=== PATIENT | female | born 1975 | race Caucasian/White ===

== ENCOUNTER 2022-09-22 06:25 | Day surgery (SDC) | payer MEDICAID, SELFPAY ==
[2022-09-22] VITALS (9 sets, daily range): BP systolic 104–136; BP diastolic 73–94; PULSE 70–81; RESP 12–18; TEMP 36.4–36.6; O2SAT 93–99; BMI 35.4
[2022-09-22 06:55] LABS: Internal QC Validated? YES +Cl - CLEAR BKGD; Pregnancy, Urine Negative Negative
[2022-09-22] MEDS: Lactated Ringers 1,000 ML 15 ML IV ×3 (07:06→11:44)
--- NOTE | 2022-09-22 07:32 | HP.PCM_ITS ---
History and Physical Date of Admission: 09/22/22 HISTORY OF PRESENT ILLNESS 47 year old woman presents for evaluation of painful soft tissue masses on her proximal lateral thighs bilaterally with extension toward the hip. She states that they have gradually gotten larger over that few years and have become painful over the past several months, especially when sleeping on that side or brisk walking.? The area on the right lateral thigh is more painful than the left lateral thigh. She denies any trauma to the areas.? She denies any fever.? She denies any drainage.? She comes in today for further evaluation and surgical options for treatment. PAST MEDICAL HISTORY Back problem Dysesthesia of multiple sites Mass of left thigh/hip Mass of right thigh/hip PAST SURGICAL HISTORY History of cholecystectomy ALLERGIES No Known Allergies MEDICATIONS ibuprofen thyroid FAMILY HISTORY Other - Asthma, Hypertension SOCIAL HISTORY Smoking Status:? Never smoker alcohol intake:? never substance use type:? does not use REVIEW OF SYSTEMS General - Denies fever, and weight loss. Complains about having fatigue. Eyes - Denies cataracts and glaucoma. ENT - Denies nasal congestion and sore throat. Endocrine - Denies excessive thirst and urination. She states that she has heat/cold intolerance. Skin - Denies suspicious lesions and skin cancer. She has concerns about enlarging, painful bilateral lateral thigh soft tissue masses with extension to the hip. The right is more painful than the left, especially when she sleeps or is brisk walking. Musculoskeletal - Denies joint pain, joint stiffness, weakness of muscles and joints,? and arthritis. She has intermittent back pain. Neuro - Denies headaches. Cardiovascular - Denies chest pain, fatigue, and shortness of breath with exertion. Psych - Denies anxiety and depression. Respiratory - Denies chronic cough and shortness of breath. Gastrointestinal - Denies nausea, vomiting, diarrhea, and constipation. History of gallstones and cholecystectomy. Hematologic - Denies abnormal bruising and bleeding. Genitourinary - Denies hematuria and urinary frequency. PHYSICAL EXAMINATION General - Alert and oriented. HEENT - PERRL. EOMI. Throat is clear. Neck - Supple and non-tender.? No cervical adenopathy. Lungs- Clear to auscultation. Heart - Regular rate and rhythm. Abdomen - Soft and non distended. Extremities - FROM. No axillary adenopathy.? Radial pulses are palpable.? On the bilateral aspect of her proximal thighs bilaterally with extension up toward the hip are two soft issue masses.? They are firm.? They are mobile.? No evidence of infection.? They are tender to palpation, worse on the right. ? The soft tissue mass on the right measures 18 x 17 cm and the soft tissue mass on the left measures 19 cm x 16 cm.? Neuro - CN II-XII grossly intact. Psych - Normal mood and affect. ASSESSMENT 1.? 18 cm painful soft tissue mass right proximal lateral thigh with extension toward the hip. 2.? 19 cm painful soft tissue mass left proximal lateral thigh with extension toward the hip. PLAN Patient has enlarging painful soft tissue masses on her bilateral proximal lateral thighs with extension toward the hip.? Recommend excision of these painful soft tissue masses and send them to Pathology for analysis to rule out carcinoma. Due to the large sizes of the cavities after surgery, a drain will be placed in each wound for 7-10 days to minimize seroma formation.? Thomas absorbable hemostat will also be used to minimize seroma formation.? She will need compression for 6 weeks.? She will be measured for a thigh high up to mid abdomen compression garment to be worn postoperatively. Depending on the condition of the wounds, some power assisted lipoplasty may be done to help to feather out the wound edges. Surgery will be done under general anesthesia on an outpatient basis. Will proceed with one side at a time.? Since the right side is more painful, will do that side first. Patient was informed of the risks and complications of the procedure including alternatives to surgery.? These were discussed with the patient personally.? Patient voices understanding and wishes to proceed. Some of the risks and complications were included in a form from the [employer].
--- NOTE | 2022-09-22 08:00 | TISS_PTH ---
PATIENT: MICHELLE PUTNAM [place] [facility] [place][id number] AGE/SX: 47/F ROOM: RE09/22/[address]: Dr. Francisco Kraft MD : 1975 BED: DIS: 09/22/2022 SPEC #: [id number] RECD: 09/22/22 10:44 STATUS: ZENAIDA REQ #: [id number] EDGARDO: 09/22/22 08:[address]: Francisco Kraft DEPT: SURGICAL PATHOLOGY RECD BY: Delmi Cordova ENTERED: 09/22/22 10:58 SP TYPE: Tissue Bx OTHR DR: No Primary Care Phys Tissues: TISSUE SURGICALLY REMOVED Procedures: Surgery Specimen Level III HEADER OPERATION: Excision painful soft tissue mass hip/proximal thigh PRE-OP DIAGNOSIS: 18 cm painful soft tissue mass right lateral thigh with extension toward hip TISSUE SUBMITTED: Soft tissue mass right lateral thigh with extension toward hip MICROSCOPIC DIAGNOSIS Soft tissue mass right lateral thigh, excision: Mature adipose tissue, consistent with lipoma. KIM:julia 09/24/2022 MICROSCOPIC DESCRIPTION Slides are reviewed. GROSS DESCRIPTION Received in fixative is one container labeled with the patient's name and designated soft tissue mass right lateral thigh with extension toward hip. The specimen consists of an irregular piece of yellow adipose tissue measuring 16 x 15 x 6 cm. Also present in the container are detached pieces of adipose tissue measuring in aggregate 10 x 9 x 3 cm. Sections reveal a focal area of hemorrhage without area of necrosis or cystic degeneration. Warehouse Operations Manager sections are submitted in six cassettes. / KIM:julia 09/23/2022 TC:1 CPT: 54044
[2022-09-22] MEDS: Cefazolin 2 GM in 0.9% Normal Saline 100 ML IV (08:22)
[2022-09-22] MEDS: Lidocaine 2% /Epi 1:100 (20ml) 20 ML VIAL (08:48)
[2022-09-22] MEDS: Mupirocin Ointment 22gm Tube 1 APPLIC (10:43)
--- NOTE | 2022-09-22 10:46 | PCM.OPRPT ---
Problems Associated Problem List Diagnoses (1) Mass of right thigh: (2) Mass of right hip region: (3) Dysesthesia of multiple sites: Report of Operation Date of Procedure: 09/22/22 Pre-Operative Diagnosis: 18 cm painful soft tissue mass right proximal lateral thigh with extension toward the hip. Post-Operative Diagnosis: 18 cm painful subfascial soft tissue mass right proximal lateral thigh with extension toward the hip. Surgery/Procedure Performed:: Excision 18 cm painful subfascial soft tissue mass right proximal lateral thigh with extension toward the hip with 11 cm complex closure repair. Description of Surgical Findings:: 7 year old woman presents for evaluation of painful soft tissue masses on her proximal lateral thighs bilaterally with extension toward the hip. She states that they have gradually gotten larger over that few years and have become painful over the past several months, especially when sleeping on that side or brisk walking.? The area on the right lateral thigh is more painful than the left lateral thigh. She denies any trauma to the areas.? She denies any fever.? She denies any drainage.? She comes in today for further evaluation and surgical options for treatment. Patient was informed of the risks and complications of the procedure including alternatives to surgery. These were discussed with the patient personally. Patient voices understanding and wishes to proceed. Some of the risks and complications were included in a form from the [employer]. I used Thomas absorbable hemostat, (I used 3 vials). Reference Number - [id number]. Lot Number - [id number]. Expiration - June 10, 2027. Reference Number - [id number]. Lot Number - [id number]. Expiration - April 10, 2027. Reference Number - [id number]. Lot Number - [id number]. Expiration - May 11, 2027. Surgeon: Francisco Kraft metal shaping machine operator: Imer Flores RNFA. metal shaping machine operator: ELAINE Baron Student. Type of Anesthesia: General Anesthesiologist: Wolf Mcclendon MD and Teodora Maradiaga CRNA. Specimen's removed: Painful subfascial soft tissue mass right proximal lateral thigh with extension toward the hip to Pathology. Drains: Michael. Estimated Blood Loss (mL): 150. Description of Procedure: Patient was taken to OR in supine position and was placed under general anesthesia. She was placed in the lateral position. The painful soft tissue mass right proximal lateral thigh with extension toward the hip was prepped and draped in the usual fashion. SCD's were placed for DVT prophylaxis. Perioperative antibiotics were given intravenously. A curvilinear marking was made. Using xylocaine with epinephrine, the marking was infiltrated. After waiting 5 minutes for the anesthetic to take effect, incision was made into the subcutaneous tissue until the level of Gisselle's fascia. The fascia was slightly thickened. Incision was made and the soft tissue mass was visible. Fibrous septa was noted throughout the soft tissue mass which could explain some of the pain. The soft tissue was sharply dissected at the level of Gisselle's fascia down to the tensor fascial heidi. The mass was adherent to the tensor fascia heidi. No deeper infiltration was noted. Using sharp dissection, the mass was excised off the tensor fascia heidi as the fibrous septa were released and sent to Pathology for analysis to rule out carcinoma. Hemostasis was obtained with electrocautery. The wound was irrigated with saline. I was able to do direct excision feathering at the edges of the wound, so no additional feathering with power assisted lipoplasty was needed at this time. A size 15 Michael drain was placed into the wound through a separate stab incision inferiorly and secured to the skin with 3-0 Nylon purse string suture. I sprayed the wound with Thomas absorbable hemostat to minimize seroma formation. I used three vials of Thomas. The wound was then closed in a multilayered complex closure with 3-0 Monocryl figure of eight interrupted sutures for the deep Gisselle's fascia. The deep dermis and subcutaneous tissue was approximated with 3-0 Monocryl interrupted sutures. The skin was approximated with 3-0 Prolene simple interrupted and vertical mattress interrupted sutures. Antibiotic ointment was applied to the incision followed by Kerlix gauze dressing and a compression mary kay wrap. The length of the complex closure repair was 11 cm. Patient tolerated the procedure well and was sent to PACU in satisfactory condition. Patient will be sent home on antibiotics and pain medication. Patient will followup in a week for a wound check and for discussion of the pathology report. Will remove the drain in approximately 10 days. Will remove the sutures in 2 weeks. Will keep her right leg elevated when sitting. Will put the patient into the compression garment that she will wear for at least 6 weeks. Grafts/Implants Used: Thomas. Procedure Start Time: 08:48 Procedure Stop Time: 11:03 Complications None. Admit VTE Documentation VTE Present on Admission: No VTE Mechan Device Prophylaxis: SCD's VTE Pharm Prophylaxis ordered?: No Addendum Addendum: Surgery Charges CPT - 38287 ICD-10 - R22.41, R20.8 17706 R22.41, R20.8 97737 R22.41, R20.8 51584 R22.41, R20.8
--- NOTE | 2022-09-22 11:52 | PCM.DC ---
Discharge Instructions Diet Discharge Diet: No restrictions Activity Discharge Activity: May Not Shower (until the drain is removed.) and - (elevate right leg when sitting.) May shower in (days): 10 (after the operative drain is removed.) May resume sexual activity in: 10-14 days (after the operative drain is removed.) Weight Bearing Status: Weight bearing as tolerated Keep extremity elevated above heart level: Right Leg (when sitting.) Dressing / Incision Call your doctor if your incision/area has: Continuous Slow Oozing, Sudden Increased Bleeding, Increased Pain/ Swelling, Increased Redness, Foul Smelling Discharge and Swelling at the incision site Call your doctor if you observe: Fever of 101 or Higher, Coldness, Increased Pain, Shortness of breath, Chest pain, Calf discomfort and Uncontrolled pain Change Dressing in: leave in place till F/U (will remove the operative dressing in the office and place the compression garment.) Remove Dressing in: leave in place till F/U (will remove the operative dressing in the office and place the compression garment.) Cleanse incision/area with: Keep Dressing Clean & Dry (can get incision wet in the shower after the operative drain is removed.) Drain: Suction (jose luis drain to bulb suction. Empty and record drainage daily.) Follow Up Care Please Follow Up With: Francisco Kraft MD When: Tuesday09/28/22. Call [phone] for appt time. Test Results: Test results from this visit will be discussed in further detail at your follow-up appointment, if applicable. Discharge Plan Admission Primary Reason for Your Visit: excision painful soft tissue mass right proximal lateral thigh/hip Attending Provider: Francisco Kraft Primary Care Provider: Care Physician,No Primary Discharge Orders/Prescriptions Prescriptions: New cefadroxil 500 mg capsule 1,000 mg PO BID Qty: 28 0RF L.acidoph,saliva-B.bif-S.therm [Acidophilus Probiotic Blend] 175 mg capsule 1 cap PO DAILY Qty: 20 0RF oxycodone-acetaminophen [Percocet] 5-325 mg tablet 1 tab PO Q6H PRN (Reason: pain (scale score 7-10)) 7 Days Qty: 28 0RF Rx Instructions: 28 tabs (twenty-eight) Continued thyroid 60 mg tablet 60 mg PO DAILY Referrals / Follow Up: Francisco Kraft MD [Med Staff - Active Staff] - (followup tuesday09/28/22.) Care Physician,No Primary [Primary Care Provider] - Disposition Disposition (needs filled in before D/C Order can be placed): Home, Self Care
== END 2022-09-22 14:10 | disposition home or self-care (01) ==
LOC: SDC 06:27 → AC 06:28
PROVIDERS: Anesthesiology; Referring Provider Surgery; Visit Provider Surgery
PROC: (CPT 27339; principal; 2022-09-22 07:45)
DX: D17.23 Benign lipomatous neoplasm of skin and subcutaneous tissue of right leg (principal); R20.8 Other disturbances of skin sensation; R22.42 Localized swelling, mass and lump, left lower limb; M79.605 Pain in left leg; M79.604 Pain in right leg
CPT/HCPCS: 27339; 01250; 88305; 81025; 88304; J7030; J7120; J2405

== ENCOUNTER 2022-11-01 13:15 | Outpatient (RCR) | payer MEDICAID, SELFPAY ==
[2022-10-18 10:19] VITALS: BP 117/77; PULSE 90; TEMP 35.7; BMI 34.2
[2022-10-19 11:46] VITALS: BP 133/98; PULSE 72; RESP 16; TEMP 36.1; BMI 34.2
--- NOTE | 2022-10-19 23:48 | PN.PCM_ITS ---
History of Present Illness Date of Service: 10/18/22 Chief Complaint: Nonhealing surgical wound right lateral thigh with extension toward the hip with draining seroma. History of Wound: 47 year old woman had surgery on 09/22/22 where she underwent excision 18 cm painful subfascial soft tissue mass right proximal lateral thigh with extension toward the hip with 11 cm complex closure repair. Postoperatively her initial healing was good. She had a drain in that was eventually removed on October 12, 2022. She also wore a compression garment after surgery. 3 days after her drain was pulled on October 15, 2022 she noticed drainage coming from the central aspect of the incision. She came to the office over the weekend for dressing changes. Since the drainage was still persistent at the end of the weekend, she would need a VAC to help control the drainage in order for the wound to heal. Getting a VAC approved is a little quicker when done by the Wound Center. So she presents today for continued wound care right proximal lateral thigh with extension toward the hip. She is scheduled to have a large painful soft tissue mass excised from her left proximal lateral thigh with extension toward the hip on November 10, 2022. At that time, the right proximal lateral thigh with extension toward the hip will be revised and secondarily closed. Progress of Wound: Surgical wound right proximal lateral thigh with extension toward the hip was opened up the length of the incision to make the wound care easier with the VAC and to help control the draining seroma. Objective Data Objective Data Vital Signs: Vital Signs Temp Pulse Resp BP O2 Del Method 96.9 F L 72 16 133/98 H Room Air 10/19/22 11:46 10/19/22 11:46 10/19/22 11:46 10/19/22 11:46 10/19/22 11:46 Oxygen Delivery Method Room Air Weight: 232 lb Body Mass Index (BMI) 34.2 Lab / Micro Data Attestation: I reviewed the patient's lab results. Micro: Microbiology 10/18/22 10:45 Wound Abcess - Hip Gram Stain - Final 10/18/22 10:45 Wound Abcess - Hip Wound Culture - Preliminary Gram positive organism Charges/Coding Addendum Addendum: VISIT CHARGES CPT - 59783 Debridement Note Debridement Note Wound debrided: #1 Right proximal lateral thigh with extension toward the hip. Laterality: Right Wound Grade/Stage: 2. Type of Debridement: Selective debridement (The selective debridement started after I opened up the entire incision to make the VAC easier to apply.) Anesthesia Used: 4% Lidocaine Solution Depth: Down to and including healthy tissue Percentage of wound debrided: 100 Instrument Used: - (I used 4x4 gauze to help remove any loose debris and seromatous exudate after I opened up the entire incision with my finger) Tissue Removed: down to and including healthy tissue. Severity: Limited To Skin Breakdown Amount of bleeding with debridement: Mild Bleeding Controlled with: Compression and gauze and Silver Nitrate Patient tolerated procedure: Patient tolerated procedure well Post-Debridement Measurements and Additional Note: Post-Debridement Measurements/Treatment - Nurse 1 - General Ulcer Assessment Start: 10/18/22 10:18 Freq: Status: Active Protocol: RADHA Activity Type Activity Date Activity User E-sign Co-sign Detail Recorded Client Recorded Date Recorded By Document 10/18/22 10:19 NM [id number] 10/18/22 10:43 NM Document 10/19/22 11:46 [facility] [id number] 10/19/22 11:48 [facility] 10/18/22 10/19/22 10:19 11:46 - Today's Visit Information Type of service Initial Visit Nurse-only Visit Arrival Mode Ambulatory Ambulatory Transfer Assistance None Patient Identification Verified (Name & Yes Yes ) Patient Requires Transmission-Based No No Precautions Height and Weight Height 5 ft 9 in Weight 232 lb Weight in Pounds 232.0 lbs Body Mass Index (BMI) 34.2 34.2 BMI Classification Obese Obese BSA - Kacie 2.20 Vital Signs Temperature (97.8 F-99.1 F) 96.3 F L 96.9 F L Temperature Source Temporal Temporal Pulse Rate (60-100) 90 72 Pulse Location Monitor Monitor Respiratory Rate (12-18) 16 Respiratory rate source Observation Oxygen Delivery Method Room Air Blood Pressure (90/60-120/80) 117/77 133/98 H Blood Pressure Mean (mm Hg) 90 109 Source Monitor Monitor Position Sitting Blood Pressure Location Left Arm History Since Last Visit- (Skip if this is Patient's initial visit) Have you changed medications since your No last visit? Any new allergies or adverse reactions No Had a fall/change in ADL's that may No increase risk of falls Signs or symptoms of abuse and/or No neglect since last visit Have you been in the hospital since your No last visit? Has dressing in place as prescribed No Has compression in place as prescribed N/A Has offloadiing in place as prescribed N/A Experienced any changes in pain level or No management Left Footwear Regular Shoe Regular Shoe Right Footwear Regular Shoe Regular Shoe Pain Scale: 0-10 Numeric Is Patient Pain Free? Yes Yes WC - Nurse 1 - General Ulcer Measurement Start: 10/18/22 10:18 Freq: Status: Active Protocol: Activity Type Activity Date Activity User E-sign Co-sign Detail Recorded Client Recorded Date Recorded By Document 10/18/22 10:19 BRYCE [id number] 10/18/22 10:43 AK 10/18/22 10:19 Wound Center Nurse 1 #1 lateral thigh cluster -Combined with other wound No -Current Size (cm) - Length 15.5 -Current Size (cm) - Width 0.5 -Current Size (cm) - Depth 5.5 -Total Square Cm 7.75 -Date of Last Picture (Recall this 10/18/22 field) -Photo Taken Yes -Tunneling Yes -Tunneling Position (O'clock) 12 -Tunneling Distance (cm) 12 -Tunneling Position #2 (O'clock) 6 -Tunneling Distance #2 (cm) 7 -Undermining/Tunneling No -Circular Undermining No -Change in Wound Grade/Stage No -Exudate Amt Large -Exudate Type Yellow/Green -Granulation Amt None Present (0 %) -Granulation Quality N/A -Slough/Fibrin No -Necrosis Amt Large (67-100%) -Necrotic Tissue Type Adherent Slough -Structure Exposed N/A -Texture (Laurence-wound Skin Appearance) Assessed, Scarring -Moisture (Laurence-wound Skin Appearance) Assessed, Weeping -Color (Laurence-wound Skin Appearance) No Abnormality, Assessed -Temperature (Laurence-wound Skin No Abnormality Appearance) (Pt Warm) -Tenderness on Palpation (Laurence-wound No Skin Appearance) -Foul Odor after Cleansing No -Anesthetic Used 5% Lidocaine Gel WC - Nurse 2 - General Ulcer CM Notes Start: 10/18/22 10:18 Freq: Status: Active Protocol: Activity Type Activity Date Activity User E-sign Co-sign Detail Recorded Client Recorded Date Recorded By Document 10/18/22 11:07 RODOLFO [id number] 10/18/22 11:10 10/18/22 11:07 Wound Center Nurse 2 -Time 11:07 -Correct Patient Yes -Correct Side, Site, Position Yes -Correct Procedure Yes -Procedure Performed Yes -Type of Procedure Debridement -Clinical Debridement Epidermis / Dermis -Tissue Removed Epidermis, Dermis -Post Debridement (cm) - Length 12.5 -Post Debridement (cm) - Width 2.5 -Post Debridement (cm) - Depth 7.5 -Total Square (Post) (cm) 31.25 -Area of Debridement (cm) - Length 12.5 -Area of Debridement (cm) - Width 2.5 -Total Square (Area) (cm) 31.25 -Tunneling No -Undermining/Tunneling No -Circular Undermining No -Wound/Ulcer Outcome Not Healed -Ulcer Cleansing Rinsed/ Irrigated with Saline -Foul Odor after Cleansing No -Bioengineered Tissue No -Bleeding Controlled with Pressure -Treatment Response Procedure Tolerated Well -Offloading No -Debridement - Open, 1st 20sq cm Yes -Debridement, Open, ea addt'l 20sq cm 1 or part thereof Pain Scale: 0-10 Numeric Is Patient Pain Free? Yes WC - Nurse 3 - General Ulcer D/C NN Start: 10/18/22 10:18 Freq: Status: Active Protocol: Activity Type Activity Date Activity User E-sign Co-sign Detail Recorded Client Recorded Date Recorded By Document 10/18/22 10:19 AK [id number] 10/18/22 10:43 AK Document 10/18/22 11:18 DL [id number] 10/18/22 11:20 DL Document 10/19/22 11:46 [facility] [id number] 10/19/22 11:48 BMF 10/18/22 10/18/22 10/19/22 10:19 11:18 11:46 Vital Signs Temperature (97.8 F-99.1 F) 96.3 F L 96.9 F L Temperature Source Temporal Temporal Pulse Rate (60-100) 90 72 Pulse Location Monitor Monitor Respiratory Rate (12-18) 16 Respiratory rate source Observation Oxygen Delivery Method Room Air Blood Pressure (90/60-120/80) 117/77 133/98 H Blood Pressure Mean (mm Hg) 90 109 Source Monitor Monitor Position Sitting Blood Pressure Location Left Arm Pain Scale: 0-10 Numeric Is Patient Pain Free? Yes Yes Yes Wound Care Nurse 3 #1 lateral thigh cluster -Ulcer Cleansing Soap and Water Soap and Water -Foul Odor after Cleansing No No -Primary Dressing Applied Optilok 8x12 -Other Dressing dakins dakins moist gauze -Primary Dressing Covered/Secured with Dry Gauze, Secured with Secured with Tape Tape -Other Covering abd -Optilok 8x12 3 Treatment Response Procedure Procedure Tolerated Well Tolerated Well WC - Visit Discharge Discharge Condition Stable Stable Ambulatory Status Ambulatory Ambulatory Transportation Private Auto Private Auto Notes: Packed with dakins today and until NPT arrives. Assessment/Plan Assessment/Plan (1) Mass of right hip region: CODE(S): R22.41 - Localized swelling, mass and lump, right lower limb (2) Mass of right thigh: CODE(S): R22.41 - Localized swelling, mass and lump, right lower limb (3) Pain in right leg: CODE(S): M79.604 - Pain in right leg (4) Lipoma of right lower extremity: CODE(S): D17.23 - Benign lipomatous neoplasm of skin and subcutaneous tissue of right leg (5) Status post excision of lipoma: CODE(S): Z98.890 - Other specified postprocedural states; Z86.018 - Personal history of other benign neoplasm (6) Postoperative seroma of subcutaneous tissue after dermatologic procedure: CODE(S): L76.33 - Postprocedural seroma of skin and subcutaneous tissue following a dermatologic procedure (7) Nonhealing surgical wound: CODE(S): T81.89XA - Other complications of procedures, not elsewhere classified, initial encounter PLAN: Plan After opening the incision the entire length and obtaining hemostasis with silver nitrate chemical cauterization. The wound would benefit from the use of the VAC. In the meantime, will start daily Dakin's dressing changes until the VAC becomes approved. Home Health will assist with the VAC. A wound culture was obtained today. A positive culture will necessitate antibiotic therapy. She is scheduled for a similar surgery on her left proximal lateral thigh with extension toward the hip on November 10, 2022. By using the VAC, the right proximal lateral thigh with extension toward the hip wound should exhibit improved healing with granulation tissue and without evidence of infection. We should be able to proceed with revision of the wound with surgical preparation and excisional debridement with complex secondary wound closure. We may place the VAC on the incision postoperatively to help draw out any postoperative drainage and maximize her healing. With the size of the wound and the recent surgery, there will be increased metabolic demands. Encouraged the patient to maximize nutritional supplementation with protein to help the healing process. Followup one week.
[2022-10-25 14:18] VITALS: BP 134/68; TEMP 36.2; BMI 34.2
--- NOTE | 2022-10-25 15:05 | PCM.WC.PN ---
History of Present Illness Date of Service: 10/25/22 Chief Complaint: Nonhealing surgical wound right lateral thigh with extension toward the hip with draining seroma. History of Wound: 47 year old woman had surgery on 09/22/22 where she underwent excision 18 cm painful subfascial soft tissue mass right proximal lateral thigh with extension toward the hip with 11 cm complex closure repair. Postoperatively her initial healing was good. She had a drain in that was eventually removed on October 12, 2022. She also wore a compression garment after surgery. 3 days after her drain was pulled on October 15, 2022 she noticed drainage coming from the central aspect of the incision. She came to the office over the weekend for dressing changes. Since the drainage was still persistent at the end of the weekend, she would need a VAC to help control the drainage in order for the wound to heal. She presents today for continued wound care right proximal lateral thigh with extension toward the hip. She is scheduled to have a large painful soft tissue mass excised from her left proximal lateral thigh with extension toward the hip on November 10, 2022. At that time, the right proximal lateral thigh with extension toward the hip will be revised and secondarily closed. Wound care - Wound VAC at 150 mmHg to be changed 3 times per week. Today she denies any complaints of fever, chills, nausea, vomiting or any pain. Progress of Wound: Surgical wound right proximal lateral thigh with extension toward the hip is pink with some fat necrosis on the anterior edge of the incision. There is undermining around the entire circumference of the wound opening. Objective Data Objective Data Vital Signs: Vital Signs Temp Pulse Resp BP O2 Del Method 97.2 F L 72 16 134/68 H Room Air 10/25/22 14:18 10/19/22 11:46 10/19/22 11:46 10/25/22 14:18 10/19/22 11:46 Oxygen Delivery Method Room Air Weight: 232 lb Body Mass Index (BMI) 34.2 Lab / Micro Data Micro: Microbiology 10/18/22 10:45 Wound Abcess - Hip Gram Stain - Final 10/18/22 10:45 Wound Abcess - Hip Wound Culture - Final Staphylococcus epidermidis Corynebacterium amycolatum 10/18/22 10:45 Wound Abcess - Hip Anaerobic Culture - Final No anaerobic bacteria isolated. Charges/Coding Procedures Integumentary [id number]: 97408 Global Visit Debridement Note Debridement Note Wound debrided: lateral thigh Laterality: Right Wound Grade/Stage: Stage IV Type of Debridement: Excisional debridement Anesthesia Used: 5% Lidocaine Gel Depth: Down to and including healthy tissue, in the subcutaneous layer and to muscle Percentage of wound debrided: 100 Instrument Used: 7mm curette Tissue Removed: Devitalized tissue and slough Severity: Fat Layer Exposed Amount of bleeding with debridement: Mild Bleeding Controlled with: Compression and gauze Patient tolerated procedure: Patient tolerated procedure well Post-Debridement Measurements and Additional Note: Post-Debridement Measurements/Treatment - Nurse 1 - General Ulcer Assessment Start: 10/18/22 10:18 Freq: Status: Active Protocol: RADHA Activity Type Activity Date Activity User E-sign Co-sign Detail Recorded Client Recorded Date Recorded By Document 10/18/22 10:19 ID [id number] 10/18/22 10:43 ID Document 10/19/22 11:46 [facility] [id number] 10/19/22 11:48 [facility] Document 10/25/22 14:18 ID [id number] 10/25/22 14:32 ID 10/18/22 10/19/22 10/25/22 10:19 11:46 14:18 - Today's Visit Information Type of service Initial Visit Nurse-only Follow-up Visit Visit (Physician/CLINICAL SUPPORT NURSE ) Arrival Mode Ambulatory Ambulatory Ambulatory Transfer Assistance None Patient Identification Verified (Name & Yes Yes Yes ) Patient Requires Transmission-Based No No No Precautions Safety Precautions NA Height and Weight Height 5 ft 9 in Weight 232 lb Weight in Pounds 232.0 lbs Body Mass Index (BMI) 34.2 34.2 34.2 BMI Classification Obese Obese Obese BSA - Kacie 2.20 Vital Signs Temperature (97.8 F-99.1 F) 96.3 F L 96.9 F L 97.2 F L Temperature Source Temporal Temporal Temporal Pulse Rate (60-100) 90 72 Pulse Location Monitor Monitor Respiratory Rate (12-18) 16 Respiratory rate source Observation Oxygen Delivery Method Room Air Blood Pressure (90/60-120/80) 117/77 133/98 H 134/68 H Blood Pressure Mean (mm Hg) 90 109 90 Source Monitor Monitor Monitor Position Sitting Blood Pressure Location Left Arm History Since Last Visit- (Skip if this is Patient's initial visit) Have you changed medications since your No No last visit? Any new allergies or adverse reactions No No Had a fall/change in ADL's that may No No increase risk of falls Signs or symptoms of abuse and/or No No neglect since last visit Have you been in the hospital since your No No last visit? Has dressing in place as prescribed No Yes Has compression in place as prescribed N/A Yes Has offloadiing in place as prescribed N/A N/A Experienced any changes in pain level or No No management Left Footwear Regular Shoe Regular Shoe Regular Shoe Right Footwear Regular Shoe Regular Shoe Regular Shoe Pain Scale: 0-10 Numeric Is Patient Pain Free? Yes Yes Yes WC - Nurse 1 - General Ulcer Measurement Start: 10/18/22 10:18 Freq: Status: Active Protocol: Activity Type Activity Date Activity User E-sign Co-sign Detail Recorded Client Recorded Date Recorded By Document 10/18/22 10:19 ID [id number] 10/18/22 10:43 AK Document 10/25/22 14:18 ID [id number] 10/25/22 14:32 AK 10/18/22 10/25/22 10:19 14:18 Wound Center Nurse 1 #1 right lateral thigh cluster -Combined with other wound No No -Current Size (cm) - Length 15.5 10 -Current Size (cm) - Width 0.5 3.5 -Current Size (cm) - Depth 5.5 1.5 -Total Square Cm 7.75 35.0 -Date of Last Picture (Recall this 10/18/22 10/25/22 field) -Photo Taken Yes Yes -Tunneling Yes Yes -Tunneling Position (O'clock) 12 12 -Tunneling Distance (cm) 12 4.5 -Tunneling Position #2 (O'clock) 6 10 -Tunneling Distance #2 (cm) 7 6.5 -Undermining/Tunneling No No -Maximum Distance (cm) 3.5 -Undermining/Tunneling Starts #2 (O' 6 clock) -Undermining/Tunneling Ends #2 (O' 3 clock) -Maximum Distance #2 (cm) 6.8 -Circular Undermining No No -Change in Wound Grade/Stage No No -Exudate Amt Large Large -Exudate Type Yellow/Green Yellow/Green -Wound Margin Distinct, Outline Attached -Granulation Amt None Present (0 Large (67-100%) %) -Granulation Quality N/A Red -Slough/Fibrin No Yes -Necrosis Amt Large (67-100%) Medium (34-66%) -Necrotic Tissue Type Adherent Slough Adherent Slough -Structure Exposed N/A N/A -Texture (Skye-wound Skin Appearance) Assessed, No Abnormality, Scarring Assessed -Moisture (Skye-wound Skin Appearance) Assessed, No Abnormality, Weeping Assessed -Color (Skye-wound Skin Appearance) No Abnormality, No Abnormality, Assessed Assessed -Temperature (Skye-wound Skin No Abnormality No Abnormality Appearance) (Pt Warm) (Pt Warm) -Tenderness on Palpation (Skye-wound No No Skin Appearance) -Ulcer Cleansing Soap and Water -Foul Odor after Cleansing No No -Anesthetic Used 5% Lidocaine 4% Lidocaine Gel Solution Lower Limb Edema Present No WC - Nurse 2 - General Ulcer CM Notes Start: 10/18/22 10:18 Freq: Status: Active Protocol: Activity Type Activity Date Activity User E-sign Co-sign Detail Recorded Client Recorded Date Recorded By Document 10/18/22 11:07 [id number] 10/18/22 11:10 Document 10/25/22 14:38 [id number] 10/25/22 14:46 10/18/22 10/25/22 11:07 14:38 Wound Center Nurse 2 #1 right lateral thigh cluster -Time 11:07 14:38 -Correct Patient Yes Yes -Correct Side, Site, Position Yes Yes -Correct Procedure Yes Yes -Procedure Performed Yes Yes -Type of Procedure Debridement Debridement -Clinical Debridement Epidermis / Muscle / Fascia Dermis -Tissue Removed Epidermis, Muscle,Fascia Dermis -Post Debridement (cm) - Length 12.5 11 -Post Debridement (cm) - Width 2.5 3.0 -Post Debridement (cm) - Depth 7.5 2.7 -Total Square (Post) (cm) 31.25 33.0 -Area of Debridement (cm) - Length 12.5 11 -Area of Debridement (cm) - Width 2.5 3.0 -Total Square (Area) (cm) 31.25 33.0 -Tunneling No No -Undermining/Tunneling No No -Circular Undermining No No -Wound/Ulcer Outcome Not Healed Not Healed -Ulcer Cleansing Rinsed/ Rinsed/ Irrigated with Irrigated with Saline Saline -Foul Odor after Cleansing No No -Bioengineered Tissue No No -Bleeding Controlled with Pressure Pressure -Treatment Response Procedure Procedure Tolerated Well Tolerated Well -Offloading No No -Debridement - Open, 1st 20sq cm Yes -Debridement, Open, ea addt'l 20sq cm 1 or part thereof -Debridement - Muscle / Fascia, 1st Yes 20sq cm -Debridement, Muscle/Fascia, ea addt'l 1 20sq cm or part thereof Pain Scale: 0-10 Numeric Is Patient Pain Free? Yes Yes - Nurse 3 - General Ulcer D/C NN Start: 10/18/22 10:18 Freq: Status: Active Protocol: Activity Type Activity Date Activity User E-sign Co-sign Detail Recorded Client Recorded Date Recorded By Document 10/18/22 10:19 AK [id number] 10/18/22 10:43 AK Document 10/18/22 11:18 DL [id number] 10/18/22 11:20 DL Document 10/19/22 11:46 BMF [id number] 10/19/22 11:48 BMF 10/18/22 10/18/22 10/19/22 10:19 11:18 11:46 Vital Signs Temperature (97.8 F-99.1 F) 96.3 F L 96.9 F L Temperature Source Temporal Temporal Pulse Rate (60-100) 90 72 Pulse Location Monitor Monitor Respiratory Rate (12-18) 16 Respiratory rate source Observation Oxygen Delivery Method Room Air Blood Pressure (90/60-120/80) 117/77 133/98 H Blood Pressure Mean (mm Hg) 90 109 Source Monitor Monitor Position Sitting Blood Pressure Location Left Arm Pain Scale: 0-10 Numeric Is Patient Pain Free? Yes Yes Yes Wound Care Nurse 3 #1 right lateral thigh cluster -Ulcer Cleansing Soap and Water Soap and Water -Foul Odor after Cleansing No No -Primary Dressing Applied Optilok 8x12 -Other Dressing dakins dakins moist gauze -Primary Dressing Covered/Secured with Dry Gauze, Secured with Secured with Tape Tape -Other Covering abd -Optilok 8x12 3 Treatment Response Procedure Procedure Tolerated Well Tolerated Well WC - Visit Discharge Discharge Condition Stable Stable Ambulatory Status Ambulatory Ambulatory Transportation Private Auto Private Auto Notes: Packed with dakins today and until NPT arrives. Assessment/Plan Assessment/Plan (1) Mass of right hip region: CODE(S): R22.41 - Localized swelling, mass and lump, right lower limb (2) Mass of right thigh: CODE(S): R22.41 - Localized swelling, mass and lump, right lower limb (3) Pain in right leg: CODE(S): M79.604 - Pain in right leg (4) Lipoma of right lower extremity: CODE(S): D17.23 - Benign lipomatous neoplasm of skin and subcutaneous tissue of right leg (5) Status post excision of lipoma: CODE(S): Z98.890 - Other specified postprocedural states; Z86.018 - Personal history of other benign neoplasm (6) Postoperative seroma of subcutaneous tissue after dermatologic procedure: CODE(S): L76.33 - Postprocedural seroma of skin and subcutaneous tissue following a dermatologic procedure (7) Nonhealing surgical wound: CODE(S): T81.89XA - Other complications of procedures, not elsewhere classified, initial encounter PLAN: Plan Patient was evaluated at the wound healing center today. Wound care - Wound VAC at 150 mmHg to be changed 3 times per week. The wound and skye wound need to be cleansed with soap and water at the time of the dressing change. Home Health will assist with the VAC. A wound culture was obtained 10/18/2022, she is being treated with Levaquin. She is scheduled for a similar surgery on her left proximal lateral thigh with extension toward the hip on November 10, 2022. By using the VAC, the right proximal lateral thigh with extension toward the hip wound should exhibit improved healing with granulation tissue and without evidence of infection. We should be able to proceed with revision of the wound with surgical preparation and excisional debridement with complex secondary wound closure. We may place the VAC on the incision postoperatively to help draw out any postoperative drainage and maximize her healing. With the size of the wound and the recent surgery, there will be increased metabolic demands. Encouraged the patient to maximize nutritional supplementation with protein to help the healing process. Encouraged patient to try and not be as active as she typically is. With increased activity, it will increase the amount of drainage. Followup one week.
[2022-11-01 13:13] VITALS: BP 127/79; PULSE 89; RESP 20; TEMP 36.6; BMI 34.2
--- NOTE | 2022-11-01 14:30 | PN.PCM_ITS ---
History of Present Illness Date of Service: 11/01/22 Chief Complaint: Nonhealing surgical wound right lateral thigh with extension toward the hip with draining seroma. History of Wound: 47 year old woman had surgery on 09/22/22 where she underwent excision 18 cm painful subfascial soft tissue mass right proximal lateral thigh with extension toward the hip with 11 cm complex closure repair. Postoperatively her initial healing was good. She had a drain in that was eventually removed on October 12, 2022. She also wore a compression garment after surgery. 3 days after her drain was pulled on October 15, 2022 she noticed drainage coming from the central aspect of the incision. She came to the office over the weekend for dressing changes. Since the drainage was still persistent at the end of the weekend, she would need a VAC to help control the drainage in order for the wound to heal. She presents today for continued wound care right proximal lateral thigh with extension toward the hip. She is scheduled to have a large painful soft tissue mass excised from her left proximal lateral thigh with extension toward the hip on November 10, 2022. At that time, the right proximal lateral thigh with extension toward the hip will be revised and secondarily closed. Wound care - Wound VAC at 150 mmHg to be changed 3 times per week. Today she denies any complaints of fever, chills, nausea, vomiting or any pain. Progress of Wound: Surgical wound right proximal lateral thigh with extension toward the hip is pink with some fat necrosis on the anterior edge of the incision. There is undermining around the entire circumference of the wound opening but it is smaller in size and depth. Objective Data Objective Data Vital Signs: Vital Signs Temp Pulse Resp BP O2 Del Method 97.8 F 89 20 H 127/79 H Room Air 11/01/22 13:13 11/01/22 13:13 11/01/22 13:13 11/01/22 13:13 10/19/22 11:46 Oxygen Delivery Method Room Air Weight: 232 lb Body Mass Index (BMI) 34.2 Lab / Micro Data Micro: Microbiology 10/18/22 10:45 Wound Abcess - Hip Gram Stain - Final 10/18/22 10:45 Wound Abcess - Hip Wound Culture - Final Staphylococcus epidermidis Corynebacterium amycolatum 10/18/22 10:45 Wound Abcess - Hip Anaerobic Culture - Final No anaerobic bacteria isolated. Charges/Coding Procedures Integumentary [id number]: [id number] Global Visit Debridement Note Debridement Note Wound debrided: lateral thigh Laterality: Right Wound Grade/Stage: Stage IV Type of Debridement: Excisional debridement Anesthesia Used: 5% Lidocaine Gel Depth: Down to and including healthy tissue, in the subcutaneous layer and to muscle Percentage of wound debrided: 100 Instrument Used: 7mm curette Tissue Removed: Devitalized tissue and slough Severity: Fat Layer Exposed Amount of bleeding with debridement: Mild Bleeding Controlled with: Compression and gauze Patient tolerated procedure: Patient tolerated procedure well Post-Debridement Measurements and Additional Note: Post-Debridement Measurements/Treatment - Nurse 1 - General Ulcer Assessment Start: 10/18/22 10:18 Freq: Status: Active Protocol: RADHA Activity Type Activity Date Activity User E-sign Co-sign Detail Recorded Client Recorded Date Recorded By Document 10/18/22 10:19 [place] [id number] 10/18/22 10:43 [place] Document 10/19/22 11:46 [facility] [id number] 10/19/22 11:48 [facility] Document 10/25/22 14:18 [place] [id number] 10/25/22 14:32 [place] Document 11/01/22 13:13 DL [id number] 11/01/22 13:25 DL 10/18/22 10/19/22 10/25/22 10:19 11:46 14:18 - Today's Visit Information Type of service Initial Visit Nurse-only Follow-up Visit Visit (Physician/[employer]TER ) Arrival Mode Ambulatory Ambulatory Ambulatory Transfer Assistance None Patient Identification Verified (Name & Yes Yes Yes ) Patient Requires Transmission-Based No No No Precautions Safety Precautions NA Height and Weight Height 5 ft 9 in Weight 232 lb Weight in Pounds 232.0 lbs Body Mass Index (BMI) 34.2 34.2 34.2 BMI Classification Obese Obese Obese BSA - Kacie 2.20 Vital Signs Temperature (97.8 F-99.1 F) 96.3 F L 96.9 F L 97.2 F L Temperature Source Temporal Temporal Temporal Pulse Rate (60-100) 90 72 Pulse Location Monitor Monitor Respiratory Rate (12-18) 16 Respiratory rate source Observation Oxygen Delivery Method Room Air Blood Pressure (90/60-120/80) 117/77 133/98 H 134/68 H Blood Pressure Mean (mm Hg) 90 109 90 Source Monitor Monitor Monitor Position Sitting Blood Pressure Location Left Arm History Since Last Visit- (Skip if this is Patient's initial visit) Have you changed medications since your No No last visit? Any new allergies or adverse reactions No No Had a fall/change in ADL's that may No No increase risk of falls Signs or symptoms of abuse and/or No No neglect since last visit Have you been in the hospital since your No No last visit? Has dressing in place as prescribed No Yes Has compression in place as prescribed N/A Yes Has offloadiing in place as prescribed N/A N/A Experienced any changes in pain level or No No management Left Footwear Regular Shoe Regular Shoe Regular Shoe Right Footwear Regular Shoe Regular Shoe Regular Shoe Pain Scale: 0-10 Numeric Is Patient Pain Free? 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 ) Arrival Mode Ambulatory Transfer Assistance None Patient Identification Verified (Name & Yes ) Patient Requires Transmission-Based No Precautions Safety Precautions Height and Weight Height Weight Weight in Pounds Body Mass Index (BMI) 34.2 BMI Classification Obese BSA - Kacie Vital Signs Temperature (97.8 F-99.1 F) 97.8 F Temperature Source Temporal Pulse Rate (60-100) 89 Pulse Location Monitor Respiratory Rate (12-18) 20 H Respiratory rate source Observation Oxygen Delivery Method Blood Pressure (90/60-120/80) 127/79 H Blood Pressure Mean (mm Hg) 95 Source Monitor Position Blood Pressure Location History Since Last Visit- (Skip if this is Patient's initial visit) Have you changed medications since your No last visit? Any new allergies or adverse reactions No Had a fall/change in ADL's that may No increase risk of falls Signs or symptoms of abuse and/or No neglect since last visit Have you been in the hospital since your No last visit? Has dressing in place as prescribed Yes Has compression in place as prescribed N/A Has offloadiing in place as prescribed N/A Experienced any changes in pain level or No management Left Footwear Right Footwear Pain Scale: 0-10 Numeric Is Patient Pain Free? Yes - Nurse 1 - General Ulcer Measurement Start: 10/18/22 10:18 Freq: Status: Active Protocol: Activity Type Activity Date Activity User E-sign Co-sign Detail Recorded Client Recorded Date Recorded By Document 10/18/22 10:19 AK [id number] 10/18/22 10:43 AK Document 10/25/22 14:18 AK [id number] 10/25/22 14:32 AK Document 11/01/22 13:13 DL [id number] 11/01/22 13:25 DL 10/18/22 10/25/22 11/01/22 10:19 14:18 13:13 Wound Center Nurse 1 #1 right lateral thigh cluster -Combined with other wound No No -Current Size (cm) - Length 15.5 10 9.2 -Current Size (cm) - Width 0.5 3.5 3 -Current Size (cm) - Depth 5.5 1.5 2.2 -Total Square Cm 7.75 35.0 27.6 -Date of Last Picture (Recall this 10/18/22 10/25/22 field) -Photo Taken Yes Yes Yes -Tunneling Yes Yes -Tunneling Position (O'clock) 12 12 -Tunneling Distance (cm) 12 4.5 -Tunneling Position #2 (O'clock) 6 10 -Tunneling Distance #2 (cm) 7 6.5 -Undermining/Tunneling No No -Maximum Distance (cm) 3.5 -Undermining/Tunneling Starts #2 (O' 6 clock) -Undermining/Tunneling Ends #2 (O' 3 clock) -Maximum Distance #2 (cm) 6.8 0.5 -Circular Undermining No No Yes -Change in Wound Grade/Stage No No -Exudate Amt Large Large Medium -Exudate Type Yellow/Green Yellow/Green Serosanguineous -Wound Margin Distinct, Distinct, Outline Outline Attached Attached -Granulation Amt None Present (0 Large (67-100%) Large (67-100%) %) -Granulation Quality N/A Red Red -Slough/Fibrin No Yes -Necrosis Amt Large (67-100%) Medium (34-66%) Small (1-33%) -Necrotic Tissue Type Adherent Slough Adherent Slough Adherent Slough -Structure Exposed N/A N/A N/A -Texture (Skye-wound Skin Appearance) Assessed, No Abnormality, Scarring Scarring Assessed -Moisture (Skye-wound Skin Appearance) Assessed, No Abnormality, No Abnormality Weeping Assessed -Color (Skye-wound Skin Appearance) No Abnormality, No Abnormality, No Abnormality Assessed Assessed -Temperature (Skye-wound Skin No Abnormality No Abnormality No Abnormality Appearance) (Pt Warm) (Pt Warm) (Pt Warm) -Tenderness on Palpation (Skye-wound No No Skin Appearance) -Ulcer Cleansing Soap and Water Soap and Water -Foul Odor after Cleansing No No -Anesthetic Used 5% Lidocaine 4% Lidocaine 4% Lidocaine Gel Solution Solution Lower Limb Edema Present No WC - Nurse 2 - General Ulcer CM Notes Start: 10/18/22 10:18 Freq: Status: Active Protocol: Activity Type Activity Date Activity User E-sign Co-sign Detail Recorded Client Recorded Date Recorded By Document 10/18/22 11:07 [id number] 10/18/22 11:10 Document 10/25/22 14:38 [id number] 10/25/22 14:46 Document 11/01/22 13:42 [id number] 11/01/22 13:45 10/18/22 10/25/22 11/01/22 11:07 14:38 13:42 Wound Center Nurse 2 #1 right lateral thigh cluster -Time 11:07 14:38 13:43 -Correct Patient Yes Yes Yes -Correct Side, Site, Position Yes Yes Yes -Correct Procedure Yes Yes Yes -Procedure Performed Yes Yes Yes -Type of Procedure Debridement Debridement Debridement -Clinical Debridement Epidermis / Muscle / Fascia Muscle / Fascia Dermis -Tissue Removed Epidermis, Muscle,Fascia Muscle,Fascia Dermis -Post Debridement (cm) - Length 12.5 11 9.7 -Post Debridement (cm) - Width 2.5 3.0 4.0 -Post Debridement (cm) - Depth 7.5 2.7 2.0 -Total Square (Post) (cm) 31.25 33.0 38.80 -Area of Debridement (cm) - Length 12.5 11 9.7 -Area of Debridement (cm) - Width 2.5 3.0 4.0 -Total Square (Area) (cm) 31.25 33.0 38.80 -Tunneling No No No -Undermining/Tunneling No No No -Circular Undermining No No Yes -Wound/Ulcer Outcome Not Healed Not Healed Not Healed -Ulcer Cleansing Rinsed/ Rinsed/ Rinsed/ Irrigated with Irrigated with Irrigated with Saline Saline Saline -Foul Odor after Cleansing No No No -Bioengineered Tissue No No No -Bleeding Controlled with Pressure Pressure Pressure -Treatment Response Procedure Procedure Procedure Tolerated Well Tolerated Well Tolerated Well -Offloading No No No -Debridement - Open, 1st 20sq cm Yes -Debridement, Open, ea addt'l 20sq cm 1 or part thereof -Debridement - Muscle / Fascia, 1st Yes Yes 20sq cm -Debridement, Muscle/Fascia, ea addt'l 1 1 20sq cm or part thereof Pain Scale: 0-10 Numeric Is Patient Pain Free? Yes Yes Yes WC - Nurse 3 - General Ulcer D/C NN Start: 10/18/22 10:18 Freq: Status: Active Protocol: Activity Type Activity Date Activity User E-sign Co-sign Detail Recorded Client Recorded Date Recorded By Document 10/18/22 10:19 AK [id number] 10/18/22 10:43 AK Document 10/18/22 11:18 DL [id number] 10/18/22 11:20 DL Document 10/19/22 11:46 [facility] [id number] 10/19/22 11:48 [facility] Document 10/25/22 15:33 AK [id number] 10/25/22 15:35 [place] Document 11/01/22 14:01 DL [id number] 11/01/22 14:03 DL 10/18/22 10/18/22 10/19/22 10:19 11:18 11:46 Vital Signs Temperature (97.8 F-99.1 F) 96.3 F L 96.9 F L Temperature Source Temporal Temporal Pulse Rate (60-100) 90 72 Pulse Location Monitor Monitor Respiratory Rate (12-18) 16 Respiratory rate source Observation Oxygen Delivery Method Room Air Blood Pressure (90/60-120/80) 117/77 133/98 H Blood Pressure Mean (mm Hg) 90 109 Source Monitor Monitor Position Sitting Blood Pressure Location Left Arm Pain Scale: 0-10 Numeric Is Patient Pain Free? Yes Yes Yes Wound Care Nurse 3 #1 right lateral thigh cluster -Ulcer Cleansing Soap and Water Soap and Water -Foul Odor after Cleansing No No -Negative Pressure Wound Therapy -Setting (mmHg) -Negative Pressure is -Regranex (If Applicable) -Primary Dressing Applied Optilok 8x12 -Other Dressing dakins dakins moist gauze -Primary Dressing Covered/Secured with Dry Gauze, Secured with Secured with Tape Tape -Other Covering abd -NPWT Application Charge -Optilok 8x12 3 Treatment Response Procedure Procedure Tolerated Well Tolerated Well WC - Visit Discharge Discharge Condition Stable Stable Ambulatory Status Ambulatory Ambulatory Transportation [facility] Accompanied by Medication Reconcilliation completed & provided to patient/care provider Clinical Summary of Care Provided Notes: Packed with dakins today and until NPT arrives. Facility Type Orders Sent 10/25/22 11/01/22 15:33 14:01 Vital Signs Temperature (97.8 F-99.1 F) Temperature Source Pulse Rate (60-100) Pulse Location Respiratory Rate (12-18) Respiratory rate source Oxygen Delivery Method Blood Pressure (90/60-120/80) Blood Pressure Mean (mm Hg) Source Position Blood Pressure Location Pain Scale: 0-10 Numeric Is Patient Pain Free? No Yes Wound Care Nurse 3 #1 right lateral thigh cluster -Ulcer Cleansing Soap and Water Rinsed/ Irrigated with Saline -Foul Odor after Cleansing No No -Negative Pressure Wound Therapy N/A Continue -Setting (mmHg) 150 150 -Negative Pressure is Continuous Continuous -Regranex (If Applicable) Continue -Primary Dressing Applied -Other Dressing -Primary Dressing Covered/Secured with -Other Covering -NPWT Application Charge NPWT & NPWT </= 50 sq Debridement (nc cm ($) ) -Optilok 8x12 Treatment Response Procedure Tolerated Well WC - Visit Discharge Discharge Condition Stable Stable Ambulatory Status Ambulatory Ambulatory Transportation [facility] Accompanied by daughter Medication Reconcilliation completed & Yes provided to patient/care provider Clinical Summary of Care Provided Yes Notes: Facility Type Home Health Orders Sent Yes Assessment/Plan Assessment/Plan (1) Mass of right hip region: CODE(S): R22.41 - Localized swelling, mass and lump, right lower limb (2) Mass of right thigh: CODE(S): R22.41 - Localized swelling, mass and lump, right lower limb (3) Pain in right leg: CODE(S): M79.604 - Pain in right leg (4) Lipoma of right lower extremity: CODE(S): D17.23 - Benign lipomatous neoplasm of skin and subcutaneous tissue of right leg (5) Status post excision of lipoma: CODE(S): Z98.890 - Other specified postprocedural states; Z86.018 - Personal history of other benign neoplasm (6) Postoperative seroma of subcutaneous tissue after dermatologic procedure: CODE(S): L76.33 - Postprocedural seroma of skin and subcutaneous tissue following a dermatologic procedure (7) Nonhealing surgical wound: CODE(S): T81.89XA - Other complications of procedures, not elsewhere classified, initial encounter PLAN: Plan Patient was evaluated at the wound healing center today. Wound care - Wound VAC at 150 mmHg to be changed 3 times per week. The wound and skye wound need to be cleansed with soap and water at the time of the dr essing change. Home Health will assist with the VAC. A wound culture was obtained 10/18/2022, she is being treated with Levaquin. She is scheduled for a similar surgery on her left proximal lateral thigh with extension toward the hip on November 10, 2022. By using the VAC, the right proximal lateral thigh with extension toward the hip wound should exhibit improved healing with granulation tissue and without evidence of infection. We should be able to proceed with revision of the wound with surgical preparation and excisional debridement with complex secondary wound closure. We may place t he VAC on the incision postoperatively to help draw out any postoperative drainage and maximize her healing. With the size of the wound and the recent surgery, there will be increased metabolic demands. Encouraged the patient to maximize nutritional supplementation with protein to help the healing process. Encouraged patient to try and not be as active as she typically is. With increased activity, it will increase the amount of drainage. Followup in on Tuesday to discuss her pre op information.
== END 2022-11-13 23:59 | disposition home or self-care (01) ==
LOC: WC 13:15
PROVIDERS: Referring Provider Nurse Practitioner Family; Visit Provider Nurse Practitioner Family
DX: T81.89XA Other complications of procedures, not elsewhere classified, initial encounter (principal); D17.23 Benign lipomatous neoplasm of skin and subcutaneous tissue of right leg; L76.33 Postprocedural seroma of skin and subcutaneous tissue following a dermatologic procedure; M79.604 Pain in right leg; R22.41 Localized swelling, mass and lump, right lower limb; Z86.018 Personal history of other benign neoplasm
CPT/HCPCS: 97605; 11043; 11046; 87070; 87075; 87077; 87186; 87205; 97597; 97598; 99213; 99214; G0463

== ENCOUNTER 2022-11-10 13:57 | Observation (INO) | payer MEDICAID, SELFPAY ==
--- NOTE | 2022-11-09 23:52 | HP.PCM_ITS ---
History and Physical Date of Admission: 11/10/22 HISTORY OF PRESENT ILLNESS 47 year old woman presents for evaluation of painful soft tissue masses on her proximal lateral thighs bilaterally with extension toward the hip. She states that they have gradually gotten larger over that few years and have become painful over the past several months, especially when sleeping on that side or brisk walking.? The area on the right lateral thigh is more painful than the left lateral thigh. She denies any trauma to the areas.? She denies any fever.? She denies any drainage.? The right side was more symptomatic for the patient. On 09/22/22, the patient went to surgery where she underwent excision 18 cm painful subfascial soft tissue mass right proximal lateral thigh with extension toward the hip with 11 cm complex closure repair. During the postoperative period, she developed a seroma that starting to drain from the incision. In order to get control of the seroma, a VAC was placed. She presents at this time to surgically excise the soft tissue mass on the left proximal lateral thigh with extension toward the hip. Power assisted lipoplasty may be used to help feather out the edges of the excision. Will also debride the right proximal lateral thigh with extension toward the hip wound and also feather out the edges of the excision with power assisted lipoplasty. Should be able to revise the wound with complex secondary wound closure. PAST MEDICAL HISTORY Back problem Dysesthesia of multiple sites Mass of left thigh/hip Mass of right thigh/hip PAST SURGICAL HISTORY cholecystectomy Excision 18 cm painful subfascial soft tissue mass right proximal lateral thigh with extension toward the hip with 11 cm complex closure repair - 09/22/22 ALLERGIES No Known Allergies MEDICATIONS ibuprofen thyroid FAMILY HISTORY Other -?Asthma, Hypertension SOCIAL HISTORY Smoking Status:? Never smoker alcohol intake:? never substance use type:? does not use REVIEW OF SYSTEMS General - Denies fever, and weight loss. Complains about having fatigue. Eyes - Denies cataracts and glaucoma. ENT - Denies nasal congestion and sore throat. Endocrine - Denies excessive thirst and urination. She states that she has heat/cold intolerance. Skin - Denies suspicious lesions and skin cancer. She has concerns about enlarging, painful bilateral lateral thigh soft tissue masses with extension to the hip. The right is more painful than the left, especially when she sleeps or is brisk walking. Musculoskeletal - Denies joint pain, joint stiffness, weakness of muscles and joints,? and arthritis. She has intermittent back pain. Neuro - Denies headaches. Cardiovascular - Denies chest pain, fatigue, and shortness of breath with exertion. Psych - Denies anxiety and depression. Respiratory - Denies chronic cough and shortness of breath. Gastrointestinal - Denies nausea, vomiting, diarrhea, and constipation. History of gallstones and cholecystectomy. Hematologic - Denies abnormal bruising and bleeding. Genitourinary - Denies hematuria and urinary frequency. PHYSICAL EXAMINATION General - Alert and oriented. HEENT - PERRL. EOMI. Throat is clear. Neck - Supple and non-tender.? No cervical adenopathy. Lungs- Clear to auscultation. Heart - Regular rate and rhythm. Abdomen - Soft and non distended. Extremities - FROM. No axillary adenopathy.? Radial pulses are palpable.? On her left proximal lateral thigh with extension up toward the hip is a soft issue mass.? It is firm.? It is mobile.? No evidence of infection.? Some tenderness to palpation. ? The soft tissue mass on the left measures 19 cm x 16 cm.? On the right proximal lateral thigh with extension toward the hip is a nonhealing wound that has a VAC. Wound has been gerber. The drainage has been controlled with the VAC. Wound measures 11 cm. Some tenderness to palpation. Neuro - CN II-XII grossly intact. Psych - Normal mood and affect. ASSESSMENT 1.? 19 cm painful soft tissue mass left proximal lateral thigh with extension toward the hip. 2. Nonhealing wound right proximal lateral thigh with extension toward the hip. 3. Status post excision 18 cm painful subfascial soft tissue mass right proximal lateral thigh with extension toward the hip with 11 cm complex closure repair. 4. Postoperative seroma. PLAN Patient has enlarging painful soft tissue mass on her left proximal lateral thigh with extension toward the hip.? Recommend excision of this painful soft tissue mass and send them to Pathology for analysis to rule out carcinoma. The right side was done on 09/22/22. Postoperative she developed a seroma that drained through the incision. The wound is stable with the use of the CLAUDIA wrap. Further surgical preparation will be done on the right thigh wound with excisional debridement and complex secondary wound closure. Due to the large sizes of the cavities after surgery, a drain will be placed in each wound for 14 days to minimize seroma formation. ?Absorbable hemostat will also be used to minimize seroma formation. She will need compression for 6 weeks.? She will be measured for a thigh high up to mid abdomen compression garment to be worn postoperatively. Depending on the condition of the wounds, some power assisted lipoplasty may be done to help to feather out the wound edges. Surgery will be done under general anesthesia with a surgical observation overnight stay in the hospital Patient was informed of the risks and complications of the procedure including alternatives to surgery.? These were discussed with the patient personally.? Patient voices understanding and wishes to proceed. Some of the risks and complications were included in a form from the [place] [employer]. llllllllllllllllllllllllllllllllllllllllllllllllllllllllllllllllllllllllllllllll lllllllllllllllllllllllllllllllllllll llllllllllllllllllllllllllllllllllllllllllllllllllllllllllllllllllllllllllllllll llllllllllllllllllllllllllllllllllllllllllllllllllllllllllllllllllllllllllllllll llllllllllllllllllllllllllllllllllllllll llllllllllllllllllllllllllllllllllllllllllllllllllllllllllllllllllllllllllllllll llllllllllllllllllllllllllllllllllllllllllllllllllllllllllllllllllllllllllllllll llllllllllllllllllllllllllllllllllllllll llllllllllllllllllllllllllllllllllllllllllllllllllllllllllllllllllllllllllllllll llllllllllllllllllllllllllllllllllllllllllllllllllllllllllllllllllllllllllllllll llllllllllllllllllllllllllllllllllllllll llllllllllllllllllllllllllllllllllllllllllllllllllllllllllllllllllllllllllllllll llllllllllllllllllllllllllllllllllllllllllllllllllllllllllllllllllllllllllllllll llllllllllllllllllllllllllllllllllllllll llllllllllllllllllllllllllllllllllllllllllllllllllllllllllllllllllllllllllllllll llllllllllllllllllllllllllllllllllllllllllllllllllllllllllllllllllllllllllllllll llllllllllllllllllllllllllllllllllllllll llllllllllllllllllllllllllllllllllllllllllllllllllllllllllllllllllllllllllllllll llllllllllllllllllllllllllllllllllllllllllllllllllllllllllllllllllllllllllllllll llllllllllllllllllllllllllllllllllllllll llllllllllllllllllllllllllllllllllllllllllllllllllllllllllllllllllllllllllllllll llllllllllllllllllllllllllllllllllllllllllllllllllllllllllllllllllllllllllllllll llllllllllllllllllllllllllllllllllllllll llllllllllllllllllllllllllllllllllllllllllllllllllllllllllllllllllllllllllllllll llllllllllllllllllllllllllllllllllllllllllllllllllllllllllllllllllllllllllllllll llllllllllllllllllllllllllllllllllllllll llllllllllllllllllllllllllllllllllllllllllllllllllllllllllllllllllllllllllllllll llllllllllllllllll
[2022-11-10] VITALS (15 sets, daily range): BP systolic 99–123; BP diastolic 49–73; PULSE 70–88; RESP 14–16; TEMP 35.9–37.6; O2SAT 91–99; BMI 34.4
[2022-11-10 06:38] LABS: Internal QC Validated? YES +Cl - CLEAR BKGD; Pregnancy, Urine Negative Negative
[2022-11-10] MEDS: Lactated Ringers 1,000 ML 15 ML IV ×4 (06:45→15:27)
--- NOTE | 2022-11-10 07:30 | MASS_PTH ---
PATIENT: MICHELLE PUTNAM LOC: [facility] U#:[id number] AGE/SX: 47/F ROOM: [facility]322 RE11/10/[address]: Dr. Francisco Kraft MD : 1975 BED: 1 DIS: 11/12/2022 SPEC #: [id number] RECD: 11/10/22 12:01 STATUS: ZENAIDA UZIEL #: [id number] EDGARDO: 11/10/22 07:[address]: Francisco Kraft DEPT: SURGICAL PATHOLOGY RECD BY: Tacho Rodrigues ENTERED: 11/11/22 10:26 SP TYPE: Mass OTHR DR: No Primary Care Phys Tissues: Thigh, NOS Procedures: Surgery Specimen Level IV HEADER OPERATION: Excision painful soft tissue mass left proximal lateral thigh PRE-OP DIAGNOSIS: 19 cm painful soft tissue mass left proximal lateral thigh with extension toward hip; nonhealing wound right proximal lateral thigh TISSUE SUBMITTED: Left lateral thigh mass MICROSCOPIC DIAGNOSIS Left lateral thigh mass, excision: Mature adipose tissue consistent with lipoma. AM:julia 11/16/2022 MICROSCOPIC DESCRIPTION Slides are reviewed. GROSS DESCRIPTION Received in fixative is one container labeled with the patient's name and designated Left lateral thigh mass. The specimen consists of a piece of lobulated yellow adipose tissue measuring 15 x 15 x 5 cm. Also present in the container is an additional piece of yellow adipose tissue measuring in aggregate 11 x 8 x 3 cm. Also present in the container is a piece of skin with underlying tissue measuring 11.5 x 2.5 cm and up to 2 cm in thickness. Sections reveal yellow adipose cut surfaces without area of hemorrhage, necrosis or cystic degeneration. Central Control Room Operator sections are submitted in six cassettes as follows: 1??skin with underlying tissue, 2-5 - large piece of tissue, 6 - smaller pieces of tissue. Sections are submitted after additional fixation. / SJ:julia 11/11/2022 TC:1 CPT: 26475
[2022-11-10] MEDS: Clindamycin 900 MG/50 ML BAG 75 MG IV (07:35)
[2022-11-10] MEDS: Lidocaine 2% /Epi 1:100 (20ml) 20 ML VIAL (08:09)
[2022-11-10] MEDS: Mupirocin Ointment 22gm Tube 1 APPLIC (13:04)
--- NOTE | 2022-11-10 13:04 | OP.PCM_ITS ---
Problems Associated Problem List Diagnoses (1) Mass of left hip region: (2) Mass of left thigh: (3) Pain in left leg: (4) Dysesthesia of multiple sites: (5) Mass of right hip region: (6) Mass of right thigh: (7) Pain in right leg: (8) Status post excision of lipoma: (9) Lipoma of right lower extremity: (10) Postoperative seroma of subcutaneous tissue after dermatologic procedure: (11) Nonhealing surgical wound: Report of Operation Date of Procedure: 11/10/22 Pre-Operative Diagnosis: 1. 19 cm painful soft tissue mass left proximal lateral thigh with extension toward the hip. 2. Nonhealing seroma wound right proximal lateral thigh with extension toward the hip. 3. Status post excision 18 cm painful subfascial soft tissue mass right proximal lateral thigh with extension toward the hip with 11 cm complex closure repair. 4. Postoperative seroma. Post-Operative Diagnosis: Same. Surgery/Procedure Performed:: 1. Excision 19 cm painful soft tissue mass left proximal lateral thigh with extension toward the hip with 11 cm layered closure repair. 2. Surgical preparation right proximal lateral thigh with extension toward the hip with excisional debridement nonhealing seroma wound and 13 cm complex secondary wound closure. Description of Surgical Findings:: 47 year old woman presented for evaluation of painful soft tissue masses on her proximal lateral thighs bilaterally with extension toward the hip. She states that they have gradually gotten larger over that few years and have become painful over the past several months, especially when sleeping on that side or brisk walking.? The area on the right lateral thigh was more painful than the left lateral thigh. She denies any trauma to the areas.? She denies any fever.? She denies any drainage.? The right side was more symptomatic for the patient.? On 09/22/22, the patient went to surgery where she underwent excision 18 cm painful subfascial soft tissue mass right proximal lateral thigh with extension toward the hip with 11 cm complex closure repair.? During the postoperative period, she developed a seroma that starting to drain from the incision.? In order to get control of the seroma, a VAC was placed.? She presents at this time to surgically excise the soft tissue mass on the left proximal lateral thigh with extension toward the hip. Power assisted lipoplasty may be used to help feather out the edges of the excision.? Will also debride the right proximal lateral thigh with extension toward the hip wound and also feather out the edges of the excision with power assisted lipoplasty.? Should be able to revise the wound with complex secondary wound closure. Patient was informed of the risks and complications of the procedure including alternatives to surgery. These were discussed with the patient personally. Patient voices understanding and wishes to proceed. Some of the risks and complications were included in a form from the [employer]. I used Thomas absorbable hemostat, (I used 6 vials, 3 in each lateral thigh area). Reference Number - [id number]. Lot Number - [id number]. Expiration - June 10, 2027, (2 vials on the left and one vial on the right). Reference Number - [id number]. Lot Number - [id number]. Expiration - June 10, 2027, (one vial on the left and 2 vials on the right). I used 1000 ml Tumescent Anesthetic Solution 0.05% per side, 2 liters total. ? Normal Saline- 936.5 ml. ? Lidocaine 1% - 50 ml. ? Epinephrine (1 mg/ml) - 1 ml. ? Sodium Bicarbonate - 12.5 mEq I removed 600 ml fatty aspirate from each lateral thigh area, (1200 ml total). Another 250 ml of tumescent anesthetic solution oozed out of each wound incision during the lipoplasty, (500 ml total).? Surgeon: Francisco Kraft MD nitrator operator: Dennise Remy RNFA Type of Anesthesia: General Anesthesiologist: Wolf Mcclendon MD Specimen's removed: 1. Painful soft tissue mass left proximal lateral thigh with extension toward the hip to Pathology. 2. Nonhealing seroma wound right proximal lateral thigh to Microbiology. Drains: Michael x4 (2 in each lateral thigh) Estimated Blood Loss (mL): 150. Description of Procedure: Patient was taken to OR in supine position and was placed under general anesthesia.? A rolled blanket was placed under the patient's hip and thigh to give some lateral rotation. The painful soft tissue mass left proximal lateral thigh with extension toward the hip was prepped and draped in the usual fashion.? SCD's were placed for DVT prophylaxis.? Perioperative antibiotics were given intravenously.? A casas catheter was placed. A curvilinear marking was made.? Using xylocaine with epinephrine, the marking was infiltrated.? After waiting 5 minutes for the anesthetic to take effect, incision was made into the subcutaneous tissue until the level of Gisselle's fascia.? The fascia was slightly thickened.? Incision was made and the soft tissue mass was visible.? Fibrous septa were not as prominent as compared to the right side. ? The soft tissue mass was sharply dissected at the level of Gisselle's fascia down to the tensor fascial heidi. The mass did not involve the underlying muscle and fascia. ? No deeper infiltration was noted.? Using sharp dissection, the mass was easily excised off the tensor fascia heidi as the fibrous septa were released and sent to Pathology for analysis to rule out carcinoma.? Hemostasis was obtained with electrocautery.? The wound was irrigated with 0.05% Chlorhexidine and followed by saline irrigation.? There were some contour irregularities at the edges of the wound, so I used power assisted lipoplasty to help with contouring and feathering in this area.? I temporarily closed the left thigh incision with surgical clips.? I?used the existing incision for the infiltration of the tumescent solution into the left proximal lateral thigh. ?I I infiltrated 1000 mL into the area.? I then used power-assisted lipoplasty and removed about 600 mL of fatty aspirate from the left proximal lateral thigh.? I stopped when there was minimal friction and the areas felt clinically smooth and some bloody aspirate was noted in the canister.? Because the wound was not occlusive with the surgical clips, some of the tumescent solution came out of the wound, about 250 ml.? I irrigated the wound with saline.? Hemostasis was obtained with electrocautery.? I placed two size 15 Michael drains through separate stab incisions inferiorly and secured to the skin with 3-0 Nylon purse string suture.? The drains insertion were 3 cm away from the edge of the incision in anticipation of placing a VAC over the incision prior to discharge. I sprayed Thmoas absorbable hemostat into the left lateral thigh wound to minimize seroma.? I used 3 vials. ? The wound was then closed in a layered fashion with 3-0 Monocryl figure of eight interrupted sutures for the deep dermis and subcutaneous tissue. The skin was approximated with 3-0 Prolene simple interrupted and vertical mattress interrupted sutures.? The length of the complex closure repair was 11 cm. A sterile towel was placed over the incision followed by a temporary compression mary kay wrap since we will be working on the right lateral thigh as well.? We took the blanket roll from underneath the left hip and thigh and placed it under the right hip and thigh. The right lateral thigh wound with extension to the hip was prepped and draped in the usual fashion. l will dress both incisions at the end of the procedure before putting the compression garment on. On the right lateral thigh, I marked out the seroma wound with an elliptical marking which extended the wound a couple of cm. The marking was infiltrated with Xylocaine and epinephrine. I proceeded with surgical preparation of the wound by excising the edges of the wound down into the subcutaneous tissue and including scar tissue. There was a thickened seroma capsule present. I excised the seroma capsule down to the muscular fascia. Using a curette, I debrided the seroma capsule on the muscular fascia. Good bleeding noted. Some of the excised tissue and debrided tissue was sent to Microbiology for culture. A positive culture will necessitate antibiotic therapy. There were some contour irregularities at the edges of the wound, so I used power assisted lipoplasty to help with contouring and feathering in this area.? I temporarily closed the right thigh incision with surgical clips.? I?used the existing incision for the infiltration of the tumescent solution into the right proximal lateral thigh. ?I infiltrated 1000 mL into the area.? I then used power-assisted lipoplasty and removed about 600 mL of fatty aspirate from the right proximal lateral thigh.? I stopped when there was minimal friction and the areas felt clinically smooth and some bloody aspirate was noted in the canister.? Because the wound was not occlusive with the surgical clips, some of the tumescent solution came out of the wound, about 250 ml. The wound was irrigated with 0.05% Chlorhexidine and followed by saline irrigation. Hemostasis was obtained with electrocautery. I placed two size 15 Michael drains through separate stab incisions inferiorly and secured to the skin with 3-0 Nylon purse string suture.? The drains insertion were 3 cm away from the edge of the incision in anticipation of placing a VAC over the incision prior to discharge. I sprayed Thomas absorbable hemostat into the right lateral thigh wound to minimize seroma.? I used 3 vials. ? The wound was then closed in a multilayered complex closure with 3-0 Monocryl figure of eight interrupted sutures for the deep Gisselle's fascia.? The deep dermis and subcutaneous tissue was approximated with 3-0 Monocryl interrupted sutures.? The skin was approximated with 3-0 Prolene simple interrupted and vertical mattress interrupted sutures.? The length of the complex closure repair was 13 cm. After removing the blanket roll underneath the hip and thigh, antibiotic ointment was applied to both incisions (right and left proximal lateral thighs) followed by Kerlix gauze. The compression garment was then placed over the wounds and extending from the abdominal wall down to the knee. She will wear the compression garment for 6 weeks. Patient tolerated the procedure well and was sent to PACU in satisfactory condition. Patient will be sent upstairs for continued postop care.? Will apply the VAC over the incisions tomorrow. After discharge, patient will followup next week on Tuesday for a wound check and for discussion of the pathology report and for discussion of the microbiology report.? A positive culture will necessitate antibiotic therapy. Will remove the drains in approximately 14 days.? Will remove the sutures in 2 weeks. ? Will keep her legs elevated when sitting. ? ? ? Grafts/Implants Used: Thomas. Procedure Start Time: 08:09 Procedure Stop Time: 13:25 Complications None. Admit VTE Documentation VTE Present on Admission: No VTE Mechan Device Prophylaxis: SCD's VTE Pharm Prophylaxis ordered?: Yes Addendum Addendum: Surgery Charges CPT - 15190-39 ICD-10 - R22.42, R20.8, M79.605 73283 R22.42, R20.8, M79.605 74199 T81.89xA, L76.33, R22.41, R20.8, M79.604, D17.73, Z98.890 56522 T81.89xA, L76.33, R22.41, R20.8, M79.604, D17.73, Z98.890
[2022-11-10] MEDS: Juven (unflavored) Packet 1 PACKET PO (20:58)
[2022-11-10] MEDS: oxyCODONE 5 MG Tablet 10 MG PO (20:58)
[2022-11-10] MEDS: Clindamycin 600 MG/50 ML BAG 100 MG IV (20:59)
[2022-11-10] MEDS: 0.9% Saline Lock 10 ML Syringe IV (21:00)
[2022-11-11] VITALS (7 sets, daily range): BP systolic 104–113; BP diastolic 50–57; PULSE 71–96; RESP 15–16; TEMP 36.8–37.3; O2SAT 93–96
[2022-11-11] MEDS: Thyroid 60 MG Tablet PO (06:11)
[2022-11-11 06:12] LABS: Hematocrit 31.7 % (37-47); Hemoglobin 10.3 g/dL (12.0-15.0); Mean Corp Hgb Conc 32.5 g/dL (32-36); Mean Corpuscular Hgb 28.7 pg (27.0-32.0); Mean Corpuscular Volume 88.3 fL (81-99); Mean Platelet Vol. 10.1 fl (6.2-12.0); Platelet Count 282 K/mm3 (150-450); RBC Distribution Width CV 12.8 % (11.6-14.6); RBC Distribution Width SD 41.1 fl (35.1-43.9); Red Blood Count 3.59 M/mm3 (4.2-5.4); White Blood Count 7.5 K/mm3 (4.4-11.0)
[2022-11-11 06:43] LABS: Anion Gap 6 (5-15); BUN 11 mg/dL (7-18); BUN/Creat Ratio 15.7 RATIO (10-20); Chloride 105 mmol/L (98-107); EST Glomerular Filtration Rate 94 mL/min (>60); Est Glom Filt Rate - Afr Amer 114 mL/min (>60); Glucose 111 mg/dL (74-106); Potassium 3.8 mmol/L (3.5-5.1); Prealbumin 15.7 mg/dL (20.0-40.0); Sodium Level 138 mmol/L (136-145)
[2022-11-11] MEDS: Ondansetron 4 MG/2 ML Vial IV (06:50)
[2022-11-11] MEDS: Clindamycin 600 MG/50 ML BAG 100 MG IV ×3 (06:51→21:00)
[2022-11-11] MEDS: 0.9% Saline Lock 10 ML Syringe IV ×2 (06:51→17:12)
--- NOTE | 2022-11-11 06:55 | NURSING ---
ASSIST X 2 TO STAND PATIENT AT BEDSIDE AND TAKE A FEW STEPS IN THE ROOM AND TURN AROUND AND ASSIST BACK TO BED.
[2022-11-11] MEDS: Juven (unflavored) Packet 1 PACKET PO ×2 (09:39→17:12)
[2022-11-11] MEDS: Escitalopram Oxalate 10 MG Tablet PO (09:48)
[2022-11-11] MEDS: Docusate Sodium 100 MG Capsule PO ×2 (09:48→21:00)
[2022-11-11] MEDS: Enoxaparin 40 MG/0.4 ML Syringe SC (09:48)
[2022-11-11] MEDS: Gabapentin 300 MG Capsule PO (09:52)
[2022-11-11] MEDS: oxyCODONE 5 MG Tablet 10 MG PO ×2 (10:05→19:00)
--- NOTE | 2022-11-11 12:00 | WOUNDNOTE ---
wound photo: right thigh
--- NOTE | 2022-11-11 12:00 | WOUNDNOTE ---
wound photo: left thigh
--- NOTE | 2022-11-11 12:28 | PCM.PN.SRG ---
Subjective Subjective Postop #1 Patient has some incisional pain which increases when attempting to get out of bed and trying to ambulate. She is unsteady on her feet with ambulation. Objective Data Objective Data Vital Signs: Vital Signs Temp Pulse Resp BP Pulse Ox O2 Del Method 98.7 F 86 16 113/57 L 96 Room Air 11/11/22 09:40 11/11/22 09:40 11/11/22 09:40 11/11/22 09:40 11/11/22 09:40 11/11/22 09:40 Oxygen Delivery Method Room Air Weight: 233 lb 11.04 oz Body Mass Index (BMI) 34.4 Intake & Output: Intake and Output for Last 24 Hours 11/09/22 11/10/22 11/11/22 23:59 23:59 23:59 Intake Total 4350 / 4350 50 / 50 Output Total 1277 / 1277 865 / 865 Balance 3073 / 3073 -815 / -815 Drainage 532 ml yesterday, 220 ml today Lab / Micro Data Attestation: I reviewed the patient's lab results. Result Diagrams: 11/11/22 05:13 11/11/22 05:13 Labs: Laboratory Results - last 24 hr 11/11/22 05:13: WBC 7.5, RBC 3.59 L, Hgb 10.3 L, Hct 31.7 L, MCV 88.3, MCH 28.7, MCHC 32.5, RDW Std Deviation 41.1, RDW Coeff of Adamaris 12.8, Plt Count 282, MPV 10.1 11/11/22 05:13: Sodium 138, Potassium 3.8, Chloride 105, Carbon Dioxide 27.0, Anion Gap 6, BUN 11, Creatinine 0.70, Estim Creat Clear Calc 101.60, Est GFR (MDRD) Af Amer 114, Est GFR (MDRD) Non-Af 94, BUN/Creatinine Ratio 15.7, Glucose 111 H, Calcium 8.0 L, Prealbumin 15.7 L Micro: Microbiology 11/10/22 11:00 Wound - Hip Gram Stain - Final 11/10/22 11:00 Wound - Hip Wound Culture - Preliminary Physical Exam Narrative PHYSICAL EXAMINATION General - Alert and Oriented HEENT - PERRL. EOMI. Neck - Supple and nontender. Abdomen - Soft and nondistended. Extremities - lateral thigh wounds bilaterally are dry and intact. No clinical evidence of hematoma. Tenderness to palpation. Neuro - CN II-XII grossly intact. Psych - Normal mood and affect. Assessment & Plan Assessment/Plan (1) Mass of left hip region: (2) Mass of left thigh: (3) Pain in left leg: (4) Postoperative seroma of subcutaneous tissue after dermatologic procedure: (5) Nonhealing surgical wound: (6) Lipoma of right lower extremity: (7) Status post excision of lipoma: (8) Pain in right leg: PLAN: Plan Patient has incisional pain that increases when getting up and attempting to ambulate. She is unsteady on her feet when attempting to ambulate. May remove the casas prior to discharge. If it is not bothering her, may remove it in the office. Will keep her one more day to get her more steady on her feet with ambulation. She states she has family at home to help assist her when she gets more steady on her feet with ambulation. Continue Oxycodone and/or Dilaudid for pain control as needed. Operative culture is pending. Continue Clindamycin. Prealbumin was 15.7. Encourage nutritional supplementation with protein to help the healing process.
[2022-11-11] MEDS: proMETHazine 25 MG Tablet PO (13:03)
[2022-11-11] MEDS: diazePAM 5 MG Tablet PO (21:00)
[2022-11-12 01:00] VITALS: BP 105/55; PULSE 73; RESP 18; TEMP 36.9; O2SAT 94
[2022-11-12 03:00] VITALS: BP 105/55; PULSE 73; RESP 18; TEMP 36.9; O2SAT 94
[2022-11-12] MEDS: Clindamycin 600 MG/50 ML BAG 100 MG IV ×2 (05:47→13:30)
[2022-11-12] MEDS: 0.9% Saline Lock 10 ML Syringe IV ×2 (05:47→13:30)
[2022-11-12 06:50] VITALS: BP 112/65; PULSE 84; RESP 18; TEMP 36.9; O2SAT 93
--- NOTE | 2022-11-12 08:28 | WOUNDNOTE ---
Varghese catheter d/c'd per order and patient request. skye care provided. applied compression garment. wound VAC dressings remain in place with good seal noted at 125mmHg low continuous suction. no drainage noted in the canister. TORI dressings secured with Medipore tape. placed ABD pads under the VAC and TORI tubing to prevent pressure injury under the compression garment. pt tolerated well. plan is for patient to discharge home later today. patient already has home wound VAC. will switch to home VAC prior to discharge today.
[2022-11-12] MEDS: Juven (unflavored) Packet 1 PACKET PO (08:53)
[2022-11-12] MEDS: Escitalopram Oxalate 10 MG Tablet PO (08:53)
[2022-11-12] MEDS: Docusate Sodium 100 MG Capsule PO (08:53)
[2022-11-12] MEDS: Enoxaparin 40 MG/0.4 ML Syringe SC (08:54)
[2022-11-12] MEDS: Gabapentin 300 MG Capsule PO (09:00)
--- NOTE | 2022-11-12 11:41 | CASEMGMT ---
Late entry for 11/11/2022 at 1021- Received tc from Jeff at [facility] who states they are active with pt care for SN. Requests dc instructions be faxed at dc.
[2022-11-12 13:35] VITALS: BP 110/58; PULSE 86; RESP 18; TEMP 37.3; O2SAT 94
[2022-11-12 13:37] VITALS: BP 110/58; PULSE 86; RESP 18; TEMP 37.3; O2SAT 96
--- NOTE | 2022-11-12 14:39 | PCM.DC ---
Discharge Instructions Diet Discharge Diet: No restrictions and - (encourage nutritional supplementation with protein to help the healing process.) Activity Discharge Activity: May Not Drive, May Not Shower (until the drains are removed.) and - (patient may ambulate. Minimize standing. Elevate legs when sitting.) May shower in (days): 14 (after the drains are removed.) May resume sexual activity in: 10-14 days Weight Bearing Status: Weight bearing as tolerated Keep extremity elevated above heart level: Legs Additional Activity Instructions:: wear compression garment. May remove when bathing, then put back on. Dressing / Incision Call your doctor if your incision/area has: Continuous Slow Oozing, Sudden Increased Bleeding, Increased Pain/ Swelling, Increased Redness, Foul Smelling Discharge and Swelling at the incision site Call your doctor if you observe: Fever of 101 or Higher, Coldness, Increased Pain, Shortness of breath, Chest pain, Calf discomfort and Uncontrolled pain Change Dressing in: 3 days (home health to assist with the VAC changes at [address] over the incision.) Cleanse incision/area with: Soap & Water (may wash the incision with soap and water at the time of the VAC change.) Drain: Suction (jose luis drains x4 to bulb suction. Empty and record drainage output daily.) Follow Up Care Please Follow Up With: Francisco Kraft MD When: 11/16/22 at 300 pm. Test Results: Test results from this visit will be discussed in further detail at your follow-up appointment, if applicable. Discharge Plan Admission Admit Date/Time: 11/10/22 13:57 Primary Reason for Your Visit: excision painful soft tissue mass left proximal lateral thigh to the hip Attending Provider: Francisco Kraft Primary Care Provider: Care Physician,No Primary Discharge Orders/Prescriptions Prescriptions: New levofloxacin 750 mg tablet 750 mg PO DAILY Qty: 14 2RF L.acidoph,saliva-B.bif-S.therm [Acidophilus Probiotic Blend] 175 mg capsule 1 cap PO DAILY Qty: 30 1RF oxycodone-acetaminophen [Percocet] 5-325 mg tablet 1 tab PO Q6H PRN (Reason: pain (scale score 7-10)) 7 Days Qty: 28 0RF Rx Instructions: 28 tabs (twenty-eight) promethazine 25 mg tablet 25 mg PO Q6H PRN (Reason: nausea and vomiting) Qty: 30 1RF docusate sodium [Colace] 100 mg capsule 100 mg PO BID Qty: 60 1RF Continued thyroid 60 mg tablet 60 mg PO DAILY L.acidoph,saliva-B.bif-S.therm [Acidophilus Probiotic Blend] 175 mg capsule 1 cap PO DAILY Qty: 20 0RF gabapentin 300 mg capsule 300 mg PO DAILY escitalopram oxalate [Lexapro] 10 mg tablet 10 mg PO DAILY 90 Days Qty: 90 1RF Referrals / Follow Up: Francisco Kraft MD [Med Staff - Active Staff] - (followup tuesday11/16/22.) Care Physician,No Primary [Primary Care Provider] - Disposition Disposition (needs filled in before D/C Order can be placed): Home Health Service
--- NOTE | 2022-11-12 14:49 | WOUNDNOTE ---
Pt being discharged home. changed patient over to the home VAC.
--- NOTE | 2022-11-12 14:56 | PCM.DC.SUM ---
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 Routine Comment: Reason for Consult:: possible VAC placement Reason For Visit: BILATERAL EXCISION SOFT TISSUE MASS, POSS PAL Diagnosis Discharge Diagnosis (1) Mass of left hip region: Status: Chronic Code(s): R22.42 - Localized swelling, mass and lump, left lower limb (2) Mass of left thigh: Status: Chronic Code(s): R22.42 - Localized swelling, mass and lump, left lower limb (3) Pain in left leg: Status: Chronic Code(s): M79.605 - Pain in left leg (4) Postoperative seroma of subcutaneous tissue after dermatologic procedure: Status: Acute Code(s): L76.33 - Postprocedural seroma of skin and subcutaneous tissue following a dermatologic procedure (5) Nonhealing surgical wound: Status: Acute Code(s): T81.89XA - Other complications of procedures, not elsewhere classified, initial encounter (6) Lipoma of right lower extremity: Status: Chronic Code(s): D17.23 - Benign lipomatous neoplasm of skin and subcutaneous tissue of right leg (7) Status post excision of lipoma: Status: Chronic Code(s): Z98.890 - Other specified postprocedural states; Z86.018 - Personal history of other benign neoplasm (8) Pain in right leg: Status: Chronic Code(s): M79.604 - Pain in right leg Medications at Discharge Home Medications thyroid 60 mg tablet 60 mg PO DAILY 08/13/22 L.acidophil,salivari-Bifido bifidum-Strep thermoph 175 mg capsule (Acidophilus Probiotic Blend) 1 cap PO DAILY #20 caps 09/22/22 escitalopram oxalate 10 mg tablet (Lexapro) 10 mg PO DAILY 90 days #90 tabs 10/22/22 gabapentin 300 mg capsule 300 mg PO DAILY 11/04/22 L.acidophil,salivari-Bifido bifidum-Strep thermoph 175 mg capsule (Acidophilus Probiotic Blend) 1 cap PO DAILY #30 caps 11/12/22 docusate sodium 100 mg capsule (Colace) 100 mg PO BID #60 caps 11/12/22 levofloxacin 750 mg tablet 750 mg PO DAILY #14 tabs 11/12/22 oxycodone-acetaminophen 5 mg-325 mg tablet (Percocet) 1 tab PO Q6H PRN pain (scale score 7-10) 7 days #28 tabs 11/12/22 promethazine 25 mg tablet 25 mg PO Q6H PRN nausea and vomiting #30 tabs 11/12/22 Hospital Course Operations - (11/10/22 - 1. Excision 19 cm painful soft tissue mass left proximal lateral thigh with extension toward the hip with 11 cm layered closure repair. 2. Surgical preparation right proximal lateral thigh with extension toward the hip with excisional debridement nonhealing seroma wound and 13 cm comple) Procedures Wound vac placement Summary of Care Provided Minutes Spent on Discharge: 35 Hospital Course: 47 year old woman presented for evaluation of painful soft tissue masses on her proximal lateral thighs bilaterally with extension toward the hip. She states that they have gradually gotten larger over that few years and have become painful over the past several months, especially when sleeping on that side or brisk walking.? The area on the right lateral thigh was more painful than the left lateral thigh. She denies any trauma to the areas.? She denies any fever.? She denies any drainage.? The right side was more symptomatic for the patient.? On 09/22/22, the patient went to surgery where she underwent excision 18 cm painful subfascial soft tissue mass right proximal lateral thigh with extension toward the hip with 11 cm complex closure repair.? During the postoperative period, she developed a seroma that starting to drain from the incision.? In order to get control of the seroma, a VAC was placed.? She presents at this time to surgically excise the soft tissue mass on the left proximal lateral thigh with extension toward the hip. Power assisted lipoplasty may be used to help feather out the edges of the excision.? Will also debride the right proximal lateral thigh with extension toward the hip wound and also feather out the edges of the excision with power assisted lipoplasty.? Should be able to revise the wound with complex secondary wound closure. On 11/10/22, the patient was taken to the operating room where she underwent excision 19 cm painful soft tissue mass left proximal lateral thigh with extension toward the hip with 11 cm layered closure repair and surgical preparation right proximal lateral thigh with extension toward the hip with excisional debridement nonhealing seroma wound and 13 cm complex secondary wound closure. She tolerated the procedure well. She was afebrile during her hospital stay. She had bilateral incisional pain that made it difficult to ambulate initially. She was unsteady on her feet with ambulation. I kept her in the hospital one more day to allow her to become more steady on her feet with ambulation. Her drainage ranged between 535 ml and 313 ml at discharge. Her Hgb postop was 10.3. Encouraged nutritional supplementation with protein to help the healing process. Prealbumin was 15.7. Operative cultures showed Gram positive organisms thus far. She was treated with Cleocin perioperatively and was discharged home on Levaquin. When the final cultures are available, antibiotic modification may be necessary. On the second postoperative day, she was more steady on her feet with ambulation. She was discharged home in satisfactory condition. There are VAC sponges on both incisions at 125 mmHg. Will assess at postoperative visits when to remove the VAC. Wrote scripts for Levaquin, Acidophilus Probiotic, Percocet, Phenergan, and Colace. Will remove the drains in 2 weeks. Will wear the compression garments for 6 weeks. She may shower after her drains are removed. Physical Exam Narrative PHYSICAL EXAMINATION General - Alert and Oriented HEENT - PERRL. EOMI. Neck - Supple and nontender. Abdomen - Soft and nondistended. Extremities - Bilateral lateral incisions are dry and intact. VAC placed over the incisions. No clinical evidence of hematoma. Neuro - CN II-XII grossly intact. Psych - Normal mood and affect. Weight / BMI Weight Weight: 233 lb 11.04 oz Body Mass Index (BMI) 34.4 Drainage 535 ml yesterday, 313 ml today. ABG / Lab / Microbiology Data Attestation: I reviewed the patient's lab results. Result Diagrams: 11/11/22 05:13 11/11/22 05:13 Microbiology: Microbiology 11/10/22 11:00 Wound - Hip Gram Stain - Final 11/10/22 11:00 Wound - Hip Wound Culture - Preliminary Mixed Gram Positive Organisms 11/10/22 11:00 Wound - Hip Anaerobic Culture - Preliminary Checking for anaerobes, further studies to follow. D/C Instructions Discharge Diet: No restrictions and - (encourage nutritional supplementation with protein to help the healing process.) May shower in (days): 14 (after the drains are removed.) May resume sexual activity in: 10-14 days Weight Bearing Status: Weight bearing as tolerated Keep extremity elevated above heart level: Legs Additional Activity Instructions: wear compression garment. May remove when bathing, then put back on. Call your doctor if your incision/area has: Continuous Slow Oozing, Sudden Increased Bleeding, Increased Pain/ Swelling, Increased Redness, Foul Smelling Discharge and Swelling at the incision site Call your doctor if you observe: Fever of 101 or Higher, Coldness, Increased Pain, Shortness of breath, Chest pain, Calf discomfort and Uncontrolled pain Cleanse incision/area with: Soap & Water (may wash the incision with soap and water at the time of the VAC change.) Drain: Suction (jose luis drains x4 to bulb suction. Empty and record drainage output daily.) Please Follow Up With: Francisco Kraft MD When: 11/16/22 at 300 pm. Meaningful Use Info Meaningful Use Diagnoses (Choose all that apply): None applicable Discharge Plan Admission Admit Date/Time: 11/10/22 13:57 Primary Reason for Your Visit: excision painful soft tissue mass left proximal lateral thigh to the hip Attending Provider: Francisco Kraft Primary Care Provider: Care Physician,No Primary Discharge Orders/Prescriptions Prescriptions: New levofloxacin 750 mg tablet 750 mg PO DAILY Qty: 14 2RF L.acidoph,saliva-B.bif-S.therm [Acidophilus Probiotic Blend] 175 mg capsule 1 cap PO DAILY Qty: 30 1RF oxycodone-acetaminophen [Percocet] 5-325 mg tablet 1 tab PO Q6H PRN (Reason: pain (scale score 7-10)) 7 Days Qty: 28 0RF Rx Instructions: 28 tabs (twenty-eight) promethazine 25 mg tablet 25 mg PO Q6H PRN (Reason: nausea and vomiting) Qty: 30 1RF docusate sodium [Colace] 100 mg capsule 100 mg PO BID Qty: 60 1RF Continued thyroid 60 mg tablet 60 mg PO DAILY L.acidoph,saliva-B.bif-S.therm [Acidophilus Probiotic Blend] 175 mg capsule 1 cap PO DAILY Qty: 20 0RF gabapentin 300 mg capsule 300 mg PO DAILY escitalopram oxalate [Lexapro] 10 mg tablet 10 mg PO DAILY 90 Days Qty: 90 1RF Referrals / Follow Up: Francisco Kraft MD [Med Staff - Active Staff] - (followup tuesday11/16/22.) Care Physician,No Primary [Primary Care Provider] - Disposition Disposition (needs filled in before D/C Order can be placed): Home Health Service
--- NOTE | 2022-11-12 15:46 | CASEMGMT ---
GUDELIA CM in to pt room, pt playing cards with dtr. Pt ready for dc. She states she has CHN and would like them to continue once dc'd. 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 Faxed CHN dc info as well as H&P and wound vac orders at this time. Pt denies further needs.
== END 2022-11-12 17:32 | disposition home health service (06) ==
LOC: SDC 16:38 → MS3 16:38
PROVIDERS: Anesthesiology; Admitting Provider Surgery; Referring Provider Surgery; Visit Provider Surgery
PROC: (CPT 27043; principal; 2022-11-10 07:15)
DX: R22.42 Localized swelling, mass and lump, left lower limb (principal); T81.89XA Other complications of procedures, not elsewhere classified, initial encounter; M79.604 Pain in right leg; R20.8 Other disturbances of skin sensation; M79.605 Pain in left leg; L76.33 Postprocedural seroma of skin and subcutaneous tissue following a dermatologic procedure; Z79.899 Other long term (current) drug therapy
CPT/HCPCS: 27043; 27339; 15002; 01250; 13160; 36415; 80048; 81025; 84134; 85027; 87070; 87075; 87077; 87102; 87176; 87186; 87205; 87206; 88305; 96365; 96366; 96372; 96375; 99221; 99251; J7030; J7050; J7120; A4216; G0378; G0463; J2405

== ENCOUNTER → 2022-12-06 | Outpatient (CLI) | payer MEDICAID, SELFPAY | END | disposition home or self-care (01) | LOC: LABSPEC 14:55 | PROVIDERS: Visit Provider Surgery | DX: T81.89XA Other complications of procedures, not elsewhere classified, initial encounter (principal); L76.33 Postprocedural seroma of skin and subcutaneous tissue following a dermatologic procedure | CPT/HCPCS: 87070; 87075; 87077; 87186; 87205 ==

== ENCOUNTER 2022-12-28 09:14 | Day surgery (SDC) | payer MEDICAID, SELFPAY ==
[2022-12-28] VITALS (8 sets, daily range): BP systolic 127–143; BP diastolic 64–78; PULSE 78–91; RESP 16–18; TEMP 36.3–37.3; O2SAT 92–97; BMI 34.8
[2022-12-28] MEDS: Lactated Ringers 1,000 ML 15 ML IV (09:35)
--- NOTE | 2022-12-28 10:16 | PCM.HP.BLA ---
History and Physical Date of Admission: 12/28/22 HISTORY OF PRESENT ILLNESS 47 year old woman presents for evaluation of painful soft tissue masses on her proximal lateral thighs bilaterally with extension toward the hip. She states that they have gradually gotten larger over that few years and have become painful over the past several months, especially when sleeping on that side or brisk walking.? The area on the right lateral thigh is more painful than the left lateral thigh. She denies any trauma to the areas.? She denies any fever.? She denies any drainage.? The right side was more symptomatic for the patient.? On 09/22/22, the patient went to surgery where she underwent excision 18 cm painful subfascial soft tissue mass right proximal lateral thigh with extension toward the hip with 11 cm complex closure repair.? On 11/10/22, the patient went to surgery for the other side and underwent excision 19 cm painful soft tissue mass left proximal lateral thigh with extension toward the hip with 11 cm layered closure repair. During the postoperative period, she developed a seroma that starting to drain from the central aspect of the incision.? Dakin's dressing changes were started. Wound culture from 12/06/22 showed MRSE and Streptococcus thoraltensis. She was placed on Levaquin and Amoxicillin. She presents today for revision of this nonhealing surgical wound left lateral thigh with extension toward the hip with excisional debridement and complex secondary wound closure. PAST MEDICAL HISTORY Back problem Dysesthesia of multiple sites Mass of left thigh/hip Mass of right thigh/hip PAST SURGICAL HISTORY cholecystectomy Excision 18 cm painful subfascial soft tissue mass right proximal lateral thigh with extension toward the hip with 11 cm complex closure repair - 09/22/22 Excision 19 cm painful soft tissue mass left proximal lateral thigh with extension toward the hip with 11 cm layered closure repair and surgical preparation right proximal lateral thigh with extension toward the hip with excisional debridement nonhealing seroma wound and 13 cm complex secondary wound closure - 11/10/22 ALLERGIES No Known Allergies MEDICATIONS ibuprofen thyroid Levaquin Amoxicillin FAMILY HISTORY Other -?Asthma, Hypertension SOCIAL HISTORY Smoking Status:? Never smoker alcohol intake:? never substance use type:? does not use REVIEW OF SYSTEMS General - Denies fever, and weight loss. Complains about having fatigue. Eyes - Denies cataracts and glaucoma. ENT - Denies nasal congestion and sore throat. Endocrine - Denies excessive thirst and urination. She states that she has heat/cold intolerance. Skin - Denies suspicious lesions and skin cancer. She has concerns about enlarging, painful bilateral lateral thigh soft tissue masses with extension to the hip. The right is more painful than the left, especially when she sleeps or is brisk walking. Has a nonhealing surgical wound left lateral thigh from a postoperative seroma. Musculoskeletal - Denies joint pain, joint stiffness, weakness of muscles and joints,? and arthritis. She has intermittent back pain. Neuro - Denies headaches. Cardiovascular - Denies chest pain, fatigue, and shortness of breath with exertion. Psych - Denies anxiety and depression. Respiratory - Denies chronic cough and shortness of breath. Gastrointestinal - Denies nausea, vomiting, diarrhea, and constipation. History of gallstones and cholecystectomy. Hematologic - Denies abnormal bruising and bleeding. Genitourinary - Denies hematuria and urinary frequency. PHYSICAL EXAMINATION General - Alert and oriented. HEENT - PERRL. EOMI. Throat is clear. Neck - Supple and non-tender.? No cervical adenopathy. Lungs- Clear to auscultation. Heart - Regular rate and rhythm. Abdomen - Soft and non distended. Extremities - FROM. No axillary adenopathy.? Radial pulses are palpable.? On her left proximal lateral thigh with extension up toward the hip is a nonhealing wound from a postoperative seroma. The wound is clean with Dakin's dressing changes.? The right lateral thigh incision is healing satisfactory. Neuro - CN II-XII grossly intact. Psych - Normal mood and affect. ASSESSMENT 1.? Nonhealing wound right proximal lateral thigh with extension toward the hip. 3.? Status post excision 19 cm painful soft tissue mass left proximal lateral thigh with extension toward the hip with 11 cm layered closure repair. 4.? Postoperative seroma. PLAN Patient had enlarging painful soft tissue mass on her left proximal lateral thigh with extension toward the hip and she went to surgery on 11/10/22 where she underwent excision 19 cm painful soft tissue mass left proximal lateral thigh with extension toward the hip with 11 cm layered closure repair. ? Postoperative she developed a seroma that drained through the central aspect of the incision.? The wound is stable with Dakin's dressing changes. Wound culture was done on 12/06/22. It showed MRSE and Streptococcus thoraltensis. She was started on Levaquin and Amoxicillin. She presents today for revision of this nonhealing surgical wound left lateral thigh with extension toward the hip with excisional debridement and complex secondary wound closure. Drains will be placed followed by a compression dressing. Surgery will be done under general anesthesia on an outpatient basis. Patient was informed of the risks and complications of the procedure including alternatives to surgery.? These were discussed with the patient personally.? Patient voices understanding and wishes to proceed. Some of the risks and complications were included in a form from the [place] [employer]. Potential risks and complications included but not inclusive of bleeding, infection, seroma, hematoma, bruising, swelling, prolonged need for drains, loss of sensation to skin, wound breakdown, need for wound care, poor scarring, poor aesthetic outcome, intra operative cardiac or neurologic events, DVT, PE, and reaction to anesthesia.
[2022-12-28] MEDS: Vancomycin IV 1,000 MG/200 ML BAG 200 MG IV (10:21)
[2022-12-28 10:23] LABS: Internal QC Validated? YES +Cl - CLEAR BKGD; Pregnancy, Urine Negative Negative
--- NOTE | 2022-12-28 11:00 | WND_PTH ---
PATIENT: MICHELLE PUTNAM LOC: [facility] [place] U#:[id number] AGE/SX: 47/F ROOM: RE12/28/[address]: Dr. Francisco Kraft MD : 1975 BED: DIS: 12/28/2022 SPEC #: [id number] RECD: 12/28/22 16:35 STATUS: ZENAIDA REFrancisco #: [id number] EDGARDO: 12/28/22 11:[address]: Francisco Kraft DEPT: SURGICAL PATHOLOGY RECD BY: Delmi Cordova ENTERED: 12/29/22 10:03 SP TYPE: Wound OTHR DR: No Primary Care Phys Tissues: Hip, NOS Procedures: Surgery Specimen Level III HEADER OPERATION: Surgical preparation left proximal lateral thigh PRE-OP DIAGNOSIS: Nonhealing wound right proximal lateral thigh with extension toward hip TISSUE SUBMITTED: Left hip seroma, wound MICROSCOPIC DIAGNOSIS Left hip seroma wound, excisional debridement: Skin with underlying tissue with acute and chronic inflammation, granulation tissue reaction and fat necrosis. KIM:julia 12/30/2022 MICROSCOPIC DESCRIPTION Slides are reviewed. GROSS DESCRIPTION Received in fixative is one container labeled with the patient's name and designated left hip seroma wound. The specimen consists of a piece of skin with underlying tissue measuring 12.5 x 3.0 cm and up to 5.5 cm in thickness. Also received are multiple pieces of soft tissue that in aggregate measure 12.5 x 8.0 x 3.0 cm. Canopy Stringer sections are submitted in two cassettes. / KIM:julia 12/29/2022 TC:2 CPT: 92246
[2022-12-28] MEDS: Lidocaine 2% /Epi 1:100 (20ml) 20 ML VIAL (11:45)
[2022-12-28] MEDS: metroNIDAZOLE 500 MG/100 ML BAG 100 MG IV (11:46)
[2022-12-28] MEDS: Mupirocin Ointment 22gm Tube 1 APPLIC (12:41)
--- NOTE | 2022-12-28 13:41 | OP.PCM_ITS ---
Problems Associated Problem List Diagnoses (1) Nonhealing surgical wound: (2) Lipoma of left lower extremity: (3) Postoperative seroma of subcutaneous tissue after dermatologic procedure: (4) Status post excision of lipoma: (5) Methicillin resistant Staphylococcus epidermidis infection: Report of Operation Date of Procedure: 12/28/22 Pre-Operative Diagnosis: 1. Nonhealing seroma wound left proximal lateral thigh with extension toward the hip. 2. Status post excision 19 cm painful soft tissue mass left proximal lateral thigh with extension toward the hip with 11 cm layered closure repair. 3. Postoperative seroma. 4. MRSE. Post-Operative Diagnosis: Same. Surgery/Procedure Performed:: Surgical preparation left proximal lateral thigh with extension toward the hip with excisional debridement nonhealing seroma wound and 13 cm complex secondary wound closure. Description of Surgical Findings:: 47 year old woman presents for evaluation of painful soft tissue masses on her proximal lateral thighs bilaterally with extension toward the hip. She states that they have gradually gotten larger over that few years and have become painful over the past several months, especially when sleeping on that side or brisk walking.? The area on the right lateral thigh is more painful than the left lateral thigh. She denies any trauma to the areas.? She denies any fever.? She denies any drainage.? The right side was more symptomatic for the patient.? On 09/22/22, the patient went to surgery where she underwent excision 18 cm painful subfascial soft tissue mass right proximal lateral thigh with extension toward the hip with 11 cm complex closure repair.? On 11/10/22, the patient went to surgery for the other side and underwent excision 19 cm painful soft tissue mass left proximal lateral thigh with extension toward the hip with 11 cm layered closure repair.? During the postoperative period, she developed a seroma that starting to drain from the central aspect of the incision.? Dakin's dressing changes were started.? Wound culture from 12/06/22 showed MRSE and Streptococcus thoraltensis.? She was placed on Levaquin and Amoxicillin.? She presents today for revision of this nonhealing surgical wound left lateral thigh with extension toward the hip with excisional debridement and complex secondary wound closure.? Patient was informed of the risks and complications of the procedure including alternatives to surgery. These were discussed with the patient personally. Patient voices understanding and wishes to proceed. Some of the risks and complications were included in a form from the [place] [employer]. Potential risks and complications included but not inclusive of bleeding, infection, seroma, hematoma, bruising, swelling, prolonged need for drains, loss of sensation to skin, wound breakdown, need for wound care, poor scarring, poor aesthetic outcome, intra operative cardiac or neurologic events, DVT, PE, and reaction to anesthesia. I used Thomas absorbable hemostat, (I used 3 vials). Reference Number - [id number]. Lot Number - [id number]. Expiration - July 11, 2027, (2 vials). Reference Number - [id number]. Lot Number - [id number]. Expiration - June 10, 2027, (one vial). Surgeon: Francisco Kraft MD motor home electrical foreman: Dennise Remy RNFA Type of Anesthesia: General Anesthesiologist: Wolf Mcclendon MD and Teodora Maradiaga CRNA Specimen's removed: Nonhealing seroma wound left proximal lateral thigh with extension toward the hip to Pathology and Microbiology. Drains: Michael x2. Estimated Blood Loss (mL): 150. Description of Procedure: Patient was taken to OR in supine position and was placed under general anesthesia.? A rolled blanket was placed under the patient's hip and thigh to give some lateral rotation.? The nonhealing seroma wound left proximal lateral thigh with extension toward the hip was prepped and draped in the usual fashion.? SCD's were placed for DVT prophylaxis.? Perioperative antibiotics were given intravenously.? On the left lateral thigh, I marked out the seroma wound with an elliptical marking which extended the wound a couple of cm.? The marking was infiltrated with Xylocaine and epinephrine.? I proceeded with surgical preparation of the wound by excising the edges of the wound down into the subcutaneous tissue and including scar tissue.? There was a thickened seroma capsule present.? I excised the seroma capsule down to the muscular fascia.? Using a curette, I debrided the seroma capsule on the muscular fascia.? Good bleeding noted.? Some of the excised tissue and debrided tissue was sent to Microbiology for culture.? A positive culture will necessitate antibiotic therapy. ?Some of the excised tissue and debrided tissue was sent to Pathology for analysis to rule out carcinoma. The wound was irrigated with saline. .? Hemostasis was obtained with electrocautery.? I placed two size 15 Michael drains through separate stab incisions inferiorly and secured to the skin with 3-0 Nylon purse string suture.? ? I sprayed Thomas absorbable hemostat into the left lateral thigh wound to minimize seroma.? I used 3 vials. ??The wound was then closed in a multilayered complex closure with 2-0 Vicryl figure of eight interrupted sutures for the deep Gisselle's fascia.? The deep dermis and subcu taneous tissue was approximated with 2-0 Vicryl and 3-0 Monocryl interrupted sutures.? The skin was approximated with 3-0 Prolene simple interrupted and vertical mattress interrupted sutures.?? The length of the complex closure repair was 13 cm.? After removing the blanket roll underneath the hip and thigh, antibiotic ointment was applied to the incision. This was followed by Kerlix gauze.? A compression mary kay wrap was then placed. She will wear the compression garment for 6 weeks. Patient tolerated the procedure well and was sent to PACU in satisfactory condition. Patient will be sent home on antibiotics. She already has pain medication from her previous surgery. Patient will followup later this week on 12/31/22, for a wound check and for discussion of the pathology report and the microbiology report. A positive culture will necessitate antibiotic therapy. The sutures will be removed in 2-3 weeks. She will keep her legs elevated when sitting during the initial postoperative period. Will remove the drains in approximately 14 days.? Grafts/Implants Used: Thomas. Procedure Start Time: 11:47 Procedure Stop Time: 13:36 Complications None. Admit VTE Documentation VTE Present on Admission: No VTE Mechan Device Prophylaxis: SCD's VTE Pharm Prophylaxis ordered?: No Addendum Addendum: Surgery Charges CPT - 62443 ICD-10 - T81.89xA, Z98.890, D17.24, L76.33, A49.8 22236 T81.89xA, Z98.890, D17.24, L76.33, A49.8
--- NOTE | 2022-12-28 14:04 | DCINST_ITS ---
Discharge Instructions Diet Discharge Diet: No restrictions and - (encourage nutritional supplementation with protein to help the healing process.) Activity Discharge Activity: May Not Drive and May Not Shower (until the drains are removed.) May shower in (days): 14 May resume sexual activity in: 4-6 weeks Weight Bearing Status: Weight bearing as tolerated Keep extremity elevated above heart level: Legs (when sitting. Minimize standing. May ambulate.) Dressing / Incision Call your doctor if your incision/area has: Continuous Slow Oozing, Sudden Increased Bleeding, Increased Pain/ Swelling, Increased Redness, Foul Smelling Discharge and Swelling at the incision site Call your doctor if you observe: Fever of 101 or Higher, Coldness, Increased Pain, Shortness of breath, Chest pain, Calf discomfort and Uncontrolled pain Change Dressing in: leave in place till F/U (will remove operative dressing on Tuesday12/31/22.) Cleanse incision/area with: Keep Dressing Clean & Dry Drain: Suction (jose luis drain x2 to bulb suction. Empty and record output daily.) Follow Up Care Please Follow Up With: Francisco Kraft MD When: tuesday12/31/22. call [phone] for appt. Test Results: Test results from this visit will be discussed in further detail at your follow- up appointment, if applicable. Discharge Plan Admission Primary Reason for Your Visit: debridement nonhealing wound left thigh with secondary wound closure. Attending Provider: Francisco Kraft Primary Care Provider: Care Physician,No Primary Discharge Orders/Prescriptions Prescriptions: Continued thyroid 60 mg tablet 60 mg PO DAILY promethazine 25 mg tablet 25 mg PO Q6H PRN (Reason: nausea and vomiting) Qty: 30 1RF magnesium oxide 400 mg (241.3 mg magnesium) tablet 400 mg PO DAILY amoxicillin 875 mg tablet 875 mg PO BID 14 Days Qty: 28 1RF levofloxacin 500 mg tablet 500 mg PO Q24H 21 Days Qty: 21 1RF L.acidoph,saliva-B.bif-S.therm [Acidophilus Probiotic Blend] 175 mg capsule 1 cap PO DAILY Qty: 30 1RF escitalopram oxalate [Lexapro] 10 mg tablet 10 mg PO DAILY 90 Days Qty: 90 1RF polysaccharide iron complex 150 mg iron capsule 150 mg PO DAILY 30 Days Qty: 30 2RF Referrals / Follow Up: Francisco Kraft MD [Med Staff - Active Staff] - (followup tuesday12/31/22. call [phone] for appt.) Care Physician,No Primary [Primary Care Provider] - Disposition Disposition (needs filled in before D/C Order can be placed): Home, Self Care
--- NOTE | 2022-12-28 14:47 | NURSING ---
O2 SATS DROPPING BELOW 90% WHILE SLEEPING OFF/ON, PT AWAKENED & INSTRUCTED TO TAKE A DEEP BREATH AND SATS RETURN TO 95-97% WILL CONTINUE TO MONITOR
[2022-12-28] MEDS: oxyCODONE 5 MG Tablet PO (16:01)
== END 2022-12-28 17:40 | disposition home or self-care (01) ==
LOC: SDC 09:16 → AC 09:18
PROVIDERS: Anesthesiology; Referring Provider Surgery; Visit Provider Surgery
PROC: (CPT 15002; principal; 2022-12-28 10:45)
DX: T81.89XA Other complications of procedures, not elsewhere classified, initial encounter (principal); D17.24 Benign lipomatous neoplasm of skin and subcutaneous tissue of left leg; L76.33 Postprocedural seroma of skin and subcutaneous tissue following a dermatologic procedure; A49.1 Streptococcal infection, unspecified site; Z79.899 Other long term (current) drug therapy; Z98.890 Other specified postprocedural states; X58.XXXA Exposure to other specified factors, initial encounter
CPT/HCPCS: 15002; 13160; 00300; 88305; 81025; 87070; 87075; 87077; 87102; 87176; 87186; 87205; 87206; 88304; J7120; J2405

== ENCOUNTER 2023-01-18 15:46 | Inpatient (IN) | payer MEDICAID, SELFPAY ==
[2023-01-18 15:23] VITALS: BMI 34.7
[2023-01-18 15:30] VITALS: BP 125/75; PULSE 79; RESP 16; TEMP 37.1; O2SAT 99
[2023-01-18 16:17] LABS: Hematocrit 35.1 % (37-47); Hemoglobin 11.1 g/dL (12.0-15.0); Mean Corp Hgb Conc 31.6 g/dL (32-36); Mean Corpuscular Hgb 26.5 pg (27.0-32.0); Mean Corpuscular Volume 83.8 fL (81-99); Mean Platelet Vol. 10.6 fl (6.2-12.0); Platelet Count 352 K/mm3 (150-450); Red Blood Count 4.19 M/mm3 (4.2-5.4); White Blood Count 9.8 K/mm3 (4.4-11.0)
[2023-01-18 16:22] LABS: ALB/GLOB Ratio 0.8 RATIO (0.9-2.4); AST(SGOT) 7 U/L (15-37); Alanine Aminotransfer ALT/SGPT 15 U/L (13-56); Albumin, Serum 3.1 g/dL (3.2-5.0); Alkaline Phosphatase 108 U/L (45-117); Anion Gap 7 (5-15); BUN 13 mg/dL (7-18); BUN/Creat Ratio 16.7 RATIO (10-20); Calcium,Total 8.6 mg/dL (8.5-10.1); Chloride 104 mmol/L (98-107); Creatinine, Serum 0.78 mg/dL (0.55-1.02); EST Glomerular Filtration Rate 83 mL/min (>60); Est Glom Filt Rate - Afr Amer 101 mL/min (>60); Estimated Creatinine Clearance 91.18 ml/min; Globulin 3.8 g/dL (2.2-4.2); Glucose 100 mg/dL (74-106); Potassium 3.7 mmol/L (3.5-5.1); Protein, Total 6.9 g/dL (6.4-8.2); Sodium Level 137 mmol/L (136-145)
[2023-01-18 16:29] LABS: Erythrocyte Sedimentation Rate 36 mm/hr (0-30)
[2023-01-18 16:32] VITALS: BP 125/75; PULSE 79; RESP 16; TEMP 37.1; O2SAT 99
[2023-01-18] MEDS: 0.9% Saline Lock 10 ML Syringe IV ×2 (16:53→22:01)
[2023-01-18] MEDS: proMETHazine 25 MG Tablet PO (16:57)
[2023-01-18] MEDS: Juven (unflavored) Packet 1 PACKET PO (16:58)
--- NOTE | 2023-01-18 20:10 | PCM.RX.CS ---
Consult Pharmacy has been consulted to manage selected antiobiotic: Vancomycin Type of Consult: New start Suspected Infection: Skin/Soft tissue Labs: Sodium 137 mmol/L (136-145) 01/18/23 15:50 Potassium 3.7 mmol/L (3.5-5.1) 01/18/23 15:50 Chloride 104 mmol/L (98-107) 01/18/23 15:50 Carbon Dioxide 26.0 mmol/L (21.0-32.0) 01/18/23 15:50 Anion Gap 7 (5-15) 01/18/23 15:50 BUN 13 mg/dL (7-18) 01/18/23 15:50 Creatinine 0.78 mg/dL (0.55-1.02) 01/18/23 15:50 Est GFR (MDRD) Af Amer 101 mL/min (>60) 01/18/23 15:50 Est GFR (MDRD) Non-Af 83 mL/min (>60) 01/18/23 15:50 BUN/Creatinine Ratio 16.7 RATIO (10-20) 01/18/23 15:50 Glucose 100 mg/dL (74-106) 01/18/23 15:50 Goal Trough: 10-15 mcg/mL Pharmacy Plan for Drug Dosing: NEW START IV VANCOMYCIN Consulting Physician: Dr. Kraft Indication: Infected Incision Goal Trough: 10-15 SrCr: 0.78 (01/18/23) CrCl: 113.5mls/min (using an adjusted body weight of 82.4kg) Comments: pt received a 1500mg (15mg/kg) loading dose on 01/18/23 at 1735 Vancomycin Dose: recommend an initial dose of 750mg q8h starting 01/19/23 at 0100. trough prior to the 4th total dose Pending Level: 01/19/23 at 1630 Pharmacy Service will continue to monitor and adjust dosing as required. Follow-Up Labs: Trough Vancomycin - 01/19/23 @ 1630
[2023-01-18 21:30] VITALS: BP 104/52; PULSE 83; RESP 16; TEMP 37.6; O2SAT 96
[2023-01-18 22:16] VITALS: BP 104/52; PULSE 83; RESP 16; TEMP 37.6; O2SAT 98
--- NOTE | 2023-01-18 23:25 | PCM.HP.BLA ---
History and Physical Date of Admission: 01/18/23 History and Physical Date of Admission: 12/28/22 HISTORY OF PRESENT ILLNESS 47 year old woman presents for evaluation of painful soft tissue masses on her proximal lateral thighs bilaterally with extension toward the hip. She states that they have gradually gotten larger over that few years and have become painful over the past several months, especially when sleeping on that side or brisk walking.? The area on the right lateral thigh is more painful than the left lateral thigh. She denies any trauma to the areas.? She denies any fever.? She denies any drainage.? The right side was more symptomatic for the patient.? On 09/22/22, the patient went to surgery where she underwent excision 18 cm painful subfascial soft tissue mass right proximal lateral thigh with extension toward the hip with 11 cm complex closure repair.? On 11/10/22, the patient went to surgery for the other side and underwent excision 19 cm painful soft tissue mass left proximal lateral thigh with extension toward the hip with 11 cm layered closure repair.? During the postoperative period, she developed a seroma that starting to drain from the central aspect of the incision.? Dakin's dressing changes were started.? Wound culture from 12/06/22 showed MRSE and Streptococcus thoraltensis.? She was placed on Levaquin and Amoxicillin.? She presents today for revision of this nonhealing surgical wound left lateral thigh with extension toward the hip with excisional debridement and complex secondary wound closure.? PAST MEDICAL HISTORY Back problem Dysesthesia of multiple sites Mass of left thigh/hip Mass of right thigh/hip PAST SURGICAL HISTORY cholecystectomy Excision 18 cm painful subfascial soft tissue mass right proximal lateral thigh with extension toward the hip with 11 cm complex closure repair - 09/22/22 Excision 19 cm painful soft tissue mass left proximal lateral thigh with extension toward the hip with 11 cm layered closure repair and surgical preparation right proximal lateral thigh with extension toward the hip with excisional debridement nonhealing seroma wound and 13 cm complex secondary wound closure - 11/10/22 ALLERGIES No Known Allergies MEDICATIONS ibuprofen thyroid Levaquin Amoxicillin FAMILY HISTORY Other -?Asthma, Hypertension SOCIAL HISTORY Smoking Status:? Never smoker alcohol intake:? never substance use type:? does not use REVIEW OF SYSTEMS General - Denies fever, and weight loss. Complains about having fatigue. Eyes - Denies cataracts and glaucoma. ENT - Denies nasal congestion and sore throat. Endocrine - Denies excessive thirst and urination. She states that she has heat/cold intolerance. Skin - Denies suspicious lesions and skin cancer. She has concerns about enlarging, painful bilateral lateral thigh soft tissue masses with extension to the hip. The right is more painful than the left, especially when she sleeps or is brisk walking.? Has a nonhealing surgical wound left lateral thigh from a postoperative seroma. Musculoskeletal - Denies joint pain, joint stiffness, weakness of muscles and joints,? and arthritis. She has intermittent back pain. Neuro - Denies headaches. Cardiovascular - Denies chest pain, fatigue, and shortness of breath with exertion. Psych - Denies anxiety and depression. Respiratory - Denies chronic cough and shortness of breath. Gastrointestinal - Denies nausea, vomiting, diarrhea, and constipation. History of gallstones and cholecystectomy. Hematologic - Denies abnormal bruising and bleeding. Genitourinary - Denies hematuria and urinary frequency. PHYSICAL EXAMINATION General - Alert and oriented. HEENT - PERRL. EOMI. Throat is clear. Neck - Supple and non-tender.? No cervical adenopathy. Lungs- Clear to auscultation. Heart - Regular rate and rhythm. Abdomen - Soft and non distended. Extremities - FROM. No axillary adenopathy.? Radial pulses are palpable.? On her left proximal lateral thigh with extension up toward the hip is a nonhealing wound from a postoperative seroma.? The wound is clean with Dakin's dressing changes.? The right lateral thigh incision is healing satisfactory. Neuro - CN II-XII grossly intact. Psych - Normal mood and affect. ASSESSMENT 1.? Nonhealing wound right proximal lateral thigh with extension toward the hip. 3.? Status post excision 19 cm painful soft tissue mass left proximal lateral thigh with extension toward the hip with 11 cm layered closure repair. 4.? Postoperative seroma. PLAN Patient had enlarging painful soft tissue mass on her left proximal lateral thigh with extension toward the hip and she went to surgery on 11/10/22 where she underwent excision 19 cm painful soft tissue mass left proximal lateral thigh with extension toward the hip with 11 cm layered closure repair.? ? Postoperative she developed a seroma that drained through the central aspect of the incision.? The wound is stable with Dakin's dressing changes.? Wound culture was done on 12/06/22.? It showed MRSE and Streptococcus thoraltensis.? She was started on Levaquin and Amoxicillin.? She presents today for revision of this nonhealing surgical wound left lateral thigh with extension toward the hip with excisional debridement and complex secondary wound closure. Drains will be placed followed by a compression dressing.? Surgery will be done under general anesthesia on an outpatient basis. Patient was informed of the risks and complications of the procedure including alternatives to surgery.? These were discussed with the patient personally.? Patient voices understanding and wishes to proceed. Some of the risks and complications were included in a form from the [employer]. Potential risks and complications included but not inclusive of bleeding, infection, seroma, hematoma, bruising, swelling, prolonged need for drains, loss of sensation to skin, wound breakdown, need for wound care, poor scarring, poor aesthetic outcome, intra operative cardiac or neurologic events, DVT, PE, and reaction to anesthesia.
[2023-01-19] VITALS (10 sets, daily range): BP systolic 102–142; BP diastolic 49–67; PULSE 70–80; RESP 14–18; TEMP 36.3–37.5; O2SAT 93–98; BMI 34.7
[2023-01-19 00:54] LABS: Internal QC Validated? YES +Cl - CLEAR BKGD; Pregnancy, Urine Negative Negative
--- NOTE | 2023-01-19 10:58 | CASEMGMT ---
Addendum entered by Anu Pennington 01/19/23 11:27: TC to Jfef at [facility], she confirms they are active with pt and that they will resume upon dc. She states they will also see pt for IV atb if needed. Original Note: GUDELIA SCOTT Assessment: Face to Face with pt for initial transition planning/care coordination assessment. GUDELIA SCOTT introduced self and role at [facility], pt voices understanding and consents to assessment. Pt is A/O x4 and answers all questions appropriately at this time. Pt lying in bed in no distress. Care providers, pharmacy, and demographics verified/updated. Admitting Dx: infected left lateral leg incision PCP:Chip Specialists:ED Kraft; [facility] Preferred Pharmacy: [facility] Insurance: [facility] Prescription Benefit: yes LNOK: Harry Olmos, son; Yomaira Olmos, dtr Living Arrangements: Pt lives with a dtr who is in college and mostly home in the summer only as well as an 18y/o dtr. Pt states she is but we can't even talk about that situation. Pt reports she is I in ADL's but is not supposed to shower d/t wounds. Pt states that her dtr is doing alot of the household tasks such as grocery shopping, meals, dishes. She asks if there is any coverage through her insurance for this. Discussed options of other family helping, instacart, etc. Pt states they will manage and appreciated the input. Transportation: Pt drives self and denies concerns with transportation. DME/HHC/SNF: Pt denies having any DME in the home. Pt has SN through [facility] for wound care. Pt denies SNF stays. Pt states no concerns with going home at time of dc. She states that she was told she may need IV atb. Discussed this and pt wants to do at home. Discussed infusion companies and provided pt with a verbal list of in network companies, pt chose [facility]. Pt to OR today. Pt states no further concerns/needs. CM to follow for IV's. Advised pt to ask CM if any further question/concerns/needs arise, voices understanding. Pt Goal: Home with HHC Plan: Home with HHC resuming, follow for IV atb.
--- NOTE | 2023-01-19 14:45 | WND_PTH ---
PATIENT: MICHELLE PUTNAM LOC: [facility]3 U#:[id number] AGE/SX: 47/F ROOM: NJ322 RE01/18/[address]: Dr. Francisco Kraft MD : 1975 BED: 1 DIS: 01/20/2023 SPEC #: [id number] RECD: 01/20/23 08:56 STATUS: ZENAIDA REFrancisco #: [id number] EDGARDO: 01/19/23 14:[address]: Francisco Kraft DEPT: SURGICAL PATHOLOGY RECD BY: Delmi Cordova ENTERED: 01/20/23 10:04 SP TYPE: Wound OTHR DR: No Primary Care Phys Tissues: Thigh, NOS Procedures: Surgery Specimen Level III HEADER OPERATION: Incision, drainage, infected seroma, lateral thigh PRE-OP DIAGNOSIS: Nonhealing wound right lateral thigh with extension toward hip TISSUE SUBMITTED: MRSA infection of left lateral thigh MICROSCOPIC DIAGNOSIS Left lateral thigh tissue, incision and drainage: Acute inflammation and abscess formation. SJ:julia 01/21/2023 MICROSCOPIC DESCRIPTION Slides are reviewed. GROSS DESCRIPTION Received in fixative is one container labeled with the patient's name and designated MRSA infection of left lateral thigh. The specimen consists of multiple pieces of grayish-pink soft tissue mixed with blood clot that in aggregate measure 7.5 x 7.0 x 2.0 cm. Corporate Legal Assistant sections are submitted in two cassettes. / KIM:julia 01/20/2023 TC:2 CPT: 09458
[2023-01-19] MEDS: Lactated Ringers 1,000 ML 15 ML IV (16:10)
[2023-01-19 17:27] LABS: Vancomycin, Trough Level 12.3 ug/mL (5.0-15.0)
--- NOTE | 2023-01-19 17:43 | PCM.RX.CS ---
Consult Pharmacy has been consulted to manage selected antiobiotic: Vancomycin Type of Consult: Follow-up Labs: Sodium 137 mmol/L (136-145) 01/18/23 15:50 Potassium 3.7 mmol/L (3.5-5.1) 01/18/23 15:50 Chloride 104 mmol/L (98-107) 01/18/23 15:50 Carbon Dioxide 26.0 mmol/L (21.0-32.0) 01/18/23 15:50 Anion Gap 7 (5-15) 01/18/23 15:50 BUN 13 mg/dL (7-18) 01/18/23 15:50 Creatinine 0.78 mg/dL (0.55-1.02) 01/18/23 15:50 Est GFR (MDRD) Af Amer 101 mL/min (>60) 01/18/23 15:50 Est GFR (MDRD) Non-Af 83 mL/min (>60) 01/18/23 15:50 BUN/Creatinine Ratio 16.7 RATIO (10-20) 01/18/23 15:50 Glucose 100 mg/dL (74-106) 01/18/23 15:50 Vancomycin Trough 12.3 ug/mL (5.0-15.0) 01/19/23 16:38 Goal Trough: 10-15 mcg/mL Pharmacy Plan for Drug Dosing: VANCOMYCIN LEVEL RECEIVED Current Vancomycin Dose: 750MG IV Q12HR Number of Doses Received: 3 (initial + 2 scheduled) Vancomycin Level: 12.3 Hours Since Last Dose: 7.25hr Renal Function: 0.78 Renal Function Trend: no new labs Lab/Micro: no micro Vancomycin Plan/Comments: Patient had a trough drawn which resulted in a value of 12.3 (goal 10-15). Patient is within goal trough range. Will continue current dose and recheck a trough in 2 days. Pending Level: 01/21/23 @1630 Pharmacy Service will continue to monitor and adjust dosing as required.
--- NOTE | 2023-01-19 18:28 | PCM.OPRPT ---
Problems Associated Problem List Diagnoses (1) Abscess of left thigh: (2) Cellulitis of left thigh: (3) MRSA (methicillin resistant Staphylococcus aureus) infection: (4) Postoperative seroma of subcutaneous tissue after dermatologic procedure: (5) Status post excision of lipoma: Report of Operation Date of Procedure: 01/19/23 Pre-Operative Diagnosis: 1. MRSA infection seroma abscess left lateral thigh with cellulitis. 2. Status excision lipoma left lateral thigh. Post-Operative Diagnosis: Same. Surgery/Procedure Performed:: Surgical preparation left lateral thigh with incision and drainage and excisional debridement MRSA infection seroma abscess (128 cm2). Description of Surgical Findings:: On 11/10/22, the patient went to surgery and underwent excision 19 cm painful soft tissue mass left proximal lateral thigh with extension toward the hip with 11 cm layered closure repair.? During the postoperative period, she developed a seroma that starting to drain from the central aspect of the incision.? Dakin's dressing changes were started.? Wound culture from 12/06/22 showed MRSE and Streptococcus thoraltensis.? She was placed on Levaquin and Amoxicillin.? She went back to the operating room on 12/28/22 where she underwent surgical preparation left proximal lateral thigh with extension toward the hip with excisional debridement nonhealing seroma wound and 13 cm complex secondary wound closure.? Operative cultures showed MRSA and Kocuria kristinae.? She was treated with Doxycycline.? Initially, healing has been satisfactory until a couple of days ago when Home Health called stating the left thigh was red and warm to the touch.? She was afebrile and not in distress.? I had her come to the office the next day, 01/18/23.? There was increasing redness and tenderness and swelling.? The skin was very warm to the touch.? Recommended admission to the hospital for IV antibiotics (Vancomycin and Zosyn) since she failed outpatient therapy.? Will plan on taking her to the operating room the next day, 01/19/23, where she will undergo surgical preparation left lateral thigh with incision and drainage and excisional debridement MRSA infected seroma.? Will leave the wound open and start wound care with the VAC.? Will have a PICC line placed for termite renewal inspector IV antibiotics.? After discharge, she will followup at the Wound Center. If there is a plateau during the healing process, may proceed with delayed closure with skin grafting. Patient was informed of the risks and complications of the procedure including alternatives to surgery.? These were discussed with the patient personally.? Patient voices understanding and wishes to proceed. Potential risks and complications included but not inclusive of bleeding, infection, seroma, hematoma, bruising, swelling, loss of sensation to skin, wound breakdown, need for wound care, poor scarring, poor aesthetic outcome, intra operative cardiac or neurologic events, DVT, PE, and reaction to anesthesia. Size of wound left lateral thigh - 16 x 8 x 8 cm. Surgeon: Francisco Kraft MD carbon cutter: None Type of Anesthesia: General Anesthesiologist: Faraz Brady MD and Teodora Maradiaga CRNA Specimen's removed: MRSA infection seroma abscess left lateral thigh to Pathology and Microbiology. Drains: None. Estimated Blood Loss (mL): 50. Description of Procedure: Patient was taken to OR in supine position and was placed under general anesthesia.? A rolled blanket was placed under the patient's hip and thigh to give some lateral rotation.? The left lateral thigh was prepped and draped in the usual fashion.? SCD's were placed for DVT prophylaxis.? Perioperative antibiotics were given intravenously.? I removed the sutures and thickened brownish fluid was expressed. Thickened exudate was present with small amounts of pus. About 250 ml of thickened exudate with pus was removed. Using a curette, I proceeded with aggressive excision and debridement until healthy bleeding tissue was noted. The infection extended down to the lateral thigh muscle and infiltrated the surrounding muscle. The wound was irrigated with saline. Hemostasis was obtained with electrocautery. Tissue and exudate that was excised and [id number] was sent to Pathology for analysis to rule out carcinoma and to Microbiology for culture. A positive culture may necessitate antibiotic modification. The size of the wound defect after incision and drainage and excisional debridement MRSA infection seroma abscess was 16 x 8 x 8 cm or 128 cm2. The wound was then packed with Mepitel nonadherent dressing followed by Kerlix gauze and Betadine. This was followed by dry Kerlix gauze and ABD pads and tape compression dressing. A compression mary kay wrap was then applied. Patient tolerated the procedure well and was sent to PACU in satisfactory condition. Patient will be sent upstairs for continued postop care. Will place the VAC tomorrow. A PICC line was placed preop and she will continue the Vancomycin and Zosyn while in the hospital. I anticipate discharging her on IV Vancomycin. After discharge, she can followup at the Wound Center.? Grafts/Implants Used: None. Procedure Start Time: 17:40 Procedure Stop Time: 18:18 Complications None. Admit VTE Documentation VTE Present on Admission: No VTE Mechan Device Prophylaxis: SCD's VTE Pharm Prophylaxis ordered?: Yes Addendum Addendum: Surgery Charges CPT - 91232 ICD-10 - L02.416, L03.116, A49.02, L76.33, Z98.890
[2023-01-19] MEDS: Docusate Sodium 100 MG Capsule PO (21:19)
[2023-01-20] VITALS: BP 120/67; PULSE 69; RESP 18; TEMP 37; O2SAT 99
[2023-01-20 04:34] VITALS: BP 109/60; PULSE 60; RESP 18; TEMP 36.4; O2SAT 96
[2023-01-20] MEDS: oxyCODONE 5 MG Tablet 10 MG PO (08:25)
[2023-01-20 08:34] VITALS: BP 122/68; PULSE 62; RESP 18; TEMP 36.2; O2SAT 97
--- NOTE | 2023-01-20 10:31 | WOUNDNOTE ---
wound photo: left lateral thigh
--- NOTE | 2023-01-20 10:41 | CASEMGMT ---
Addendum entered by Anu Pennington 01/20/23 13:36: Dr. Kraft and Carlin Dolan updated for plan for vanc next dose then pt to dc with C starting in the am. [facility] to deliver med yet this evening. Addendum entered by Anu Pennington 01/20/23 13:25: Received confirmation that pt cost is $0 for IV atb. TC to Jeff at [facility] to verify if they could start tomorrow for the IV atb, she states they can. Home vac approved. Notified [facility] via [facility] that [facility] will start in the morning. Pt is aware of all of the above as well. Addendum entered by Anu Pennington 01/20/23 11:52: Attached IV rx to [facility] and sent to [facility] at this time. Addendum entered by Anu Pennington 01/20/23 10:59: Pt to dc on iv atb. Referral sent to [facility] at this time. Addendum entered by Anu Pennington 01/20/23 10:47: Referral sent to [facility] via [facility] at this time. Original Note: RN SONIA spoke with wound nurse, vac to be applied. Messaged and Carly to verify IV atb and anticpated dc date.
[2023-01-20] MEDS: Juven (unflavored) Packet 1 PACKET PO ×2 (10:52→17:17)
[2023-01-20] MEDS: Magnesium Chloride 64 MG Delay Rel.Tablet 128 MG PO (10:53)
[2023-01-20] MEDS: Iron Polysaccharide Complex 150 MG CAPSULE PO (10:53)
[2023-01-20] MEDS: Docusate Sodium 100 MG Capsule PO (10:53)
[2023-01-20] MEDS: Escitalopram Oxalate 10 MG Tablet PO (10:55)
--- NOTE | 2023-01-20 12:22 | WOUNDNOTE ---
Home wound VAC approved.
[2023-01-20 12:30] VITALS: BP 104/56; PULSE 72; RESP 18; TEMP 36.4; O2SAT 97
[2023-01-20 14:35] VITALS: BP 110/62; PULSE 72; RESP 18; TEMP 36.8; O2SAT 96
--- NOTE | 2023-01-20 15:23 | WOUNDNOTE ---
Pt switched over to the home VAC. proof of delivery form signed and faxed. pt aware she will need to take dressing to wound center for follow up appts. pt denies further needs at this time.
--- NOTE | 2023-01-20 16:06 | DCINST_ITS ---
Discharge Instructions Diet Discharge Diet: No restrictions (increase protein intake) Activity Discharge Activity: May Not Shower Dressing / Incision Call your doctor if your incision/area has: Continuous Slow Oozing, Sudden Inc reased Bleeding, Increased Pain/ Swelling, Increased Redness, Foul Smelling Discharge and Swelling at the incision site Call your doctor if you observe: Fever of 101 or Higher, Coldness, Increased Pain, Inability to urinate, Inability to have a bowel movement, Shortness of breath, Chest pain, Calf discomfort and Uncontrolled pain Suture Line Care: Avoid Pulling/Pushing Cleanse incision/area with: Soap & Water Drain: Suction Additional Dressing/Incision Instructions:: Wound VAC at 150 mmHg to be changed 3 times per week. Please wash the wound and skye wound with soap and water at the time of the dressing changes. Follow Up Care Please Follow Up With: Christa Dolan DIRECTOR DIGITAL ADVERTISING, DIRECTOR DIGITAL ADVERTISING-C When: Wound center Tuesday01/24/23. [facility] will call you with a time. Wound center number [phone] Test Results: Test results from this visit will be discussed in further detail at your follow- up appointment, if applicable. Discharge Plan Admission Admit Date/Time: 01/18/23 15:46 Attending Provider: Francisco Kraft Primary Care Provider: Care Physician,No Primary Discharge Orders/Prescriptions Prescriptions: New vancomycin in 0.9 % sodium chl 750 mg/150 mL piggyback 750 mg IV Q8H 14 Days Qty: 6300 2RF Rx Instructions: Home Health to check CBC, CMP, ESR, CRP, Vancomycin Trough qweekly while on Vancomycin Pharmacy to dose diazepam [Valium] 5 mg tablet 5 mg PO BID PRN (Reason: muscle spasm) 7 Days Qty: 14 0RF Continued (DME) Wound care See Rx Instructions .Route .MEDSUPPLY Qty: 1 0RF Rx Instructions: Left leg wound care, cleanse w/ saline, dry, apply antibiotic oint on suture line and cover with dry gauze 3x/wk & prn CLAUDIA wrap compression. promethazine 25 mg tablet 25 mg PO Q6H PRN (Reason: nausea and vomiting) Qty: 30 1RF magnesium oxide 400 mg (241.3 mg magnesium) tablet 400 mg PO DAILY polysaccharide iron complex 150 mg iron capsule 150 mg PO DAILY escitalopram oxalate [Lexapro] 10 mg tablet 10 mg PO DAILY L.acidoph,saliva-B.bif-S.therm [Acidophilus Probiotic Blend] 175 mg capsule 1 cap PO DAILY Discontinued doxycycline hyclate 100 mg capsule 100 mg PO BID amoxicillin 875 mg tablet 875 mg PO BID Referrals / Follow Up: Care Physician,No Primary [Primary Care Provider] - Disposition Disposition (needs filled in before D/C Order can be placed): Home Health Service
--- NOTE | 2023-01-20 16:15 | CASEMGMT ---
Addendum entered by Danny Salcedo 01/20/23 16:17: D/C order is in. Pt to discharge home after 5 PM Vanco dose infused. Nurse, jose armando Bee. Original Note: RN CM NOTE: Dr Kraft and Christa Dolan, AIR BRAKE ADJUSTER, in to see pt. DC instructions sent to [facility] via [employer]. Ree WINSTON RN CM
[2023-01-20 17:30] VITALS: BP 100/57; PULSE 73; RESP 18; TEMP 36.6; O2SAT 97
[2023-01-20] MEDS: 0.9% Saline Lock 10 ML Syringe IV (20:17)
--- NOTE | 2023-01-20 21:59 | PCM.DC.SUM ---
Providers Date of Admission: 01/18/23 Date of Discharge: 01/20/23 Primary Care Physician: [place] Primary Care Phys Consultations 01/20/23 06:19 Consult: Onc/Wound/live source operator Routine Comment: Reason for Consult:: left lateral thigh wound Reason For Visit: MRSA infection seroma abscess left lateral thigh Diagnosis Discharge Diagnosis (1) Abscess of left thigh: Status: Acute Code(s): L02.416 - Cutaneous abscess of left lower limb (2) Cellulitis of left thigh: Status: Acute Code(s): L03.116 - Cellulitis of left lower limb (3) MRSA (methicillin resistant Staphylococcus aureus) infection: Status: Acute Code(s): A49.02 - Methicillin resistant Staphylococcus aureus infection, unspecified site (4) Postoperative seroma of subcutaneous tissue after dermatologic procedure: Status: Chronic Code(s): L76.33 - Postprocedural seroma of skin and subcutaneous tissue following a dermatologic procedure (5) Status post excision of lipoma: Status: Chronic Code(s): Z98.890 - Other specified postprocedural states; Z86.018 - Personal history of other benign neoplasm Medications at Discharge Home Medications promethazine 25 mg tablet 25 mg PO Q6H PRN nausea and vomiting #30 tabs 11/12/22 magnesium oxide 400 mg (241.3 mg magnesium) tablet 400 mg PO DAILY supplement 12/20/22 Wound care #1 ea 01/04/23 L.acidophil,salivari-Bifido bifidum-Strep thermoph 175 mg capsule (Acidophilus Probiotic Blend) 1 cap PO DAILY GI health 01/18/23 escitalopram oxalate 10 mg tablet (Lexapro) 10 mg PO DAILY mood 01/18/23 polysaccharide iron complex 150 mg iron capsule 150 mg PO DAILY supplement 01/18/23 diazepam 5 mg tablet (Valium) 5 mg PO BID PRN muscle spasm 7 days #14 tabs 01/20/23 vancomycin 750 mg/150 mL in 0.9% sodium chloride intravenous piggyback 750 mg (150 mL) IV Q8H 2 weeks #6,300 mL 01/20/23 Hospital Course Operations - (01/19/23 - Surgical preparation left lateral thigh with incision and drainage and excisional debridement MRSA infection seroma abscess (128 cm2).) Procedures PICC line placement and Wound vac placement Summary of Care Provided Minutes Spent on Discharge: 35 Hospital Course: On 11/10/22, the patient went to surgery and underwent excision 19 cm painful soft tissue mass left proximal lateral thigh with extension toward the hip with 11 cm layered closure repair.? During the postoperative period, she developed a seroma that starting to drain from the central aspect of the incision.? Dakin's dressing changes were started.? Wound culture from 12/06/22 showed MRSE and Streptococcus thoraltensis.? She was placed on Levaquin and Amoxicillin.? She went back to the operating room on 12/28/22 where she underwent surgical preparation left proximal lateral thigh with extension toward the hip with excisional debridement nonhealing seroma wound and 13 cm complex secondary wound closure.? Operative cultures showed MRSA and Kocuria kristinae.? She was treated with Doxycycline.? Initially, healing has been satisfactory until a couple of days ago when Home Health called stating the left thigh was red and warm to the touch.? She was afebrile and not in distress.? I had her come to the office the next day, 01/18/23.? There was increasing redness and tenderness and swelling.? The skin was very warm to the touch.? Recommended admission to the hospital for IV antibiotics (Vancomycin and Zosyn) since she failed outpatient therapy. A PICC line was placed.? She was taken to the operating room the next day, 01/19/23, where she underwent surgical preparation left lateral thigh with incision and drainage and excisional debridement MRSA infection seroma abscess (128 cm2). She tolerated the procedure well. The next day, the VAC was applied without difficulty. No active bleeding was noted. Home Health was arranged along with the Infusion Service for the Vancomycin antibiotics. She was discharged home in satisfactory condition on 01/20/23. She will followup at the Wound Center on Tuesday01/24/23. Anticipate at least 2 weeks of IV antibiotics. Will reassess in the Wound Center if it needs to be continued for an additional 2 weeks. Maximum timeframe is 6 weeks. If there is a plateau during the healing process, may proceed with delayed closure with skin grafting. Wrote scripts for the Vancomycin and for Valium for spasm while on the VAC. She stated she had enough pain medication at the present time. Physical Exam Narrative General - Alert and Oriented HEENT - PERRL. EOMI. Neck - Supple and nontender. Abdomen - Soft and nondistended. Extremities - On the left lateral thigh is the operative wound that is stable. No active bleeding noted. No evidence of further infection at this time. VAC applied without difficulty. Neuro - CN II-XII grossly intact. Psych - Normal mood and affect. Weight / BMI Weight Weight: 235 lb 8 oz Body Mass Index (BMI) 34.7 ABG / Lab / Microbiology Data Attestation: I reviewed the patient's lab results. Result Diagrams: 01/18/23 15:50 01/18/23 15:50 Microbiology: Microbiology 01/19/23 Unknown Tissue - Other Gram Stain - Final 01/19/23 Unknown Tissue - Other Wound Culture - Preliminary No growth-Final to follow D/C Instructions Discharge Diet: No restrictions (increase protein intake) Call your doctor if your incision/area has: Continuous Slow Oozing, Sudden Increased Bleeding, Increased Pain/ Swelling, Increased Redness, Foul Smelling Discharge and Swelling at the incision site Call your doctor if you observe: Fever of 101 or Higher, Coldness, Increased Pain, Inability to urinate, Inability to have a bowel movement, Shortness of breath, Chest pain, Calf discomfort and Uncontrolled pain Suture Line Care: Avoid Pulling/Pushing Cleanse incision/area with: Soap & Water Drain: Suction Additional Dressing/Incision Instructions: Wound VAC at 150 mmHg to be changed 3 times per week. Please wash the wound and skye wound with soap and water at the time of the dressing changes. Please Follow Up With: Christa Dolan NP, WAITER/WAITRESS BUFFET-C When: Wound center Tuesday01/24/23. [facility] will call you with a time. [facility] number [phone] Meaningful Use Info Meaningful Use Diagnoses (Choose all that apply): None applicable Discharge Plan Admission Admit Date/Time: 01/18/23 15:46 Primary Reason for Your Visit: I&D MRSA infection seroma abscess left lateral thigh Attending Provider: Francisco Kraft Primary Care Provider: Care Physician,No Primary Discharge Orders/Prescriptions Prescriptions: New vancomycin in 0.9 % sodium chl 750 mg/150 mL piggyback 750 mg IV Q8H 14 Days Qty: 6300 2RF Rx Instructions: Home Health to check CBC, CMP, ESR, CRP, Vancomycin Trough qweekly while on Vancomycin Pharmacy to dose diazepam [Valium] 5 mg tablet 5 mg PO BID PRN (Reason: muscle spasm) 7 Days Qty: 14 0RF Continued (DME) Wound care See Rx Instructions .Route .MEDSUPPLY Qty: 1 0RF Rx Instructions: Left leg wound care, cleanse w/ saline, dry, apply antibiotic oint on suture line and cover with dry gauze 3x/wk & prn CLAUDIA wrap compression. promethazine 25 mg tablet 25 mg PO Q6H PRN (Reason: nausea and vomiting) Qty: 30 1RF magnesium oxide 400 mg (241.3 mg magnesium) tablet 400 mg PO DAILY polysaccharide iron complex 150 mg iron capsule 150 mg PO DAILY escitalopram oxalate [Lexapro] 10 mg tablet 10 mg PO DAILY L.acidoph,saliva-B.bif-S.therm [Acidophilus Probiotic Blend] 175 mg capsule 1 cap PO DAILY Discontinued doxycycline hyclate 100 mg capsule 100 mg PO BID amoxicillin 875 mg tablet 875 mg PO BID Referrals / Follow Up: Francisco Kraft MD [Med Staff - Active Staff] - (followup wound center on tuesday01/24/23) Care Physician,No Primary [Primary Care Provider] - Disposition Disposition (needs filled in before D/C Order can be placed): Home Health Service
== END 2023-01-20 20:30 | disposition home health service (06) | DRG 813 ==
PROVIDERS: Anesthesiology; Admitting Provider Surgery; Referring Provider Surgery; Visit Provider Surgery
PROC: 0JBM0ZZ Excision of Left Upper Leg Subcutaneous Tissue and Fascia, Open Approach (ICD-10-PCS; principal; 2023-01-19 14:35)
DX: L76.33 Postprocedural seroma of skin and subcutaneous tissue following a dermatologic procedure (principal); L02.416 Cutaneous abscess of left lower limb; L03.116 Cellulitis of left lower limb; B95.62 Methicillin resistant Staphylococcus aureus infection as the cause of diseases classified elsewhere
CPT/HCPCS: 36569; 80053; 80202; 81025; 85027; 85652; 86140; 87070; 87075; 87102; 87176; 87205; 87206; 88304; 88305; 97802; J7040; J7050; J7120; A4216; J2405

== ENCOUNTER 2023-01-27 19:31 | Emergency (ER) | payer MEDICAID, SELFPAY ==
[2023-01-27 19:32] VITALS: BP 140/70; PULSE 91; RESP 15; TEMP 36.4; O2SAT 98
[2023-01-27 19:41] VITALS: BP 140/70; PULSE 91; RESP 18; TEMP 36.4; O2SAT 98; BMI 35.5
--- NOTE | 2023-01-27 19:50 | EDS_ITS ---
HPI History of Present Illness Chief Complaint: Wound Detail of Chief Complaint: PICC line problem Informant: patient Onset/Context/Timing Onset: Days Context: Gradual Onset Current Severity: Mild Maximum Severity: Mild Narrative Narrative: 47-year-old female who had lipomas removed from her left hip area. She develo ped a wound dehiscence. After repair developed a wound infection with MRSA. Currently has a left upper extremity PICC line that was placed last week. Now they are having difficulty drawing blood and it takes longer for the antibiotics to run through the PICC line. Came in to have it evaluated. Prior similar symptoms: No Recent Illness/Hospitalization: Yes [facility] Medical History Abscess of left thigh Back problem Cellulitis of left thigh Dysesthesia of multiple sites Lipoma of left lower extremity Lipoma of right lower extremity Mass of left hip region Mass of left thigh Mass of right hip region Mass of right thigh Methicillin resistant Staphylococcus epidermidis infection MRSA (methicillin resistant Staphylococcus aureus) infection Non-smoker Nonhealing surgical wound Open wound Pain in left leg Pain in right leg Postoperative seroma of subcutaneous tissue after dermatologic procedure Redness of skin Sensitive skin Wears glasses Home Medications promethazine 25 mg tablet 25 mg PO Q6H PRN nausea and vomiting #30 tabs 11/12/22 [Rx Last Taken Unknown] magnesium oxide 400 mg (241.3 mg magnesium) tablet 400 mg PO DAILY supplement 12/20/22 [History Last Taken 01/17/23] Wound care #1 ea 01/04/23 [Rx Last Taken Unknown] L.acidophil,salivari-Bifido bifidum-Strep thermoph 175 mg capsule (Acidophilus Probiotic Blend) 1 cap PO DAILY GI health 01/18/23 [History Last Taken 01/17/23] escitalopram oxalate 10 mg tablet (Lexapro) 10 mg PO DAILY mood 01/18/23 [History Last Taken 01/18/23] polysaccharide iron complex 150 mg iron capsule 150 mg PO DAILY supplement 01/18/23 [History Last Taken Unknown] diazepam 5 mg tablet (Valium) 5 mg PO BID PRN muscle spasm 7 days #14 tabs 01/20/23 [Rx Last Taken Unknown] vancomycin 750 mg/150 mL in 0.9% sodium chloride intravenous piggyback 750 mg (150 mL) IV Q8H 2 weeks #6,300 mL 01/20/23 [Rx Last Taken Unknown] alteplase 2 mg intra-catheter solution (Cathflo Activase) 2 mg intra-catheter ONCE No blood flow double lumen PICC line #2 ea 01/26/23 [Rx Last Taken Unknown] oxycodone-acetaminophen 5 mg-325 mg tablet (Percocet) 1 tab PO TID PRN pain (scale score 7-10) 7 days #21 tabs 01/26/23 [Rx Last Taken Unknown] Allergy/AdvReac Type Severity Reaction Status Date / Time No Known Allergies Allergy Verified 01/27/23 19:36 Family History Other Asthma Hypertension Surgical History History of cholecystectomy History of D&C History of endometrial ablation History of excision of mass Status post excision of lipoma Social History Smoking Status: Never smoker alcohol intake: never substance use type: does not use additional social history: Does not take aspirin Does not take ibuprofen ROS ROS ED ROS Narrative Denies recent illness. Review of Systems ROS Unobtainable: Denies due to encephalopathy Constitutional Constitutional ED: Denies chills or fever(s) Eyes Eyes: Denies blurry vision ENT ENT ED: Denies ear pain Cardiovascular Cardiovascular: Denies chest pain Respiratory/Chest Respiratory/Chest: Denies cough or dyspnea Gastrointestinal Gastrointestinal: Denies abdominal pain Genitourinary Genitourinary ED: Denies dysuria or hematuria Musculoskeletal Musculoskeletal: Denies arthralgias Integumentary Denies abscess or Abrasions Neurologic Neurologic: Denies headache(s) Psychiatric Psychiatric: Denies anxiety or depression Endocrine Endocrinology: Denies cold intolerance Hematologic/Lymphatic Hematologic/Lymphatic: Reports none Allergic/Immunologic Allergic/Immunologic ED: Denies mouth swelling or tongue swelling EXAM Physical Exam Narrative Exam Narrative: While appearing middle-aged female. Vital signs stable afebrile. H EENT exam unremarkable. Neck nontender. Lungs clear to auscultation bilaterally. Heart regular rhythm no murmur. Abdomen soft nontender. Moving all 4 extremities. Left hip area she has a wound VAC in place. Calves are nontender without edema. Neurologically she is awake alert with no focal motor deficits. She has a PICC line in her left upper extremity. There is no significant swelling or tenderness. No redness. No axillary lymphadenopathy. Const Vital Signs: 01/27/23 19:32 01/27/23 19:41 Temperature 97.6 F L 97.6 F L Temperature Source Temporal Temporal Pulse Rate 91 91 Respiratory Rate 15 18 Blood Pressure 140/70 H 140/70 H Blood Pressure Mean 93 93 Pulse Ox 98 98 Oxygen Delivery Method Room Air Room Air Positive well nourished and well developed; Negative for cachectic, contractures or unkempt General Appearance ED: well developed and NAD; Negative for unkempt, cachectic, contractures, cyanotic or diaphoretic Nutritional Appearance: Negative for cachectic HEENT Reports moist mucous membranes; Denies dry mucous membranes Negative for trauma or tenderness Mouth ED: No dry mucous membranes Mouth: No dry mucous membranes Eyes PERRL and EOMs intact bilaterally General Eye ED: Negative for pale conjunctiva, scleral icterus or other Neck no lymphadenopathy, supple and no JVD General: Negative for tenderness Chest Wall inspection of chest normal and palpation of chest normal Chest: Negative for other Resp normal respiratory effort and clear to auscultation bilaterally Effort and Inspection: Negative for retractions Auscultation: Negative for rales, rhonchi or wheezes Cardio regular rate, regular rhythm, S1 normal heart sound, S2 normal heart sound and no murmurs Palpation: Negative for palpable S3 Rate: Negative for bradycardia Rhythm: Negative for abnormal rhythm GI normal to inspection, nondistended, normoactive bowel sounds, non-tender, non- distended and no masses Inspection: Negative for abdominal distention Auscultation: normoactive bowel sounds Palpation: soft; Negative for tender or guarding Back/Spine no CVA tenderness General Back: Negative for CVA tenderness Cervical Spine: Negative for cervical spine tenderness Thoracic Spine / Upper Back: Negative for thoracic spinal tenderness Extremity normal to inspection Extremity Narrative: Left upper arm PICC line. Nontender. Nonswollen. No redness. General Extremety ED: Yes tenderness; Negative for edema General Extremity: Negative for edema Neuro oriented x3 and CN's II-XII intact bilaterally Sensorium / Orientation: alert Motor Exam: strength 5/5 throughout Psych mental status grossly normal Appearance: Negative for unkempt Attitude: No agitated Mood & Affect: Negative for depressed or anxious Skin no rashes or lesions noted and No no wounds Skin Narrative: Open wound left upper leg. Hip area. Wound VAC in place. Rashes: No rashes noted Trauma: Negative for abrasion MDM MDM MDM Narrative Medical decision making narrative: Patient with a PICC line placed in the left upper arm about a week ago. States that antibiotics are taking longer to infuse now and they are having difficulty drawing blood off of it. Nurse stated that they are unable to draw blood from the PICC line. It does flush but more trouble with one of the other ports. Per path flow protocol the PICC line will be flushed with tenecteplase. Discharge Plan Triage Chief Complaint: Wound ED Provider: Imer Bryant Dx/Rx/DC Orders Clinical Impression: Occluded PICC line Prescriptions: No Action (DME) Wound care See Rx Instructions .Route .MEDSUPPLY Qty: 1 0RF Rx Instructions: Left leg wound care, cleanse w/ saline, dry, apply antibiotic oint on suture line and cover with dry gauze 3x/wk & prn CLAUDIA wrap compression. promethazine 25 mg tablet 25 mg PO Q6H PRN (Reason: nausea and vomiting) Qty: 30 1RF magnesium oxide 400 mg (241.3 mg magnesium) tablet 400 mg PO DAILY polysaccharide iron complex 150 mg iron capsule 150 mg PO DAILY escitalopram oxalate [Lexapro] 10 mg tablet 10 mg PO DAILY L.acidoph,saliva-B.bif-S.therm [Acidophilus Probiotic Blend] 175 mg capsule 1 cap PO DAILY vancomycin in 0.9 % sodium chl 750 mg/150 mL piggyback 750 mg IV Q8H 14 Days Qty: 6300 2RF Rx Instructions: Home Health to check CBC, CMP, ESR, CRP, Vancomycin Trough qweekly while on Vancomycin Pharmacy to dose diazepam [Valium] 5 mg tablet 5 mg PO BID PRN (Reason: muscle spasm) 7 Days Qty: 14 0RF oxycodone-acetaminophen [Percocet] 5-325 mg tablet 1 tab PO TID PRN (Reason: pain (scale score 7-10)) 7 Days Qty: 21 0RF Cathflo Activase 2 mg recon soln 2 mg intra-catheter ONCE Qty: 2 1RF Rx Instructions: into each catheter lumen. May repeat once if needed to obtain patency Primary Care Provider: Cade Saunders Referrals: Cade Saunders MD [Primary Care Provider] - As Needed Activity Restrictions/Additional Instructions: If you have further problems with the PICC line follow-up with PICC placement team and reevaluated. Disposition Disposition: Home, Self Care
[2023-01-27] MEDS: Alteplase 2 MG/2 ML Vial IV (20:39)
[2023-01-27 22:01] VITALS: BP 132/64; PULSE 78; RESP 18; O2SAT 98
--- NOTE | 2023-01-27 22:02 | NURSING ---
FLUSHED PICC LINE 30CC NS BLOOD RETURN NOTED. UPDATED
== END 2023-01-27 22:05 | disposition home or self-care (01) ==
PROVIDERS: Emergency Provider Emergency Medicine; PCP Internal Medicine; Visit Provider Emergency Medicine
DX: T82.594A Other mechanical complication of infusion catheter, initial encounter (principal); X58.XXXA Exposure to other specified factors, initial encounter
CPT/HCPCS: 96374; 99282; J2997; A4216

== ENCOUNTER 2023-01-31 14:45 | Outpatient (RCR) | payer MEDICAID, SELFPAY ==
[2022-11-14 00:37] VITALS: BP 127/79; PULSE 89; RESP 20; TEMP 36.6; BMI 34.2
[2023-01-24 14:14] VITALS: BP 141/76; PULSE 80; RESP 16; TEMP 36.2; BMI 34.2
[2023-01-24 14:26] LABS: Erythrocyte Sedimentation Rate 16 mm/hr (0-30)
[2023-01-24 14:27] LABS: Hematocrit 37.7 % (37-47); Hemoglobin 11.8 g/dL (12.0-15.0); Mean Corp Hgb Conc 31.3 g/dL (32-36); Mean Corpuscular Hgb 26.5 pg (27.0-32.0); Mean Corpuscular Volume 84.7 fL (81-99); Mean Platelet Vol. 10.1 fl (6.2-12.0); Platelet Count 447 K/mm3 (150-450); RBC Distribution Width SD 43.2 fl (35.1-43.9); Red Blood Count 4.45 M/mm3 (4.2-5.4); White Blood Count 7.2 K/mm3 (4.4-11.0)
[2023-01-24 14:56] LABS: ALB/GLOB Ratio 0.8 RATIO (0.9-2.4); AST(SGOT) 8 U/L (15-37); Alanine Aminotransfer ALT/SGPT 16 U/L (13-56); Albumin, Serum 3.1 g/dL (3.2-5.0); Alkaline Phosphatase 95 U/L (45-117); Anion Gap 8 (5-15); BUN 14 mg/dL (7-18); BUN/Creat Ratio 18.2 RATIO (10-20); Calcium,Total 8.8 mg/dL (8.5-10.1); Chloride 106 mmol/L (98-107); Creatinine, Serum 0.77 mg/dL (0.55-1.02); EST Glomerular Filtration Rate 85 mL/min (>60); Est Glom Filt Rate - Afr Amer 102 mL/min (>60); Estimated Creatinine Clearance 92.36 ml/min; Globulin 4.1 g/dL (2.2-4.2); Glucose 117 mg/dL (74-106); Potassium 3.5 mmol/L (3.5-5.1); Protein, Total 7.2 g/dL (6.4-8.2); Sodium Level 141 mmol/L (136-145)
[2023-01-24 14:59] LABS: Vancomycin, Trough Level 12.5 ug/mL (5.0-15.0)
--- NOTE | 2023-01-24 15:41 | PN.PCM_ITS ---
History of Present Illness Date of Service: 01/24/23 Chief Complaint: Nonhealing surgical wound left lateral thigh History of Wound: 47 year old woman who has had a complicated course since her first surgery on her left lateral thigh on 09/22/22. Her left lateral thigh is now healed. Her right lateral thigh became infected and required hospitalization with incision and drainage on 01/19/23. The wound was left open and a wound VAC was applied. She was discharged home with IV Vancomycin x 2 weeks due to the severity of the infection. Surgery 01/19/23 - Surgical preparation left lateral thigh with incision and drainage and excisional debridement MRSA infection seroma abscess (128 cm2). Surgery 12/28/22 - Surgical preparation left proximal lateral thigh with extension toward the hip with excisional debridement nonhealing seroma wound and 13 cm complex secondary wound closure. Surgery 11/10/22 - Excision 19 cm painful soft tissue mass left proximal lateral thigh with extension toward the hip with 11 cm layered closure repair and surgical preparation right proximal lateral thigh with extension toward the hip with excisional debridement nonhealing seroma wound and 13 cm complex secondary wound closure. She was discharged from the hospital on 11/12/22. Surgery 09/22/22 -Excision 18 cm painful subfascial soft tissue mass right proximal lateral thigh with extension toward the hip with 11 cm complex closure repair. Pathology from 09/22/22 of the right lateral thigh excision showed mature adipose tissue consistent with lipoma. Pathology from 11/10/22 of left lateral thigh mass excision showed mature adipose tissue consistent with lipoma. Pathology from 12/28/21 of left hip seroma wound showed skin with underlying tissue with acute and chronic inflammation, granulation tissue reaction and fat necrosis. Wound culture from 10/18/22 of right hip was positive for MRSE and Corynebacterium amycolatum. Operative cultures from 11/10/22 showed Corynebacterium striatum, Coag Negative Staph and Anaerobic cocci. Wound culture from 12/06/22 positive for MRSE and Streptococcus thoraltensis. She was started on Levaquin and Amoxicillin. Operative culture from 12/28/22 positive for MRSA and Kocuria kristinae initially treated with Augmentin then switched antibiotic to Doxycycline. Operative culture of left thigh tissue from 01/19/23 was negative for bacterial growth. Prealbumin from 11/11/22 was 15.7. Wound care - Wound VAC at 150 mmHg to the left lateral thigh to be changed 3 times per week. Today she denies any complaints of fever, chills, nausea, vomiting or any pain. Progress of Wound: Left lateral thigh wound is beefy pink, there is undermining into the muscle. She has been tolerating the wound VAC fairly well. She states her pain is well controlled. Objective Data Objective Data Vital Signs: Vital Signs Temp Pulse Resp BP O2 Del Method 97.1 F L 80 16 141/76 H Room Air 01/24/23 14:14 01/24/23 14:14 01/24/23 14:14 01/24/23 14:14 01/24/23 14:14 Oxygen Delivery Method Room Air Weight: 232 lb Body Mass Index (BMI) 34.2 Lab / Micro Data Result Diagrams: 01/24/23 13:31 01/24/23 13:31 Labs: Laboratory Results - last 24 hr 01/24/23 13:31: WBC 7.2, RBC 4.45, Hgb 11.8 L, Hct 37.7, MCV 84.7, MCH 26.5 L, MCHC 31.3 L, RDW Std Deviation 43.2, RDW Coeff of Adamaris 14.0, Plt Count 447, MPV 10.1, ESR 16 01/24/23 13:31: Sodium 141, Potassium 3.5, Chloride 106, Carbon Dioxide 27.0, Anion Gap 8, BUN 14, Creatinine 0.77, Estim Creat Clear Calc 92.36, Est GFR (MDRD) Af Amer 102, Est GFR (MDRD) Non-Af 85, BUN/Creatinine Ratio 18.2, Glucose 117 H, Calcium 8.8, Total Bilirubin 0.30, AST 8 L, ALT 16, Alkaline Phosphatase 95, C-React Prot Ext Range 19.40 H, Total Protein 7.2, Albumin 3.1 L, Globulin 4.1, Albumin/Globulin Ratio 0.8 L 01/24/23 13:31: Vancomycin Trough 12.5 Charges/Coding Procedures Integumentary [id number]: [id number] Global Visit Physical Exam Const alert and oriented x3 General Appearance: cooperative HEENT normocephalic Resp normal respiratory effort Effort and Inspection: able to speak in complete sentences Cardio regular rate and peripheral pulses 2+ throughout Extremity normal capillary refill Skin Wound Narrative: Left lateral thigh wound is beefy pink. It goes into the muscle. There is some undermining circumferentially. Laurence wound is stable with no erythema. Neuro CN's II-XII intact bilaterally Debridement Note Debridement Note Wound debrided: Lateral thigh Laterality: Left Wound Grade/Stage: Stage IV No debridement was completed: No debridement was completed today Post-Debridement Measurements and Additional Note: Post-Debridement Measurements/Treatment - Nurse 1 - General Ulcer Assessment Start: 01/24/23 14:13 Freq: Status: Active Protocol: RADHA Activity Type Activity Date Activity User E-sign Co-sign Detail Recorded Client Recorded Date Recorded By Document 01/24/23 14:14 [facility] [id number] 01/24/23 14:41 [facility] 01/24/23 14:14 - Today's Visit Information Type of service Initial Visit Arrival Mode Ambulatory Transfer Assistance None Patient Identification Verified (Name & Yes ) Patient Requires Transmission-Based No Precautions Height and Weight Body Mass Index (BMI) 34.2 BMI Classification Obese Vital Signs Temperature (97.8 F-99.1 F) 97.1 F L Temperature Source Temporal Pulse Rate (60-100) 80 Pulse Location Monitor Respiratory Rate (12-18) 16 Respiratory rate source Observation Oxygen Delivery Method Room Air Blood Pressure (90/60-120/80) 141/76 H Blood Pressure Mean (mm Hg) 97 Source Monitor Position Sitting Blood Pressure Location Right Arm History Since Last Visit- (Skip if this is Patient's initial visit) Left Footwear Regular Shoe Right Footwear Regular Shoe Pain Scale: 0-10 Numeric Is Patient Pain Free? Yes - Nurse 1 - General Ulcer Measurement Start: 01/24/23 14:13 Freq: Status: Active Protocol: Activity Type Activity Date Activity User E-sign Co-sign Detail Recorded Client Recorded Date Recorded By Document 01/24/23 14:14 [facility] [id number] 01/24/23 14:41 [facility] 01/24/23 14:14 Wound Center Nurse 1 #2- L LAT THIGH POST OP -Combined with other wound No -Current Size (cm) - Length 14.4 -Current Size (cm) - Width 6.4 -Current Size (cm) - Depth 2.7 -Total Square Cm 92.16 -Date of Last Picture (Recall this 01/24/23 field) -Photo Taken Yes -Epithelialization None Present -Tunneling No -Undermining/Tunneling Yes -Undermining/Tunneling Starts (O'clock 12 ) -Undermining/Tunneling Ends (O'clock) 10 -Maximum Distance (cm) 4.1 -Circular Undermining No -Exudate Amt Large -Exudate Type Serosanguineous -Wound Margin Distinct, Outline Attached -Granulation Amt Large (67-100%) -Granulation Quality Pale,Red -Slough/Fibrin Yes -Necrosis Amt Small (1-33%) -Necrotic Tissue Type Adherent Slough -Texture (Laurence-wound Skin Appearance) Assessed, Scarring -Moisture (Laurence-wound Skin Appearance) Assessed -Color (Laurence-wound Skin Appearance) Assessed -Temperature (Laurence-wound Skin No Abnormality Appearance) (Pt Warm) -Tenderness on Palpation (Laurence-wound No Skin Appearance) -Ulcer Cleansing Soap and Water -Foul Odor after Cleansing No -Anesthetic Used 4% Lidocaine Solution WC - Nurse 2 - General Ulcer CM Notes Start: 01/24/23 14:13 Freq: Status: Active Protocol: Activity Type Activity Date Activity User E-sign Co-sign Detail Recorded Client Recorded Date Recorded By Document 01/24/23 15:03 RODOLFO [id number] 01/24/23 15:04 RODOLFO 01/24/23 15:03 Wound Center Nurse 2 -Correct Patient No -Correct Side, Site, Position No -Correct Procedure No -Procedure Performed No -Post Debridement (cm) - Length 14.5 -Post Debridement (cm) - Width 7.0 -Post Debridement (cm) - Depth 4.0 -Total Square (Post) (cm) 101.50 -Area of Debridement (cm) - Length 14.5 -Area of Debridement (cm) - Width 7 -Total Square (Area) (cm) 101.5 -Circular Undermining Yes -Wound/Ulcer Outcome Not Healed -Ulcer Cleansing Rinsed/ Irrigated with Saline -Foul Odor after Cleansing No -Bioengineered Tissue No -Bleeding Controlled with Pressure -Treatment Response Procedure Tolerated Well -Offloading No -Debridement - Subq, 1st 20sq cm No -Debridement - Muscle / Fascia, 1st No 20sq cm Pain Scale: 0-10 Numeric Is Patient Pain Free? Yes WC - Nurse 3 - General Ulcer D/C NN Start: 01/24/23 14:13 Freq: Status: Active Protocol: Activity Type Activity Date Activity User E-sign Co-sign Detail Recorded Client Recorded Date Recorded By Document 01/24/23 15:37 [facility] [id number] 01/24/23 15:40 [facility] 01/24/23 15:37 Wound Care Center Nurse 3 #2- L LAT THIGH POST OP -Ulcer Cleansing Rinsed/ Irrigated with Saline -Foul Odor after Cleansing No -Negative Pressure Wound Therapy Continue -Setting (mmHg) 150 -Negative Pressure is Continuous -NPWT Application Charge NPWT & Debridement (nc ) Treatment Response Procedure Tolerated Well Pain Scale: 0-10 Numeric Is Patient Pain Free? Yes WC - Visit Discharge Discharge Condition Stable Ambulatory Status Ambulatory Transportation Private [facility] Facility Type Home Health Assessment/Plan Assessment/Plan (1) Abscess of left thigh: CODE(S): L02.416 - Cutaneous abscess of left lower limb (2) History of incision and drainage: CODE(S): Z98.890 - Other specified postprocedural states (3) Nonhealing surgical wound: CODE(S): T81.89XA - Other complications of procedures, not elsewhere classified, initial encounter (4) Lipoma of left lower extremity: CODE(S): D17.24 - Benign lipomatous neoplasm of skin and subcutaneous tissue of left leg (5) Postoperative seroma of subcutaneous tissue after dermatologic procedure: CODE(S): L76.33 - Postprocedural seroma of skin and subcutaneous tissue following a dermatologic procedure (6) Cellulitis of left thigh: CODE(S): L03.116 - Cellulitis of left lower limb (7) Other specified soft tissue disorders: CODE(S): M79.89 - Other specified soft tissue disorders (8) Other acute postprocedural pain: CODE(S): G89.18 - Other acute postprocedural pain (9) MRSA (methicillin resistant Staphylococcus aureus) infection: CODE(S): A49.02 - Methicillin resistant Staphylococcus aureus infection, unspecified site PLAN: Plan Patient was evaluated at the wound healing center today. Wound care - Wound VAC at 150 mmHg to left lateral thigh to be changed 3 times a week. Wash the wound and laurence wound with soap and water at the time of the d ressing change. If patient feels comfortable with removing the VAC before home health comes for the dressing change, she may remove and shower before the VAC is reapplied. She has [facility] for her home health. She is currently receiving Vancomycin IV BID. Renewed Percocet (21 tabs). PDMP reviewed. Increased Gabapentin TID from BID due to the amount of burning nerve pain she is experiencing. She will follow up one week.
[2023-01-31 14:49] VITALS: BP 127/90; PULSE 76; RESP 16; TEMP 36.3; BMI 34.2
--- NOTE | 2023-01-31 15:16 | PN.PCM_ITS ---
History of Present Illness Date of Service: 01/31/23 Chief Complaint: Nonhealing surgical wound left lateral thigh History of Wound: 47 year old woman who has had a complicated course since her first surgery on her left lateral thigh on 09/22/22. Her left lateral thigh is now healed. Her right lateral thigh became infected and required hospitalization with incision and drainage on 01/19/23. The wound was left open and a wound VAC was applied. She was discharged home with IV Vancomycin x 2 weeks due to the severity of the infection. Surgery 01/19/23 - Surgical preparation left lateral thigh with incision and drainage and excisional debridement MRSA infection seroma abscess (128 cm2). Surgery 12/28/22 - Surgical preparation left proximal lateral thigh with extension toward the hip with excisional debridement nonhealing seroma wound and 13 cm complex secondary wound closure. Surgery 11/10/22 - Excision 19 cm painful soft tissue mass left proximal lateral thigh with extension toward the hip with 11 cm layered closure repair and surgical preparation right proximal lateral thigh with extension toward the hip with excisional debridement nonhealing seroma wound and 13 cm complex secondary wound closure. She was discharged from the hospital on 11/12/22. Surgery 09/22/22 -Excision 18 cm painful subfascial soft tissue mass right proximal lateral thigh with extension toward the hip with 11 cm complex closure repair. Pathology from 09/22/22 of the right lateral thigh excision showed mature adipose tissue consistent with lipoma. Pathology from 11/10/22 of left lateral thigh mass excision showed mature adipose tissue consistent with lipoma. Pathology from 12/28/21 of left hip seroma wound showed skin with underlying tissue with acute and chronic inflammation, granulation tissue reaction and fat necrosis. Wound culture from 10/18/22 of right hip was positive for MRSE and Corynebacterium amycolatum. Operative cultures from 11/10/22 showed Corynebacterium striatum, Coag Negative Staph and Anaerobic cocci. Wound culture from 12/06/22 positive for MRSE and Streptococcus thoraltensis. She was started on Levaquin and Amoxicillin. Operative culture from 12/28/22 positive for MRSA and Kocuria kristinae initially treated with Augmentin then switched antibiotic to Doxycycline. Operative culture of left thigh tissue from 01/19/23 was negative for bacterial g rowth. Prealbumin from 12/29/22 was 15.7. Wound care - Wound VAC at 150 mmHg to the left lateral thigh to be changed 3 times per week. Today she denies any complaints of fever, chills, nausea, vomiting or any pain. Progress of Wound: Left lateral thigh wound is beefy pink, there is undermining into the muscle. It is smaller in sized. With the undermining, the black foam from the wound VAC needs to be coiled into the depth of the undermining. Objective Data Objective Data Vital Signs: Vital Signs Temp Pulse Resp BP O2 Del Method 97.4 F L 76 16 127/90 H Room Air 01/31/23 14:49 01/31/23 14:49 01/31/23 14:49 01/31/23 14:49 01/31/23 14:49 Oxygen Delivery Method Room Air Weight: 232 lb Body Mass Index (BMI) 34.2 Lab / Micro Data Result Diagrams: 01/24/23 13:31 01/24/23 13:31 Charges/Coding Procedures Integumentary [id number]: [id number] Global Visit Debridement Note Debridement Note Wound debrided: lateral thigh Laterality: Left Wound Grade/Stage: Stage IV Type of Debridement: Excisional debridement Anesthesia Used: 4% Lidocaine Solution and 5% Lidocaine Gel Depth: Down to and including healthy tissue, in the subcutaneous layer and to muscle Percentage of wound debrided: 100 Instrument Used: 7mm curette Tissue Removed: Devitalized tissue and slough into the muscle Severity: Fat Layer Exposed Amount of bleeding with debridement: Mild Bleeding Controlled with: Pressure and Compression and gauze Patient tolerated procedure: Patient tolerated procedure well Post-Debridement Measurements and Additional Note: Post-Debridement Measurements/Treatment - Nurse 1 - General Ulcer Assessment Start: 01/24/23 14:13 Freq: Status: Active Protocol: SELENE.LOWSEJAL Activity Type Activity Date Activity User E-sign Co-sign Detail Recorded Client Recorded Date Recorded By Document 01/24/23 14:14 [facility] [id number] 01/24/23 14:41 [facility] Document 01/31/23 14:49 [facility] [id number] 01/31/23 15:05 [facility] 01/24/23 01/31/23 14:14 14:49 - Today's Visit Information Type of service Initial Visit Follow-up Visit (Physician/GRAVITY FLOW IRRIGATOR ) Arrival Mode Ambulatory Ambulatory Transfer Assistance None None Patient Identification Verified (Name & Yes Yes ) Patient Requires Transmission-Based No No Precautions Height and Weight Body Mass Index (BMI) 34.2 34.2 BMI Classification Obese Obese Vital Signs Temperature (97.8 F-99.1 F) 97.1 F L 97.4 F L Temperature Source Temporal Temporal Pulse Rate (60-100) 80 76 Pulse Location Monitor Monitor Respiratory Rate (12-18) 16 16 Respiratory rate source Observation Observation Oxygen Delivery Method Room Air Room Air Blood Pressure (90/60-120/80) 141/76 H 127/90 H Blood Pressure Mean (mm Hg) 97 102 Source Monitor Monitor Position Sitting Sitting Blood Pressure Location Right Arm Right Arm History Since Last Visit- (Skip if this is Patient's initial visit) Have you changed medications since your No last visit? Any new allergies or adverse reactions No Had a fall/change in ADL's that may No increase risk of falls Signs or symptoms of abuse and/or No neglect since last visit Have you been in the hospital since your No last visit? Has dressing in place as prescribed Yes Has compression in place as prescribed N/A Has offloadiing in place as prescribed N/A Experienced any changes in pain level or No management Left Footwear Regular Shoe Regular Shoe Right Footwear Regular Shoe Regular Shoe Pain Scale: 0-10 Numeric Is Patient Pain Free? Yes Yes WC - Nurse 1 - General Ulcer Measurement Start: 01/24/23 14:13 Freq: Status: Active Protocol: Activity Type Activity Date Activity User E-sign Co-sign Detail Recorded Client Recorded Date Recorded By Document 01/24/23 14:14 [facility] [id number] 01/24/23 14:41 [facility] Document 01/31/23 14:49 [facility] [id number] 01/31/23 15:05 [facility] 01/24/23 01/31/23 14:14 14:49 Wound Center Nurse 1 #2- L LAT THIGH POST OP -Combined with other wound No No -Current Size (cm) - Length 14.4 13.8 -Current Size (cm) - Width 6.4 6 -Current Size (cm) - Depth 2.7 2.5 -Total Square Cm 92.16 82.8 -Date of Last Picture (Recall this 01/24/23 01/31/23 field) -Photo Taken Yes Yes -Epithelialization None Present None Present -Tunneling No No -Undermining/Tunneling Yes Yes -Undermining/Tunneling Starts (O'clock 12 12 ) -Undermining/Tunneling Ends (O'clock) 10 12 -Maximum Distance (cm) 4.1 4 -Circular Undermining No Yes -Exudate Amt Large Medium -Exudate Type Serosanguineous Serosanguineous -Wound Margin Distinct, Distinct, Outline Outline Attached Attached -Granulation Amt Large (67-100%) Large (67-100%) -Granulation Quality Pale,Red Red -Slough/Fibrin Yes Yes -Necrosis Amt Small (1-33%) Small (1-33%) -Necrotic Tissue Type Adherent Slough Adherent Slough -Texture (Skye-wound Skin Appearance) Assessed, Assessed, Scarring Scarring -Moisture (Skye-wound Skin Appearance) Assessed Assessed -Color (Skye-wound Skin Appearance) Assessed Assessed -Temperature (Skye-wound Skin No Abnormality No Abnormality Appearance) (Pt Warm) (Pt Warm) -Tenderness on Palpation (Skye-wound No Yes Skin Appearance) -Ulcer Cleansing Soap and Water Soap and Water -Foul Odor after Cleansing No No -Anesthetic Used 4% Lidocaine 4% Lidocaine Solution Solution WC - Nurse 2 - General Ulcer CM Notes Start: 01/24/23 14:13 Freq: Status: Active Protocol: Activity Type Activity Date Activity User E-sign Co-sign Detail Recorded Client Recorded Date Recorded By Document 01/24/23 15:03 [id number] 01/24/23 15:04 Document 01/31/23 15:09 [id number] 01/31/23 15:11 01/24/23 01/31/23 15:03 15:09 Wound Center Nurse 2 #2- L LAT THIGH POST OP -Time 15:10 -Correct Patient No Yes -Correct Side, Site, Position No Yes -Correct Procedure No Yes -Procedure Performed No Yes -Type of Procedure Debridement -Clinical Debridement Muscle / Fascia -Tissue Removed Muscle,Fascia -Post Debridement (cm) - Length 14.5 13.5 -Post Debridement (cm) - Width 7.0 6.7 -Post Debridement (cm) - Depth 4.0 2.3 -Total Square (Post) (cm) 101.50 90.45 -Area of Debridement (cm) - Length 14.5 13.5 -Area of Debridement (cm) - Width 7 6.7 -Total Square (Area) (cm) 101.5 90.45 -Circular Undermining Yes Yes -Wound/Ulcer Outcome Not Healed Not Healed -Ulcer Cleansing Rinsed/ Rinsed/ Irrigated with Irrigated with Saline Saline -Foul Odor after Cleansing No No -Bioengineered Tissue No No -Bleeding Controlled with Pressure Pressure -Treatment Response Procedure Procedure Tolerated Well Tolerated Well -Offloading No No -Debridement - Subq, 1st 20sq cm No -Debridement - Muscle / Fascia, 1st No Yes 20sq cm -Debridement, Muscle/Fascia, ea addt'l 4 20sq cm or part thereof Pain Scale: 0-10 Numeric Is Patient Pain Free? Yes Yes - Nurse 3 - General Ulcer D/C NN Start: 01/24/23 14:13 Freq: Status: Active Protocol: Activity Type Activity Date Activity User E-sign Co-sign Detail Recorded Client Recorded Date Recorded By Document 01/24/23 15:37 [facility] [id number] 01/24/23 15:40 [facility] Edit Result 01/24/23 15:37 BMF (1) [id number] 01/25/23 07:35 PL (1) #2- L LAT THIGH POST OP - NPWT Application Charge NPWT & Debridement => NPWT > 50 sq cm ($ (nc) => ) 01/24/23 15:37 Wound Care Center Nurse 3 #2- L LAT THIGH POST OP -Ulcer Cleansing Rinsed/ Irrigated with Saline -Foul Odor after Cleansing No -Negative Pressure Wound Therapy Continue -Setting (mmHg) 150 -Negative Pressure is Continuous -NPWT Application Charge NPWT > 50 sq cm ($) Treatment Response Procedure Tolerated Well Pain Scale: 0-10 Numeric Is Patient Pain Free? Yes WC - Visit Discharge Discharge Condition Stable Ambulatory Status Ambulatory Transportation Private [facility] Facility Type Home Health Assessment/Plan Assessment/Plan (1) Abscess of left thigh: CODE(S): L02.416 - Cutaneous abscess of left lower limb (2) History of incision and drainage: CODE(S): Z98.890 - Other specified postprocedural states (3) Nonhealing surgical wound: CODE(S): T81.89XA - Other complications of procedures, not elsewhere classified, initial encounter (4) Lipoma of left lower extremity: CODE(S): D17.24 - Benign lipomatous neoplasm of skin and subcutaneous tissue of left leg (5) Postoperative seroma of subcutaneous tissue after dermatologic procedure: CODE(S): L76.33 - Postprocedural seroma of skin and subcutaneous tissue following a dermatologic procedure (6) Cellulitis of left thigh: CODE(S): L03.116 - Cellulitis of left lower limb (7) Other specified soft tissue disorders: CODE(S): M79.89 - Other specified soft tissue disorders (8) Other acute postprocedural pain: CODE(S): G89.18 - Other acute postprocedural pain (9) MRSA (methicillin resistant Staphylococcus aureus) infection: CODE(S): A49.02 - Methicillin resistant Staphylococcus aureus infection, unspecified site PLAN: Plan Patient was evaluated at the wound healing center today. Wound care - Wound VAC at 150 mmHg to left lateral thigh to be changed 3 times a week. Wash the wound and skye wound with soap and water at the time of the dressing change. If patient feels comfortable with removing the VAC before home health comes for the dressing change, she may remove and shower before the VAC is reapplied. Stressed the importance of the foam being coiled into the entire area where the undermining is located (which is circumferentially). She has [facility] for her home health. She is currently receiving Vancomycin IV BID which the 2 weeks will complete on Tuesday of this week. We will stop the Vancomycin but will leave the PICC line in for a week or so to make sure that she doesn't develop any further infections. She states the increase in her Gabapentin to TID has helped the burning nerve pain she is experiencing. She is complaining of having vaginal yeast infection, will prescribe Diflucan. She will follow up two weeks since I will be out of town. She has home health to assist with her VAC changes.
== END 2023-02-11 23:59 | disposition home or self-care (01) ==
LOC: WC 14:45
PROVIDERS: PCP Internal Medicine; Referring Provider Nurse Practitioner Family; Visit Provider Nurse Practitioner Family
DX: L02.416 Cutaneous abscess of left lower limb (principal); R11.2 Nausea with vomiting, unspecified; Z98.890 Other specified postprocedural states; T81.89XA Other complications of procedures, not elsewhere classified, initial encounter; D17.24 Benign lipomatous neoplasm of skin and subcutaneous tissue of left leg; L76.33 Postprocedural seroma of skin and subcutaneous tissue following a dermatologic procedure; L03.116 Cellulitis of left lower limb; M79.89 Other specified soft tissue disorders; G89.18 Other acute postprocedural pain; A49.02 Methicillin resistant Staphylococcus aureus infection, unspecified site
CPT/HCPCS: 11043; 11046; 36415; 80053; 80202; 85027; 85652; 86140; 97606; 99214; G0463

== ENCOUNTER → 2023-01-31 | Outpatient (CLI) | payer MEDICAID, SELFPAY ==
[2023-01-31 12:01] LABS: Erythrocyte Sedimentation Rate 28 mm/hr (0-30)
[2023-01-31 12:06] LABS: Hematocrit 35.8 % (37-47); Hemoglobin 11.4 g/dL (12.0-15.0); Mean Corp Hgb Conc 31.8 g/dL (32-36); Mean Corpuscular Hgb 26.7 pg (27.0-32.0); Mean Corpuscular Volume 83.8 fL (81-99); Mean Platelet Vol. 10.5 fl (6.2-12.0); Platelet Count 358 K/mm3 (150-450); RBC Distribution Width CV 14.6 % (11.6-14.6); RBC Distribution Width SD 44.2 fl (35.1-43.9); Red Blood Count 4.27 M/mm3 (4.2-5.4); White Blood Count 6.8 K/mm3 (4.4-11.0)
[2023-01-31 12:28] LABS: Vancomycin, Trough Level 16.6 ug/mL (5.0-15.0)
[2023-01-31 12:42] LABS: ALB/GLOB Ratio 0.9 RATIO (0.9-2.4); AST(SGOT) 10 U/L (15-37); Alanine Aminotransfer ALT/SGPT 22 U/L (13-56); Albumin, Serum 3.4 g/dL (3.2-5.0); Alkaline Phosphatase 98 U/L (45-117); Anion Gap 8 (5-15); BUN 13 mg/dL (7-18); BUN/Creat Ratio 16.8 RATIO (10-20); CRP 9.69 mg/L (0.0-3.0); Calcium,Total 9.1 mg/dL (8.5-10.1); Chloride 104 mmol/L (98-107); Creatinine, Serum 0.77 mg/dL (0.55-1.02); EST Glomerular Filtration Rate 84 mL/min (>60); Est Glom Filt Rate - Afr Amer 102 mL/min (>60); Globulin 3.7 g/dL (2.2-4.2); Glucose 99 mg/dL (74-106); Potassium 3.5 mmol/L (3.5-5.1); Protein, Total 7.1 g/dL (6.4-8.2); Sodium Level 139 mmol/L (136-145)
== END | disposition home or self-care (01) ==
LOC: LABSPEC 11:17
PROVIDERS: PCP Internal Medicine; Referring Provider Nurse Practitioner Family; Visit Provider Nurse Practitioner Family
DX: R11.2 Nausea with vomiting, unspecified (principal)
CPT/HCPCS: 85652; 86140; 80053; 80202; 85027

== ENCOUNTER 2023-03-07 11:30 | Outpatient (RCR) | payer MEDICAID, SELFPAY ==
[2023-02-12 00:14] VITALS: BP 127/90; PULSE 76; RESP 16; TEMP 36.3; BMI 34.2
[2023-02-14 14:31] VITALS: BP 136/80; PULSE 105; RESP 20; TEMP 36.1; BMI 34.2
--- NOTE | 2023-02-14 16:17 | PN.PCM_ITS ---
History of Present Illness Date of Service: 02/14/23 Chief Complaint: Nonhealing surgical wound left lateral thigh History of Wound: 47 year old woman who has had a complicated course since her first surgery on her left lateral thigh on 09/22/22. Her left lateral thigh is now healed. Her right lateral thigh became infected and required hospitalization with incision and drainage on 01/19/23. The wound was left open and a wound VAC was applied. She was discharged home with IV Vancomycin x 2 weeks due to the severity of the infection. Surgery 01/19/23 - Surgical preparation left lateral thigh with incision and drainage and excisional debridement MRSA infection seroma abscess (128 cm2). Surgery 12/28/22 - Surgical preparation left proximal lateral thigh with extension toward the hip with excisional debridement nonhealing seroma wound and 13 cm complex secondary wound closure. Surgery 11/10/22 - Excision 19 cm painful soft tissue mass left proximal lateral thigh with extension toward the hip with 11 cm layered closure repair and surgical preparation right proximal lateral thigh with extension toward the hip with excisional debridement nonhealing seroma wound and 13 cm complex secondary wound closure. She was discharged from the hospital on 11/12/22. Surgery 09/22/22 -Excision 18 cm painful subfascial soft tissue mass right proximal lateral thigh with extension toward the hip with 11 cm complex closure repair. Pathology from 09/22/22 of the right lateral thigh excision showed mature adipose tissue consistent with lipoma. Pathology from 11/10/22 of left lateral thigh mass excision showed mature adipose tissue consistent with lipoma. Pathology from 12/28/21 of left hip seroma wound showed skin with underlying tissue with acute and chronic inflammation, granulation tissue reaction and fat necrosis. Wound culture from 10/18/22 of right hip was positive for MRSE and Corynebacterium amycolatum. Operative cultures from 11/10/22 showed Corynebacterium striatum, Coag Negative Staph and Anaerobic cocci. Wound culture from 12/06/22 positive for MRSE and Streptococcus thoraltensis. She was started on Levaquin and Amoxicillin. Operative culture from 12/28/22 positive for MRSA and Kocuria kristinae initially treated with Augmentin then switched antibiotic to Doxycycline. Operative culture of left thigh tissue from 01/19/23 was negative for bacterial growth. Prealbumin from 11/11/22 was 15.7. Wound care - Wound VAC at 150 mmHg to the left lateral thigh to be changed 3 times per week. Today she denies any complaints of fever, chills, nausea, vomiting or any pain. Progress of Wound: Left lateral thigh wound is beefy pink, there is undermining into the muscle. It is smaller in sized. Her laurence wound is excoriated. She has been having issues keeping a seal with the wound VAC. She went to the ED at [facility] yesterday because her wound VAC was causing her problems and she doesn't want to have to remove it herself. She states that they did not do much to help her. I did instruct her that if she feel the need to go to the ED, she should come to [facility] since that is where her surgery was as are her medical records. Our ED physicians most likely would have contacted Dr. Kraft about her being in the ED. Objective Data Objective Data Vital Signs: Vital Signs Temp Pulse Resp BP 97.0 F L 105 H 20 H 136/80 H 02/14/23 14:31 02/14/23 14:31 02/14/23 14:31 02/14/23 14:31 Weight: 232 lb Body Mass Index (BMI) 34.2 Charges/Coding Procedures Integumentary 111xxx-113xx: 44647 Global Visit Debridement Note Debridement Note Wound debrided: lateral thigh Laterality: Left Wound Grade/Stage: Stage IV Type of Debridement: Excisional debridement Anesthesia Used: 4% Lidocaine Solution and 5% Lidocaine Gel Depth: Down to and including healthy tissue, in the subcutaneous layer and to muscle Percentage of wound debrided: 100 Instrument Used: 7mm curette Tissue Removed: Devitalized tissue and slough into the muscle Severity: Fat Layer Exposed Amount of bleeding with debridement: Mild Bleeding Controlled with: Pressure and Compression and gauze Patient tolerated procedure: Patient tolerated procedure well Post-Debridement Measurements and Additional Note: Post-Debridement Measurements/Treatment SELENE - Nurse 1 - General Ulcer Assessment Start: 02/14/23 14:31 Freq: Status: Active Protocol: RADHA Activity Type Activity Date Activity User E-sign Co-sign Detail Recorded Client Recorded Date Recorded By Document 02/14/23 14:31 ROHINI [id number] 02/14/23 14:47 PL 02/14/23 14:31 WC - Today's Visit Information Type of service 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 Any new allergies or adverse reactions No Had a fall/change in ADL's that may No increase risk of falls Have you been in the hospital since your No last visit? Has dressing in place as prescribed Yes Has compression in place as prescribed Yes Has offloadiing in place as prescribed Yes Experienced any changes in pain level or No management Pain Scale: 0-10 Numeric Is Patient Pain Free? Yes - Nurse 1 - General Ulcer Measurement Start: 02/14/23 14:31 Freq: Status: Active Protocol: Activity Type Activity Date Activity User E-sign Co-sign Detail Recorded Client Recorded Date Recorded By Document 02/14/23 14:31 PL [id number] 02/14/23 14:47 PL 02/14/23 14:31 Wound Center Nurse 1 #2- L LAT THIGH POST OP -Current Size (cm) - Length 12 -Current Size (cm) - Width 5.5 -Current Size (cm) - Depth 2.3 -Total Square Cm 66.0 -Epithelialization Medium 34-66% -Undermining/Tunneling Yes -Undermining/Tunneling Starts (O'clock 11 ) -Undermining/Tunneling Ends (O'clock) 3 -Maximum Distance (cm) 4.0 -Classification - Thickness Full Thickness with Exposed Support Structure -Exudate Amt Medium -Exudate Type Serous -Granulation Amt Medium (34-66%) -Granulation Quality Pale,[place] -Slough/Fibrin Yes -Necrosis Amt Medium (34-66%) -Necrotic Tissue Type Adherent Slough -Texture (Laurence-wound Skin Appearance) Excoriation -Moisture (Laurence-wound Skin Appearance) No Abnormality -Color (Laurence-wound Skin Appearance) No Abnormality -Temperature (Laurence-wound Skin No Abnormality Appearance) (Pt Warm) -Tenderness on Palpation (Laurence-wound No Skin Appearance) -Ulcer Cleansing Soap and Water -Anesthetic Used 5% Lidocaine Gel WC - Nurse 2 - General Ulcer CM Notes Start: 02/14/23 14:31 Freq: Status: Active Protocol: Activity Type Activity Date Activity User E-sign Co-sign Detail Recorded Client Recorded Date Recorded By Document 02/14/23 14:51 RODOLFO [id number] 02/14/23 14:59 RODOLFO 02/14/23 14:51 Wound Center Nurse 2 -Time 14:55 -Correct Patient Yes -Correct Side, Site, Position Yes -Correct Procedure Yes -Procedure Performed Yes -Type of Procedure Debridement -Clinical Debridement Muscle / Fascia -Tissue Removed Muscle,Fascia -Post Debridement (cm) - Length 12.2 -Post Debridement (cm) - Width 5.5 -Post Debridement (cm) - Depth 2.4 -Total Square (Post) (cm) 67.10 -Area of Debridement (cm) - Length 12.2 -Area of Debridement (cm) - Width 5.5 -Total Square (Area) (cm) 67.10 -Tunneling No -Undermining/Tunneling No -Circular Undermining Yes -Wound/Ulcer Outcome Not Healed -Ulcer Cleansing Rinsed/ Irrigated with Saline -Foul Odor after Cleansing No -Bioengineered Tissue No -Bleeding Controlled with Pressure -Treatment Response Procedure Tolerated Well -Offloading No -Debridement - Muscle / Fascia, 1st Yes 20sq cm -Debridement, Muscle/Fascia, ea addt'l 3 20sq cm or part thereof Pain Scale: 0-10 Numeric Is Patient Pain Free? Yes Assessment/Plan Assessment/Plan (1) Abscess of left thigh: CODE(S): L02.416 - Cutaneous abscess of left lower limb (2) History of incision and drainage: CODE(S): Z98.890 - Other specified postprocedural states (3) Nonhealing surgical wound: CODE(S): T81.89XA - Other complications of procedures, not elsewhere classified, initial encounter (4) Lipoma of left lower extremity: CODE(S): D17.24 - Benign lipomatous neoplasm of skin and subcutaneous tissue of left leg (5) Postoperative seroma of subcutaneous tissue after dermatologic procedure: CODE(S): L76.33 - Postprocedural seroma of skin and subcutaneous tissue following a dermatologic procedure (6) Cellulitis of left thigh: CODE(S): L03.116 - Cellulitis of left lower limb (7) Other specified soft tissue disorders: CODE(S): M79.89 - Other specified soft tissue disorders (8) Other acute postprocedural pain: CODE(S): G89.18 - Other acute postprocedural pain (9) MRSA (methicillin resistant Staphylococcus aureus) infection: CODE(S): A49.02 - Methicillin resistant Staphylococcus aureus infection, unspecified site PLAN: Plan Patient was evaluated at the wound healing center today. Wound care - Will take a wound VAC holiday this week to see if this helps with her excoriated laurence wound. Pack Dakins 0.25% moistened gauze into the the base of the ulcer topped with ABD daily after washing with soap and water. She has [facility] for her home health. They can teach her how to do her dressing changes. She completed her IV Vancomycin and her PICC line can now be discontinued. She states the increase in her Gabapentin to TID has helped the burning nerve pain she is experiencing. She will follow up in one week.
[2023-02-21 14:09] VITALS: BP 137/69; PULSE 94; RESP 16; TEMP 36.6; BMI 34.2
--- NOTE | 2023-02-21 15:13 | PCM.WC.PN ---
History of Present Illness Date of Service: 02/21/23 Chief Complaint: Nonhealing surgical wound left lateral thigh History of Wound: 47 year old woman who has had a complicated course since her first surgery on her left lateral thigh on 09/22/22. Her left lateral thigh is now healed. Her right lateral thigh became infected and required hospitalization with incision and drainage on 01/19/23. The wound was left open and a wound VAC was applied. She was discharged home with IV Vancomycin x 2 weeks due to the severity of the infection. Surgery 01/19/23 - Surgical preparation left lateral thigh with incision and drainage and excisional debridement MRSA infection seroma abscess (128 cm2). Surgery 12/28/22 - Surgical preparation left proximal lateral thigh with extension toward the hip with excisional debridement nonhealing seroma wound and 13 cm complex secondary wound closure. Surgery 11/10/22 - Excision 19 cm painful soft tissue mass left proximal lateral thigh with extension toward the hip with 11 cm layered closure repair and surgical preparation right proximal lateral thigh with extension toward the hip with excisional debridement nonhealing seroma wound and 13 cm complex secondary wound closure. She was discharged from the hospital on 11/12/22. Surgery 09/22/22 -Excision 18 cm painful subfascial soft tissue mass right proximal lateral thigh with extension toward the hip with 11 cm complex closure repair. Pathology from 09/22/22 of the right lateral thigh excision showed mature adipose tissue consistent with lipoma. Pathology from 11/10/22 of left lateral thigh mass excision showed mature adipose tissue consistent with lipoma. Pathology from 12/28/21 of left hip seroma wound showed skin with underlying tissue with acute and chronic inflammation, granulation tissue reaction and fat necrosis. Wound culture from 10/18/22 of right hip was positive for MRSE and Corynebacterium amycolatum. Operative cultures from 11/10/22 showed Corynebacterium striatum, Coag Negative Staph and Anaerobic cocci. Wound culture from 12/06/22 positive for MRSE and Streptococcus thoraltensis. She was started on Levaquin and Amoxicillin. Operative culture from 12/28/22 positive for MRSA and Kocuria kristinae initially treated with Augmentin then switched antibiotic to Doxycycline. Operative culture of left thigh tissue from 01/19/23 was negative for bacterial growth. Prealbumin from 11/11/22 was 15.7. Wound care - Wound VAC at 150 mmHg to the left lateral thigh to be changed 3 times per week. Today she denies any complaints of fever, chills, nausea, vomiting or any pain. Progress of Wound: Left lateral thigh wound is beefy pink, there is undermining into the muscle. It is stable this week. Her skye wound has improved since taking a VAC holiday. She is tolerating the daily dressing changes well. She is in much better spirits now that she has not had the wound VAC on, her states that her pain has decreased and she has been sleeping better. Objective Data Objective Data Vital Signs: Vital Signs Temp Pulse Resp BP O2 Del Method 97.9 F 94 16 137/69 H Room Air 02/21/23 14:09 02/21/23 14:09 02/21/23 14:09 02/21/23 14:09 02/21/23 14:09 Oxygen Delivery Method Room Air Weight: 232 lb Body Mass Index (BMI) 34.2 Charges/Coding Procedures Integumentary 111xxx-113xx: 39268 Global Visit Debridement Note Debridement Note Wound debrided: lateral thigh Laterality: Left Wound Grade/Stage: Stage IV Type of Debridement: Excisional debridement Anesthesia Used: 4% Lidocaine Solution and 5% Lidocaine Gel Depth: Down to and including healthy tissue, in the subcutaneous layer and to muscle Percentage of wound debrided: 100 Instrument Used: 7mm curette Tissue Removed: Devitalized tissue and slough into the muscle Severity: Fat Layer Exposed Amount of bleeding with debridement: Mild Bleeding Controlled with: Pressure and Compression and gauze Patient tolerated procedure: Patient tolerated procedure well Post-Debridement Measurements and Additional Note: Post-Debridement Measurements/Treatment - Nurse 1 - General Ulcer Assessment Start: 02/14/23 14:31 Freq: Status: Active Protocol: RADHA Activity Type Activity Date Activity User E-sign Co-sign Detail Recorded Client Recorded Date Recorded By Document 02/14/23 14:31 [id number] 02/14/23 14:47 Document 02/21/23 14:09 [facility] [id number] 02/21/23 14:22 BMF 02/14/23 02/21/23 14:31 14:09 - Today's Visit Information Type of service Follow-up Visit Follow-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 ) ) Arrival Mode Ambulatory Ambulatory Transfer Assistance None None Patient Identification Verified (Name & Yes Yes ) Patient Requires Transmission-Based No No Precautions Safety Precautions NA Height and Weight Body Mass Index (BMI) 34.2 34.2 BMI Classification Obese Obese Vital Signs Temperature (97.8 F-99.1 F) 97.0 F L 97.9 F Temperature Source Temporal Temporal Pulse Rate (60-100) 105 H 94 Pulse Location Monitor Respiratory Rate (12-18) 20 H 16 Respiratory rate source Observation Oxygen Delivery Method Room Air Blood Pressure (90/60-120/80) 136/80 H 137/69 H Blood Pressure Mean (mm Hg) 98 91 Source Monitor Position Sitting Blood Pressure Location Left Arm History Since Last Visit- (Skip if this is Patient's initial visit) Have you changed medications since your No No last visit? Any new allergies or adverse reactions No No Had a fall/change in ADL's that may No No increase risk of falls Signs or symptoms of abuse and/or No neglect since last visit Have you been in the hospital since your No No last visit? Has dressing in place as prescribed Yes Yes Has compression in place as prescribed Yes N/A Has offloadiing in place as prescribed Yes N/A Experienced any changes in pain level or No No management Left Footwear Regular Shoe Right Footwear Regular Shoe Pain Scale: 0-10 Numeric Is Patient Pain Free? Yes Yes WC - Nurse 1 - General Ulcer Measurement Start: 02/14/23 14:31 Freq: Status: Active Protocol: Activity Type Activity Date Activity User E-sign Co-sign Detail Recorded Client Recorded Date Recorded By Document 02/14/23 14:31 [id number] 02/14/23 14:47 PL Document 02/21/23 14:09 [facility] [id number] 02/21/23 14:22 BM 02/14/23 02/21/23 14:31 14:09 Wound Center Nurse 1 #2- L LAT THIGH POST OP -Combined with other wound No -Current Size (cm) - Length 12 12 -Current Size (cm) - Width 5.5 5.5 -Current Size (cm) - Depth 2.3 2.5 -Total Square Cm 66.0 66.0 -Date of Last Picture (Recall this 02/21/23 field) -Photo Taken Yes -Epithelialization Medium 34-66% Small 1-33% -Tunneling No -Undermining/Tunneling Yes Yes -Undermining/Tunneling Starts (O'clock 11 12 ) -Undermining/Tunneling Ends (O'clock) 3 12 -Maximum Distance (cm) 4.0 3.5 -Circular Undermining Yes -Classification - Thickness Full Thickness with Exposed Support Structure -Exudate Amt Medium Large -Exudate Type Serous Serosanguineous -Wound Margin Distinct, Outline Attached -Granulation Amt Medium (34-66%) Large (67-100%) -Granulation Quality Pale,[place] Red -Slough/Fibrin Yes No -Necrosis Amt Medium (34-66%) None Present (0 %) -Necrotic Tissue Type Adherent Slough -Texture (Skye-wound Skin Appearance) Excoriation Assessed, Scarring -Moisture (Skye-wound Skin Appearance) No Abnormality Assessed -Color (Skye-wound Skin Appearance) No Abnormality Assessed -Temperature (Skye-wound Skin No Abnormality No Abnormality Appearance) (Pt Warm) (Pt Warm) -Tenderness on Palpation (Skye-wound No No Skin Appearance) -Ulcer Cleansing Soap and Water Soap and Water -Foul Odor after Cleansing No -Anesthetic Used 5% Lidocaine 4% Lidocaine Gel Solution WC - Nurse 2 - General Ulcer CM Notes Start: 02/14/23 14:31 Freq: Status: Active Protocol: Activity Type Activity Date Activity User E-sign Co-sign Detail Recorded Client Recorded Date Recorded By Document 02/14/23 14:51 [id number] 02/14/23 14:59 Document 02/21/23 14:35 [id number] 02/21/23 14:38 02/14/23 02/21/23 14:51 14:35 Wound Center Nurse 2 #2- L LAT THIGH POST OP -Time 14:55 14:36 -Correct Patient Yes Yes -Correct Side, Site, Position Yes Yes -Correct Procedure Yes Yes -Procedure Performed Yes Yes -Type of Procedure Debridement Debridement -Clinical Debridement Muscle / Fascia Muscle / Fascia -Tissue Removed Muscle,Fascia Muscle,Fascia -Post Debridement (cm) - Length 12.2 12.0 -Post Debridement (cm) - Width 5.5 6.0 -Post Debridement (cm) - Depth 2.4 2.4 -Total Square (Post) (cm) 67.10 72.00 -Area of Debridement (cm) - Length 12.2 12.0 -Area of Debridement (cm) - Width 5.5 6.0 -Total Square (Area) (cm) 67.10 72.00 -Tunneling No No -Undermining/Tunneling No No -Circular Undermining Yes Yes -Wound/Ulcer Outcome Not Healed Not Healed -Ulcer Cleansing Rinsed/ Rinsed/ Irrigated with Irrigated with Saline Saline -Foul Odor after Cleansing No No -Bioengineered Tissue No No -Bleeding Controlled with Pressure Pressure -Treatment Response Procedure Procedure Tolerated Well Tolerated Well -Offloading No No -Debridement - Muscle / Fascia, 1st Yes Yes 20sq cm -Debridement, Muscle/Fascia, ea addt'l 3 3 20sq cm or part thereof Pain Scale: 0-10 Numeric Is Patient Pain Free? Yes Yes - Nurse 3 - General Ulcer D/C NN Start: 02/14/23 14:31 Freq: Status: Active Protocol: Activity Type Activity Date Activity User E-sign Co-sign Detail Recorded Client Recorded Date Recorded By Document 02/21/23 14:57 [facility] [id number] 02/21/23 14:59 [facility] 02/21/23 14:57 Wound Care Center Nurse 3 #2- L LAT THIGH POST OP -Ulcer Cleansing Rinsed/ Irrigated with Saline -Foul Odor after Cleansing No -Primary Dressing Applied Optilok 8x12 -Other Dressing dakins moist gauze -Primary Dressing Covered/Secured with Secured with Tape -Other Covering abd -Optilok 8x12 1 Treatment Response Procedure Tolerated Well Pain Scale: 0-10 Numeric Is Patient Pain Free? Yes - Visit Discharge Discharge Condition Stable Ambulatory Status Ambulatory Transportation Private Auto Assessment/Plan Assessment/Plan (1) Abscess of left thigh: CODE(S): L02.416 - Cutaneous abscess of left lower limb (2) History of incision and drainage: CODE(S): Z98.890 - Other specified postprocedural states (3) Nonhealing surgical wound: CODE(S): T81.89XA - Other complications of procedures, not elsewhere classified, initial encounter (4) Lipoma of left lower extremity: CODE(S): D17.24 - Benign lipomatous neoplasm of skin and subcutaneous tissue of left leg (5) Postoperative seroma of subcutaneous tissue after dermatologic procedure: CODE(S): L76.33 - Postprocedural seroma of skin and subcutaneous tissue following a dermatologic procedure (6) Cellulitis of left thigh: CODE(S): L03.116 - Cellulitis of left lower limb (7) Other specified soft tissue disorders: CODE(S): M79.89 - Other specified soft tissue disorders (8) Other acute postprocedural pain: CODE(S): G89.18 - Other acute postprocedural pain (9) MRSA (methicillin resistant Staphylococcus aureus) infection: CODE(S): A49.02 - Methicillin resistant Staphylococcus aureus infection, unspecified site PLAN: Plan Patient was evaluated at the wound healing center today. Wound care - Pack Dakins 0.25% moistened gauze into the the base of the ulcer topped with ABD/super absorber daily after washing with soap and water. May shower at the time of the dressing change. She has [facility] for her home health. They can teach her how to do her dressing changes. She completed her IV Vancomycin and her PICC line can now be discontinued. She states the increase in her Gabapentin to TID has helped the burning nerve pain she is experiencing. She will follow up in one week.
[2023-02-28 11:33] VITALS: BP 123/71; PULSE 85; RESP 18; TEMP 36.3; BMI 34.2
--- NOTE | 2023-02-28 12:09 | PCM.WC.PN ---
History of Present Illness Date of Service: 02/28/23 Chief Complaint: Nonhealing surgical wound left lateral thigh History of Wound: 47 year old woman who has had a complicated course since her first surgery on her left lateral thigh on 09/22/22. Her left lateral thigh is now healed. Her right lateral thigh became infected and required hospitalization with incision and drainage on 01/19/23. The wound was left open and a wound VAC was applied. She was discharged home with IV Vancomycin x 2 weeks due to the severity of the infection. Surgery 01/19/23 - Surgical preparation left lateral thigh with incision and drainage and excisional debridement MRSA infection seroma abscess (128 cm2). Surgery 12/28/22 - Surgical preparation left proximal lateral thigh with extension toward the hip with excisional debridement nonhealing seroma wound and 13 cm complex secondary wound closure. Surgery 11/10/22 - Excision 19 cm painful soft tissue mass left proximal lateral thigh with extension toward the hip with 11 cm layered closure repair and surgical preparation right proximal lateral thigh with extension toward the hip with excisional debridement nonhealing seroma wound and 13 cm complex secondary wound closure. She was discharged from the hospital on 11/12/22. Surgery 09/22/22 -Excision 18 cm painful subfascial soft tissue mass right proximal lateral thigh with extension toward the hip with 11 cm complex closure repair. Pathology from 09/22/22 of the right lateral thigh excision showed mature adipose tissue consistent with lipoma. Pathology from 11/10/22 of left lateral thigh mass excision showed mature adipose tissue consistent with lipoma. Pathology from 12/28/21 of left hip seroma wound showed skin with underlying tissue with acute and chronic inflammation, granulation tissue reaction and fat necrosis. Wound culture from 10/18/22 of right hip was positive for MRSE and Corynebacterium amycolatum. Operative cultures from 11/10/22 showed Corynebacterium striatum, Coag Negative Staph and Anaerobic cocci. Wound culture from 12/06/22 positive for MRSE and Streptococcus thoraltensis. She was started on Levaquin and Amoxicillin. Operative culture from 12/28/22 positive for MRSA and Kocuria kristinae initially treated with Augmentin then switched antibiotic to Doxycycline. Operative culture of left thigh tissue from 01/19/23 was negative for bacterial growth. Prealbumin from 11/11/22 was 15.7. Wound care - Wound VAC at 150 mmHg to the left lateral thigh to be changed 3 times per week. Today she denies any complaints of fever, chills, nausea, vomiting or any pain. Progress of Wound: Left lateral thigh wound is beefy pink, there is undermining into the muscle. There is a decrease in the depth of the ulcer. Her skye wound looks good with no excoriation. She is tolerating the daily dressing changes well. Objective Data Objective Data Vital Signs: Vital Signs Temp Pulse Resp BP O2 Del Method 97.4 F L 85 18 123/71 H Room Air 02/28/23 11:33 02/28/23 11:33 02/28/23 11:33 02/28/23 11:33 02/21/23 14:09 Oxygen Delivery Method Room Air Weight: 232 lb Body Mass Index (BMI) 34.2 Charges/Coding Procedures Integumentary 111xxx-113xx: [id number] Global Visit Debridement Note Debridement Note Wound debrided: lateral thigh Laterality: Left Wound Grade/Stage: Stage IV Type of Debridement: Excisional debridement Anesthesia Used: 4% Lidocaine Solution and 5% Lidocaine Gel Depth: Down to and including healthy tissue, in the subcutaneous layer and to muscle Percentage of wound debrided: 100 Instrument Used: 7mm curette Tissue Removed: Devitalized tissue and slough into the muscle Severity: Fat Layer Exposed Amount of bleeding with debridement: Mild Bleeding Controlled with: Pressure and Compression and gauze Patient tolerated procedure: Patient tolerated procedure well Post-Debridement Measurements and Additional Note: Post-Debridement Measurements/Treatment - Nurse 1 - General Ulcer Assessment Start: 02/14/23 14:31 Freq: Status: Active Protocol: RADHA Activity Type Activity Date Activity User E-sign Co-sign Detail Recorded Client Recorded Date Recorded By Document 02/14/23 14:31 PL [id number] 02/14/23 14:47 PL Document 02/21/23 14:09 [facility] [id number] 02/21/23 14:22 BM Document 02/28/23 11:33 DL [id number] 02/28/23 11:42 DL 02/14/23 02/21/23 02/28/23 14:31 14:09 11:33 - Today's Visit Information Type of service Follow-up Visit Follow-up Visit Follow-up Visit (Physician/YARD ASSISTANT (Physician/YARD ASSISTANT (Physician/YARD ASSISTANT ) ) ) Arrival Mode Ambulatory Ambulatory Ambulatory Transfer Assistance None None None Patient Identification Verified (Name & Yes Yes Yes ) Patient Requires Transmission-Based No No No Precautions Safety Precautions NA Height and Weight Body Mass Index (BMI) 34.2 34.2 34.2 BMI Classification Obese Obese Obese Vital Signs Temperature (97.8 F-99.1 F) 97.0 F L 97.9 F 97.4 F L Temperature Source Temporal Temporal Temporal Pulse Rate (60-100) 105 H 94 85 Pulse Location Monitor Monitor Respiratory Rate (12-18) 20 H 16 18 Respiratory rate source Observation Observation Oxygen Delivery Method Room Air Blood Pressure (90/60-120/80) 136/80 H 137/69 H 123/71 H Blood Pressure Mean (mm Hg) 98 91 88 Source Monitor Monitor Position Sitting Blood Pressure Location Left Arm History Since Last Visit- (Skip if this is Patient's initial visit) Have you changed medications since your No No No last visit? Any new allergies or adverse reactions No No No Had a fall/change in ADL's that may No No No increase risk of falls Signs or symptoms of abuse and/or No No neglect since last visit Have you been in the hospital since your No No No last visit? Has dressing in place as prescribed Yes Yes Yes Has compression in place as prescribed Yes N/A Yes Has offloadiing in place as prescribed Yes N/A N/A Experienced any changes in pain level or No No No management Left Footwear Regular Shoe Right Footwear Regular Shoe Pain Scale: 0-10 Numeric Is Patient Pain Free? Yes Yes Yes WC - Nurse 1 - General Ulcer Measurement Start: 02/14/23 14:31 Freq: Status: Active Protocol: Activity Type Activity Date Activity User E-sign Co-sign Detail Recorded Client Recorded Date Recorded By Document 02/14/23 14:31 PL [id number] 02/14/23 14:47 PL Document 02/21/23 14:09 [facility] [id number] 02/21/23 14:22 BMF Document 02/28/23 11:33 DL [id number] 02/28/23 11:42 DL Edit Result 02/28/23 11:33 DL (1) [id number] 02/28/23 11:44 DL (1) #2- L LAT THIGH POST OP - Maximum Distance #2 (cm) => 3.8 - Circular Undermining => Yes 02/14/23 02/21/23 02/28/23 14:31 14:09 11:33 Wound Center Nurse 1 #2- L LAT THIGH POST OP -Combined with other wound No -Current Size (cm) - Length 12 12 10 -Current Size (cm) - Width 5.5 5.5 5.1 -Current Size (cm) - Depth 2.3 2.5 1.6 -Total Square Cm 66.0 66.0 51.0 -Date of Last Picture (Recall this 02/21/23 field) -Photo Taken Yes No -Epithelialization Medium 34-66% Small 1-33% -Tunneling No -Undermining/Tunneling Yes Yes -Undermining/Tunneling Starts (O'clock 11 12 ) -Undermining/Tunneling Ends (O'clock) 3 12 -Maximum Distance (cm) 4.0 3.5 -Maximum Distance #2 (cm) 3.8 -Circular Undermining Yes Yes -Classification - Thickness Full Thickness with Exposed Support Structure -Exudate Amt Medium Large Medium -Exudate Type Serous Serosanguineous Serosanguineous -Wound Margin Distinct, Thickened & Outline Rolled Under Attached -Granulation Amt Medium (34-66%) Large (67-100%) Large (67-100%) -Granulation Quality Pale,Van Meter Red Red -Slough/Fibrin Yes No -Necrosis Amt Medium (34-66%) None Present (0 Small (1-33%) %) -Necrotic Tissue Type Adherent Slough Adherent Slough -Structure Exposed N/A -Texture (Skye-wound Skin Appearance) Excoriation Assessed, Scarring Scarring -Moisture (Skye-wound Skin Appearance) No Abnormality Assessed No Abnormality -Color (Skye-wound Skin Appearance) No Abnormality Assessed No Abnormality -Temperature (Skye-wound Skin No Abnormality No Abnormality No Abnormality Appearance) (Pt Warm) (Pt Warm) (Pt Warm) -Tenderness on Palpation (Skye-wound No No No Skin Appearance) -Ulcer Cleansing Soap and Water Soap and Water Soap and Water -Foul Odor after Cleansing No No -Anesthetic Used 5% Lidocaine 4% Lidocaine 4% Lidocaine Gel Solution Solution WC - Nurse 2 - General Ulcer CM Notes Start: 02/14/23 14:31 Freq: Status: Active Protocol: Activity Type Activity Date Activity User E-sign Co-sign Detail Recorded Client Recorded Date Recorded By Document 02/14/23 14:51 [id number] 02/14/23 14:59 Document 02/21/23 14:35 [id number] 02/21/23 14:38 Document 02/28/23 11:52 [id number] 02/28/23 11:56 02/14/23 02/21/23 02/28/23 14:51 14:35 11:52 Wound Center Nurse 2 #2- L LAT THIGH POST OP -Time 14:55 14:36 11:52 -Correct Patient Yes Yes Yes -Correct Side, Site, Position Yes Yes Yes -Correct Procedure Yes Yes Yes -Procedure Performed Yes Yes Yes -Type of Procedure Debridement Debridement Debridement -Clinical Debridement Muscle / Fascia Muscle / Fascia Muscle / Fascia -Tissue Removed Muscle,Fascia Muscle,Fascia Muscle,Fascia -Post Debridement (cm) - Length 12.2 12.0 10.0 -Post Debridement (cm) - Width 5.5 6.0 6.0 -Post Debridement (cm) - Depth 2.4 2.4 1.2 -Total Square (Post) (cm) 67.10 72.00 60.00 -Area of Debridement (cm) - Length 12.2 12.0 10.0 -Area of Debridement (cm) - Width 5.5 6.0 6.0 -Total Square (Area) (cm) 67.10 72.00 60.00 -Tunneling No No Yes -Tunneling Position (O'clock) 3 -Tunneling Distance (cm) 3.4 -Undermining/Tunneling No No No -Circular Undermining Yes Yes No -Wound/Ulcer Outcome Not Healed Not Healed Not Healed -Ulcer Cleansing Rinsed/ Rinsed/ Rinsed/ Irrigated with Irrigated with Irrigated with Saline Saline Saline -Foul Odor after Cleansing No No No -Bioengineered Tissue No No No -Bleeding Controlled with Pressure Pressure Pressure -Treatment Response Procedure Procedure Procedure Tolerated Well Tolerated Well Tolerated Well -Offloading No No No -Debridement - Muscle / Fascia, 1st Yes Yes Yes 20sq cm -Debridement, Muscle/Fascia, ea addt'l 3 3 2 20sq cm or part thereof Pain Scale: 0-10 Numeric Is Patient Pain Free? Yes Yes Yes - Nurse 3 - General Ulcer D/C NN Start: 02/14/23 14:31 Freq: Status: Active Protocol: Activity Type Activity Date Activity User E-sign Co-sign Detail Recorded Client Recorded Date Recorded By Document 02/21/23 14:57 [facility] [id number] 02/21/23 14:59 [facility] 02/21/23 14:57 Wound Care Center Nurse 3 #2- L LAT THIGH POST OP -Ulcer Cleansing Rinsed/ Irrigated with Saline -Foul Odor after Cleansing No -Primary Dressing Applied Optilok 8x12 -Other Dressing dakins moist gauze -Primary Dressing Covered/Secured with Secured with Tape -Other Covering abd -Optilok 8x12 1 Treatment Response Procedure Tolerated Well Pain Scale: 0-10 Numeric Is Patient Pain Free? Yes - Visit Discharge Discharge Condition Stable Ambulatory Status Ambulatory Transportation Private Auto Assessment/Plan Assessment/Plan (1) Abscess of left thigh: CODE(S): L02.416 - Cutaneous abscess of left lower limb (2) History of incision and drainage: CODE(S): Z98.890 - Other specified postprocedural states (3) Nonhealing surgical wound: CODE(S): T81.89XA - Other complications of procedures, not elsewhere classified, initial encounter (4) Lipoma of left lower extremity: CODE(S): D17.24 - Benign lipomatous neoplasm of skin and subcutaneous tissue of left leg (5) Postoperative seroma of subcutaneous tissue after dermatologic procedure: CODE(S): L76.33 - Postprocedural seroma of skin and subcutaneous tissue following a dermatologic procedure (6) Cellulitis of left thigh: CODE(S): L03.116 - Cellulitis of left lower limb (7) Other specified soft tissue disorders: CODE(S): M79.89 - Other specified soft tissue disorders (8) Other acute postprocedural pain: CODE(S): G89.18 - Other acute postprocedural pain (9) MRSA (methicillin resistant Staphylococcus aureus) infection: CODE(S): A49.02 - Methicillin resistant Staphylococcus aureus infection, unspecified site PLAN: Plan Patient was evaluated at the wound healing center today. Wound care - Pack Dakins 0.25% moistened gauze into the the base of the ulcer topped with ABD/super absorber daily after washing with soap and water. May shower at the time of the dressing change. She has [facility] for her home health. They can teach her how to do her dressing changes. She completed her IV Vancomycin and her PICC line can now be discontinued. She states the increase in her Gabapentin to TID has helped the burning nerve pain she is experiencing. She will follow up in one week.
[2023-03-07 11:51] VITALS: BP 133/80; PULSE 90; RESP 16; TEMP 36.2; BMI 34.2
--- NOTE | 2023-03-07 12:26 | PCM.WC.PN ---
History of Present Illness Date of Service: 03/07/23 Chief Complaint: Nonhealing surgical wound left lateral thigh History of Wound: 47 year old woman who has had a complicated course since her first surgery on her left lateral thigh on 09/22/22. Her left lateral thigh is now healed. Her right lateral thigh became infected and required hospitalization with incision and drainage on 01/19/23. The wound was left open and a wound VAC was applied. She was discharged home with IV Vancomycin x 2 weeks due to the severity of the infection. Surgery 01/19/23 - Surgical preparation left lateral thigh with incision and drainage and excisional debridement MRSA infection seroma abscess (128 cm2). Surgery 12/28/22 - Surgical preparation left proximal lateral thigh with extension toward the hip with excisional debridement nonhealing seroma wound and 13 cm complex secondary wound closure. Surgery 11/10/22 - Excision 19 cm painful soft tissue mass left proximal lateral thigh with extension toward the hip with 11 cm layered closure repair and surgical preparation right proximal lateral thigh with extension toward the hip with excisional debridement nonhealing seroma wound and 13 cm complex secondary wound closure. She was discharged from the hospital on 11/12/22. Surgery 09/22/22 -Excision 18 cm painful subfascial soft tissue mass right proximal lateral thigh with extension toward the hip with 11 cm complex closure repair. Pathology from 09/22/22 of the right lateral thigh excision showed mature adipose tissue consistent with lipoma. Pathology from 11/10/22 of left lateral thigh mass excision showed mature adipose tissue consistent with lipoma. Pathology from 12/28/21 of left hip seroma wound showed skin with underlying tissue with acute and chronic inflammation, granulation tissue reaction and fat necrosis. Wound culture from 10/18/22 of right hip was positive for MRSE and Corynebacterium amycolatum. Operative cultures from 11/10/22 showed Corynebacterium striatum, Coag Negative Staph and Anaerobic cocci. Wound culture from 12/06/22 positive for MRSE and Streptococcus thoraltensis. She was started on Levaquin and Amoxicillin. Operative culture from 12/28/22 positive for MRSA and Kocuria kristinae initially treated with Augmentin then switched antibiotic to Doxycycline. Operative culture of left thigh tissue from 01/19/23 was negative for bacterial growth. Prealbumin from 11/11/22 was 15.7. Wound care - Wound VAC at 150 mmHg to the left lateral thigh to be changed 3 times per week. Today she denies any complaints of fever, chills, nausea, vomiting or any pain. Progress of Wound: Left lateral thigh wound is beefy pink, there is undermining into the muscle. There is a decrease in the depth of the ulcer and the amount of undermining. Her skye wound looks good with no excoriation. She is tolerating the daily dressing changes well. Her pain is well controlled now that she is not using the wound VAC. Objective Data Objective Data Vital Signs: Vital Signs Temp Pulse Resp BP O2 Del Method 97.1 F L 90 16 133/80 H Room Air 03/07/23 11:51 03/07/23 11:51 03/07/23 11:51 03/07/23 11:51 03/07/23 11:51 Oxygen Delivery Method Room Air Weight: 232 lb Body Mass Index (BMI) 34.2 Charges/Coding Procedures Integumentary 111xxx-113xx: 12998 Global Visit Debridement Note Debridement Note Wound debrided: lateral thigh Laterality: Left Wound Grade/Stage: Stage IV Type of Debridement: Excisional debridement Anesthesia Used: 4% Lidocaine Solution and 5% Lidocaine Gel Depth: Down to and including healthy tissue, in the subcutaneous layer and to muscle Percentage of wound debrided: 100 Instrument Used: 7mm curette Tissue Removed: Devitalized tissue and slough into the muscle Severity: Fat Layer Exposed Amount of bleeding with debridement: Mild Bleeding Controlled with: Pressure and Compression and gauze Patient tolerated procedure: Patient tolerated procedure well Post-Debridement Measurements and Additional Note: Post-Debridement Measurements/Treatment - Nurse 1 - General Ulcer Assessment Start: 02/14/23 14:31 Freq: Status: Active Protocol: SELENE.ALFA Activity Type Activity Date Activity User E-sign Co-sign Detail Recorded Client Recorded Date Recorded By Document 02/14/23 14:31 PL [id number] 02/14/23 14:47 PL Document 02/21/23 14:09 [facility] [id number] 02/21/23 14:22 BM Document 02/28/23 11:33 DL [id number] 02/28/23 11:42 DL Document 03/07/23 11:51 MW [id number] 03/07/23 11:57 MW 02/14/23 02/21/23 02/28/23 14:31 14:09 11:33 WC - Today's Visit Information Type of service Follow-up Visit Follow-up Visit Follow-up Visit (Physician/WOMEN'S GARMENT FITTER (Physician/WOMEN'S GARMENT FITTER (Physician/WOMEN'S GARMENT FITTER ) ) ) Arrival Mode Ambulatory Ambulatory Ambulatory Transfer Assistance None None None Patient Identification Verified (Name & Yes Yes Yes ) Patient Requires Transmission-Based No No No Precautions Safety Precautions NA Height and Weight Body Mass Index (BMI) 34.2 34.2 34.2 BMI Classification Obese Obese Obese Vital Signs Temperature (97.8 F-99.1 F) 97.0 F L 97.9 F 97.4 F L Temperature Source Temporal Temporal Temporal Pulse Rate (60-100) 105 H 94 85 Pulse Location Monitor Monitor Respiratory Rate (12-18) 20 H 16 18 Respiratory rate source Observation Observation Oxygen Delivery Method Room Air Blood Pressure (90/60-120/80) 136/80 H 137/69 H 123/71 H Blood Pressure Mean (mm Hg) 98 91 88 Source Monitor Monitor Position Sitting Blood Pressure Location Left Arm History Since Last Visit- (Skip if this is Patient's initial visit) Have you changed medications since your No No No last visit? Any new allergies or adverse reactions No No No Had a fall/change in ADL's that may No No No increase risk of falls Signs or symptoms of abuse and/or No No neglect since last visit Have you been in the hospital since your No No No last visit? Has dressing in place as prescribed Yes Yes Yes Has compression in place as prescribed Yes N/A Yes Has offloadiing in place as prescribed Yes N/A N/A Experienced any changes in pain level or No No No management Left Footwear Regular Shoe Right Footwear Regular Shoe Pain Scale: 0-10 Numeric Is Patient Pain Free? Yes Yes Yes 03/07/23 11:51 WC - Today's Visit Information Type of service Arrival Mode Transfer Assistance Patient Identification Verified (Name & ) Patient Requires Transmission-Based Precautions Safety Precautions Height and Weight Body Mass Index (BMI) 34.2 BMI Classification Obese Vital Signs Temperature (97.8 F-99.1 F) 97.1 F L Temperature Source Temporal Pulse Rate (60-100) 90 Pulse Location Monitor Respiratory Rate (12-18) 16 Respiratory rate source Observation Oxygen Delivery Method Room Air Blood Pressure (90/60-120/80) 133/80 H Blood Pressure Mean (mm Hg) 97 Source Monitor Position Sitting Blood Pressure Location Left Arm History Since Last Visit- (Skip if this is Patient's initial visit) Have you changed medications since your No last visit? Any new allergies or adverse reactions No Had a fall/change in ADL's that may No increase risk of falls Signs or symptoms of abuse and/or No neglect since last visit Have you been in the hospital since your No last visit? Has dressing in place as prescribed Yes Has compression in place as prescribed N/A Has offloadiing in place as prescribed N/A Experienced any changes in pain level or No management Left Footwear Regular Shoe Right Footwear Regular Shoe Pain Scale: 0-10 Numeric Is Patient Pain Free? Yes WC - Nurse 1 - General Ulcer Measurement Start: 02/14/23 14:31 Freq: Status: Active Protocol: Activity Type Activity Date Activity User E-sign Co-sign Detail Recorded Client Recorded Date Recorded By Document 02/14/23 14:31 PL [id number] 02/14/23 14:47 PL Document 02/21/23 14:09 BM[facility] [id number] 02/21/23 14:22 BMF Document 02/28/23 11:33 DL [id number] 02/28/23 11:42 DL Edit Result 02/28/23 11:33 DL (1) [id number] 02/28/23 11:44 DL Document 03/07/23 11:51 MW [id number] 03/07/23 11:57 MW (1) #2- L LAT THIGH POST OP - Maximum Distance #2 (cm) => 3.8 - Circular Undermining => Yes 02/14/23 02/21/23 02/28/23 14:31 14:09 11:33 Wound Center Nurse 1 #2- L LAT THIGH POST OP -Combined with other wound No -Current Size (cm) - Length 12 12 10 -Current Size (cm) - Width 5.5 5.5 5.1 -Current Size (cm) - Depth 2.3 2.5 1.6 -Total Square Cm 66.0 66.0 51.0 -Date of Last Picture (Recall this 02/21/23 field) -Photo Taken Yes No -Epithelialization Medium 34-66% Small 1-33% -Tunneling No -Undermining/Tunneling Yes Yes -Undermining/Tunneling Starts (O'clock 11 12 ) -Undermining/Tunneling Ends (O'clock) 3 12 -Maximum Distance (cm) 4.0 3.5 -Maximum Distance #2 (cm) 3.8 -Circular Undermining Yes Yes -Classification - Thickness Full Thickness with Exposed Support Structure -Exudate Amt Medium Large Medium -Exudate Type Serous Serosanguineous Serosanguineous -Wound Margin Distinct, Thickened & Outline Rolled Under Attached -Granulation Amt Medium (34-66%) Large (67-100%) Large (67-100%) -Granulation Quality Pale,[place] Red Red -Slough/Fibrin Yes No -Necrosis Amt Medium (34-66%) None Present (0 Small (1-33%) %) -Necrotic Tissue Type Adherent Slough Adherent Slough -Structure Exposed N/A -Texture (Skye-wound Skin Appearance) Excoriation Assessed, Scarring Scarring -Moisture (Skye-wound Skin Appearance) No Abnormality Assessed No Abnormality -Color (Skye-wound Skin Appearance) No Abnormality Assessed No Abnormality -Temperature (Skye-wound Skin No Abnormality No Abnormality No Abnormality Appearance) (Pt Warm) (Pt Warm) (Pt Warm) -Tenderness on Palpation (Skye-wound No No No Skin Appearance) -Ulcer Cleansing Soap and Water Soap and Water Soap and Water -Foul Odor after Cleansing No No -Anesthetic Used 5% Lidocaine 4% Lidocaine 4% Lidocaine Gel Solution Solution Lower Limb Edema Present 03/07/23 11:51 Wound Center Nurse 1 #2- L LAT THIGH POST OP -Combined with other wound No -Current Size (cm) - Length 8.7 -Current Size (cm) - Width 4.9 -Current Size (cm) - Depth 2.8 -Total Square Cm 42.63 -Date of Last Picture (Recall this 03/07/23 field) -Photo Taken Yes -Epithelialization Small 1-33% -Tunneling No -Undermining/Tunneling No -Undermining/Tunneling Starts (O'clock ) -Undermining/Tunneling Ends (O'clock) -Maximum Distance (cm) -Maximum Distance #2 (cm) -Circular Undermining No -Classification - Thickness -Exudate Amt Large -Exudate Type Serosanguineous -Wound Margin Thickened & Rolled Under -Granulation Amt Large (67-100%) -Granulation Quality Red -Slough/Fibrin Yes -Necrosis Amt Small (1-33%) -Necrotic Tissue Type Adherent Slough -Structure Exposed N/A -Texture (Skye-wound Skin Appearance) Assessed, Scarring -Moisture (Skye-wound Skin Appearance) No Abnormality, Assessed -Color (Skye-wound Skin Appearance) No Abnormality, Assessed -Temperature (Skye-wound Skin No Abnormality Appearance) (Pt Warm) -Tenderness on Palpation (Skye-wound No Skin Appearance) -Ulcer Cleansing Soap and Water -Foul Odor after Cleansing No -Anesthetic Used 4% Lidocaine Solution Lower Limb Edema Present No WC - Nurse 2 - General Ulcer CM Notes Start: 02/14/23 14:31 Freq: Status: Active Protocol: Activity Type Activity Date Activity User E-sign Co-sign Detail Recorded Client Recorded Date Recorded By Document 02/14/23 14:51 [id number] 02/14/23 14:59 Document 02/21/23 14:35 [id number] 02/21/23 14:38 Document 02/28/23 11:52 [id number] 02/28/23 11:56 Document 03/07/23 12:09 [id number] 03/07/23 12:13 02/14/23 02/21/23 02/28/23 14:51 14:35 11:52 Wound Center Nurse 2 #2- L LAT THIGH POST OP -Time 14:55 14:36 11:52 -Correct Patient Yes Yes Yes -Correct Side, Site, Position Yes Yes Yes -Correct Procedure Yes Yes Yes -Procedure Performed Yes Yes Yes -Type of Procedure Debridement Debridement Debridement -Clinical Debridement Muscle / Fascia Muscle / Fascia Muscle / Fascia -Tissue Removed Muscle,Fascia Muscle,Fascia Muscle,Fascia -Post Debridement (cm) - Length 12.2 12.0 10.0 -Post Debridement (cm) - Width 5.5 6.0 6.0 -Post Debridement (cm) - Depth 2.4 2.4 1.2 -Total Square (Post) (cm) 67.10 72.00 60.00 -Area of Debridement (cm) - Length 12.2 12.0 10.0 -Area of Debridement (cm) - Width 5.5 6.0 6.0 -Total Square (Area) (cm) 67.10 72.00 60.00 -Tunneling No No Yes -Tunneling Position (O'clock) 3 -Tunneling Distance (cm) 3.4 -Undermining/Tunneling No No No -Circular Undermining Yes Yes No -Wound/Ulcer Outcome Not Healed Not Healed Not Healed -Ulcer Cleansing Rinsed/ Rinsed/ Rinsed/ Irrigated with Irrigated with Irrigated with Saline Saline Saline -Foul Odor after Cleansing No No No -Bioengineered Tissue No No No -Bleeding Controlled with Pressure Pressure Pressure -Treatment Response Procedure Procedure Procedure Tolerated Well Tolerated Well Tolerated Well -Offloading No No No -Debridement - Muscle / Fascia, 1st Yes Yes Yes 20sq cm -Debridement, Muscle/Fascia, ea addt'l 3 3 2 20sq cm or part thereof Pain Scale: 0-10 Numeric Is Patient Pain Free? Yes Yes Yes 03/07/23 12:09 Wound Center Nurse 2 #2- L LAT THIGH POST OP -Time 12:10 -Correct Patient Yes -Correct Side, Site, Position Yes -Correct Procedure Yes -Procedure Performed Yes -Type of Procedure Debridement -Clinical Debridement Muscle / Fascia -Tissue Removed Muscle,Fascia -Post Debridement (cm) - Length 5.0 -Post Debridement (cm) - Width 8.8 -Post Debridement (cm) - Depth 1.0 -Total Square (Post) (cm) 44.00 -Area of Debridement (cm) - Length 5.0 -Area of Debridement (cm) - Width 8.8 -Total Square (Area) (cm) 44.00 -Tunneling No -Tunneling Position (O'clock) -Tunneling Distance (cm) -Undermining/Tunneling No -Circular Undermining Yes -Wound/Ulcer Outcome Not Healed -Ulcer Cleansing Rinsed/ Irrigated with Saline -Foul Odor after Cleansing No -Bioengineered Tissue No -Bleeding Controlled with Pressure -Treatment Response Procedure Not Tolerated Well -Offloading No -Debridement - Muscle / Fascia, 1st Yes 20sq cm -Debridement, Muscle/Fascia, ea addt'l 2 20sq cm or part thereof Pain Scale: 0-10 Numeric Is Patient Pain Free? Yes WC - Nurse 3 - General Ulcer D/C NN Start: 04/03/23 14:31 Freq: Status: Active Protocol: Activity Type Activity Date Activity User E-sign Co-sign Detail Recorded Client Recorded Date Recorded By Document 02/21/23 14:57 [facility] [id number] 02/21/23 14:59 BM Document 02/28/23 12:10 BM [id number] 02/28/23 12:13 BM Document 03/07/23 12:21 BM [id number] 03/07/23 12:22 BMF 02/21/23 02/28/23 03/07/23 14:57 12:10 12:21 Wound Care Center Nurse 3 #2- L LAT THIGH POST OP -Ulcer Cleansing Rinsed/ Rinsed/ Rinsed/ Irrigated with Irrigated with Irrigated with Saline Saline Saline -Foul Odor after Cleansing No No No -Primary Dressing Applied Optilok 8x12 Optilok 6.5x10 -Other Dressing dakins moist DAKINS MOIST DAKINS MOIST gauze GAUZE GAUZE PER MW RN -Primary Dressing Covered/Secured with Secured with Secured with Tape Tape -Other Covering abd ABD, SUPER ABSORBER (PTS OWN SUPPLY WHICH SHE PREFERS) -Optilok 6.5x10 1 -Optilok 8x12 1 Treatment Response Procedure Procedure Procedure Tolerated Well Tolerated Well Tolerated Well Pain Scale: 0-10 Numeric Is Patient Pain Free? Yes Yes Yes WC - Visit Discharge Discharge Condition Stable Stable Stable Ambulatory Status Ambulatory Ambulatory Ambulatory Transportation Private Auto Private Auto Private Auto Facility Type Home Health Assessment/Plan Assessment/Plan (1) Abscess of left thigh: CODE(S): L02.416 - Cutaneous abscess of left lower limb (2) History of incision and drainage: CODE(S): Z98.890 - Other specified postprocedural states (3) Nonhealing surgical wound: CODE(S): T81.89XA - Other complications of procedures, not elsewhere classified, initial encounter (4) Lipoma of left lower extremity: CODE(S): D17.24 - Benign lipomatous neoplasm of skin and subcutaneous tissue of left leg (5) Postoperative seroma of subcutaneous tissue after dermatologic procedure: CODE(S): L76.33 - Postprocedural seroma of skin and subcutaneous tissue following a dermatologic procedure (6) Cellulitis of left thigh: CODE(S): L03.116 - Cellulitis of left lower limb (7) Other specified soft tissue disorders: CODE(S): M79.89 - Other specified soft tissue disorders (8) Other acute postprocedural pain: CODE(S): G89.18 - Other acute postprocedural pain (9) MRSA (methicillin resistant Staphylococcus aureus) infection: CODE(S): A49.02 - Methicillin resistant Staphylococcus aureus infection, unspecified site PLAN: Plan Patient was evaluated at the wound healing center today. Wound care - Pack Dakins 0.25% moistened gauze into the the base of the ulcer topped with ABD/super absorber daily after washing with soap and water. May shower at the time of the dressing change. She has [facility] for her home health. She is doing a good job with her dressing changes. She is now having minimal issue with nerve pain since she increased the Gabapentin to TID. She will follow up in one week.
--- NOTE | 2023-03-07 13:17 | PN.PCM_ITS ---
History of Present Illness Date of Service: 03/07/23 Chief Complaint: Nonhealing surgical wound left lateral thigh History of Wound: 47 year old woman who has had a complicated course since her first surgery on her left lateral thigh on 09/22/22. Her left lateral thigh is now healed. Her right lateral thigh became infected and required hospitalization with incision and drainage on 01/19/23. The wound was left open and a wound VAC was applied. She was discharged home with IV Vancomycin x 2 weeks due to the severity of the infection. Surgery 01/19/23 - Surgical preparation left lateral thigh with incision and drainage and excisional debridement MRSA infection seroma abscess (128 cm2). Surgery 12/28/22 - Surgical preparation left proximal lateral thigh with extension toward the hip with excisional debridement nonhealing seroma wound and 13 cm complex secondary wound closure. Surgery 11/10/22 - Excision 19 cm painful soft tissue mass left proximal lateral thigh with extension toward the hip with 11 cm layered closure repair and surgical preparation right proximal lateral thigh with extension toward the hip with excisional debridement nonhealing seroma wound and 13 cm complex secondary wound closure. She was discharged from the hospital on 11/12/22. Surgery 09/22/22 -Excision 18 cm painful subfascial soft tissue mass right proximal lateral thigh with extension toward the hip with 11 cm complex closure repair. Pathology from 09/22/22 of the right lateral thigh excision showed mature adipose tissue consistent with lipoma. Pathology from 11/10/22 of left lateral thigh mass excision showed mature adipose tissue consistent with lipoma. Pathology from 12/28/21 of left hip seroma wound showed skin with underlying tissue with acute and chronic inflammation, granulation tissue reaction and fat necrosis. Wound culture from 10/18/22 of right hip was positive for MRSE and Corynebacterium amycolatum. Operative cultures from 11/10/22 showed Corynebacterium striatum, Coag Negative Staph and Anaerobic cocci. Wound culture from 12/06/22 positive for MRSE and Streptococcus thoraltensis. She was started on Levaquin and Amoxicillin. Operative culture from 12/28/22 positive for MRSA and Kocuria kristinae initially treated with Augmentin then switched antibiotic to Doxycycline. Operative culture of left thigh tissue from 01/19/23 was negative for bacterial growth. Prealbumin from 11/11/22 was 15.7. Wound care - Dakin's moistened gauze topped with ABD/super absorber. Today she denies any complaints of fever, chills, nausea, vomiting or any pain. Progress of Wound: Left lateral thigh wound is beefy pink, the ulcer is smaller and there is undermining into the muscle but that is starting to decrease in areas. Her skye wound looks good with no excoriation. She is tolerating the daily dressing changes well. Objective Data Objective Data Vital Signs: Vital Signs Temp Pulse Resp BP O2 Del Method 97.1 F L 90 16 133/80 H Room Air 03/07/23 11:51 03/07/23 11:51 03/07/23 11:51 03/07/23 11:51 03/07/23 11:51 Oxygen Delivery Method Room Air Weight: 232 lb Body Mass Index (BMI) 34.2 Charges/Coding Procedures Integumentary 111xxx-113xx: [id number] Global Visit Debridement Note Debridement Note Wound debrided: lateral thigh Laterality: Left Wound Grade/Stage: Stage IV Type of Debridement: Excisional debridement Anesthesia Used: 4% Lidocaine Solution and 5% Lidocaine Gel Depth: Down to and including healthy tissue, in the subcutaneous layer and to muscle Percentage of wound debrided: 100 Instrument Used: 7mm curette Tissue Removed: Devitalized tissue and slough into the muscle Severity: Fat Layer Exposed Amount of bleeding with debridement: Mild Bleeding Controlled with: Pressure and Compression and gauze Patient tolerated procedure: Patient tolerated procedure well Post-Debridement Measurements and Additional Note: Post-Debridement Measurements/Treatment WC - Nurse 1 - General Ulcer Assessment Start: 02/14/23 14:31 Freq: Status: Active Protocol: RADHA Activity Type Activity Date Activity User E-sign Co-sign Detail Recorded Client Recorded Date Recorded By Document 02/14/23 14:31 PL [id number] 02/14/23 14:47 PL Document 02/21/23 14:09 [facility] [id number] 02/21/23 14:22 BMF Document 02/28/23 11:33 DL [id number] 02/28/23 11:42 DL Document 03/07/23 11:51 MW [id number] 03/07/23 11:57 MW 0402/21/23 02/28/23 14:31 14:09 11:33 WC - Today's Visit Information Type of service Follow-up Visit Follow-up Visit Follow-up Visit (Physician/CONTACT LENS CURVE GRINDER (Physician/CONTACT LENS CURVE GRINDER (Physician/CONTACT LENS CURVE GRINDER ) ) ) Arrival Mode Ambulatory Ambulatory Ambulatory Transfer Assistance None None None Patient Identification Verified (Name & Yes Yes Yes ) Patient Requires Transmission-Based No No No Precautions Safety Precautions NA Height and Weight Body Mass Index (BMI) 34.2 34.2 34.2 BMI Classification Obese Obese Obese Vital Signs Temperature (97.8 F-99.1 F) 97.0 F L 97.9 F 97.4 F L Temperature Source Temporal Temporal Temporal Pulse Rate (60-100) 105 H 94 85 Pulse Location Monitor Monitor Respiratory Rate (12-18) 20 H 16 18 Respiratory rate source Observation Observation Oxygen Delivery Method Room Air Blood Pressure (90/60-120/80) 136/80 H 137/69 H 123/71 H Blood Pressure Mean (mm Hg) 98 91 88 Source Monitor Monitor Position Sitting Blood Pressure Location Left Arm History Since Last Visit- (Skip if this is Patient's initial visit) Have you changed medications since your No No No last visit? Any new allergies or adverse reactions No No No Had a fall/change in ADL's that may No No No increase risk of falls Signs or symptoms of abuse and/or No No neglect since last visit Have you been in the hospital since your No No No last visit? Has dressing in place as prescribed Yes Yes Yes Has compression in place as prescribed Yes N/A Yes Has offloadiing in place as prescribed Yes N/A N/A Experienced any changes in pain level or No No No management Left Footwear Regular Shoe Right Footwear Regular Shoe Pain Scale: 0-10 Numeric Is Patient Pain Free? Yes Yes Yes 03/07/23 11:51 WC - Today's Visit Information Type of service Arrival Mode Transfer Assistance Patient Identification Verified (Name & ) Patient Requires Transmission-Based Precautions Safety Precautions Height and Weight Body Mass Index (BMI) 34.2 BMI Classification Obese Vital Signs Temperature (97.8 F-99.1 F) 97.1 F L Temperature Source Temporal Pulse Rate (60-100) 90 Pulse Location Monitor Respiratory Rate (12-18) 16 Respiratory rate source Observation Oxygen Delivery Method Room Air Blood Pressure (90/60-120/80) 133/80 H Blood Pressure Mean (mm Hg) 97 Source Monitor Position Sitting Blood Pressure Location Left Arm History Since Last Visit- (Skip if this is Patient's initial visit) Have you changed medications since your No last visit? Any new allergies or adverse reactions No Had a fall/change in ADL's that may No increase risk of falls Signs or symptoms of abuse and/or No neglect since last visit Have you been in the hospital since your No last visit? Has dressing in place as prescribed Yes Has compression in place as prescribed N/A Has offloadiing in place as prescribed N/A Experienced any changes in pain level or No management Left Footwear Regular Shoe Right Footwear Regular Shoe Pain Scale: 0-10 Numeric Is Patient Pain Free? Yes WC - Nurse 1 - General Ulcer Measurement Start: 02/14/23 14:31 Freq: Status: Active Protocol: Activity Type Activity Date Activity User E-sign Co-sign Detail Recorded Client Recorded Date Recorded By Document 02/14/23 14:31 PL [id number] 02/14/23 14:47 PL Document 02/21/23 14:09 [facility] [id number] 02/21/23 14:22 BMF Document 02/28/23 11:33 DL [id number] 02/28/23 11:42 DL Edit Result 02/28/23 11:33 DL (1) [id number] 02/28/23 11:44 DL Document 03/07/23 11:51 MW [id number] 03/07/23 11:57 MW (1) #2- L LAT THIGH POST OP - Maximum Distance #2 (cm) => 3.8 - Circular Undermining => Yes 02/14/23 02/21/23 02/28/23 14:31 14:09 11:33 Wound Center Nurse 1 #2- L LAT THIGH POST OP -Combined with other wound No -Current Size (cm) - Length 12 12 10 -Current Size (cm) - Width 5.5 5.5 5.1 -Current Size (cm) - Depth 2.3 2.5 1.6 -Total Square Cm 66.0 66.0 51.0 -Date of Last Picture (Recall this 02/21/23 field) -Photo Taken Yes No -Epithelialization Medium 34-66% Small 1-33% -Tunneling No -Undermining/Tunneling Yes Yes -Undermining/Tunneling Starts (O'clock 11 12 ) -Undermining/Tunneling Ends (O'clock) 3 12 -Maximum Distance (cm) 4.0 3.5 -Maximum Distance #2 (cm) 3.8 -Circular Undermining Yes Yes -Classification - Thickness Full Thickness with Exposed Support Structure -Exudate Amt Medium Large Medium -Exudate Type Serous Serosanguineous Serosanguineous -Wound Margin Distinct, Thickened & Outline Rolled Under Attached -Granulation Amt Medium (34-66%) Large (67-100%) Large (67-100%) -Granulation Quality Pale,Nogal Red Red -Slough/Fibrin Yes No -Necrosis Amt Medium (34-66%) None Present (0 Small (1-33%) %) -Necrotic Tissue Type Adherent Slough Adherent Slough -Structure Exposed N/A -Texture (Skye-wound Skin Appearance) Excoriation Assessed, Scarring Scarring -Moisture (Skye-wound Skin Appearance) No Abnormality Assessed No Abnormality -Color (Skye-wound Skin Appearance) No Abnormality Assessed No Abnormality -Temperature (Skye-wound Skin No Abnormality No Abnormality No Abnormality Appearance) (Pt Warm) (Pt Warm) (Pt Warm) -Tenderness on Palpation (Skye-wound No No No Skin Appearance) -Ulcer Cleansing Soap and Water Soap and Water Soap and Water -Foul Odor after Cleansing No No -Anesthetic Used 5% Lidocaine 4% Lidocaine 4% Lidocaine Gel Solution Solution Lower Limb Edema Present 03/07/23 11:51 Wound Center Nurse 1 #2- L LAT THIGH POST OP -Combined with other wound No -Current Size (cm) - Length 8.7 -Current Size (cm) - Width 4.9 -Current Size (cm) - Depth 2.8 -Total Square Cm 42.63 -Date of Last Picture (Recall this 03/07/23 field) -Photo Taken Yes -Epithelialization Small 1-33% -Tunneling No -Undermining/Tunneling No -Undermining/Tunneling Starts (O'clock ) -Undermining/Tunneling Ends (O'clock) -Maximum Distance (cm) -Maximum Distance #2 (cm) -Circular Undermining No -Classification - Thickness -Exudate Amt Large -Exudate Type Serosanguineous -Wound Margin Thickened & Rolled Under -Granulation Amt Large (67-100%) -Granulation Quality Red -Slough/Fibrin Yes -Necrosis Amt Small (1-33%) -Necrotic Tissue Type Adherent Slough -Structure Exposed N/A -Texture (Skye-wound Skin Appearance) Assessed, Scarring -Moisture (Skye-wound Skin Appearance) No Abnormality, Assessed -Color (Skye-wound Skin Appearance) No Abnormality, Assessed -Temperature (Skye-wound Skin No Abnormality Appearance) (Pt Warm) -Tenderness on Palpation (Skye-wound No Skin Appearance) -Ulcer Cleansing Soap and Water -Foul Odor after Cleansing No -Anesthetic Used 4% Lidocaine Solution Lower Limb Edema Present No WC - Nurse 2 - General Ulcer CM Notes Start: 02/14/23 14:31 Freq: Status: Active Protocol: Activity Type Activity Date Activity User E-sign Co-sign Detail Recorded Client Recorded Date Recorded By Document 02/14/23 14:51 [id number] 02/14/23 14:59 Document 02/21/23 14:35 [id number] 02/21/23 14:38 Document 02/28/23 11:52 [id number] 02/28/23 11:56 Document 03/07/23 12:09 [id number] 03/07/23 12:13 02/14/23 02/21/23 02/28/23 14:51 14:35 11:52 Wound Center Nurse 2 #2- L LAT THIGH POST OP -Time 14:55 14:36 11:52 -Correct Patient Yes Yes Yes -Correct Side, Site, Position Yes Yes Yes -Correct Procedure Yes Yes Yes -Procedure Performed Yes Yes Yes -Type of Procedure Debridement Debridement Debridement -Clinical Debridement Muscle / Fascia Muscle / Fascia Muscle / Fascia -Tissue Removed Muscle,Fascia Muscle,Fascia Muscle,Fascia -Post Debridement (cm) - Length 12.2 12.0 10.0 -Post Debridement (cm) - Width 5.5 6.0 6.0 -Post Debridement (cm) - Depth 2.4 2.4 1.2 -Total Square (Post) (cm) 67.10 72.00 60.00 -Area of Debridement (cm) - Length 12.2 12.0 10.0 -Area of Debridement (cm) - Width 5.5 6.0 6.0 -Total Square (Area) (cm) 67.10 72.00 60.00 -Tunneling No No Yes -Tunneling Position (O'clock) 3 -Tunneling Distance (cm) 3.4 -Undermining/Tunneling No No No -Circular Undermining Yes Yes No -Wound/Ulcer Outcome Not Healed Not Healed Not Healed -Ulcer Cleansing Rinsed/ Rinsed/ Rinsed/ Irrigated with Irrigated with Irrigated with Saline Saline Saline -Foul Odor after Cleansing No No No -Bioengineered Tissue No No No -Bleeding Controlled with Pressure Pressure Pressure -Treatment Response Procedure Procedure Procedure Tolerated Well Tolerated Well Tolerated Well -Offloading No No No -Debridement - Muscle / Fascia, 1st Yes Yes Yes 20sq cm -Debridement, Muscle/Fascia, ea addt'l 3 3 2 20sq cm or part thereof Pain Scale: 0-10 Numeric Is Patient Pain Free? Yes Yes Yes 03/07/23 12:09 Wound Center Nurse 2 #2- L LAT THIGH POST OP -Time 12:10 -Correct Patient Yes -Correct Side, Site, Position Yes -Correct Procedure Yes -Procedure Performed Yes -Type of Procedure Debridement -Clinical Debridement Muscle / Fascia -Tissue Removed Muscle,Fascia -Post Debridement (cm) - Length 5.0 -Post Debridement (cm) - Width 8.8 -Post Debridement (cm) - Depth 1.0 -Total Square (Post) (cm) 44.00 -Area of Debridement (cm) - Length 5.0 -Area of Debridement (cm) - Width 8.8 -Total Square (Area) (cm) 44.00 -Tunneling No -Tunneling Position (O'clock) -Tunneling Distance (cm) -Undermining/Tunneling No -Circular Undermining Yes -Wound/Ulcer Outcome Not Healed -Ulcer Cleansing Rinsed/ Irrigated with Saline -Foul Odor after Cleansing No -Bioengineered Tissue No -Bleeding Controlled with Pressure -Treatment Response Procedure Not Tolerated Well -Offloading No -Debridement - Muscle / Fascia, 1st Yes 20sq cm -Debridement, Muscle/Fascia, ea addt'l 2 20sq cm or part thereof Pain Scale: 0-10 Numeric Is Patient Pain Free? Yes WC - Nurse 3 - General Ulcer D/C NN Start: 02/14/23 14:31 Freq: Status: Active Protocol: Activity Type Activity Date Activity User E-sign Co-sign Detail Recorded Client Recorded Date Recorded By Document 02/21/23 14:57 [facility] [id number] 02/21/23 14:59 [facility] Document 02/28/23 12:10 [facility] [id number] 02/28/23 12:13 [facility] Document 03/07/23 12:21 [facility] [id number] 03/07/23 12:22 [facility] 02/21/23 02/28/23 03/07/23 14:57 12:10 12:21 Wound Care Center Nurse 3 #2- L LAT THIGH POST OP -Ulcer Cleansing Rinsed/ Rinsed/ Rinsed/ Irrigated with Irrigated with Irrigated with Saline Saline Saline -Foul Odor after Cleansing No No No -Primary Dressing Applied Optilok 8x12 Optilok 6.5x10 -Other Dressing dakins moist DAKINS MOIST DAKINS MOIST gauze GAUZE GAUZE PER MW RN -Primary Dressing Covered/Secured with Secured with Secured with Tape Tape -Other Covering abd ABD, SUPER ABSORBER (PTS OWN SUPPLY WHICH SHE PREFERS) -Optilok 6.5x10 1 -Optilok 8x12 1 Treatment Response Procedure Procedure Procedure Tolerated Well Tolerated Well Tolerated Well Pain Scale: 0-10 Numeric Is Patient Pain Free? Yes Yes Yes WC - Visit Discharge Discharge Condition Stable Stable Stable Ambulatory Status Ambulatory Ambulatory Ambulatory Transportation Private Auto Private Auto Private Auto Facility Type Home Health Assessment/Plan Assessment/Plan (1) Abscess of left thigh: CODE(S): L02.416 - Cutaneous abscess of left lower limb (2) History of incision and drainage: CODE(S): Z98.890 - Other specified postprocedural states (3) Nonhealing surgical wound: CODE(S): T81.89XA - Other complications of procedures, not elsewhere classified, initial encounter (4) Lipoma of left lower extremity: CODE(S): D17.24 - Benign lipomatous neoplasm of skin and subcutaneous tissue of left leg (5) Postoperative seroma of subcutaneous tissue after dermatologic procedure: CODE(S): L76.33 - Postprocedural seroma of skin and subcutaneous tissue following a dermatologic procedure (6) Cellulitis of left thigh: CODE(S): L03.116 - Cellulitis of left lower limb (7) Other specified soft tissue disorders: CODE(S): M79.89 - Other specified soft tissue disorders (8) Other acute postprocedural pain: CODE(S): G89.18 - Other acute postprocedural pain (9) MRSA (methicillin resistant Staphylococcus aureus) infection: CODE(S): A49.02 - Methicillin resistant Staphylococcus aureus infection, unspecified site PLAN: Plan Patient was evaluated at the wound healing center today. Wound care - Pack Dakins 0.25% moistened gauze into the the base of the ulcer topped with ABD/super absorber daily after washing with soap and water. May shower at the time of the dressing change. She has [facility] for her home health. She is doing a good job with her dressing changes. She states the increase in her Gabapentin to TID has helped the burning nerve pain she is experiencing. She will follow up in one week.
== END 2023-03-13 23:59 | disposition home or self-care (01) ==
LOC: WC 11:30
PROVIDERS: PCP Internal Medicine; Referring Provider Nurse Practitioner Family; Visit Provider Nurse Practitioner Family
DX: L97.122 Non-pressure chronic ulcer of left thigh with fat layer exposed (principal); L03.116 Cellulitis of left lower limb; T81.89XA Other complications of procedures, not elsewhere classified, initial encounter; G89.18 Other acute postprocedural pain; L02.416 Cutaneous abscess of left lower limb; D17.24 Benign lipomatous neoplasm of skin and subcutaneous tissue of left leg; B95.62 Methicillin resistant Staphylococcus aureus infection as the cause of diseases classified elsewhere; L76.33 Postprocedural seroma of skin and subcutaneous tissue following a dermatologic procedure
CPT/HCPCS: 10140; 11043; 11046

== ENCOUNTER 2023-04-04 14:15 | Outpatient (RCR) | payer MEDICAID, SELFPAY ==
[2023-03-14 00:12] VITALS: BP 133/80; PULSE 90; RESP 16; TEMP 36.2; BMI 34.2
[2023-03-14 13:12] VITALS: BP 119/77; PULSE 75; RESP 20; TEMP 36.3; BMI 34.2
--- NOTE | 2023-03-14 14:14 | PN.PCM_ITS ---
History of Present Illness Date of Service: 03/14/23 Chief Complaint: Nonhealing surgical wound left lateral thigh History of Wound: 47 year old woman who has had a complicated course since her first surgery on her left lateral thigh on 09/22/22. Her left lateral thigh is now healed. Her right lateral thigh became infected and required hospitalization with incision and drainage on 01/19/23. The wound was left open and a wound VAC was applied. She was discharged home with IV Vancomycin x 2 weeks due to the severity of the infection. Surgery 01/19/23 - Surgical preparation left lateral thigh with incision and drainage and excisional debridement MRSA infection seroma abscess (128 cm2). Surgery 12/28/22 - Surgical preparation left proximal lateral thigh with extension toward the hip with excisional debridement nonhealing seroma wound and 13 cm complex secondary wound closure. Surgery 11/10/22 - Excision 19 cm painful soft tissue mass left proximal lateral thigh with extension toward the hip with 11 cm layered closure repair and surgical preparation right proximal lateral thigh with extension toward the hip with excisional debridement nonhealing seroma wound and 13 cm complex secondary wound closure. She was discharged from the hospital on 11/12/22. Surgery 09/22/22 -Excision 18 cm painful subfascial soft tissue mass right proximal lateral thigh with extension toward the hip with 11 cm complex closure repair. Pathology from 09/22/22 of the right lateral thigh excision showed mature adipose tissue consistent with lipoma. Pathology from 11/10/22 of left lateral thigh mass excision showed mature adipose tissue consistent with lipoma. Pathology from 12/28/21 of left hip seroma wound showed skin with underlying tissue with acute and chronic inflammation, granulation tissue reaction and fat necrosis. Wound culture from 10/18/22 of right hip was positive for MRSE and Corynebacterium amycolatum. Operative cultures from 11/10/22 showed Corynebacterium striatum, Coag Negative Staph and Anaerobic cocci. Wound culture from 12/06/22 positive for MRSE and Streptococcus thoraltensis. She was started on Levaquin and Amoxicillin. Operative culture from 12/28/22 positive for MRSA and Kocuria kristinae initially treated with Augmentin then switched antibiotic to Doxycycline. Operative culture of left thigh tissue from 01/19/23 was negative for bacterial growth. Prealbumin from 11/11/22 was 15.7. Wound care - Dakin's moistened gauze topped with ABD/super absorber. Today she denies any complaints of fever, chills, nausea, vomiting or any pain. Progress of Wound: Left lateral thigh wound is beefy pink, the ulcer is smaller and there is undermining into the muscle but that is starting to decrease in areas. Her skye wound looks good with no excoriation. She is tolerating the daily dressing changes well. Objective Data Objective Data Vital Signs: Vital Signs Temp Pulse Resp BP 97.4 F L 75 20 H 119/77 03/14/23 13:12 03/14/23 13:12 03/14/23 13:12 03/14/23 13:12 Weight: 232 lb Body Mass Index (BMI) 34.2 Charges/Coding Procedures Integumentary 111xxx-113xx: 54632 Global Visit Debridement Note Debridement Note Wound debrided: lateral thigh Laterality: Left Wound Grade/Stage: Stage IV Type of Debridement: Excisional debridement Anesthesia Used: 4% Lidocaine Solution and 5% Lidocaine Gel Depth: Down to and including healthy tissue, in the subcutaneous layer and to muscle Percentage of wound debrided: 100 Instrument Used: 7mm curette Tissue Removed: Devitalized tissue and slough into the muscle Severity: Fat Layer Exposed Amount of bleeding with debridement: Mild Bleeding Controlled with: Pressure and Compression and gauze Patient tolerated procedure: Patient tolerated procedure well Post-Debridement Measurements and Additional Note: Post-Debridement Measurements/Treatment WC - Nurse 1 - General Ulcer Assessment Start: 03/14/23 13:12 Freq: Status: Active Protocol: RADHA Activity Type Activity Date Activity User E-sign Co-sign Detail Recorded Client Recorded Date Recorded By Document 03/14/23 13:12 DL [id number] 03/14/23 13:23 DL 03/14/23 13:12 - Today's Visit Information Type of service 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 ) Arrival Mode Ambulatory Transfer Assistance None Patient Identification Verified (Name & Yes ) Patient Requires Transmission-Based No Precautions Height and Weight Body Mass Index (BMI) 34.2 BMI Classification Obese Vital Signs Temperature (97.8 F-99.1 F) 97.4 F L Temperature Source Temporal Pulse Rate (60-100) 75 Pulse Location Monitor Respiratory Rate (12-18) 20 H Respiratory rate source Observation Blood Pressure (90/60-120/80) 119/77 Blood Pressure Mean (mm Hg) 91 Source Monitor History Since Last Visit- (Skip if this is Patient's initial visit) Have you changed medications since your No last visit? Any new allergies or adverse reactions No Had a fall/change in ADL's that may No increase risk of falls Signs or symptoms of abuse and/or No neglect since last visit Have you been in the hospital since your No last visit? Has dressing in place as prescribed Yes Has compression in place as prescribed N/A Has offloadiing in place as prescribed N/A Experienced any changes in pain level or No management Pain Scale: 0-10 Numeric Is Patient Pain Free? Yes WC - Nurse 1 - General Ulcer Measurement Start: 03/14/23 13:12 Freq: Status: Active Protocol: Activity Type Activity Date Activity User E-sign Co-sign Detail Recorded Client Recorded Date Recorded By Document 03/14/23 13:12 DL [id number] 03/14/23 13:23 DL Edit Result 03/14/23 13:12 DL (1) [id number] 03/14/23 13:24 DL (1) #2- L LAT THIGH POST OP - Maximum Distance #2 (cm) => 2.7 - Circular Undermining => Yes 03/14/23 13:12 Wound Center Nurse 1 #2- L LAT THIGH POST OP -Current Size (cm) - Length 8 -Current Size (cm) - Width 4 -Current Size (cm) - Depth 1 -Total Square Cm 32 -Photo Taken No -Maximum Distance #2 (cm) 2.7 -Circular Undermining Yes -Exudate Amt Medium -Exudate Type Serosanguineous -Wound Margin Thickened & Rolled Under -Granulation Amt Large (67-100%) -Granulation Quality Red -Necrosis Amt Small (1-33%) -Necrotic Tissue Type Adherent Slough -Structure Exposed N/A -Texture (Skye-wound Skin Appearance) Scarring -Moisture (Skye-wound Skin Appearance) No Abnormality -Color (Skye-wound Skin Appearance) No Abnormality -Temperature (Skye-wound Skin No Abnormality Appearance) (Pt Warm) -Ulcer Cleansing Soap and Water -Foul Odor after Cleansing No -Anesthetic Used 4% Lidocaine Solution WC - Nurse 2 - General Ulcer CM Notes Start: 03/14/23 13:12 Freq: Status: Active Protocol: Activity Type Activity Date Activity User E-sign Co-sign Detail Recorded Client Recorded Date Recorded By Document 03/14/23 13:35 RODOLFO [id number] 03/14/23 13:40 RODOLFO 03/14/23 13:35 Wound Center Nurse 2 -Time 13:36 -Correct Patient Yes -Correct Side, Site, Position Yes -Correct Procedure Yes -Procedure Performed Yes -Type of Procedure Debridement -Clinical Debridement Muscle / Fascia -Tissue Removed Muscle,Fascia -Post Debridement (cm) - Length 4.3 -Post Debridement (cm) - Width 8.5 -Post Debridement (cm) - Depth 0.8 -Total Square (Post) (cm) 36.55 -Area of Debridement (cm) - Length 4.3 -Area of Debridement (cm) - Width 8.5 -Total Square (Area) (cm) 36.55 -Tunneling Yes -Tunneling Position (O'clock) 12 -Tunneling Distance (cm) 2.8 -Undermining/Tunneling No -Circular Undermining No -Wound/Ulcer Outcome Not Healed -Ulcer Cleansing Rinsed/ Irrigated with Saline -Foul Odor after Cleansing No -Bleeding Controlled with Pressure -Treatment Response Procedure Tolerated Well -Offloading No -Debridement - Muscle / Fascia, 1st Yes 20sq cm -Debridement, Muscle/Fascia, ea addt'l 1 20sq cm or part thereof Pain Scale: 0-10 Numeric Is Patient Pain Free? Yes - Nurse 3 - General Ulcer D/C NN Start: 03/14/23 13:12 Freq: Status: Active Protocol: Activity Type Activity Date Activity User E-sign Co-sign Detail Recorded Client Recorded Date Recorded By Document 03/14/23 13:52 DL [id number] 03/14/23 13:53 DL 03/14/23 13:52 Wound Care Center Nurse 3 #2- L LAT THIGH POST OP -Ulcer Cleansing Soap and Water -Foul Odor after Cleansing No -Other Dressing dakins -Primary Dressing Covered/Secured with Dry Gauze, Secured with Tape -Other Covering superabsorber Treatment Response Procedure Tolerated Well Pain Scale: 0-10 Numeric Is Patient Pain Free? Yes WC - Visit Discharge Discharge Condition Stable Ambulatory Status Ambulatory Transportation Private [facility] Facility Type Home Health Orders Sent Yes Assessment/Plan Assessment/Plan (1) Abscess of left thigh: CODE(S): L02.416 - Cutaneous abscess of left lower limb (2) History of incision and drainage: CODE(S): Z98.890 - Other specified postprocedural states (3) Nonhealing surgical wound: CODE(S): T81.89XA - Other complications of procedures, not elsewhere classified, initial encounter (4) Lipoma of left lower extremity: CODE(S): D17.24 - Benign lipomatous neoplasm of skin and subcutaneous tissue of left leg (5) Postoperative seroma of subcutaneous tissue after dermatologic procedure: CODE(S): L76.33 - Postprocedural seroma of skin and subcutaneous tissue following a dermatologic procedure (6) Cellulitis of left thigh: CODE(S): L03.116 - Cellulitis of left lower limb (7) Other specified soft tissue disorders: CODE(S): M79.89 - Other specified soft tissue disorders (8) Other acute postprocedural pain: CODE(S): G89.18 - Other acute postprocedural pain (9) MRSA (methicillin resistant Staphylococcus aureus) infection: CODE(S): A49.02 - Methicillin resistant Staphylococcus aureus infection, unspecified site PLAN: Plan Patient was evaluated at the wound healing center today. Wound care - Pack Dakins 0.25% moistened gauze into the the base of the ulcer topped with ABD/super absorber daily after washing with soap and water. May shower at the time of the dressing change. Dressing is to be changed daily. She has [facility] for her home health. She is doing a good job with her dressing changes with the assistance of her daughter and her friend. The patient is not able to change her dressing herself. She will follow up in one week.
[2023-03-21 13:46] VITALS: BP 133/72; PULSE 73; RESP 20; TEMP 35.9; BMI 34.2
--- NOTE | 2023-03-21 15:30 | PN.PCM_ITS ---
History of Present Illness Date of Service: 03/21/23 Chief Complaint: Nonhealing surgical wound left lateral thigh History of Wound: 47 year old woman who has had a complicated course since her first surgery on her left lateral thigh on 09/22/22. Her left lateral thigh is now healed. Her right lateral thigh became infected and required hospitalization with incision and drainage on 01/19/23. The wound was left open and a wound VAC was applied. She was discharged home with IV Vancomycin x 2 weeks due to the severity of the infection. Surgery 01/19/23 - Surgical preparation left lateral thigh with incision and drainage and excisional debridement MRSA infection seroma abscess (128 cm2). Surgery 12/28/22 - Surgical preparation left proximal lateral thigh with extension toward the hip with excisional debridement nonhealing seroma wound and 13 cm complex secondary wound closure. Surgery 11/10/22 - Excision 19 cm painful soft tissue mass left proximal lateral thigh with extension toward the hip with 11 cm layered closure repair and surgical preparation right proximal lateral thigh with extension toward the hip with excisional debridement nonhealing seroma wound and 13 cm complex secondary wound closure. She was discharged from the hospital on 11/12/22. Surgery 09/22/22 -Excision 18 cm painful subfascial soft tissue mass right proximal lateral thigh with extension toward the hip with 11 cm complex closure repair. Pathology from 09/22/22 of the right lateral thigh excision showed mature adipose tissue consistent with lipoma. Pathology from 11/10/22 of left lateral thigh mass excision showed mature adipose tissue consistent with lipoma. Pathology from 12/28/21 of left hip seroma wound showed skin with underlying tissue with acute and chronic inflammation, granulation tissue reaction and fat necrosis. Wound culture from 10/18/22 of right hip was positive for MRSE and Corynebacterium amycolatum. Operative cultures from 11/10/22 showed Corynebacterium striatum, Coag Negative Staph and Anaerobic cocci. Wound culture from 12/06/22 positive for MRSE and Streptococcus thoraltensis. She was started on Levaquin and Amoxicillin. Operative culture from 12/28/22 positive for MRSA and Kocuria kristinae initially treated with Augmentin then switched antibiotic to Doxycycline. Operative culture of left thigh tissue from 01/19/23 was negative for bacterial growth. Prealbumin from 11/11/22 was 15.7. Wound care - Dakin's moistened gauze topped with ABD/super absorber. Today she denies any complaints of fever, chills, nausea, vomiting or any pain. Progress of Wound: Left lateral thigh wound is beefy pink, the ulcer is smaller and there is undermining into the muscle but that is starting to decrease in areas. Her skye wound looks good with no excoriation. She is tolerating the daily dressing changes well. She is still not able to change the dressing herself because the thought of it makes her queasy. Objective Data Objective Data Vital Signs: Vital Signs Temp Pulse Resp BP 96.6 F L 73 20 H 133/72 H 03/21/23 13:46 03/21/23 13:46 03/21/23 13:46 03/21/23 13:46 Weight: 232 lb Body Mass Index (BMI) 34.2 Charges/Coding Procedures Integumentary 111xxx-113xx: 02439 Global Visit Debridement Note Debridement Note Wound debrided: lateral thigh Laterality: Left Wound Grade/Stage: Stage IV Type of Debridement: Excisional debridement Anesthesia Used: 4% Lidocaine Solution and 5% Lidocaine Gel Depth: Down to and including healthy tissue, in the subcutaneous layer and to muscle Percentage of wound debrided: 100 Instrument Used: 7mm curette Tissue Removed: Devitalized tissue and slough into the muscle Severity: Fat Layer Exposed Amount of bleeding with debridement: Mild Bleeding Controlled with: Pressure and Compression and gauze Patient tolerated procedure: Patient tolerated procedure well Post-Debridement Measurements and Additional Note: Post-Debridement Measurements/Treatment - Nurse 1 - General Ulcer Assessment Start: 03/14/23 13:12 Freq: Status: Active Protocol: RADHA Activity Type Activity Date Activity User E-sign Co-sign Detail Recorded Client Recorded Date Recorded By Document 03/14/23 13:12 DL [id number] 03/14/23 13:23 DL Document 03/21/23 13:46 DL [id number] 03/21/23 13:52 DL 03/14/23 03/21/23 13:12 13:46 - Today's Visit Information Type of service Follow-up Visit Follow-up Visit (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/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 ) ) Arrival Mode Ambulatory Ambulatory Transfer Assistance None None Patient Identification Verified (Name & Yes Yes ) Patient Requires Transmission-Based No No Precautions Height and Weight Body Mass Index (BMI) 34.2 34.2 BMI Classification Obese Obese Vital Signs Temperature (97.8 F-99.1 F) 97.4 F L 96.6 F L Temperature Source Temporal Temporal Pulse Rate (60-100) 75 73 Pulse Location Monitor Monitor Respiratory Rate (12-18) 20 H 20 H Respiratory rate source Observation Observation Blood Pressure (90/60-120/80) 119/77 133/72 H Blood Pressure Mean (mm Hg) 91 92 Source Monitor Monitor History Since Last Visit- (Skip if this is Patient's initial visit) Have you changed medications since your No No last visit? Any new allergies or adverse reactions No No Had a fall/change in ADL's that may No No increase risk of falls Signs or symptoms of abuse and/or No No neglect since last visit Have you been in the hospital since your No No last visit? Has dressing in place as prescribed Yes Yes Has compression in place as prescribed N/A N/A Has offloadiing in place as prescribed N/A N/A Experienced any changes in pain level or No No management Pain Scale: 0-10 Numeric Is Patient Pain Free? Yes Yes WC - Nurse 1 - General Ulcer Measurement Start: 03/14/23 13:12 Freq: Status: Active Protocol: Activity Type Activity Date Activity User E-sign Co-sign Detail Recorded Client Recorded Date Recorded By Document 03/14/23 13:12 DL [id number] 03/14/23 13:23 DL Edit Result 03/14/23 13:12 DL (1) [id number] 03/14/23 13:24 DL Document 03/21/23 13:46 DL [id number] 03/21/23 13:52 DL (1) #2- L LAT THIGH POST OP - Maximum Distance #2 (cm) => 2.7 - Circular Undermining => Yes 03/14/23 03/21/23 13:12 13:46 Wound Center Nurse 1 #2- L LAT THIGH POST OP -Current Size (cm) - Length 8 7.5 -Current Size (cm) - Width 4 3.5 -Current Size (cm) - Depth 1 0.9 -Total Square Cm 32 26.25 -Photo Taken No Yes -Maximum Distance #2 (cm) 2.7 3 -Circular Undermining Yes Yes -Exudate Amt Medium Large -Exudate Type Serosanguineous Serosanguineous -Wound Margin Thickened & Thickened & Rolled Under Rolled Under -Granulation Amt Large (67-100%) Large (67-100%) -Granulation Quality Red Red -Necrosis Amt Small (1-33%) Small (1-33%) -Necrotic Tissue Type Adherent Slough Adherent Slough -Structure Exposed N/A N/A -Texture (Skye-wound Skin Appearance) Scarring Scarring -Moisture (Skye-wound Skin Appearance) No Abnormality No Abnormality -Color (Skye-wound Skin Appearance) No Abnormality No Abnormality -Temperature (Skye-wound Skin No Abnormality No Abnormality Appearance) (Pt Warm) (Pt Warm) -Ulcer Cleansing Soap and Water Soap and Water -Foul Odor after Cleansing No No -Anesthetic Used 4% Lidocaine 4% Lidocaine Solution Solution WC - Nurse 2 - General Ulcer CM Notes Start: 03/14/23 13:12 Freq: Status: Active Protocol: Activity Type Activity Date Activity User E-sign Co-sign Detail Recorded Client Recorded Date Recorded By Document 03/14/23 13:35 [id number] 03/14/23 13:40 Document 03/21/23 14:16 [id number] 03/21/23 14:19 03/14/23 03/21/23 13:35 14:16 Wound Center Nurse 2 #2- L LAT THIGH POST OP -Time 13:36 14:16 -Correct Patient Yes Yes -Correct Side, Site, Position Yes Yes -Correct Procedure Yes Yes -Procedure Performed Yes Yes -Type of Procedure Debridement Debridement -Clinical Debridement Muscle / Fascia Muscle / Fascia -Tissue Removed Muscle,Fascia Muscle,Fascia -Post Debridement (cm) - Length 4.3 3.8 -Post Debridement (cm) - Width 8.5 7.5 -Post Debridement (cm) - Depth 0.8 1.3 -Total Square (Post) (cm) 36.55 28.50 -Area of Debridement (cm) - Length 4.3 3.8 -Area of Debridement (cm) - Width 8.5 7.5 -Total Square (Area) (cm) 36.55 28.50 -Tunneling Yes No -Tunneling Position (O'clock) 12 -Tunneling Distance (cm) 2.8 -Undermining/Tunneling No Yes -Undermining/Tunneling Starts (O'clock 7 ) -Undermining/Tunneling Ends (O'clock) 5 -Maximum Distance (cm) 3.9 -Circular Undermining No No -Wound/Ulcer Outcome Not Healed Not Healed -Ulcer Cleansing Rinsed/ Rinsed/ Irrigated with Irrigated with Saline Saline -Foul Odor after Cleansing No No -Bioengineered Tissue No -Bleeding Controlled with Pressure Pressure -Treatment Response Procedure Procedure Tolerated Well Tolerated Well -Offloading No No -Debridement - Muscle / Fascia, 1st Yes Yes 20sq cm -Debridement, Muscle/Fascia, ea addt'l 1 1 20sq cm or part thereof Pain Scale: 0-10 Numeric Is Patient Pain Free? Yes Yes - Nurse 3 - General Ulcer D/C NN Start: 03/14/23 13:12 Freq: Status: Active Protocol: Activity Type Activity Date Activity User E-sign Co-sign Detail Recorded Client Recorded Date Recorded By Document 03/14/23 13:52 DL [id number] 03/14/23 13:53 DL Document 03/21/23 14:28 DL [id number] 03/21/23 14:29 DL 03/14/23 03/21/23 13:52 14:28 Wound Care Center Nurse 3 #2- L LAT THIGH POST OP -Ulcer Cleansing Soap and Water Rinsed/ Irrigated with Saline -Foul Odor after Cleansing No No -Primary Dressing Applied Hysept ($) -Other Dressing dakins dakins -Primary Dressing Covered/Secured with Dry Gauze, Dry Gauze, Secured with Secured with Tape Tape -Other Covering superabsorber Treatment Response Procedure Procedure Tolerated Well Tolerated Well Pain Scale: 0-10 Numeric Is Patient Pain Free? Yes Yes - Visit Discharge Discharge Condition Stable Stable Ambulatory Status Ambulatory Ambulatory Transportation Private Auto Private Auto Facility Type Home Health Home Health Orders Sent Yes Yes Assessment/Plan Assessment/Plan (1) Abscess of left thigh: CODE(S): L02.416 - Cutaneous abscess of left lower limb (2) History of incision and drainage: CODE(S): Z98.890 - Other specified postprocedural states (3) Nonhealing surgical wound: CODE(S): T81.89XA - Other complications of procedures, not elsewhere classified, initial encounter (4) Lipoma of left lower extremity: CODE(S): D17.24 - Benign lipomatous neoplasm of skin and subcutaneous tissue of left leg (5) Postoperative seroma of subcutaneous tissue after dermatologic procedure: CODE(S): L76.33 - Postprocedural seroma of skin and subcutaneous tissue following a dermatologic procedure (6) Cellulitis of left thigh: CODE(S): L03.116 - Cellulitis of left lower limb (7) Other specified soft tissue disorders: CODE(S): M79.89 - Other specified soft tissue disorders (8) Other acute postprocedural pain: CODE(S): G89.18 - Other acute postprocedural pain (9) MRSA (methicillin resistant Staphylococcus aureus) infection: CODE(S): A49.02 - Methicillin resistant Staphylococcus aureus infection, unspecified site PLAN: Plan Patient was evaluated at the wound healing center today. Wound care - Pack Dakins 0.25% moistened gauze into the the base of the ulcer topped with ABD/super absorber daily after washing with soap and water. May shower at the time of the dressing change. Dressing is to be changed daily. The undermining is starting to decrease. She has [facility] for her home health. She is doing a good job with her dressing changes with the assistance of her daughter and her friend. The patient is not able to change her dressing herself. She will follow up in one week.
[2023-03-28 14:33] VITALS: BP 120/77; PULSE 96; RESP 16; TEMP 36.4; BMI 34.2
--- NOTE | 2023-03-28 15:56 | PCM.WC.PN ---
History of Present Illness Date of Service: 03/28/23 Chief Complaint: Nonhealing surgical wound left lateral thigh History of Wound: 47 year old woman who has had a complicated course since her first surgery on her left lateral thigh on 09/22/22. Her left lateral thigh is now healed. Her right lateral thigh became infected and required hospitalization with incision and drainage on 01/19/23. The wound was left open and a wound VAC was applied. She was discharged home with IV Vancomycin x 2 weeks due to the severity of the infection. Surgery 01/19/23 - Surgical preparation left lateral thigh with incision and drainage and excisional debridement MRSA infection seroma abscess (128 cm2). Surgery 12/28/22 - Surgical preparation left proximal lateral thigh with extension toward the hip with excisional debridement nonhealing seroma wound and 13 cm complex secondary wound closure. Surgery 11/10/22 - Excision 19 cm painful soft tissue mass left proximal lateral thigh with extension toward the hip with 11 cm layered closure repair and surgical preparation right proximal lateral thigh with extension toward the hip with excisional debridement nonhealing seroma wound and 13 cm complex secondary wound closure. She was discharged from the hospital on 11/12/22. Surgery 09/22/22 -Excision 18 cm painful subfascial soft tissue mass right proximal lateral thigh with extension toward the hip with 11 cm complex closure repair. Pathology from 09/22/22 of the right lateral thigh excision showed mature adipose tissue consistent with lipoma. Pathology from 11/10/22 of left lateral thigh mass excision showed mature adipose tissue consistent with lipoma. Pathology from 12/28/21 of left hip seroma wound showed skin with underlying tissue with acute and chronic inflammation, granulation tissue reaction and fat necrosis. Wound culture from 10/18/22 of right hip was positive for MRSE and Corynebacterium amycolatum. Operative cultures from 11/10/22 showed Corynebacterium striatum, Coag Negative Staph and Anaerobic cocci. Wound culture from 12/06/22 positive for MRSE and Streptococcus thoraltensis. She was started on Levaquin and Amoxicillin. Operative culture from 12/28/22 positive for MRSA and Kocuria kristinae initially treated with Augmentin then switched antibiotic to Doxycycline. Operative culture of left thigh tissue from 01/19/23 was negative for bacterial growth. Prealbumin from 11/11/22 was 15.7. Wound care - Dakin's moistened gauze topped with ABD/super absorber. Today she denies any complaints of fever, chills, nausea, vomiting or any pain. Progress of Wound: Left lateral thigh wound is beefy pink, the ulcer is smaller and there is undermining into the muscle but that is starting to decrease in areas. Her skye wound looks good with no excoriation. She is tolerating the daily dressing changes well. She is still not able to change the dressing herself, but she has help at home between the visits with home health. Objective Data Objective Data Vital Signs: Vital Signs Temp Pulse Resp BP O2 Del Method 97.5 F L 96 16 120/77 Room Air 03/28/23 14:33 03/28/23 14:33 03/28/23 14:33 03/28/23 14:33 03/28/23 14:33 Oxygen Delivery Method Room Air Weight: 232 lb Body Mass Index (BMI) 34.2 Charges/Coding Procedures Integumentary 111xxx-113xx: [id number] Global Visit Debridement Note Debridement Note Wound debrided: lateral thigh Laterality: Left Wound Grade/Stage: Stage IV Type of Debridement: Excisional debridement Anesthesia Used: 4% Lidocaine Solution and 5% Lidocaine Gel Depth: Down to and including healthy tissue, in the subcutaneous layer and to muscle Percentage of wound debrided: 100 Instrument Used: 7mm curette Tissue Removed: Devitalized tissue and slough into the muscle Severity: Fat Layer Exposed Amount of bleeding with debridement: Mild Bleeding Controlled with: Pressure and Compression and gauze Patient tolerated procedure: Patient tolerated procedure well Post-Debridement Measurements and Additional Note: Post-Debridement Measurements/Treatment - Nurse 1 - General Ulcer Assessment Start: 03/14/23 13:12 Freq: Status: Active Protocol: RADHA Activity Type Activity Date Activity User E-sign Co-sign Detail Recorded Client Recorded Date Recorded By Document 03/14/23 13:12 DL [id number] 03/14/23 13:23 DL Document 03/21/23 13:46 DL [id number] 03/21/23 13:52 DL Document 03/28/23 14:33 [facility] [id number] 03/28/23 14:44 BM 03/14/23 03/21/2323 13:12 13:46 14:33 WC - Today's Visit Information Type of service Follow-up Visit Follow-up Visit Follow-up Visit (Physician/RAMP SUPERVISOR (Physician/RAMP SUPERVISOR (Physician/RAMP SUPERVISOR ) ) ) Arrival Mode Ambulatory Ambulatory Ambulatory Transfer Assistance None None None Patient Identification Verified (Name & Yes Yes Yes ) Patient Requires Transmission-Based No No No Precautions Height and Weight Body Mass Index (BMI) 34.2 34.2 34.2 BMI Classification Obese Obese Obese Vital Signs Temperature (97.8 F-99.1 F) 97.4 F L 96.6 F L 97.5 F L Temperature Source Temporal Temporal Temporal Pulse Rate (60-100) 75 73 96 Pulse Location Monitor Monitor Monitor Respiratory Rate (12-18) 20 H 20 H 16 Respiratory rate source Observation Observation Observation Oxygen Delivery Method Room Air Blood Pressure (90/60-120/80) 119/77 133/72 H 120/77 Blood Pressure Mean (mm Hg) 91 92 91 Source Monitor Monitor Monitor Position Sitting Blood Pressure Location Left Arm History Since Last Visit- (Skip if this is Patient's initial visit) Have you changed medications since your No No No last visit? Any new allergies or adverse reactions No No No Had a fall/change in ADL's that may No No No increase risk of falls Signs or symptoms of abuse and/or No No No neglect since last visit Have you been in the hospital since your No No No last visit? Has dressing in place as prescribed Yes Yes Yes Has compression in place as prescribed N/A N/A N/A Has offloadiing in place as prescribed N/A N/A N/A Experienced any changes in pain level or No No No management Left Footwear Regular Shoe Right Footwear Regular Shoe Pain Scale: 0-10 Numeric Is Patient Pain Free? Yes Yes Yes - Nurse 1 - General Ulcer Measurement Start: 03/14/23 13:12 Freq: Status: Active Protocol: Activity Type Activity Date Activity User E-sign Co-sign Detail Recorded Client Recorded Date Recorded By Document 03/14/23 13:12 DL [id number] 03/14/23 13:23 DL Edit Result 03/14/23 13:12 DL (1) [id number] 03/14/23 13:24 DL Document 03/21/23 13:46 DL [id number] 03/21/23 13:52 DL Document 03/28/23 14:33 BMF [id number] 03/28/23 14:44 BMF (1) #2- L LAT THIGH POST OP - Maximum Distance #2 (cm) => 2.7 - Circular Undermining => Yes 03/14/23 03/21/23 03/28/23 13:12 13:46 14:33 Wound Center Nurse 1 #2- L LAT THIGH POST OP -Combined with other wound No -Current Size (cm) - Length 8 7.5 6.8 -Current Size (cm) - Width 4 3.5 3.2 -Current Size (cm) - Depth 1 0.9 0.6 -Total Square Cm 32 26.25 21.76 -Date of Last Picture (Recall this 03/28/23 field) -Photo Taken No Yes Yes -Epithelialization Small 1-33% -Tunneling No -Undermining/Tunneling Yes -Undermining/Tunneling Starts (O'clock 12 ) -Undermining/Tunneling Ends (O'clock) 12 -Maximum Distance (cm) 2 -Maximum Distance #2 (cm) 2.7 3 -Circular Undermining Yes Yes Yes -Exudate Amt Medium Large Large -Exudate Type Serosanguineous Serosanguineous Serosanguineous -Wound Margin Thickened & Thickened & Distinct, Rolled Under Rolled Under Outline Attached -Granulation Amt Large (67-100%) Large (67-100%) Large (67-100%) -Granulation Quality Red Red Red -Slough/Fibrin No -Necrosis Amt Small (1-33%) Small (1-33%) None Present (0 %) -Necrotic Tissue Type Adherent Slough Adherent Slough -Structure Exposed N/A N/A -Texture (Skye-wound Skin Appearance) Scarring Scarring Assessed, Scarring -Moisture (Skye-wound Skin Appearance) No Abnormality No Abnormality Assessed -Color (Skye-wound Skin Appearance) No Abnormality No Abnormality Assessed -Temperature (Skye-wound Skin No Abnormality No Abnormality No Abnormality Appearance) (Pt Warm) (Pt Warm) (Pt Warm) -Tenderness on Palpation (Skye-wound No Skin Appearance) -Ulcer Cleansing Soap and Water Soap and Water Soap and Water -Foul Odor after Cleansing No No No -Anesthetic Used 4% Lidocaine 4% Lidocaine 4% Lidocaine Solution Solution Solution WC - Nurse 2 - General Ulcer CM Notes Start: 03/14/23 13:12 Freq: Status: Active Protocol: Activity Type Activity Date Activity User E-sign Co-sign Detail Recorded Client Recorded Date Recorded By Document 03/14/23 13:35 [id number] 03/14/23 13:40 Document 03/21/23 14:16 [id number] 03/21/23 14:19 Document 03/28/23 14:58 [id number] 03/28/23 15:02 03/14/23 03/21/23 03/28/23 13:35 14:16 14:58 Wound Center Nurse 2 #2- L LAT THIGH POST OP -Time 13:36 14:16 14:59 -Correct Patient Yes Yes Yes -Correct Side, Site, Position Yes Yes Yes -Correct Procedure Yes Yes Yes -Procedure Performed Yes Yes Yes -Type of Procedure Debridement Debridement Debridement -Clinical Debridement Muscle / Fascia Muscle / Fascia Muscle / Fascia -Tissue Removed Muscle,Fascia Muscle,Fascia Muscle,Fascia -Post Debridement (cm) - Length 4.3 3.8 6.7 -Post Debridement (cm) - Width 8.5 7.5 3.0 -Post Debridement (cm) - Depth 0.8 1.3 0.9 -Total Square (Post) (cm) 36.55 28.50 20.10 -Area of Debridement (cm) - Length 4.3 3.8 6.7 -Area of Debridement (cm) - Width 8.5 7.5 3.0 -Total Square (Area) (cm) 36.55 28.50 20.10 -Tunneling Yes No No -Tunneling Position (O'clock) 12 -Tunneling Distance (cm) 2.8 -Undermining/Tunneling No Yes Yes -Undermining/Tunneling Starts (O'clock 7 7 ) -Undermining/Tunneling Ends (O'clock) 5 5 -Maximum Distance (cm) 3.9 3.1 -Circular Undermining No No No -Wound/Ulcer Outcome Not Healed Not Healed Not Healed -Ulcer Cleansing Rinsed/ Rinsed/ Rinsed/ Irrigated with Irrigated with Irrigated with Saline Saline Saline -Foul Odor after Cleansing No No No -Bioengineered Tissue No No -Bleeding Controlled with Pressure Pressure Pressure -Treatment Response Procedure Procedure Procedure Tolerated Well Tolerated Well Tolerated Well -Offloading No No No -Debridement - Muscle / Fascia, 1st Yes Yes Yes 20sq cm -Debridement, Muscle/Fascia, ea addt'l 1 1 1 20sq cm or part thereof Pain Scale: 0-10 Numeric Is Patient Pain Free? Yes Yes Yes - Nurse 3 - General Ulcer D/C NN Start: 03/14/23 13:12 Freq: Status: Active Protocol: Activity Type Activity Date Activity User E-sign Co-sign Detail Recorded Client Recorded Date Recorded By Document 03/14/23 13:52 DL [id number] 03/14/23 13:53 DL Document 03/21/23 14:28 DL [id number] 03/21/23 14:29 DL Document 03/28/23 15:15 [facility] [id number] 03/28/23 15:16 [facility] 03/14/23 03/21/23 03/28/23 13:52 14:28 15:15 Wound Care Center Nurse 3 #2- L LAT THIGH POST OP -Ulcer Cleansing Soap and Water Rinsed/ Rinsed/ Irrigated with Irrigated with Saline Saline -Foul Odor after Cleansing No No No -Primary Dressing Applied Hysept ($) Optilok 8x12 -Other Dressing dakins dakins DAKINS MOIST GAUZE -Primary Dressing Covered/Secured with Dry Gauze, Dry Gauze, Secured with Secured with Tape Tape -Other Covering superabsorber ABD -Optilok 8x12 1 Treatment Response Procedure Procedure Procedure Tolerated Well Tolerated Well Tolerated Well Pain Scale: 0-10 Numeric Is Patient Pain Free? Yes Yes Yes - Visit Discharge Discharge Condition Stable Stable Stable Ambulatory Status Ambulatory Ambulatory Ambulatory Transportation Private Auto Private Auto Private Auto Facility Type Home Health Home Health Orders Sent Yes Yes Assessment/Plan Assessment/Plan (1) Abscess of left thigh: CODE(S): L02.416 - Cutaneous abscess of left lower limb (2) History of incision and drainage: CODE(S): Z98.890 - Other specified postprocedural states (3) Nonhealing surgical wound: CODE(S): T81.89XA - Other complications of procedures, not elsewhere classified, initial encounter (4) Lipoma of left lower extremity: CODE(S): D17.24 - Benign lipomatous neoplasm of skin and subcutaneous tissue of left leg (5) Postoperative seroma of subcutaneous tissue after dermatologic procedure: CODE(S): L76.33 - Postprocedural seroma of skin and subcutaneous tissue following a dermatologic procedure (6) Cellulitis of left thigh: CODE(S): L03.116 - Cellulitis of left lower limb (7) Other specified soft tissue disorders: CODE(S): M79.89 - Other specified soft tissue disorders (8) Other acute postprocedural pain: CODE(S): G89.18 - Other acute postprocedural pain (9) MRSA (methicillin resistant Staphylococcus aureus) infection: CODE(S): A49.02 - Methicillin resistant Staphylococcus aureus infection, unspecified site PLAN: Plan Patient was evaluated at the wound healing center today. Wound care - Pack Dakins 0.25% moistened gauze into the the base of the ulcer topped with ABD/super absorber daily after washing with soap and water. May shower at the time of the dressing change. Dressing is to be changed daily. The undermining is starting to decrease. She has [facility] for her home health. She is doing a good job with her dressing changes with the assistance of her daughter and her friend. The patient is not able to change her dressing herself. She will follow up in one week.
--- NOTE | 2023-04-04 15:26 | PCM.WC.PN ---
History of Present Illness Date of Service: 04/04/23 Chief Complaint: Nonhealing surgical wound left lateral thigh History of Wound: 47 year old woman who has had a complicated course since her first surgery on her left lateral thigh on 09/22/22. Her left lateral thigh is now healed. Her right lateral thigh became infected and required hospitalization with incision and drainage on 01/19/23. The wound was left open and a wound VAC was applied. She was discharged home with IV Vancomycin x 2 weeks due to the severity of the infection. Surgery 01/19/23 - Surgical preparation left lateral thigh with incision and drainage and excisional debridement MRSA infection seroma abscess (128 cm2). Surgery 12/28/22 - Surgical preparation left proximal lateral thigh with extension toward the hip with excisional debridement nonhealing seroma wound and 13 cm complex secondary wound closure. Surgery 11/10/22 - Excision 19 cm painful soft tissue mass left proximal lateral thigh with extension toward the hip with 11 cm layered closure repair and surgical preparation right proximal lateral thigh with extension toward the hip with excisional debridement nonhealing seroma wound and 13 cm complex secondary wound closure. She was discharged from the hospital on 11/12/22. Surgery 09/22/22 -Excision 18 cm painful subfascial soft tissue mass right proximal lateral thigh with extension toward the hip with 11 cm complex closure repair. Pathology from 09/22/22 of the right lateral thigh excision showed mature adipose tissue consistent with lipoma. Pathology from 11/10/22 of left lateral thigh mass excision showed mature adipose tissue consistent with lipoma. Pathology from 12/28/21 of left hip seroma wound showed skin with underlying tissue with acute and chronic inflammation, granulation tissue reaction and fat necrosis. Wound culture from 10/18/22 of right hip was positive for MRSE and Corynebacterium amycolatum. Operative cultures from 11/10/22 showed Corynebacterium striatum, Coag Negative Staph and Anaerobic cocci. Wound culture from 12/06/22 positive for MRSE and Streptococcus thoraltensis. She was started on Levaquin and Amoxicillin. Operative culture from 12/28/22 positive for MRSA and Kocuria kristinae initially treated with Augmentin then switched antibiotic to Doxycycline. Operative culture of left thigh tissue from 01/19/23 was negative for bacterial growth. Prealbumin from 11/11/22 was 15.7. Wound care - Dakin's moistened gauze topped with ABD/super absorber. Today she denies any complaints of fever, chills, nausea, vomiting or any pain. Progress of Wound: Left lateral thigh wound is beefy pink, the ulcer is smaller and there is undermining into the muscle but that is starting to decrease in areas. Her skye wound looks good with no excoriation. She is tolerating the daily dressing changes well. She is still not able to change the dressing herself, but she has help at home between the visits with home health. Objective Data Objective Data Vital Signs: Vital Signs Temp Pulse Resp BP O2 Del Method 97.5 F L 96 16 120/77 Room Air 03/28/23 14:33 03/28/23 14:33 03/28/23 14:33 03/28/23 14:33 03/28/23 14:33 Oxygen Delivery Method Room Air Weight: 232 lb Body Mass Index (BMI) 34.2 Charges/Coding Procedures Integumentary 111xxx-113xx: [id number] Global Visit Debridement Note Debridement Note Wound debrided: lateral thigh Laterality: Left Wound Grade/Stage: Stage IV Type of Debridement: Excisional debridement Anesthesia Used: 4% Lidocaine Solution and 5% Lidocaine Gel Depth: Down to and including healthy tissue, in the subcutaneous layer and to muscle Percentage of wound debrided: 100 Instrument Used: 7mm curette Tissue Removed: Devitalized tissue and slough into the muscle Severity: Fat Layer Exposed Amount of bleeding with debridement: Mild Bleeding Controlled with: Pressure and Compression and gauze Patient tolerated procedure: Patient tolerated procedure well Post-Debridement Measurements and Additional Note: Post-Debridement Measurements/Treatment - Nurse 1 - General Ulcer Assessment Start: 03/14/23 13:12 Freq: Status: Active Protocol: RADHA Activity Type Activity Date Activity User E-sign Co-sign Detail Recorded Client Recorded Date Recorded By Document 03/14/23 13:12 DL [id number] 03/14/23 13:23 DL Document 03/21/23 13:46 DL [id number] 03/21/23 13:52 DL Document 03/28/23 14:33 [facility] [id number] 03/28/23 14:44 BM 03/14/23 03/21/2323 13:12 13:46 14:33 WC - Today's Visit Information Type of service Follow-up Visit Follow-up Visit Follow-up Visit (Physician/MENTAL RETARDATION AIDE (Physician/MENTAL RETARDATION AIDE (Physician/MENTAL RETARDATION AIDE ) ) ) Arrival Mode Ambulatory Ambulatory Ambulatory Transfer Assistance None None None Patient Identification Verified (Name & Yes Yes Yes ) Patient Requires Transmission-Based No No No Precautions Height and Weight Body Mass Index (BMI) 34.2 34.2 34.2 BMI Classification Obese Obese Obese Vital Signs Temperature (97.8 F-99.1 F) 97.4 F L 96.6 F L 97.5 F L Temperature Source Temporal Temporal Temporal Pulse Rate (60-100) 75 73 96 Pulse Location Monitor Monitor Monitor Respiratory Rate (12-18) 20 H 20 H 16 Respiratory rate source Observation Observation Observation Oxygen Delivery Method Room Air Blood Pressure (90/60-120/80) 119/77 133/72 H 120/77 Blood Pressure Mean (mm Hg) 91 92 91 Source Monitor Monitor Monitor Position Sitting Blood Pressure Location Left Arm History Since Last Visit- (Skip if this is Patient's initial visit) Have you changed medications since your No No No last visit? Any new allergies or adverse reactions No No No Had a fall/change in ADL's that may No No No increase risk of falls Signs or symptoms of abuse and/or No No No neglect since last visit Have you been in the hospital since your No No No last visit? Has dressing in place as prescribed Yes Yes Yes Has compression in place as prescribed N/A N/A N/A Has offloadiing in place as prescribed N/A N/A N/A Experienced any changes in pain level or No No No management Left Footwear Regular Shoe Right Footwear Regular Shoe Pain Scale: 0-10 Numeric Is Patient Pain Free? Yes Yes Yes - Nurse 1 - General Ulcer Measurement Start: 03/14/23 13:12 Freq: Status: Active Protocol: Activity Type Activity Date Activity User E-sign Co-sign Detail Recorded Client Recorded Date Recorded By Document 03/14/23 13:12 DL [id number] 03/14/23 13:23 DL Edit Result 03/14/23 13:12 DL (1) [id number] 03/14/23 13:24 DL Document 03/21/23 13:46 DL [id number] 03/21/23 13:52 DL Document 03/28/23 14:33 BMF [id number] 03/28/23 14:44 BMF (1) #2- L LAT THIGH POST OP - Maximum Distance #2 (cm) => 2.7 - Circular Undermining => Yes 03/14/23 03/21/23 03/28/23 13:12 13:46 14:33 Wound Center Nurse 1 #2- L LAT THIGH POST OP -Combined with other wound No -Current Size (cm) - Length 8 7.5 6.8 -Current Size (cm) - Width 4 3.5 3.2 -Current Size (cm) - Depth 1 0.9 0.6 -Total Square Cm 32 26.25 21.76 -Date of Last Picture (Recall this 03/28/23 field) -Photo Taken No Yes Yes -Epithelialization Small 1-33% -Tunneling No -Undermining/Tunneling Yes -Undermining/Tunneling Starts (O'clock 12 ) -Undermining/Tunneling Ends (O'clock) 12 -Maximum Distance (cm) 2 -Maximum Distance #2 (cm) 2.7 3 -Circular Undermining Yes Yes Yes -Exudate Amt Medium Large Large -Exudate Type Serosanguineous Serosanguineous Serosanguineous -Wound Margin Thickened & Thickened & Distinct, Rolled Under Rolled Under Outline Attached -Granulation Amt Large (67-100%) Large (67-100%) Large (67-100%) -Granulation Quality Red Red Red -Slough/Fibrin No -Necrosis Amt Small (1-33%) Small (1-33%) None Present (0 %) -Necrotic Tissue Type Adherent Slough Adherent Slough -Structure Exposed N/A N/A -Texture (Skye-wound Skin Appearance) Scarring Scarring Assessed, Scarring -Moisture (Skye-wound Skin Appearance) No Abnormality No Abnormality Assessed -Color (Skye-wound Skin Appearance) No Abnormality No Abnormality Assessed -Temperature (Skye-wound Skin No Abnormality No Abnormality No Abnormality Appearance) (Pt Warm) (Pt Warm) (Pt Warm) -Tenderness on Palpation (Skye-wound No Skin Appearance) -Ulcer Cleansing Soap and Water Soap and Water Soap and Water -Foul Odor after Cleansing No No No -Anesthetic Used 4% Lidocaine 4% Lidocaine 4% Lidocaine Solution Solution Solution WC - Nurse 2 - General Ulcer CM Notes Start: 03/14/23 13:12 Freq: Status: Active Protocol: Activity Type Activity Date Activity User E-sign Co-sign Detail Recorded Client Recorded Date Recorded By Document 03/14/23 13:35 [id number] 03/14/23 13:40 Document 03/21/23 14:16 [id number] 03/21/23 14:19 Document 03/28/23 14:58 [id number] 03/28/23 15:02 Document 04/04/23 15:20 PL [id number] 04/04/23 15:22 PL 03/14/23 03/21/23 03/28/23 13:35 14:16 14:58 Wound Center Nurse 2 #2- L LAT THIGH POST OP -Time 13:36 14:16 14:59 -Correct Patient Yes Yes Yes -Correct Side, Site, Position Yes Yes Yes -Correct Procedure Yes Yes Yes -Procedure Performed Yes Yes Yes -Type of Procedure Debridement Debridement Debridement -Clinical Debridement Muscle / Fascia Muscle / Fascia Muscle / Fascia -Tissue Removed Muscle,Fascia Muscle,Fascia Muscle,Fascia -Post Debridement (cm) - Length 4.3 3.8 6.7 -Post Debridement (cm) - Width 8.5 7.5 3.0 -Post Debridement (cm) - Depth 0.8 1.3 0.9 -Total Square (Post) (cm) 36.55 28.50 20.10 -Area of Debridement (cm) - Length 4.3 3.8 6.7 -Area of Debridement (cm) - Width 8.5 7.5 3.0 -Total Square (Area) (cm) 36.55 28.50 20.10 -Tunneling Yes No No -Tunneling Position (O'clock) 12 -Tunneling Distance (cm) 2.8 -Undermining/Tunneling No Yes Yes -Undermining/Tunneling Starts (O'clock 7 7 ) -Undermining/Tunneling Ends (O'clock) 5 5 -Maximum Distance (cm) 3.9 3.1 -Circular Undermining No No No -Wound/Ulcer Outcome Not Healed Not Healed Not Healed -Ulcer Cleansing Rinsed/ Rinsed/ Rinsed/ Irrigated with Irrigated with Irrigated with Saline Saline Saline -Foul Odor after Cleansing No No No -Bioengineered Tissue No No -Bleeding Controlled with Pressure Pressure Pressure -Treatment Response Procedure Procedure Procedure Tolerated Well Tolerated Well Tolerated Well -Offloading No No No -Debridement - Muscle / Fascia, 1st Yes Yes Yes 20sq cm -Debridement, Muscle/Fascia, ea addt'l 1 1 1 20sq cm or part thereof Pain Scale: 0-10 Numeric Is Patient Pain Free? Yes Yes Yes 04/04/23 15:20 Wound Center Nurse 2 #2- L LAT THIGH POST OP -Time 15:05 -Correct Patient Yes -Correct Side, Site, Position Yes -Correct Procedure Yes -Procedure Performed Yes -Type of Procedure Debridement -Clinical Debridement Muscle / Fascia -Tissue Removed Subcutaneous, Muscle -Post Debridement (cm) - Length 6.5 -Post Debridement (cm) - Width 3.0 -Post Debridement (cm) - Depth 0.9 -Total Square (Post) (cm) 19.50 -Area of Debridement (cm) - Length -Area of Debridement (cm) - Width -Total Square (Area) (cm) -Tunneling -Tunneling Position (O'clock) -Tunneling Distance (cm) -Undermining/Tunneling Yes -Undermining/Tunneling Starts (O'clock 12 ) -Undermining/Tunneling Ends (O'clock) 12 -Maximum Distance (cm) 0.9 -Circular Undermining Yes -Wound/Ulcer Outcome Not Healed -Ulcer Cleansing Rinsed/ Irrigated with Saline -Foul Odor after Cleansing No -Bioengineered Tissue No -Bleeding Controlled with Pressure -Treatment Response Procedure Tolerated Well -Offloading -Debridement - Muscle / Fascia, 1st Yes 20sq cm -Debridement, Muscle/Fascia, ea addt'l 20sq cm or part thereof Pain Scale: 0-10 Numeric Is Patient Pain Free? Yes WC - Nurse 3 - General Ulcer D/C NN Start: 03/14/23 13:12 Freq: Status: Active Protocol: Activity Type Activity Date Activity User E-sign Co-sign Detail Recorded Client Recorded Date Recorded By Document 03/14/23 13:52 DL [id number] 03/14/23 13:53 DL Document 03/21/23 14:28 DL [id number] 03/21/23 14:29 DL Document 03/28/23 15:15 [facility] [id number] 03/28/23 15:16 [facility] Document 04/04/23 15:21 GA [id number] 04/04/23 15:22 AK 03/14/23 03/21/23 03/28/23 13:52 14:28 15:15 Wound Care Center Nurse 3 #2- L LAT THIGH POST OP -Ulcer Cleansing Soap and Water Rinsed/ Rinsed/ Irrigated with Irrigated with Saline Saline -Foul Odor after Cleansing No No No -Negative Pressure Wound Therapy -Primary Dressing Applied Hysept ($) Optilok 8x12 -Other Dressing dakins dakins DAKINS MOIST GAUZE -Primary Dressing Covered/Secured with Dry Gauze, Dry Gauze, Secured with Secured with Tape Tape -Other Covering superabsorber ABD -Optilok 6.5x10 -Optilok 8x12 1 Treatment Response Procedure Procedure Procedure Tolerated Well Tolerated Well Tolerated Well Pain Scale: 0-10 Numeric Is Patient Pain Free? Yes Yes Yes WC - Visit Discharge Discharge Condition Stable Stable Stable Ambulatory Status Ambulatory Ambulatory Ambulatory Transportation Private Auto Private Auto Private Auto Medication Reconcilliation completed & provided to patient/care provider Clinical Summary of Care Provided Facility Type Home Health Home Health Orders Sent Yes Yes 04/04/23 15:21 Wound Care Center Nurse 3 #2- L LAT THIGH POST OP -Ulcer Cleansing Rinsed/ Irrigated with Saline -Foul Odor after Cleansing No -Negative Pressure Wound Therapy N/A -Primary Dressing Applied Optilok 6.5x10 -Other Dressing dakins, ABD -Primary Dressing Covered/Secured with Dry Gauze, Secured with Tape -Other Covering -Optilok 6.5x10 1 -Optilok 8x12 Treatment Response Pain Scale: 0-10 Numeric Is Patient Pain Free? 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: CODE(S): L97.102 - Non-pressure chronic ulcer of unspecified thigh with fat layer exposed (2) Abscess of left thigh: CODE(S): L02.416 - Cutaneous abscess of left lower limb (3) History of incision and drainage: CODE(S): Z98.890 - Other specified postprocedural states (4) Lipoma of left lower extremity: CODE(S): D17.24 - Benign lipomatous neoplasm of skin and subcutaneous tissue of left leg (5) Postoperative seroma of subcutaneous tissue after dermatologic procedure: CODE(S): L76.33 - Postprocedural seroma of skin and subcutaneous tissue following a dermatologic procedure (6) Cellulitis of left thigh: CODE(S): L03.116 - Cellulitis of left lower limb (7) Other specified soft tissue disorders: CODE(S): M79.89 - Other specified soft tissue disorders (8) MRSA (methicillin resistant Staphylococcus aureus) infection: CODE(S): A49.02 - Methicillin resistant Staphylococcus aureus infection, unspecified site PLAN: Plan Patient was evaluated at the wound healing center today. Wound care - Pack Dakins 0.25% moistened gauze into the the base of the ulcer topped with ABD/super absorber daily after washing with soap and water. May shower at the time of the dressing change. Dressing is to be changed daily. The undermining is starting to decrease. She has [facility] for her home health. She is doing a good job with her dressing changes with the assistance of her daughter and her friend. The patient is not able to change her dressing herself. She will follow up in one week.
== END 2023-04-13 23:59 | disposition home or self-care (01) ==
LOC: WC 14:15
PROVIDERS: PCP Internal Medicine; Referring Provider Nurse Practitioner Family; Visit Provider Nurse Practitioner Family
DX: L97.122 Non-pressure chronic ulcer of left thigh with fat layer exposed (principal); L02.416 Cutaneous abscess of left lower limb; B95.62 Methicillin resistant Staphylococcus aureus infection as the cause of diseases classified elsewhere; M79.89 Other specified soft tissue disorders; L03.116 Cellulitis of left lower limb; L76.33 Postprocedural seroma of skin and subcutaneous tissue following a dermatologic procedure; D17.24 Benign lipomatous neoplasm of skin and subcutaneous tissue of left leg; T81.89XA Other complications of procedures, not elsewhere classified, initial encounter; G89.18 Other acute postprocedural pain
CPT/HCPCS: 10140; 11043; 11046

== ENCOUNTER 2023-05-12 14:15 | Outpatient (RCR) | payer MEDICAID, SELFPAY ==
[2023-04-14 00:16] VITALS: BP 120/77; PULSE 96; RESP 16; TEMP 36.4; BMI 34.2
[2023-04-18 14:23] VITALS: BP 135/79; PULSE 78; RESP 16; TEMP 36.4; BMI 34.2
--- NOTE | 2023-04-18 16:16 | PN.PCM_ITS ---
History of Present Illness Date of Service: 04/18/23 Chief Complaint: Nonhealing surgical wound left lateral thigh History of Wound: 47 year old woman who has had a complicated course since her first surgery on her left lateral thigh on 09/22/22. Her left lateral thigh is now healed. Her right lateral thigh became infected and required hospitalization with incision and drainage on 01/19/23. The wound was left open and a wound VAC was applied. She was discharged home with IV Vancomycin x 2 weeks due to the severity of the infection. Surgery 01/19/23 - Surgical preparation left lateral thigh with incision and drainage and excisional debridement MRSA infection seroma abscess (128 cm2). Surgery 12/28/22 - Surgical preparation left proximal lateral thigh with extension toward the hip with excisional debridement nonhealing seroma wound and 13 cm complex secondary wound closure. Surgery 11/10/22 - Excision 19 cm painful soft tissue mass left proximal lateral thigh with extension toward the hip with 11 cm layered closure repair and surgical preparation right proximal lateral thigh with extension toward the hip with excisional debridement nonhealing seroma wound and 13 cm complex secondary wound closure. She was discharged from the hospital on 11/12/22. Surgery 09/22/22 -Excision 18 cm painful subfascial soft tissue mass right proximal lateral thigh with extension toward the hip with 11 cm complex closure repair. Pathology from 09/22/22 of the right lateral thigh excision showed mature adipose tissue consistent with lipoma. Pathology from 11/10/22 of left lateral thigh mass excision showed mature adipose tissue consistent with lipoma. Pathology from 12/28/21 of left hip seroma wound showed skin with underlying tissue with acute and chronic inflammation, granulation tissue reaction and fat necrosis. Wound culture from 10/18/22 of right hip was positive for MRSE and Corynebacterium amycolatum. Operative cultures from 11/10/22 showed Corynebacterium striatum, Coag Negative Staph and Anaerobic cocci. Wound culture from 12/06/22 positive for MRSE and Streptococcus thoraltensis. She was started on Levaquin and Amoxicillin. Operative culture from 12/28/22 positive for MRSA and Kocuria kristinae initially treated with Augmentin then switched antibiotic to Doxycycline. Operative culture of left thigh tissue from 01/19/23 was negative for bacterial growth. Prealbumin from 11/11/22 was 15.7. Wound care - Dakin's moistened gauze topped with ABD/super absorber. Today she denies any complaints of fever, chills, nausea, vomiting or any pain. Progress of Wound: Left lateral thigh wound is beefy pink, the ulcer is smaller and there is undermining into the muscle but that is starting to decrease in areas. Her laurence wound looks good with no excoriation. She is tolerating the daily dressing changes well. She is still not able to change the dressing herself, but she has help at home between the visits with home health. Objective Data Objective Data Vital Signs: Vital Signs Temp Pulse Resp BP O2 Del Method 97.6 F L 78 16 135/79 H Room Air 04/18/23 14:23 04/18/23 14:23 04/18/23 14:23 04/18/23 14:23 04/18/23 14:23 Oxygen Delivery Method Room Air Weight: 232 lb Body Mass Index (BMI) 34.2 Charges/Coding Procedures Integumentary 111xxx-113xx: 87266 Global Visit Debridement Note Debridement Note Wound debrided: lateral thigh Laterality: Left Wound Grade/Stage: Stage IV Type of Debridement: Excisional debridement Anesthesia Used: 4% Lidocaine Solution and 5% Lidocaine Gel Depth: Down to and including healthy tissue, in the subcutaneous layer and to muscle Percentage of wound debrided: 100 Instrument Used: 5mm curette Tissue Removed: Devitalized tissue and slough into the muscle Severity: Fat Layer Exposed Amount of bleeding with debridement: Mild Bleeding Controlled with: Pressure and Compression and gauze Patient tolerated procedure: Patient tolerated procedure well Post-Debridement Measurements and Additional Note: Post-Debridement Measurements/Treatment - Nurse 1 - General Ulcer Assessment Start: 04/18/23 14:21 Freq: Status: Active Protocol: [email or web address] Activity Type Activity Date Activity User E-sign Co-sign Detail Recorded Client Recorded Date Recorded By Document 04/18/23 14:23 [facility] [id number] 04/18/23 14:36 [facility] 04/18/23 14:23 - Today's Visit Information Type of service Follow-up Visit (Physician/BAR MANAGER ) Arrival Mode Ambulatory Transfer Assistance None Patient Identification Verified (Name & Yes ) Patient Requires Transmission-Based No Precautions Height and Weight Body Mass Index (BMI) 34.2 BMI Classification Obese Vital Signs Temperature (97.8 F-99.1 F) 97.6 F L Temperature Source Temporal Pulse Rate (60-100) 78 Pulse Location Monitor Respiratory Rate (12-18) 16 Respiratory rate source Observation Oxygen Delivery Method Room Air Blood Pressure (90/60-120/80) 135/79 H Blood Pressure Mean (mm Hg) 97 Source Monitor Position Sitting Blood Pressure Location Left Arm History Since Last Visit- (Skip if this is Patient's initial visit) Have you changed medications since your No last visit? Any new allergies or adverse reactions No Had a fall/change in ADL's that may No increase risk of falls Signs or symptoms of abuse and/or No neglect since last visit Have you been in the hospital since your No last visit? Has dressing in place as prescribed Yes Has compression in place as prescribed N/A Has offloadiing in place as prescribed N/A Experienced any changes in pain level or No management Left Footwear Regular Shoe Right Footwear Regular Shoe Pain Scale: 0-10 Numeric Is Patient Pain Free? Yes WC - Nurse 1 - General Ulcer Measurement Start: 04/18/23 14:21 Freq: Status: Active Protocol: Activity Type Activity Date Activity User E-sign Co-sign Detail Recorded Client Recorded Date Recorded By Document 04/18/23 14:23 [facility] [id number] 04/18/23 14:36 [facility] 04/18/23 14:23 Wound Center Nurse 1 #2- L LAT THIGH POST OP -Combined with other wound No -Current Size (cm) - Length 5.3 -Current Size (cm) - Width 2.4 -Current Size (cm) - Depth 1.1 -Total Square Cm 12.72 -Date of Last Picture (Recall this 04/18/23 field) -Photo Taken Yes -Epithelialization None Present -Tunneling No -Undermining/Tunneling Yes -Undermining/Tunneling Starts (O'clock 12 ) -Undermining/Tunneling Ends (O'clock) 12 -Maximum Distance (cm) 2.4 -Circular Undermining Yes -Exudate Amt Large -Exudate Type Serosanguineous -Wound Margin Thickened -Granulation Amt Large (67-100%) -Granulation Quality Red -Slough/Fibrin Yes -Necrosis Amt Small (1-33%) -Necrotic Tissue Type Adherent Slough -Texture (Laurence-wound Skin Appearance) Assessed, Scarring -Moisture (Laurence-wound Skin Appearance) Assessed -Color (Laurence-wound Skin Appearance) Assessed -Temperature (Laurence-wound Skin No Abnormality Appearance) (Pt Warm) -Tenderness on Palpation (Laurence-wound No Skin Appearance) -Ulcer Cleansing Soap and Water -Foul Odor after Cleansing No -Anesthetic Used 4% Lidocaine Solution SELENE - Nurse 2 - General Ulcer CM Notes Start: 04/18/23 14:21 Freq: Status: Active Protocol: Activity Type Activity Date Activity User E-sign Co-sign Detail Recorded Client Recorded Date Recorded By Document 04/18/23 14:45 RODOLFO [id number] 04/18/23 14:48 RODOLFO 04/18/23 14:45 Wound Center Nurse 2 -Time 14:46 -Correct Patient Yes -Correct Side, Site, Position Yes -Correct Procedure Yes -Procedure Performed Yes -Type of Procedure Debridement -Clinical Debridement Muscle / Fascia -Tissue Removed Muscle,Fascia -Post Debridement (cm) - Length 6.0 -Post Debridement (cm) - Width 2.7 -Post Debridement (cm) - Depth 0.5 -Total Square (Post) (cm) 16.20 -Area of Debridement (cm) - Length 6.0 -Area of Debridement (cm) - Width 2.7 -Total Square (Area) (cm) 16.20 -Tunneling No -Undermining/Tunneling Yes -Undermining/Tunneling Starts (O'clock 7 ) -Undermining/Tunneling Ends (O'clock) 5 -Maximum Distance (cm) 2.5 -Circular Undermining No -Wound/Ulcer Outcome Not Healed -Ulcer Cleansing Rinsed/ Irrigated with Saline -Foul Odor after Cleansing No -Bioengineered Tissue No -Bleeding Controlled with Pressure -Treatment Response Procedure Tolerated Well -Offloading No -Debridement - Muscle / Fascia, 1st Yes 20sq cm Pain Scale: 0-10 Numeric Is Patient Pain Free? Yes SELENE - Nurse 3 - General Ulcer D/C NN Start: 04/18/23 14:21 Freq: Status: Active Protocol: Activity Type Activity Date Activity User E-sign Co-sign Detail Recorded Client Recorded Date Recorded By Document 04/18/23 15:15 BRYCE [id number] 04/18/23 15:16 BRYCE 04/18/23 15:15 Wound Care Center Nurse 3 #2- L LAT THIGH POST OP -Ulcer Cleansing Rinsed/ Irrigated with Saline -Foul Odor after Cleansing No -Negative Pressure Wound Therapy N/A -Primary Dressing Applied Optilok 6.5x10 -Other Dressing dAKINS aBD -Optilok 6.5x10 1 Pain Scale: 0-10 Numeric Is Patient Pain Free? 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: CODE(S): L97.102 - Non-pressure chronic ulcer of unspecified thigh with fat layer exposed (2) Abscess of left thigh: CODE(S): L02.416 - Cutaneous abscess of left lower limb (3) History of incision and drainage: CODE(S): Z98.890 - Other specified postprocedural states (4) Lipoma of left lower extremity: CODE(S): D17.24 - Benign lipomatous neoplasm of skin and subcutaneous tissue of left leg (5) Postoperative seroma of subcutaneous tissue after dermatologic procedure: CODE(S): L76.33 - Postprocedural seroma of skin and subcutaneous tissue following a dermatologic procedure (6) Cellulitis of left thigh: CODE(S): L03.116 - Cellulitis of left lower limb (7) Other specified soft tissue disorders: CODE(S): M79.89 - Other specified soft tissue disorders (8) MRSA (methicillin resistant Staphylococcus aureus) infection: CODE(S): A49.02 - Methicillin resistant Staphylococcus aureus infection, unspecified site PLAN: Plan Patient was evaluated at the wound healing center today. Wound care - Pack Dakins 0.25% moistened gauze into the the base of the ulcer topped with ABD/super absorber daily after washing with soap and water. May shower at the time of the dressing change. Dressing is to be changed daily. The undermining is starting to decrease. She has [facility] for her home health. She is doing a good job with her dressing changes with the assistance of her daughter and her friend. The patient is not able to change her dressing herself. She will follow up in two weeks with Dr. Kraft.
[2023-05-05 13:38] VITALS: BP 146/82; PULSE 76; RESP 22; TEMP 36.5; BMI 34.2
--- NOTE | 2023-05-05 17:21 | PN.PCM_ITS ---
History of Present Illness Date of Service: 05/05/23 Chief Complaint: Nonhealing surgical wound left lateral thigh History of Wound: 47 year old woman who has had surgery on her bilateral proximal lateral thighs with extension toward the hip, (right side in September, and the left side in October,. Both incisions developed seromas that needed additional surgery. The right side is healed. The left side has a nonhealing ulcer after needing additional surgery in January, for a MRSA in fection seroma abscess. Surgery 01/19/23 - Surgical preparation left lateral thigh with incision and drainage and excisional debridement MRSA infection seroma abscess (128 cm2). Surgery 12/28/22 - Surgical preparation left proximal lateral thigh with extension toward the hip with excisional debridement nonhealing seroma wound and 13 cm complex secondary wound closure. Surgery 11/10/22 - Excision 19 cm painful soft tissue mass left proximal lateral thigh with extension toward the hip with 11 cm layered closure repair and surgical preparation right proximal lateral thigh with extension toward the hip with excisional debridement nonhealing seroma wound and 13 cm complex secondary wound closure. She was discharged from the hospital on 11/12/22. Surgery 09/22/22 -Excision 18 cm painful subfascial soft tissue mass right proximal lateral thigh with extension toward the hip with 11 cm complex closure repair. Wound care - Dakin's. Pathology from 01/19/23 of the left lateral thigh seroma wound showed acute inflammation and abscess formation. Pathology from 12/28/21 of left proximal lateral thigh with extension toward the hip seroma wound showed skin with underlying tissue with acute and chronic inflammation, granulation tissue reaction and fat necrosis. Pathology from 11/10/22 of the left proximal lateral thigh with extension toward the hip mass showed mature adipose tissue consistent with lipoma. Pathology from 09/22/22 of the right proximal lateral thigh with extension toward the hip showed mass mature adipose tissue consistent with lipoma. Operative culture pf left proximal lateral thigh with extension toward the hip from 12/28/22 positive for MRSA and Kocuria kristinae initially treated with Augmentin then switched antibiotic to Doxycycline. Operative culture of left thigh tissue from 01/19/23 was negative for bacterial growth. She was treated with IV Vancomycin. Prealbumin from 11/11/22 was 15.7. Encourage nutritional supplementation with protein to help the healing process. Today she denies any complaints of fever, chills, nausea, vomiting or any pain. Her appetite is good. Progress of Wound: Continues to improve. Objective Data Objective Data Vital Signs: Vital Signs Temp Pulse Resp BP O2 Del Method 97.7 F L 76 22 H 146/82 H Room Air 05/05/23 13:38 05/05/23 13:38 05/05/23 13:38 05/05/23 13:38 04/18/23 14:23 Oxygen Delivery Method Room Air Weight: 232 lb Body Mass Index (BMI) 34.2 Prealbumin from 11/11/22 was 15.7. Encourage nutritional supplementation with protein to help the healing process. Lab / Micro Data Attestation: I reviewed the patient's lab results. Micro: Microbiology 05/05/23 14:20 Wound Abcess - Leg, Left Gram Stain - Final 05/05/23 14:20 Wound Abcess - Leg, Left Wound Culture - Preliminary Gram positive organism Charges/Coding Procedures Integumentary 111xxx-113xx: 19779 Barbara musc/fascia 20 sq cm/< (ICD-10 - L97.105, Z98.890, L02.416, L76.33, A49.02) Debridement Note Debridement Note Wound debrided: #2 Left lateral thigh. Laterality: Left Wound Grade/Stage: 3. Type of Debridement: Excisional debridement Anesthesia Used: 4% Lidocaine Solution and 5% Lidocaine Gel Depth: Down to and including healthy tissue, in the subcutaneous layer and to muscle Percentage of wound debrided: 100 Instrument Used: 5mm curette Tissue Removed: subcutaneous tissue and muscle. Severity: Fat Layer Exposed (muscle is exposed.) Amount of bleeding with debridement: Mild Bleeding Controlled with: Pressure and Compression and gauze Patient tolerated procedure: Patient tolerated procedure well Post-Debridement Measurements and Additional Note: Post-Debridement Measurements/Treatment WC - Nurse 1 - General Ulcer Assessment Start: 04/18/23 14:21 Freq: Status: Active Protocol: RADHA Activity Type Activity Date Activity User E-sign Co-sign Detail Recorded Client Recorded Date Recorded By Document 04/18/23 14:23 [facility] [id number] 04/18/23 14:36 BMF Document 05/05/23 13:38 DL [id number] 05/05/23 13:44 DL 04/18/23 05/05/23 14:23 13:38 - Today's Visit Information Type of service Follow-up Visit Follow-up Visit (Physician/INTAKE COUNSELOR (Physician/INTAKE COUNSELOR ) ) Arrival Mode Ambulatory Ambulatory Transfer Assistance None None Patient Identification Verified (Name & Yes Yes ) Patient Requires Transmission-Based No No Precautions Height and Weight Body Mass Index (BMI) 34.2 34.2 BMI Classification Obese Obese Vital Signs Temperature (97.8 F-99.1 F) 97.6 F L 97.7 F L Temperature Source Temporal Temporal Pulse Rate (60-100) 78 76 Pulse Location Monitor Monitor Respiratory Rate (12-18) 16 22 H Respiratory rate source Observation Observation Oxygen Delivery Method Room Air Blood Pressure (90/60-120/80) 135/79 H 146/82 H Blood Pressure Mean (mm Hg) 97 103 Source Monitor Monitor Position Sitting Blood Pressure Location Left Arm History Since Last Visit- (Skip if this is Patient's initial visit) Have you changed medications since your No No last visit? Any new allergies or adverse reactions No No Had a fall/change in ADL's that may No No increase risk of falls Signs or symptoms of abuse and/or No No neglect since last visit Have you been in the hospital since your No No last visit? Has dressing in place as prescribed Yes Yes Has compression in place as prescribed N/A N/A Has offloadiing in place as prescribed N/A N/A Experienced any changes in pain level or No No management Left Footwear Regular Shoe Right Footwear Regular Shoe Pain Scale: 0-10 Numeric Is Patient Pain Free? Yes Yes - Nurse 1 - General Ulcer Measurement Start: 04/18/23 14:21 Freq: Status: Active Protocol: Activity Type Activity Date Activity User E-sign Co-sign Detail Recorded Client Recorded Date Recorded By Document 04/18/23 14:23 [facility] [id number] 04/18/23 14:36 [facility] Document 05/05/23 13:38 DL [id number] 05/05/23 13:44 DL 04/18/23 05/05/23 14:23 13:38 Wound Center Nurse 1 #2- L LAT THIGH POST OP -Combined with other wound No -Current Size (cm) - Length 5.3 5 -Current Size (cm) - Width 2.4 1.8 -Current Size (cm) - Depth 1.1 1.5 -Total Square Cm 12.72 9.0 -Date of Last Picture (Recall this 04/18/23 field) -Photo Taken Yes No -Epithelialization None Present -Tunneling No -Undermining/Tunneling Yes -Undermining/Tunneling Starts (O'clock 12 7 ) -Undermining/Tunneling Ends (O'clock) 12 11 -Maximum Distance (cm) 2.4 2.7 -Circular Undermining Yes -Exudate Amt Large Large -Exudate Type Serosanguineous Serosanguineous -Wound Margin Thickened Thickened & Rolled Under -Granulation Amt Large (67-100%) Large (67-100%) -Granulation Quality Red Red -Slough/Fibrin Yes -Necrosis Amt Small (1-33%) Small (1-33%) -Necrotic Tissue Type Adherent Slough Adherent Slough -Structure Exposed N/A -Texture (Laurence-wound Skin Appearance) Assessed, Scarring Scarring -Moisture (Laurence-wound Skin Appearance) Assessed No Abnormality -Color (Laurence-wound Skin Appearance) Assessed -Temperature (Laurence-wound Skin No Abnormality No Abnormality Appearance) (Pt Warm) (Pt Warm) -Tenderness on Palpation (Laurence-wound No Yes Skin Appearance) -Ulcer Cleansing Soap and Water Soap and Water -Foul Odor after Cleansing No No -Anesthetic Used 4% Lidocaine 5% Lidocaine Solution Gel WC - Nurse 2 - General Ulcer CM Notes Start: 04/18/23 14:21 Freq: Status: Active Protocol: Activity Type Activity Date Activity User E-sign Co-sign Detail Recorded Client Recorded Date Recorded By Document 04/18/23 14:45 [id number] 04/18/23 14:48 Document 05/05/23 14:02 MW [id number] 05/05/23 14:23 MW 04/18/23 05/05/23 14:45 14:02 Wound Center Nurse 2 #2- L LAT THIGH POST OP -Time 14:46 14:03 -Correct Patient Yes Yes -Correct Side, Site, Position Yes Yes -Correct Procedure Yes Yes -Procedure Performed Yes Yes -Type of Procedure Debridement Debridement -Clinical Debridement Muscle / Fascia Muscle / Fascia -Tissue Removed Muscle,Fascia Muscle -Post Debridement (cm) - Length 6.0 2.0 -Post Debridement (cm) - Width 2.7 5.4 -Post Debridement (cm) - Depth 0.5 0.9 -Total Square (Post) (cm) 16.20 10.80 -Area of Debridement (cm) - Length 6.0 2.0 -Area of Debridement (cm) - Width 2.7 5.4 -Total Square (Area) (cm) 16.20 10.80 -Tunneling No No -Undermining/Tunneling Yes No -Undermining/Tunneling Starts (O'clock 7 ) -Undermining/Tunneling Ends (O'clock) 5 -Maximum Distance (cm) 2.5 -Circular Undermining No No -Wound/Ulcer Outcome Not Healed Not Healed -Ulcer Cleansing Rinsed/ Rinsed/ Irrigated with Irrigated with Saline Saline -Foul Odor after Cleansing No No -Bioengineered Tissue No No -Bleeding Controlled with Pressure Pressure -Treatment Response Procedure Procedure Tolerated Well Tolerated Well -Offloading No No -Debridement - Muscle / Fascia, 1st Yes Yes 20sq cm Pain Scale: 0-10 Numeric Is Patient Pain Free? Yes Yes - Nurse 3 - General Ulcer D/C NN Start: 04/18/23 14:21 Freq: Status: Active Protocol: Activity Type Activity Date Activity User E-sign Co-sign Detail Recorded Client Recorded Date Recorded By Document 04/18/23 15:15 AK [id number] 04/18/23 15:16 AK Document 05/05/23 14:27 DL [id number] 05/05/23 14:29 DL 04/18/23 05/05/23 15:15 14:27 Wound Care Center Nurse 3 #2- L LAT THIGH POST OP -Ulcer Cleansing Rinsed/ Rinsed/ Irrigated with Irrigated with Saline Saline -Foul Odor after Cleansing No No -Negative Pressure Wound Therapy N/A -Primary Dressing Applied Optilok 6.5x10 Hysept ($) -Other Dressing dAKINS aBD -Primary Dressing Covered/Secured with Dry Gauze, Secured with Tape -Optilok 6.5x10 1 Treatment Response Procedure Tolerated Well Pain Scale: 0-10 Numeric Is Patient Pain Free? Yes Yes WC - Visit Discharge Discharge Condition Stable Stable Ambulatory Status Ambulatory Ambulatory Transportation Private Auto Private Auto Medication Reconcilliation completed & Yes provided to patient/care provider Clinical Summary of Care Provided Yes Facility Type Home Health Orders Sent Yes Assessment/Plan Assessment/Plan (1) Non-pressure chronic ulcer of unspecified thigh with muscle involvement without evidence of necrosis: CODE(S): L97.105 - Non-pressure chronic ulcer of unspecified thigh with muscle involvement without evidence of necrosis (2) Status post excision of lipoma: CODE(S): Z98.890 - Other specified postprocedural states; Z86.018 - Personal history of other benign neoplasm (3) Abscess of left thigh: CODE(S): L02.416 - Cutaneous abscess of left lower limb (4) History of incision and drainage: CODE(S): Z98.890 - Other specified postprocedural states (5) Postoperative seroma of subcutaneous tissue after dermatologic procedure: CODE(S): L76.33 - Postprocedural seroma of skin and subcutaneous tissue following a dermatologic procedure (6) MRSA (methicillin resistant Staphylococcus aureus) infection: CODE(S): A49.02 - Methicillin resistant Staphylococcus aureus infection, unspecified site PLAN: Plan Continue Dakin's dressing changes. The ulcer is getting smaller and the edges show minimal undermining. Recommend operative intervention with surgical preparation left lateral thigh wi th excisional debridement nonhealing MRSA ulcer and skin grafting. Surgery will be on an outpatient basis under general anesthesia. She will have drains in for 2 weeks. She will also have a compression mary kay wrap. With the last surgery in January, she was treated with Vancomycin for MRSA. Will treat her perioperatively with Vancomycin as well. In preparation for the surgery, a wound culture was done. A positive culture will necessitate antibiotic therapy. Patient was interested in surgery toward the end of May. This will give us a little more time to continue the healing progress of the ulcer. Prealbumin from 11/11/22 was 15.7. Encourage nutritional supplementation with protein to help the healing process. Patient was informed of the risks and complications of the procedure including alternatives to surgery. These were discussed with the patient personally. Patient voices understanding and wishes to proceed. Potential risks and complications included but not inclusive of bleeding, infection, seroma, hematoma, bruising, swelling, prolonged need for drains, loss of sensation to skin, partial or complete loss of skin graft, wound breakdown, need for wound care, poor scarring, poor aesthetic outcome, intra operative cardiac or neurologic events, DVT, PE, and reaction to anesthesia. Followup one week.
[2023-05-12 14:25] VITALS: BP 141/78; PULSE 84; TEMP 35.9; BMI 34.2
--- NOTE | 2023-05-12 17:11 | PCM.WC.PN ---
History of Present Illness Date of Service: 05/12/23 Chief Complaint: Nonhealing ulcer left lateral thigh. History of Wound: 47 year old woman who has had surgery on her bilateral proximal lateral thighs with extension toward the hip, (right side in September, and the left side in October,. Both incisions developed seromas that needed additional surgery. The right side is healed. The left side has a nonhealing ulcer after needing additional surgery in January, for a MRSA infection seroma abscess. Surgery 01/19/23 - Surgical preparation left lateral thigh with incision and drainage and excisional debridement MRSA infection seroma abscess (128 cm2). Surgery 12/28/22 - Surgical preparation left proximal lateral thigh with extension toward the hip with excisional debridement nonhealing seroma wound and 13 cm complex secondary wound closure. Surgery 11/10/22 - Excision 19 cm painful soft tissue mass left proximal lateral thigh with extension toward the hip with 11 cm layered closure repair and surgical preparation right proximal lateral thigh with extension toward the hip with excisional debridement nonhealing seroma wound and 13 cm complex secondary wound closure. She was discharged from the hospital on 11/12/22. Surgery 09/22/22 -Excision 18 cm painful subfascial soft tissue mass right proximal lateral thigh with extension toward the hip with 11 cm complex closure repair. Wound care - Dakin's. Pathology from 01/19/23 of the left lateral thigh seroma wound showed acute inflammation and abscess formation. Pathology from 12/28/21 of left proximal lateral thigh with extension toward the hip seroma wound showed skin with underlying tissue with acute and chronic inflammation, granulation tissue reaction and fat necrosis. Pathology from 11/10/22 of the left proximal lateral thigh with extension toward the hip mass showed mature adipose tissue consistent with lipoma. Pathology from 09/22/22 of the right proximal lateral thigh with extension toward the hip showed mass mature adipose tissue consistent with lipoma. Wound culture from last week, 05/05/23 showed Corynebacterium striatum. Probable surface contaminant. No antibiotics needed. Operative culture of left thigh tissue from 01/19/23 was negative for bacterial growth. She was treated with IV Vancomycin. Operative culture pf left proximal lateral thigh with extension toward the hip from 12/28/22 positive for MRSA and Kocuria kristinae initially treated with Augmentin then switched antibiotic to Doxycycline. Prealbumin from 11/11/22 was 15.7. Encourage nutritional supplementation with protein to help the healing process. Today she denies any complaints of fever, chills, nausea, vomiting or any pain. Her appetite is good. Progress of Wound: Continues to improve. Objective Data Objective Data Vital Signs: Vital Signs Temp Pulse Resp BP O2 Del Method 96.7 F L 84 22 H 141/78 H Room Air 05/12/23 14:25 05/12/23 14:25 05/05/23 13:38 05/12/23 14:25 04/18/23 14:23 Oxygen Delivery Method Room Air Weight: 232 lb Body Mass Index (BMI) 34.2 Prealbumin from 11/11/22 was 15.7. Encourage nutritional supplementation with protein to help the healing process. Lab / Micro Data Attestation: I reviewed the patient's lab results. Micro: Microbiology 05/05/23 14:20 Wound Abcess - Leg, Left Gram Stain - Final 05/05/23 14:20 Wound Abcess - Leg, Left Wound Culture - Final Corynebacterium striatum 05/05/23 14:20 Wound Abcess - Leg, Left Anaerobic Culture - Final No anaerobic bacteria isolated. Charges/Coding Procedures Integumentary 111xxx-113xx: [id number] Barbara musc/fascia 20 sq cm/< (ICD-10 - L97.105, Z98.890, L02.416, L76.33, A49.02) Debridement Note Debridement Note Wound debrided: #2 Left lateral thigh. Laterality: Left Wound Grade/Stage: 3. Type of Debridement: Excisional debridement Anesthesia Used: 4% Lidocaine Solution and 5% Lidocaine Gel Depth: Down to and including healthy tissue, in the subcutaneous layer and to muscle Percentage of wound debrided: 100 Instrument Used: 5mm curette Tissue Removed: subcutaneous tissue and muscle. Severity: Fat Layer Exposed (muscle is exposed.) Amount of bleeding with debridement: Mild Bleeding Controlled with: Pressure and Compression and gauze Patient tolerated procedure: Patient tolerated procedure well Post-Debridement Measurements and Additional Note: Post-Debridement Measurements/Treatment WC - Nurse 1 - General Ulcer Assessment Start: 04/18/23 14:21 Freq: Status: Active Protocol: SELENE.LOWEXT Activity Type Activity Date Activity User E-sign Co-sign Detail Recorded Client Recorded Date Recorded By Document 06/05/23 14:23 BMF [id number] 04/18/23 14:36 BMF Document 05/05/23 13:38 DL [id number] 05/05/23 13:44 DL Document 05/12/23 14:25 AK [id number] 05/12/23 14:27 AK 04/18/23 05/05/23 05/12/23 14:23 13:38 14:25 WC - Today's Visit Information Type of service Follow-up Visit Follow-up Visit Follow-up Visit (Physician/HEALTH CARE SOCIAL WORKER (Physician/HEALTH CARE SOCIAL WORKER (Physician/HEALTH CARE SOCIAL WORKER ) ) ) Arrival Mode Ambulatory Ambulatory Ambulatory Transfer Assistance None None Patient Identification Verified (Name & Yes Yes No ) Patient Requires Transmission-Based No No No Precautions Height and Weight Body Mass Index (BMI) 34.2 34.2 34.2 BMI Classification Obese Obese Obese Vital Signs Temperature (97.8 F-99.1 F) 97.6 F L 97.7 F L 96.7 F L Temperature Source Temporal Temporal Temporal Pulse Rate (60-100) 78 76 84 Pulse Location Monitor Monitor Monitor Respiratory Rate (12-18) 16 22 H Respiratory rate source Observation Observation Oxygen Delivery Method Room Air Blood Pressure (90/60-120/80) 135/79 H 146/82 H 141/78 H Blood Pressure Mean (mm Hg) 97 103 99 Source Monitor Monitor Monitor Position Sitting Blood Pressure Location Left Arm History Since Last Visit- (Skip if this is Patient's initial visit) Have you changed medications since your No No last visit? Any new allergies or adverse reactions No No Had a fall/change in ADL's that may No No increase risk of falls Signs or symptoms of abuse and/or No No neglect since last visit Have you been in the hospital since your No No last visit? Has dressing in place as prescribed Yes Yes Has compression in place as prescribed N/A N/A Has offloadiing in place as prescribed N/A N/A Experienced any changes in pain level or No No management Left Footwear Regular Shoe Regular Shoe Right Footwear Regular Shoe Regular Shoe Pain Scale: 0-10 Numeric Is Patient Pain Free? Yes Yes Yes - Nurse 1 - General Ulcer Measurement Start: 04/18/23 14:21 Freq: Status: Active Protocol: Activity Type Activity Date Activity User E-sign Co-sign Detail Recorded Client Recorded Date Recorded By Document 04/18/23 14:23 BMF [id number] 04/18/23 14:36 BMF Document 05/05/23 13:38 DL [id number] 05/05/23 13:44 DL Document 05/12/23 14:25 AK [id number] 05/12/23 14:27 AK 04/18/23 05/05/23 05/12/23 14:23 13:38 14:25 Wound Center Nurse 1 #2- L LAT THIGH POST OP -Combined with other wound No No -Current Size (cm) - Length 5.3 5 5 -Current Size (cm) - Width 2.4 1.8 2 -Current Size (cm) - Depth 1.1 1.5 1.8 -Total Square Cm 12.72 9.0 10 -Date of Last Picture (Recall this 04/18/23 field) -Photo Taken Yes No Yes -Epithelialization None Present -Tunneling No No -Undermining/Tunneling Yes No -Undermining/Tunneling Starts (O'clock 12 7 ) -Undermining/Tunneling Ends (O'clock) 12 11 -Maximum Distance (cm) 2.4 2.7 -Circular Undermining Yes No -Change in Wound Grade/Stage No -Exudate Amt Large Large Medium -Exudate Type Serosanguineous Serosanguineous Serosanguineous -Wound Margin Thickened Thickened & Distinct, Rolled Under Outline Attached -Granulation Amt Large (67-100%) Large (67-100%) Large (67-100%) -Granulation Quality Red Red Red -Slough/Fibrin Yes Yes -Necrosis Amt Small (1-33%) Small (1-33%) Small (1-33%) -Necrotic Tissue Type Adherent Slough Adherent Slough Adherent Slough -Structure Exposed N/A -Texture (Laurence-wound Skin Appearance) Assessed, Scarring Assessed, Scarring Scarring -Moisture (Laurence-wound Skin Appearance) Assessed No Abnormality No Abnormality, Assessed -Color (Laurence-wound Skin Appearance) Assessed No Abnormality, Assessed -Temperature (Laurence-wound Skin No Abnormality No Abnormality No Abnormality Appearance) (Pt Warm) (Pt Warm) (Pt Warm) -Tenderness on Palpation (Laurence-wound No Yes No Skin Appearance) -Ulcer Cleansing Soap and Water Soap and Water Rinsed/ Irrigated with Saline -Foul Odor after Cleansing No No No -Anesthetic Used 4% Lidocaine 5% Lidocaine 4% Lidocaine Solution Gel Solution WC - Nurse 2 - General Ulcer CM Notes Start: 04/18/23 14:21 Freq: Status: Active Protocol: Activity Type Activity Date Activity User E-sign Co-sign Detail Recorded Client Recorded Date Recorded By Document 04/18/23 14:45 [id number] 04/18/23 14:48 JF Document 05/05/23 14:02 MW [id number] 05/05/23 14:23 MW Document 05/12/23 14:50 JF [id number] 05/12/23 14:51 JF Edit Result 05/12/23 14:50 JF (1) [id number] 05/12/23 14:53 JF (1) #2- L LAT THIGH POST OP - Post Debridement (cm) - Length 5.1 => 5.7 - Post Debridement (cm) - Width 2.1 => 1.9 - Post Debridement (cm) - Depth 1.8 => 1.1 - Total Square (Post) (cm) 10.71 => 10.83 - Area of Debridement (cm) - Length 5.1 => 5.7 - Area of Debridement (cm) - Width 2.1 => 1.9 - Total Square (Area) (cm) 10.71 => 10.83 04/18/23 05/05/23 05/12/23 14:45 14:02 14:50 Wound Center Nurse 2 #2- L LAT THIGH POST OP -Time 14:46 14:03 14:50 -Correct Patient Yes Yes Yes -Correct Side, Site, Position Yes Yes Yes -Correct Procedure Yes Yes Yes -Procedure Performed Yes Yes Yes -Type of Procedure Debridement Debridement Debridement -Clinical Debridement Muscle / Fascia Muscle / Fascia Muscle / Fascia -Tissue Removed Muscle,Fascia Muscle Muscle -Post Debridement (cm) - Length 6.0 2.0 5.7 -Post Debridement (cm) - Width 2.7 5.4 1.9 -Post Debridement (cm) - Depth 0.5 0.9 1.1 -Total Square (Post) (cm) 16.20 10.80 10.83 -Area of Debridement (cm) - Length 6.0 2.0 5.7 -Area of Debridement (cm) - Width 2.7 5.4 1.9 -Total Square (Area) (cm) 16.20 10.80 10.83 -Tunneling No No No -Undermining/Tunneling Yes No No -Undermining/Tunneling Starts (O'clock 7 ) -Undermining/Tunneling Ends (O'clock) 5 -Maximum Distance (cm) 2.5 -Circular Undermining No No No -Wound/Ulcer Outcome Not Healed Not Healed Not Healed -Ulcer Cleansing Rinsed/ Rinsed/ Rinsed/ Irrigated with Irrigated with Irrigated with Saline Saline Saline -Foul Odor after Cleansing No No No -Bioengineered Tissue No No No -Bleeding Controlled with Pressure Pressure Pressure -Treatment Response Procedure Procedure Procedure Tolerated Well Tolerated Well Tolerated Well -Offloading No No No -Debridement - Muscle / Fascia, 1st Yes Yes Yes 20sq cm Pain Scale: 0-10 Numeric Is Patient Pain Free? Yes Yes Yes WC - Nurse 3 - General Ulcer D/C NN Start: 04/18/23 14:21 Freq: Status: Active Protocol: Activity Type Activity Date Activity User E-sign Co-sign Detail Recorded Client Recorded Date Recorded By Document 04/18/23 15:15 AK [id number] 04/18/23 15:16 AK Document 05/05/23 14:27 DL [id number] 05/05/23 14:29 DL Document 05/12/23 16:11 SD [id number] 05/12/23 16:12 SD 04/18/23 05/05/23 05/12/23 15:15 14:27 16:11 Wound Care Center Nurse 3 #2- L LAT THIGH POST OP -Ulcer Cleansing Rinsed/ Rinsed/ Rinsed/ Irrigated with Irrigated with Irrigated with Saline Saline Saline -Foul Odor after Cleansing No No No -Negative Pressure Wound Therapy N/A N/A -Primary Dressing Applied Optilok 6.5x10 Hysept ($) Optilok 8x12 -Other Dressing dAKINS aBD dakins -Primary Dressing Covered/Secured with Dry Gauze, Dry Gauze, Secured with Secured with Tape Tape -Optilok 6.5x10 1 -Optilok 8x12 1 Treatment Response Procedure Tolerated Well Pain Scale: 0-10 Numeric Is Patient Pain Free? 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 (2) Status post excision of lipoma: CODE(S): Z98.890 - Other specified postprocedural states; Z86.018 - Personal history of other benign neoplasm (3) Abscess of left thigh: CODE(S): L02.416 - Cutaneous abscess of left lower limb (4) History of incision and drainage: CODE(S): Z98.890 - Other specified postprocedural states (5) Postoperative seroma of subcutaneous tissue after dermatologic procedure: CODE(S): L76.33 - Postprocedural seroma of skin and subcutaneous tissue following a dermatologic procedure (6) MRSA (methicillin resistant Staphylococcus aureus) infection: CODE(S): A49.02 - Methicillin resistant Staphylococcus aureus infection, unspecified site PLAN: Plan Continue Dakin's dressing changes. The ulcer is getting smaller and the edges show minimal undermining. Recommend operative intervention with surgical preparation left lateral thigh with excisional debridement nonhealing MRSA ulcer and skin grafting. Surgery will be on an outpatient basis under general anesthesia. She will have drains in for 2 weeks. She will also have a compression mary kay wrap. With the last surgery in January, she was treated with Vancomycin for MRSA. Will treat her perioperatively with Vancomycin as well. In preparation for the surgery, a wound culture was done last week on 05/05/23. It showed Corynebacterium striatum, a surface contaminant. No antibiotics needed at this time. Patient was interested in surgery toward the end of May. This will give us a little more time to continue the healing progress of the ulcer. Prealbumin from 11/11/22 was 15.7. Encourage nutritional supplementation with protein to help the healing process. Patient was informed of the risks and complications of the procedure including alternatives to surgery. These were discussed with the patient personally. Patient voices understanding and wishes to proceed. Potential risks and complications included but not inclusive of bleeding, infection, seroma, hematoma, bruising, swelling, prolonged need for drains, loss of sensation to skin, partial or complete loss of skin graft, wound breakdown, need for wound care, poor scarring, poor aesthetic outcome, intra operative cardiac or neurologic events, DVT, PE, and reaction to anesthesia. Followup one week.
== END 2023-05-13 23:59 | disposition home or self-care (01) ==
LOC: WC 14:15
PROVIDERS: PCP Internal Medicine; Referring Provider Nurse Practitioner Family; Visit Provider Nurse Practitioner Family
DX: L97.122 Non-pressure chronic ulcer of left thigh with fat layer exposed (principal); T81.89XA Other complications of procedures, not elsewhere classified, initial encounter; T81.89XD Other complications of procedures, not elsewhere classified, subsequent encounter; Y84.9 Medical procedure, unspecified as the cause of abnormal reaction of the patient, or of later complication, without mention of misadventure at the time of the procedure; L02.416 Cutaneous abscess of left lower limb; L76.33 Postprocedural seroma of skin and subcutaneous tissue following a dermatologic procedure; L03.116 Cellulitis of left lower limb; M79.89 Other specified soft tissue disorders; Z86.14 Personal history of Methicillin resistant Staphylococcus aureus infection
CPT/HCPCS: 11043; 87070; 87075; 87077; 87205

== ENCOUNTER 2023-05-19 13:36 | Outpatient (RCR) | payer MEDICAID, SELFPAY ==
[2023-05-14 00:40] VITALS: BP 141/78; PULSE 84; RESP 22; TEMP 35.9; BMI 34.2
[2023-05-19 13:49] VITALS: BP 133/71; PULSE 74; RESP 16; BMI 34.2
--- NOTE | 2023-05-19 15:54 | PCM.WC.PN ---
History of Present Illness Date of Service: 05/19/23 Chief Complaint: Nonhealing ulcer left lateral thigh History of Wound: 47 year old woman who has had surgery on her bilateral proximal lateral thighs with extension toward the hip, (right side in September, and the left side in October,. Both incisions developed seromas that needed additional surgery. The right side is healed. The left side has a nonhealing ulcer after needing additional surgery in January, for a MRSA infection seroma abscess. Surgery 01/19/23 - Surgical preparation left lateral thigh with incision and drainage and excisional debridement MRSA infection seroma abscess (128 cm2). Surgery 12/28/22 - Surgical preparation left proximal lateral thigh with extension toward the hip with excisional debridement nonhealing seroma wound and 13 cm complex secondary wound closure. Surgery 11/10/22 - Excision 19 cm painful soft tissue mass left proximal lateral thigh with extension toward the hip with 11 cm layered closure repair and surgical preparation right proximal lateral thigh with extension toward the hip with excisional debridement nonhealing seroma wound and 13 cm complex secondary wound closure. She was discharged from the hospital on 11/12/22. Surgery 09/22/22 -Excision 18 cm painful subfascial soft tissue mass right proximal lateral thigh with extension toward the hip with 11 cm complex closure repair. Wound care - Dakin's. Pathology from 01/19/23 of the left lateral thigh seroma wound showed acute inflammation and abscess formation. Pathology from 12/28/21 of left proximal lateral thigh with extension toward the hip seroma wound showed skin with underlying tissue with acute and chronic inflammation, granulation tissue reaction and fat necrosis. Pathology from 11/10/22 of the left proximal lateral thigh with extension toward the hip mass showed mature adipose tissue consistent with lipoma. Pathology from 09/22/22 of the right proximal lateral thigh with extension toward the hip showed mass mature adipose tissue consistent with lipoma. Wound culture from 05/05/23 was positive for Corynebacterium striatum. Operative culture of left thigh tissue from 01/19/23 was negative for bacterial growth. She was treated with IV Vancomycin. Operative culture of left proximal lateral thigh with extension toward the hip from 12/28/22 positive for MRSA and Kocuria kristinae initially treated with Augmentin then switched antibiotic to Doxycycline. Prealbumin from 11/11/22 was 15.7. Encourage nutritional supplementation with protein to help the healing process. Today she denies any complaints of fever, chills, nausea, vomiting or any pain. Her appetite is good. Progress of Wound: Slowly improving. Objective Data Objective Data Vital Signs: Vital Signs Temp Pulse Resp BP O2 Del Method 96.7 F L 74 16 133/71 H Room Air 05/14/23 00:40 05/19/23 13:49 05/19/23 13:49 05/19/23 13:49 05/19/23 13:49 Oxygen Delivery Method Room Air Weight: 232 lb Body Mass Index (BMI) 34.2 Prealbumin from 11/11/22 was 15.7. Encourage nutritional supplementation with protein to help the healing process. Lab / Micro Data Attestation: I reviewed the patient's lab results. Micro: Microbiology 05/05/23 14:20 Wound Abcess - Leg, Left Gram Stain - Final 05/05/23 14:20 Wound Abcess - Leg, Left Wound Culture - Final Corynebacterium striatum 05/05/23 14:20 Wound Abcess - Leg, Left Anaerobic Culture - Final No anaerobic bacteria isolated. Charges/Coding Procedures Integumentary 111xxx-113xx: 40080 Barbara musc/fascia 20 sq cm/< (ICD-10 - L97.105, Z98.890, L02.416, L76.33, A49.02) Debridement Note Debridement Note Wound debrided: #2 Left lateral thigh. Laterality: Left Wound Grade/Stage: 3. Type of Debridement: Excisional debridement Anesthesia Used: 4% Lidocaine Solution and 5% Lidocaine Gel Depth: Down to and including healthy tissue, in the subcutaneous layer and to muscle Percentage of wound debrided: 100 Instrument Used: 5mm curette Tissue Removed: subcutaneous tissue and muscle. Severity: Fat Layer Exposed (muscle is exposed.) Amount of bleeding with debridement: Mild Bleeding Controlled with: Pressure and Compression and gauze Patient tolerated procedure: Patient tolerated procedure well Post-Debridement Measurements and Additional Note: Post-Debridement Measurements/Treatment WC - Nurse 1 - General Ulcer Assessment Start: 05/19/23 13:49 Freq: Status: Active Protocol: SELENE.LOWEXKe Activity Type Activity Date Activity User E-sign Co-sign Detail Recorded Client Recorded Date Recorded By Document 05/19/23 13:49 BRYCE [id number] 05/19/23 13:53 ME 05/19/23 13:49 - Today's Visit Information Type of service 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 ) Arrival Mode Ambulatory Patient Identification Verified (Name & Yes ) Patient Requires Transmission-Based No Precautions Height and Weight Body Mass Index (BMI) 34.2 BMI Classification Obese Vital Signs Pulse Rate (60-100) 74 Pulse Location Monitor Respiratory Rate (12-18) 16 Respiratory rate source Observation Oxygen Delivery Method Room Air Blood Pressure (90/60-120/80) 133/71 H Blood Pressure Mean (mm Hg) 91 Source Monitor Position Sitting Blood Pressure Location Right Arm History Since Last Visit- (Skip if this is Patient's initial visit) Have you changed medications since your No last visit? Any new allergies or adverse reactions No Had a fall/change in ADL's that may No increase risk of falls Signs or symptoms of abuse and/or No neglect since last visit Have you been in the hospital since your No last visit? Has dressing in place as prescribed Yes Has compression in place as prescribed No Has offloadiing in place as prescribed No Experienced any changes in pain level or No management Left Footwear Regular Shoe Right Footwear Regular Shoe Pain Scale: 0-10 Numeric Is Patient Pain Free? Yes - Nurse 1 - General Ulcer Measurement Start: 05/19/23 13:49 Freq: Status: Active Protocol: Activity Type Activity Date Activity User E-sign Co-sign Detail Recorded Client Recorded Date Recorded By Document 05/19/23 13:49 ME [id number] 05/19/23 13:53 ME 05/19/23 13:49 Wound Center Nurse 1 #2- L LAT THIGH POST OP -Current Size (cm) - Length 1.2 -Current Size (cm) - Width 4.5 -Current Size (cm) - Depth 1.3 -Total Square Cm 5.40 -Date of Last Picture (Recall this 05/19/23 field) -Photo Taken Yes -Undermining/Tunneling Yes -Undermining/Tunneling Starts (O'clock 12 ) -Undermining/Tunneling Ends (O'clock) 12 -Maximum Distance (cm) 0.7 -Circular Undermining No -Exudate Amt Medium -Exudate Type Serosanguineous -Wound Margin Distinct, Outline Attached -Granulation Amt Medium (34-66%) -Granulation Quality Red -Texture (Laurence-wound Skin Appearance) Assessed -Moisture (Laurence-wound Skin Appearance) Assessed -Color (Laurence-wound Skin Appearance) Assessed -Temperature (Laurence-wound Skin No Abnormality Appearance) (Pt Warm) -Tenderness on Palpation (Laurence-wound No Skin Appearance) -Ulcer Cleansing Rinsed/ Irrigated with Saline -Anesthetic Used 5% Lidocaine Gel Lower Limb Edema Present NA - Nurse 2 - General Ulcer CM Notes Start: 05/19/23 13:49 Freq: Status: Active Protocol: Activity Type Activity Date Activity User E-sign Co-sign Detail Recorded Client Recorded Date Recorded By Document 05/19/23 14:26 [id number] 05/19/23 14:28 05/19/23 14:26 Wound Center Nurse 2 #2- L LAT THIGH POST OP -Time 14:26 -Correct Patient Yes -Correct Side, Site, Position Yes -Correct Procedure Yes -Procedure Performed Yes -Type of Procedure Debridement -Clinical Debridement Muscle / Fascia -Tissue Removed Muscle,Fascia -Post Debridement (cm) - Length 1.7 -Post Debridement (cm) - Width 4.7 -Post Debridement (cm) - Depth 1.1 -Total Square (Post) (cm) 7.99 -Area of Debridement (cm) - Length 1.7 -Area of Debridement (cm) - Width 4.7 -Total Square (Area) (cm) 7.99 -Tunneling No -Undermining/Tunneling No -Circular Undermining No -Wound/Ulcer Outcome Not Healed -Ulcer Cleansing Rinsed/ Irrigated with Saline -Foul Odor after Cleansing No -Bioengineered Tissue No -Bleeding Controlled with Pressure -Treatment Response Procedure Tolerated Well -Offloading No -Debridement - Muscle / Fascia, 1st Yes 20sq cm Pain Scale: 0-10 Numeric Is Patient Pain Free? Yes - Nurse 3 - General Ulcer D/C NN Start: 05/19/23 13:49 Freq: Status: Active Protocol: Activity Type Activity Date Activity User E-sign Co-sign Detail Recorded Client Recorded Date Recorded By Document 05/19/23 14:37 [id number] 05/19/23 14:37 05/19/23 14:37 Wound Care Center Nurse 3 #2- L LAT THIGH POST OP -Ulcer Cleansing Rinsed/ Irrigated with Saline -Foul Odor after Cleansing No -Other Dressing optilock/abd's and 0.25% dakin 's gauze -Primary Dressing Covered/Secured with Dry Gauze, Secured with Tape Pain Scale: 0-10 Numeric Is Patient Pain Free? 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 (2) Status post excision of lipoma: CODE(S): Z98.890 - Other specified postprocedural states; Z86.018 - Personal history of other benign neoplasm (3) Abscess of left thigh: CODE(S): L02.416 - Cutaneous abscess of left lower limb (4) History of incision and drainage: CODE(S): Z98.890 - Other specified postprocedural states (5) Postoperative seroma of subcutaneous tissue after dermatologic procedure: CODE(S): L76.33 - Postprocedural seroma of skin and subcutaneous tissue following a dermatologic procedure (6) MRSA (methicillin resistant Staphylococcus aureus) infection: CODE(S): A49.02 - Methicillin resistant Staphylococcus aureus infection, unspecified site PLAN: Plan Continue Dakin's dressing changes. The ulcer is getting smaller and the edges show minimal undermining. Recommend operative intervention with surgical preparation left lateral thigh with excisional debridement nonhealing MRSA ulcer and skin grafting. Surgery will be on an outpatient basis under general anesthesia. She will have drains in for 2 weeks. She will also have a compression mary kay wrap. With the last surgery in January, she was treated with Vancomycin for MRSA. Will treat her perioperatively with Vancomycin as well. In preparation for the surgery, a wound culture was done last week on 05/05/23. It showed Corynebacterium striatum, a surface contaminant. No antibiotics needed at this time. Patient was interested in surgery toward the end of May, like the third week if possible. This will give us a little more time to continue the healing progress of the ulcer. Prealbumin from 11/11/22 was 15.7. Encourage nutritional supplementation with protein to help the healing process. Patient was informed of the risks and complications of the procedure including alternatives to surgery. These were discussed with the patient personally. Patient voices understanding and wishes to proceed. Potential risks and complications included but not inclusive of bleeding, infection, seroma, hematoma, bruising, swelling, prolonged need for drains, loss of sensation to skin, partial or complete loss of skin graft, wound breakdown, need for wound care, poor scarring, poor aesthetic outcome, intra operative cardiac or neurologic events, DVT, PE, and reaction to anesthesia. Followup 4 weeks which should be after her surgery.
== END 2023-06-13 23:59 | disposition home or self-care (01) ==
LOC: WC 13:36
PROVIDERS: PCP Internal Medicine; Referring Provider Nurse Practitioner Family; Visit Provider Surgery
DX: L97.122 Non-pressure chronic ulcer of left thigh with fat layer exposed (principal); Z86.14 Personal history of Methicillin resistant Staphylococcus aureus infection
CPT/HCPCS: 11043

== ENCOUNTER 2023-06-08 17:50 | Observation (INO) | payer MEDICAID, SELFPAY ==
--- NOTE | 2023-06-07 19:03 | DCINST_ITS ---
Discharge Instructions Diet Discharge Diet: No restrictions and - (encourage nutritional supplementation with protein to help the healing process.) Activity Discharge Activity: May Not Drive, May Not Shower (until the drain is removed.) and - (elevate left leg when sitting. No standing. Patient may ambulate.) May shower in (days): 14 (after drain is removed.) May resume sexual activity in: 4-6 weeks Weight Bearing Status: Weight bearing as tolerated Keep extremity elevated above heart level: Left Leg Dressing / Incision Call your doctor if your incision/area has: Continuous Slow Oozing, Sudden Increased Bleeding, Increased Pain/ Swelling, Increased Redness, Foul Smelling Discharge and Swelling at the incision site Call your doctor if you observe: Fever of 101 or Higher, Coldness, Increased Pain, Shortness of breath, Chest pain, Calf discomfort and Uncontrolled pain Change Dressing in: do not change dressing (will change the dressing in the office.) Remove Dressing in: do not remove dressing (will remove the dressing in my office.) Cleanse incision/area with: - (may get incision wet in the shower after the drain is removed.) Drain: Suction (Michael drain to bulb suction. Empty and record output daily.) Follow Up Care Please Follow Up With: Francisco Kraft MD When: 06/13/23. call [phone] for appt time Test Results: Test results from this visit will be discussed in further detail at your follow- up appointment, if applicable. Discharge Plan Admission Primary Reason for Your Visit: excise nonhealing ulcer left lateral thigh with complex wound closure Attending Provider: Francisco Kraft Primary Care Provider: Cade Saunders Discharge Orders/Prescriptions Prescriptions: New doxycycline hyclate 100 mg capsule 100 mg PO BID Qty: 20 0RF L.acidoph,saliva-B.bif-S.therm [Acidophilus Probiotic Blend] 175 mg capsule 1 cap PO DAILY Qty: 30 0RF oxycodone-acetaminophen [Percocet] 5-325 mg tablet 1 tab PO Q6H PRN (Reason: pain (scale score 7-10)) 7 Days Qty: 28 0RF Rx Instructions: 28 tabs (twenty-eight) Continued escitalopram oxalate [Lexapro] 10 mg tablet 10 mg PO DAILY promethazine 25 mg tablet 25 mg PO Q6H PRN (Reason: nausea and vomiting) Qty: 30 1RF diazepam [Valium] 5 mg tablet 5 mg PO BID PRN (Reason: muscle spasm) 7 Days Qty: 14 0RF No Action (DME) Wound care See Rx Instructions .Route .MEDSUPPLY Qty: 1 0RF Rx Instructions: Left leg wound care, cleanse w/ saline, dry, apply antibiotic oint on suture line and cover with dry gauze 3x/wk & prn CLAUDIA wrap compression. Referrals / Follow Up: Cade Saunders MD [Primary Care Provider] - Disposition Disposition (needs filled in before D/C Order can be placed): Home, Self Care
[2023-06-08] VITALS (10 sets, daily range): BP systolic 119–146; BP diastolic 59–99; PULSE 73–90; RESP 14–20; TEMP 36.6–36.9; O2SAT 94–99; BMI 35.9; BMI 38.9
[2023-06-08 10:35] LABS: Internal QC Validated? YES +Cl - CLEAR BKGD; Pregnancy, Urine Negative Negative
[2023-06-08] MEDS: Lactated Ringers 1,000 ML 15 ML IV ×2 (10:48→14:20)
--- NOTE | 2023-06-08 11:50 | UL_PTH ---
PATIENT: MICHELLE PUTNAM LOC: [facility] U#:[id number] AGE/SX: 48/F ROOM: IA315 RE06/08/[address]: Dr. Francisco Kraft MD : 1975 BED: 1 DIS: 06/09/2023 SPEC #: [id number] RECD: 06/09/23 08:17 STATUS: ZENAIDA TRIPLETT #: [id number] EDGARDO: 06/08/23 11:[address]: Francisco Kraft DEPT: SURGICAL PATHOLOGY RECD BY: Delmi Cordova ENTERED: 06/09/23 10:47 SP TYPE: ULCER OTHR DR: Dr. Cade Saunders MD Tissues: ULCER Procedures: Surgery Specimen Level IV HEADER OPERATION: Surgical preparation left lateral thigh PRE-OP DIAGNOSIS: Nonhealing ulcer left thigh TISSUE SUBMITTED: Left lateral thigh nonhealing ulcer MICROSCOPIC DIAGNOSIS Ulcer, left lateral thigh, biopsy: Skin and soft tissue with ulceration, associated acute and chronic inflammation and granulation. Suture granulomas. AM:julia 06/10/2023 MICROSCOPIC DESCRIPTION Slides are reviewed. GROSS DESCRIPTION Received in fixative is one container labeled with the patient's name and designated left lateral thigh nonhealing ulcer. The specimen consists of a piece of skin with underlying tissue measuring 7.5 x 4.0 x 5.0 cm. Extensive area of ulceration is noted. Also present in the container is a detached piece of soft tissue measuring in aggregate 9.0 x 9.0 x 3.0 cm. Application Security Architect sections are submitted in two cassettes. / SJ:julia 06/09/2023 TC:2 CPT: 81146
[2023-06-08] MEDS: Linezolid 600 MG 600 MG/300 ML BAG 200 MG IV (12:46)
--- NOTE | 2023-06-08 13:28 | PCM.HP.BLA ---
History and Physical Date of Admission: 06/08/23 HISTORY OF PRESENT ILLNESS 48 year old woman who has had surgery on her bilateral proximal lateral thighs with extension toward the hip, (right side in September, and the left side in October,. Both incisions developed seromas that needed additional surgery. The right side is healed. The left side has a nonhealing ulcer after needing additional surgery in January, for a MRSA infection seroma abscess. Surgery 01/19/23 - Surgical preparation left lateral thigh with incision and drainage and excisional debridement MRSA infection seroma abscess (128 cm2). Surgery 12/28/22 - Surgical preparation left proximal lateral thigh with extension toward the hip with excisional debridement nonhealing seroma wound and 13 cm complex secondary wound closure. Surgery 11/10/22 - Excision 19 cm painful soft tissue mass left proximal lateral thigh with extension toward the hip with 11 cm layered closure repair and surgical preparation right proximal lateral thigh with extension toward the hip with excisional debridement nonhealing seroma wound and 13 cm complex secondary wound closure. She was discharged from the hospital on 11/12/22. Surgery 09/22/22 -Excision 18 cm painful subfascial soft tissue mass right proximal lateral thigh with extension toward the hip with 11 cm complex closure repair. Wound care - Dakin's. Pathology from 01/19/23 of the left lateral thigh seroma wound showed acute inflammation and abscess formation. Pathology from 12/28/21 of left proximal lateral thigh with extension toward the hip seroma wound showed skin with underlying tissue with acute and chronic inflammation, granulation tissue reaction and fat necrosis. Pathology from 11/10/22 of the left proximal lateral thigh with extension toward the hip mass showed mature adipose tissue consistent with lipoma. Pathology from 09/22/22 of the right proximal lateral thigh with extension toward the hip showed mass mature adipose tissue consistent with lipoma. Wound culture from 05/05/23 was positive for Corynebacterium striatum. Operative culture of left thigh tissue from 01/19/23 was negative for bacterial growth. She was treated with IV Vancomycin. Operative culture of left proximal lateral thigh with extension toward the hip from 12/28/22 positive for MRSA and Kocuria kristinae initially treated with Augmentin then switched antibiotic to Doxycycline. Prealbumin from 11/11/22 was 15.7. Encourage nutritional supplementation with protein to help the healing process. Today she denies any complaints of fever, chills, nausea, vomiting or any pain. Her appetite is good. ? PAST MEDICAL HISTORY Back problem Dysesthesia of multiple sites Mass of left thigh/hip Mass of right thigh/hip PAST SURGICAL HISTORY cholecystectomy Excision 18 cm painful subfascial soft tissue mass right proximal lateral thigh with extension toward the hip with 11 cm complex closure repair - 09/22/22 Excision 19 cm painful soft tissue mass left proximal lateral thigh with extension toward the hip with 11 cm layered closure repair and surgical preparation right proximal lateral thigh with extension toward the hip with excisional debridement nonhealing seroma wound and 13 cm complex secondary wound closure - 11/10/22 Surgical preparation left proximal lateral thigh with extension toward the hip with excisional debridement nonhealing seroma wound and 13 cm complex secondary wound closure - 12/28/22 Surgical preparation left lateral thigh with incision and drainage and excisional debridement MRSA infection seroma abscess (128 cm2) - 01/19/23 ALLERGIES No Known Allergies MEDICATIONS ibuprofen thyroid FAMILY HISTORY Other -?Asthma, Hypertension SOCIAL HISTORY Smoking Status:? Never smoker alcohol intake:? never substance use type:? does not use REVIEW OF SYSTEMS General - Denies fever, and weight loss. Complains about having fatigue. Eyes - Denies cataracts and glaucoma. ENT - Denies nasal congestion and sore throat. Endocrine - Denies excessive thirst and urination. She states that she has heat/cold intolerance. Skin - Denies suspicious lesions and skin cancer. She has concerns about enlarging, painful bilateral lateral thigh soft tissue masses with extension to the hip. The right is more painful than the left, especially when she sleeps or is brisk walking.? Has a nonhealing surgical wound left lateral thigh from a postoperative seroma. Musculoskeletal - Denies joint pain, joint stiffness, weakness of muscles and joints,? and arthritis. She has intermittent back pain. Neuro - Denies headaches. Cardiovascular - Denies chest pain, fatigue, and shortness of breath with exertion. Psych - Denies anxiety and depression. Respiratory - Denies chronic cough and shortness of breath. Gastrointestinal - Denies nausea, vomiting, diarrhea, and constipation. History of gallstones and cholecystectomy. Hematologic - Denies abnormal bruising and bleeding. Genitourinary - Denies hematuria and urinary frequency. PHYSICAL EXAMINATION General - Alert and oriented. HEENT - PERRL. EOMI. Throat is clear. Neck - Supple and non-tender.? No cervical adenopathy. Lungs- Clear to auscultation. Heart - Regular rate and rhythm. Abdomen - Soft and non distended. Extremities - FROM. No axillary adenopathy.? Radial pulses are palpable.? On her left proximal lateral thigh with extension up toward the hip is a nonhealing ulcer. Measures .? The wound is clean with Dakin's dressing changes.? The right lateral thigh incision is healing satisfactory. Neuro - CN II-XII grossly intact. Psych - Normal mood and affect. ASSESSMENT 1.? Nonhealing ulcer left proximal lateral thigh with extension toward the hip. 2. MRSA infection seroma abscess left proximal lateral thigh. 3.? Status post excision lipoma left proximal lateral thigh with extension toward the hip with layered closure repair. PLAN Patient had enlarging painful soft tissue mass on her left proximal lateral thigh with extension toward the hip and she went to surgery on 11/10/22 where she underwent excision 19 cm painful soft tissue mass left proximal lateral thigh with extension toward the hip with 11 cm layered closure repair.? ? Postoperative she developed a seroma that drained through the central aspect of the incision.? The wound is stable with Dakin's dressing changes.? Wound culture was done on 12/06/22.? It showed MRSE and Streptococcus thoraltensis.? She was started on Levaquin and Amoxicillin.? On 12/28/22 she underwent revision of this nonhealing surgical wound left lateral thigh with extension toward the hip with excisional debridement and complex secondary wound closure. The left side needed additional surgery on January 19, 2023 for a MRSA infection seroma abscess. She was treated with IV Vancomycin and the VAC and eventually Dakin's dressing changes. The ulcer stabilized but did not close. A wound culture in April, showed Corynebacteriuim striatim. She presents today for further debridement with surgical preparation with skin grafting. Patient was informed of the risks and complications of the procedure including alternatives to surgery.? These were discussed with the patient personally.? Patient voices understanding and wishes to proceed. Some of the risks and complications were included in a form from the [employer]. Potential risks and complications included but not inclusive of bleeding, infection, seroma, hematoma, bruising, swelling, prolonged need for drains, loss of sensation to skin, wound breakdown, need for wound care, poor scarring, poor aesthetic outcome, intra operative cardiac or neurologic events, DVT, PE, and reaction to anesthesia. 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
[2023-06-08] MEDS: Lidocaine 1% /Epi 1:100 (20ml) 20 ML Vial (13:59)
[2023-06-08] MEDS: Mupirocin Ointment 22gm Tube 1 APPLIC (16:24)
[2023-06-08] MEDS: oxyCODONE 5 MG Tablet 10 MG PO (21:06)
[2023-06-08] MEDS: Docusate Sodium 100 MG Capsule PO (22:40)
[2023-06-08] MEDS: Heparin Injection (Vial) 5,000 UNIT/ML VIAL 5000 UNIT SC (22:40)
[2023-06-09 04:05] VITALS: BP 107/53; PULSE 70; RESP 18; TEMP 36.6; O2SAT 95
[2023-06-09 06:02] LABS: Hematocrit 38.4 % (37-47); Hemoglobin 12.7 g/dL (12.0-15.0); Mean Corp Hgb Conc 33.1 g/dL (32-36); Mean Corpuscular Hgb 27.4 pg (27.0-32.0); Mean Corpuscular Volume 82.9 fL (81-99); Mean Platelet Vol. 10.3 fl (6.2-12.0); Platelet Count 318 K/mm3 (150-450); RBC Distribution Width CV 15.1 % (11.6-14.6); RBC Distribution Width SD 45.8 fl (35.1-43.9); Red Blood Count 4.63 M/mm3 (4.2-5.4); White Blood Count 14.8 K/mm3 (4.4-11.0)
[2023-06-09 06:26] LABS: Anion Gap 4 (5-15); BUN 12 mg/dL (7-18); BUN/Creat Ratio 13.6 RATIO (10-20); Calcium,Total 8.9 mg/dL (8.5-10.1); Chloride 104 mmol/L (98-107); Creatinine, Serum 0.88 mg/dL (0.55-1.02); EST Glomerular Filtration Rate 72 mL/min (>60); Est Glom Filt Rate - Afr Amer 88 mL/min (>60); Estimated Creatinine Clearance 79.93 ml/min; Glucose 129 mg/dL (74-106); Sodium Level 135 mmol/L (136-145)
[2023-06-09 08:20] VITALS: BP 119/63; PULSE 74; RESP 16; TEMP 36.4; O2SAT 94
[2023-06-09] MEDS: Escitalopram Oxalate 10 MG Tablet PO (09:40)
[2023-06-09] MEDS: Docusate Sodium 100 MG Capsule PO (09:40)
[2023-06-09] MEDS: oxyCODONE 5 MG Tablet 10 MG PO ×2 (09:41→14:41)
[2023-06-09] MEDS: Juven (unflavored) Packet 1 PACKET PO (09:41)
[2023-06-09] MEDS: Heparin Injection (Vial) 5,000 UNIT/ML VIAL 5000 UNIT SC (09:41)
--- NOTE | 2023-06-09 10:03 | CASEMGMT ---
Addendum entered by Anu Pennington 06/09/23 15:01: Pt ready for dc. DC patient support assistant to send dc instructions to [facility]. Original Note: GUDELIA SCOTT Assessment: Face to Face with pt for initial transition planning/care coordination assessment. RN SONIA introduced self and role at [facility], pt voices understanding and consents to assessment. Pt is A/O x4 and answers all questions appropriately at this time. Pt lying in bed in no distress. Care providers, pharmacy, and demographics verified/updated. Admitting Dx: excisional debridement nonhealing MRSA ulcer PCP:Chip Specialists:ED Kraft Pharmacy: [facility] Insurance: [facility] Prescription Benefit: yes LNOK: Harry Olmos, son; Yomaira Olmos, dtr Living Arrangements: Pt lives with 2 adult dtrs in a single story home with 3 steps to enter. Pt reports she is I in ADL's and denies concerns at home. Transportation: Pt drives self and denies concerns with transportation. If pt cannot drive d/t surgery, her friend Magdalena is able to transport her to medical appts. DME/HHC/SNF: Pt denies having any DME in the home. Pt is active with [facility]. She states they have been visiting 3x/wk. If they are not visiting, pt dtr or her friend Mary Ann performs dressing changes, which are Dakins daily. Pt denies SNF stays. Pt states no concerns with going home at time of dc. She would like [facility] to resume care. She denies need for a list of other [facility] agencies that are options. Pt does also see the [facility] and her next appt is Jun 20. Pt states no further concerns/needs. CM to follow. Advised pt to ask CM if any further question/concerns/needs arise, voices understanding. Pt Goal: Home with [facility] Plan: Home with [facility]
--- NOTE | 2023-06-09 10:30 | CASEMGMT ---
Discharge Planning SN HH order sent to [facility] via [facility]. Cristal Mojica, Discharge Planning Asst.
[2023-06-09] MEDS: diazePAM 5 MG Tablet PO (12:48)
--- NOTE | 2023-06-09 13:35 | PN.SURG_ITS ---
Subjective Subjective Postop #1 She states her pain is well controlled. Objective Data Objective Data Vital Signs: Vital Signs Temp Pulse Resp BP Pulse Ox O2 Del Method O2 Flow Rate 97.6 F L 74 16 119/63 94 Room Air 2 06/09/23 08:20 06/09/23 08:20 06/09/23 08:20 06/09/23 08:20 06/09/23 08:20 06/09/23 08:20 06/08/23 18:31 Oxygen Flow Rate (L/min) 2 Oxygen Delivery Method Room Air Weight: 263 lb 12.8 oz Body Mass Index (BMI) 38.9 Intake & Output: Intake and Output for Last 24 Hours 06/07/23 06/08/23 06/09/23 23:59 23:59 23:59 Intake Total 1679.17 / 1679.17 1500 / 1500 Output Total 2054 / 2054 Balance 1679.17 / 1679.17 -555 / -555 Michael drain total 205 ml. Lab / Micro Data 06/09/23 05:24 06/09/23 05:24 Labs: Laboratory Results - last 24 hr 06/09/23 05:24: WBC 14.8 H, RBC 4.63, Hgb 12.7, Hct 38.4, MCV 82.9, MCH 27.4, MCHC 33.1, RDW Std Deviation 45.8 H, RDW Coeff of Adamaris 15.1 H, Plt Count 318, MPV 10.3, Sodium 135 L, Potassium 4.0, Chloride 104, Carbon Dioxide 27.0, Anion Gap 4 L, BUN 12, Creatinine 0.88, Estim Creat Clear Calc 79.93, Est GFR (MDRD) Af Amer 88, Est GFR (MDRD) Non-Af 72, BUN/Creatinine Ratio 13.6, Glucose 129 H, Calcium 8.9 Micro: Microbiology 06/08/23 Unknown Tissue Ulcer - Leg Gram Stain - Final Physical Exam Const alert, oriented x3 and no apparent distress General Appearance: cooperative HEENT normocephalic Head and Scalp: atraumatic Eyes General Eye: normal appearance of both eyes Resp normal respiratory effort Effort and Inspection: able to speak in complete sentences Back/Spine normal ROM Extremity normal capillary refill Skin Wound Narrative: Left lateral thigh dressing intact. Peaked at incision and it is dry and intact, no drainage noted. Michael drain intact. CLAUDIA wrap for compression. 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 Pain controlled with oral pain medication. She has already picked up her prescriptions for Doxycycline and Percocet preoperatively. Left lateral thigh dressing intact. Peaked at incision and it is dry and inta ct, no drainage noted. Michael drain intact. CLAUDIA wrap for compression. She is to keep a log of the drainage from the Michael drain and bring to her follow up appointment. She is to continue to wear CLAUDIA wrap for compression. She is to keep leg elevated when sitting. She may walk but is not to stand for any length of time. She may not drive until after her followup appointment. She will follow up in the office on Tuesday06/14/23 at 2 pm.
[2023-06-09 14:30] VITALS: BP 135/66; PULSE 78; RESP 16; TEMP 36.9; O2SAT 96
--- NOTE | 2023-06-09 14:39 | PHA.DC_ITS ---
Pharmacy [facility] has performed discharge medication reconciliation and counseling for this patient. The patient was counseled on the following discharge medications and changes in medications for homegoing were reviewed. 1. PERCOCET 2. DOXYCYCLINE The Reason for Use, instructions for use, and potential side effects were reviewed for all new medications. The Patient's questions regarding all of their medications were answered. The patient was able to verbally demonstrate an understanding of their discharge medications. The patient's discharge medication list was reviewed for discrepancies and discrepancies were resolved. Patient counselled by Alex Garcia PharmD Candidate Medications at Discharge Home Medications Wound care #1 ea 01/04/23 escitalopram oxalate 10 mg tablet (Lexapro) 10 mg PO DAILY mood 01/18/23 L.acidophil,salivari-Bifido bifidum-Strep thermoph 175 mg capsule (Acidophilus Probiotic Blend) 1 cap PO DAILY #30 caps 06/07/23 diazepam 5 mg tablet (Valium) 5 mg PO BID PRN muscle spasm 7 days #14 tabs 06/07/23 doxycycline hyclate 100 mg capsule 100 mg PO BID #20 caps 06/07/23 oxycodone-acetaminophen 5 mg-325 mg tablet (Percocet) 1 tab PO Q6H PRN pain (scale score 7-10) 7 days #28 tabs 06/07/23 promethazine 25 mg tablet 25 mg PO Q6H PRN nausea and vomiting #30 tabs 06/07/23
--- NOTE | 2023-06-09 14:48 | PCM.OPRPT ---
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 Nonhealing ulcer left proximal lateral thigh with extension toward the hip. 2. MRSA infection seroma abscess left proximal lateral thigh. 3. Status post excision lipoma left proximal lateral thigh with extension toward the hip with layered closure repair. Post-Operative Diagnosis: Same. Surgery/Procedure Performed:: Surgical preparation left proximal lateral thigh with extension toward the hip with excisional debridement nonhealing MRSA ulcer and 11 cm complex secondary wound closure. Description of Surgical Findings:: 48 year old woman who has had surgery on her bilateral proximal lateral thighs with extension toward the hip, (right side in September, and the left side in October,. Both incisions developed seromas that needed additional surgery. The right side is healed. The left side has a nonhealing ulcer after needing additional surgery in January, for a MRSA infection seroma abscess. Surgery 01/19/23 - Surgical preparation left lateral thigh with incision and drainage and excisional debridement MRSA infection seroma abscess (128 cm2). Surgery 12/28/22 - Surgical preparation left proximal lateral thigh with extension toward the hip with excisional debridement nonhealing seroma wound and 13 cm complex secondary wound closure. Surgery 11/10/22 - Excision 19 cm painful soft tissue mass left proximal lateral thigh with extension toward the hip with 11 cm layered closure repair and surgical preparation right proximal lateral thigh with extension toward the hip with excisional debridement nonhealing seroma wound and 13 cm complex secondary wound closure. She was discharged from the hospital on 11/12/22. Surgery 09/22/22 -Excision 18 cm painful subfascial soft tissue mass right proximal lateral thigh with extension toward the hip with 11 cm complex closure repair. Wound care - Dakin's. Pathology from 01/19/23 of the left lateral thigh seroma wound showed acute inflammation and abscess formation. Pathology from 12/28/21 of left proximal lateral thigh with extension toward the hip seroma wound showed skin with underlying tissue with acute and chronic inflammation, granulation tissue reaction and fat necrosis. Pathology from 11/10/22 of the left proximal lateral thigh with extension toward the hip mass showed mature adipose tissue consistent with lipoma. Pathology from 09/22/22 of the right proximal lateral thigh with extension toward the hip showed mass mature adipose tissue consistent with lipoma. Wound culture from 05/05/23 was positive for Corynebacterium striatum. Operative culture of left thigh tissue from 01/19/23 was negative for bacterial growth. She was treated with IV Vancomycin. Operative culture of left proximal lateral thigh with extension toward the hip from 12/28/22 positive for MRSA and Kocuria kristinae initially treated with Augmentin then switched antibiotic to Doxycycline. Prealbumin from 11/11/22 was 15.7. Encourage nutritional supplementation with protein to help the healing process. Today she denies any complaints of fever, chills, nausea, vomiting or any pain. Her appetite is good. Patient was informed of the risks and complications of the procedure including alternatives to surgery. These were discussed with the patient personally. Patient voices understanding and wishes to proceed. Potential risks and complications included but not inclusive of bleeding, infection, seroma, hematoma, bruising, swelling, prolonged need for drains, loss of sensation to skin, wound breakdown, need for wound care, poor scarring, poor aesthetic outcome, intra operative cardiac or neurologic events, DVT, PE, and reaction to anesthesia. I used Thomas absorbable hemostat, (I used 3 vials). Reference Number - [id number]. Lot Number - [id number]. Expiration - January 11, 2028. Surgeon: Francisco Kraft MD chief port director: Anusha Slade RNFA chief port director: Tomasa Choudhary RNFA Type of Anesthesia: General Anesthesiologist: Faraz rBady MD and Shoshana Castillo CRNA and SHAHNAZ Gamboa Specimen's removed: Nonhealing MRSA ulcer left proximal lateral thigh to Pathology and Microbiology. Drains: Michael. Estimated Blood Loss (mL): 150. Description of Procedure: Patient was taken to OR in supine position and was placed under general anesthesia. The left thigh was prepped and draped in the usual fashion. SCD's were placed for DVT prophylaxis. Perioperative antibiotics were given intravenously. Using xylocaine with epinephrine, the ulcer left proximal lateral thigh was infiltrated. After waiting 5 minutes for the anesthetic to take effect, I decided against a skin graft because of the amount of undermining that wasn't present a couple of weeks ago. So I will excise the MRSA ulcer with complex secondary wound closure. Using a scalpel I made incisions around the MRSA ulcer and adjacent scarring down through the subcutaneous tissue to the underlying muscle. There was adherent scar tissue to the muscle that was excised and debrided. After the surgical preparation was done, half the soft tissue was sent to Pathology for analysis to rule out carcinoma and half was sent to Microbiology for culture. A positive culture will necessitate antibiotic therapy. Hemostasis was obtained with electrocautery. I used Irrisept 0.05% Chlorhexidine for irrigation and followed with saline irrigation. I sprayed Thomas into the wound to minimize seroma formation postoperatively. I used 3 vials. I placed a size 15 Michael drain through a separate stab incision inferiorly and secured to the skin with 3-0 Nylon suture. The wound was then closed in a complex multi-layered closure with 2-0 Vicryl figure of eight interrupted sutures for the deep subcutaneous tissue and Gisselle's fascia. The deep dermis and subcutaneous tissue was approximated with 2-0 Vicryl and 3-0 Monocryl interrupted sutures. The skin was approximated with 3-0 Prolene vertical mattress interrupted sutures. Antibiotic ointment was applied to the suture line followed by Kerlix gauze, ABD pads, and a compression mary kay wrap. The length of the complex secondary wound closure was 11 cm. Patient tolerated the procedure well and was sent to PACU in satisfactory condition. Patient will be sent upstairs for continued postop care. Will discharge home in the morning when steady on her feet with ambulation and tolerating po analgesia. Grafts/Implants Used: Thomas. Procedure Start Time: 14:00 Procedure Stop Time: 16:45 Complications None. Admit VTE Documentation VTE Present on Admission: No VTE Mechan Device Prophylaxis: SCD's VTE Pharm Prophylaxis ordered?: Yes Addendum Addendum: Surgery Charges CPT - 37121 ICD-10 - L97.105, L76.33, L02.416, A49.02, Z98.890 55043 L97.105, L76.33, L02.416, A49.02, Z98.890
== END 2023-06-09 15:05 | disposition home or self-care (01) ==
LOC: SDC 17:56 → MS3 17:57
PROVIDERS: Anesthesiology; Admitting Provider Surgery; PCP Internal Medicine; Referring Provider Surgery; Visit Provider Surgery
PROC: (CPT 15002; principal; 2023-06-08 11:35)
DX: L97.125 Non-pressure chronic ulcer of left thigh with muscle involvement without evidence of necrosis (principal); L02.416 Cutaneous abscess of left lower limb; B95.62 Methicillin resistant Staphylococcus aureus infection as the cause of diseases classified elsewhere; L76.31 Postprocedural hematoma of skin and subcutaneous tissue following a dermatologic procedure; M79.89 Other specified soft tissue disorders; T81.89XA Other complications of procedures, not elsewhere classified, initial encounter; E07.9 Disorder of thyroid, unspecified
CPT/HCPCS: 15002; 13160; 00400; 88304; 36415; 80048; 81025; 85027; 87070; 87075; 87102; 87176; 87205; 87206; 88305; 94668; 96372; 99221; 99252; J2020; J7040; J7120; G0378; G0463; J2405

== ENCOUNTER 2023-10-27 14:30 | Outpatient (RCR) | payer MEDICAID, SELFPAY ==
--- NOTE | 2023-07-25 16:24 | HP.PTEVAL_ITS ---
Patient's Visit Information Visit Information Visit Information: MICHELLE PUTNAM is a 48 year old F referred to Physical Therapy by STEPHANIE Zelaya with a diagnosis of Pain in Left Leg. Date of Evaluation: 07/25/23 Physical Therapist: Dai Diggs DPT Visit Plan Frequency: 2x /Week Duration: 4 Weeks Plan: Focus on LE and core strength/stabilization, proprioception and ROM approved aquatic PT Subjective Subjective: Back when kids were little (5 kids) she had lumps on her thighs- painful- [place]rop[place] year-she could not do steps anymore- could not lay on her side- had huge lipomas on both sides- left was larger- it took Dr. Kraft 2 hours to remove them- one side at at time- she has had issues with both sides. Both sides are closed at this point and they look good. She has an extra lumbar vert and is also having a lot of pain in the back. She feels that she is struggling to get back to normal walking due to the right hip is having issue getting back to normal. She has limped for so long. She is on lifting restrictions from Dr. Kraft of no more than 20 min of standing and no more than 20 lbs and then on restrictions from OBGYN from bladder falling but unsure of exactly what those are. Discomfort is on the lateral side of the hip and more tightness along the lateral aspect of the greater troch- the pain does not radiate to the leg or into the lumbar spine. Burning pain and stretching pains- no sharp shooting pains. She has no restrictions on stretching pains- she does not bend very far. She has never been very flexible. She was normally very active but in the last 10 months. 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 She wears mary kay bandages for 06/06. She is sitting in the recliner or a mesh deck chair for the majority of the day. She will walk around her house but she does very little movement. Sleep: not disturbed- belly sleeper and side sleeper. Home Health Nurse is coming 3x a week but will probably start to wind down. PMHx/Meds: see list in chart. Objective Objective: Posture: FH, RS- can correct but does not maintain Observation: pt has bilateral thighs wrapped with mary kay bandages - did show PT pictures on phone of healed incisions Gait: antalgic- toes turned out bilateral- decreased carmen and stride length- increased hip sway SLS: weight shift but does not SLS- increased hip sway and muscle activation HR/TR: able with UE A ROM: Lumbar: hands to knees, Rot: decreased by 75%, SB: decreased by 50%, Extn: WNL reports discomfort with all ROM in lumbar spine, Hip: WFL bilateral but does report discomfort in all motions. Strength: Core: poor, Hip: Flexion: 4-/5, Abd: 4-/5, Add: 4/5, Extn: 4/5, IR: 4- /5, ER: 4-/5, Knee: Right: Extn: 36 Flexion: 18 Left: Extn: 21 Flexion: 13 Ankle: 5/5 Flex: HS: severe, Gastroc: moderate Palpation: tender along gluts bilateral, lumbar parapsinals. Balance/Special Test Scores Lower Extremity Functional Score: 39 Goals Goal 1:: Patient will be I with HEP and progression Goal Time Frame: 4-6 Weeks Goal 2:: Patient will ambulate >300 feet with a normalized gait pattern Goal Time Frame: 4-6 Weeks Goal 3:: Patient will maintain proper posture t/o tx session to demo increased core s/s Goal Time Frame: 4-6 Weeks Goal 4:: Patient will SLS for 15 sec to demo increased proprioception Goal Time Frame: 4-6 Weeks Goal 5:: Patient will report 80% improvement Goal Time Frame: 4-6 Weeks Rehabilitation Potential Physical Therapy Diagnosis: Patient presents with hypomobility- she has decreased LE and core strength/stabilization, flex, proprioception, and muscular endurance leading to poor posture, abnormal gait and increased pain with ADL's. Rehabilitation Potential: Good Anticipated Interventions Patient/Client Instruction: Educate patient on: Benefits of Fitness Program Therapeutic Exercise to Include: Strength training, Endurance training, Balance training, Agility training, Body mechanics, Postural training, Flexibilty training, Gait and locomotor training, Neuromotor development, In an aquatic setting, Passive ROM, Active ROM, Dynamic Lumbar Stabilization and Scapular Strength/Stabilization For the Purpose of:: To improve muscle performance and motor function Functional Training to Include: Gait training Text: Thank you for the opportunity to evaluate your patient. For Medicare and Medicare HMO plans, please review the plan of care and approve it. It will need to be FAXED BACK to us at [phone] for Medicare purposes. For Medicare only, by signing this I certify the plan of care. Please let me know if there are questions or concerns regarding this plan of care. Physician Signature: Date:
--- NOTE | 2023-09-08 15:47 | HP.PTREVAL_ITS ---
Re-Evaluation Intro: Christa Dolan, SOURAV-C, It has been my pleasure to treat MICHELLE PUTNAM over the last 9 visits for Pain in Left Leg. Please see the progress note below for an update on the physical therapy plan of care! Subjective Subjective: Patient reports that overall she feels that she is doing okay. She feels that therapy is helping. She is now able to alt stairs. She still favors it at the end of the day. She feels that she is 20-50% better. She is able to do everything its still just the fatigue that makes things hard. She is still having pain on/off. MD is talking about possibly going back in November Objective Objective/Function: Posture: fair throughout Observation: pt has bilateral thighs wrapped with mary kay bandages - did show PT pictures on phone of healed incisions but does have fat necrosis and the incision is now puckered in- MD is aware Gait: mildly antalgic- toes turned out bilateral- decreased carmen and stride length- increased hip sway SLS: weight shift but does not SLS- increased hip sway and muscle activation HR/TR: able with UE A ROM: Lumbar: hands to knees, Rot: decreased by 75%, SB: decreased by 50%, Extn: WNL reports discomfort with all ROM in lumbar spine, Hip: WFL bilateral but does report discomfort in all motions. Strength: Core: fair, Hip: Flexion: 4/5, Abd: 4/5, Add: 4/5, Extn: 4/5, IR: 4- /5, ER: 4-/5, Knee: Right: Extn: 33 Flexion: 29 Left: Extn: 38 Flexion: 29 Ankle: 5/5 Flex: HS: severe, Gastroc: moderate Plan Plan Plan: 09/08/23: Focus on LE and core strength/stabilization, proprioception and ROM approved aquatic PT Balance/Gait/Functional tests Balance/Special Test Scores Lower Extremity Functional Score: 63 Goals Goals Goal 1:: Patient will be I with HEP and progression Goal Time Frame: 4-6 Weeks Goal Progress: Progressing Goal 2:: Patient will ambulate >300 feet with a normalized gait pattern Goal Time Frame: 4-6 Weeks Goal Progress: Progressing Goal 3:: Patient will maintain proper posture t/o tx session to demo increased core s/s Goal Time Frame: 4-6 Weeks Goal Progress: Progressing Goal 4:: Patient will SLS for 15 sec to demo increased proprioception Goal Time Frame: 4-6 Weeks Goal Progress: Progressing Goal 5:: Patient will report 80% improvement Goal Time Frame: 4-6 Weeks Goal Progress: Progressing Anticipated Interventions Anticipated Interventions Patient/Client Instruction: Educate patient on: Benefits of Fitness Program Therapeutic Exercise to Include: Strength training, Endurance training, Balance training, Agility training, Body mechanics, Postural training, Flexibilty training, Gait and locomotor training, Neuromotor development, In an aquatic setting, Passive ROM, Active ROM, Dynamic Lumbar Stabilization and Scapular Strength/Stabilization For the Purpose of:: To improve muscle performance and motor function Functional Training to Include: Gait training Re-Evaluation Ending Re-evaluation ending: Please do not hesitate to contact me at [phone] by phone or if you have questions or concerns regarding this new plan of care! Sincerely, Dai Diggs DPT
--- NOTE | 2023-09-22 16:11 | HP.OTEVAL_ITS ---
Patient's Visit Information Visit Information Visit Information: MICHELLE PUTNAM is a 48 year old F, referred to Occupational Therapy by Christa Dolan NP-Rj, with a diagnosis of scar sensitivity s/p seroma T81.89XA. 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 Pain bilateral scars painful: Pain Intensity Range: 1 and 3 Lower Limb Functional Index Lower Extremity Functional Score: 34 Goals Goal:: pt will demo decrease in scar adhesions by 50% demo by wearing clothing without protective padding by d/c pt will report she can sit for greater than 4 hours at work without having to elevate legs. Rehabilitation General Assessment: pt demo with bilateral scars at hips/scars sensitive to touch and demo with hypertrophic scars limiting pts ability to wear different clothing textures/types. pt would benefit from skilled OT services 1-2x week for 3-4 weeks to desensitize scares for pt to tolerate sitting and different clothing textures to increase pts ind and return to her PLOF. pt demo understanding and agrees to POC. Rehabilitation Potential: Good Anticipated Interventions Anticipated Interventions: Scar Care, Triggerpoint Release, Desensitization, Sensory Retraining, Education re Diagnosis and Home Program Visit Plan Frequency: 1-2x /Week Duration: 4 Weeks TEXT: Thank you for the opportunity to evaluate your patient. For Medicare and Medicare HMO plans, please review the plan of care and approve it. It will need to be FAXED BACK to us at [phone] for Medicare purposes. Please let me know if there are questions or concerns regarding this plan of care. Physician Signature: Date:
--- NOTE | 2023-10-25 16:02 | HP.OTDCSUM_ITS ---
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 Please see the following information for a summary of their discharge status. Overall Improvement % Improvement: 50 Objective Objective/Function: pt tolerated manual scar mobilization well Goals Patient Goals: Decrease Pain and Other Other: learn how to mt. scar Goal:: pt will demo decrease in scar adhesions by 50% demo by wearing clothing without protective padding by d/c pt will report she can sit for greater than 4 hours at work without having to elevate legs. Plan Plan: will work with manual scar mobilization. D/C Information Discharge Comments: pt has been seen for 5 OT sessions to decrease her scar se nsitivity- therapist use manual scar mobilization and desensitization. Pt states she is compliant with her HEP but still has scar sensitivity when wearing her clothing- pt demo understanding of her HEP- and will continue on her on her own. pt d/c at this time. d/c sentence: If there are questions or concerns regarding this patient's occupational therapy, please fell free to call me at [phone]. Thank you for the referral of this patient. Sincerely, Zenia Anglin, OTR/L, CHT
--- NOTE | 2023-10-27 15:06 | HP.PTDCSUM_ITS ---
Discharge Summary D/C summary: It has been my pleasure to treat MICHELLE PUTNAM referred by STEPHANIE Zelaya, with the diagnosis of Pain in Left Leg for a total of 22 visit(s). Discharge Date: 10/27/23 Please see the following information for a summary of their discharge status. Subjective Subjective: She reports that she has soreness in her L leg. She has paperwork that she can take to [facility] and do exercises. Pain LLE: Pain Intensity (Out of 10): 2 Overall Improvement % Improvement: 95 Objective Objective/Function: Pt is doing much better and met all PT goals Goals Goal 1:: Patient will be I with HEP and progression Goal Progress: Goal Met Goal 2:: Patient will ambulate >300 feet with a normalized gait pattern Goal Progress: Goal Met Goal 3:: Patient will maintain proper posture t/o tx session to demo increased core s/s Goal Progress: Goal Met Goal 4:: Patient will SLS for 15 sec to demo increased proprioception Goal Progress: Goal Met Goal 5:: Patient will report 80% improvement Goal Progress: Goal Met Plan Plan: DC PT to indep pool program D/C Information Discharge Comments: DC PT to I water program d/c sentence: If there are questions or concerns regarding this patient's physical therapy, please feel free to call me at [phone]. Thank you for the referral of this patient. Sincerely, Azeb Martinez, MPT Balance/Gait/Functional tests Balance/Special Test Scores Lower Extremity Functional Score: 60 Improvement % Improvement: 95
== END 2023-10-27 19:00 | disposition home or self-care (01) ==
LOC: PT 14:30
PROVIDERS: PCP Internal Medicine; Referring Provider Nurse Practitioner Family; Visit Provider Nurse Practitioner Family
DX: R20.8 Other disturbances of skin sensation (principal); L97.105 Non-pressure chronic ulcer of unspecified thigh with muscle involvement without evidence of necrosis; M79.605 Pain in left leg
CPT/HCPCS: 97110; 97113; 97140; 97162; 97164; 97166; 97530